=== PATIENT | female | born 1960 | race Caucasian/White ===

== ENCOUNTER → 2019-09-19 12:54 | Outpatient (CLI) | payer OTHER, SELFPAY ==
--- NOTE | 2019-09-19 12:57 | DI.RAD.S_ITS ---
PROCEDURE: XR ELBOW LT MIN 3V INDICATIONS: elbow pain TECHNIQUE: 3 views of the elbow were acquired. COMPARISON: None. FINDINGS: Bones: There is a moderately displaced intra-articular fracture present involving the olecranon process of the left elbow. There is separation of the fracture fragments back to 1.9 cm. No dislocation or additional fractures are identified. Postoperative changes of the mid ulnar shaft is present with an orthopedic plate secured in place by multiple screws. Deformity of the proximal radial shaft probably is related to a healed fracture. Soft tissues: There is a large elbow joint effusion. No suspicious soft tissue calcifications. Prominent soft tissue edema about the elbow is present. IMPRESSION: Moderately displaced intra-articular olecranon fracture. Dictated by: Sai Ramos M.D. on 09/19/2019 at 12:11 Approved by: Sai Ramos M.D. on 09/19/2019 at 12:13
== END ==
PROVIDERS: Visit Provider Physician Assistant
DX: M25.522 Pain in left elbow (principal); M25.422 Effusion, left elbow; S52.032A Displaced fracture of olecranon process with intraarticular extension of left ulna, initial encounter for closed fracture; X58.XXXA Exposure to other specified factors, initial encounter
CPT/HCPCS: 73080

== ENCOUNTER → 2022-03-26 10:05 | Outpatient (CLI) | payer OTHER, SELFPAY ==
--- NOTE | 2022-03-26 10:16 | DI.MRI.S_ITS ---
PROCEDURE: MRFOOT LT WO CON INDICATIONS: LEFT FOOT PAIN TECHNIQUE: Noncontrast sagittal T1 spin echo and T2 fast spin echo with fat saturation, long-axis T1 spin echo and T2 fast spin echo with fat saturation, short-axis T1 spin echo and T2 fast spin echo with fat saturation through the forefoot. COMPARISON: None. FINDINGS: Image quality: Excellent. Bones and joints: There is a small minimally displaced intra-articular fracture at the base of the 1st metatarsal extending into the tarsometatarsal joint with moderate osseous edema extending throughout the 1st metatarsal. A small nondisplaced and possibly incomplete fracture is seen at the distal plantar aspect of the 1st cuneiform near the Lisfranc ligament attachment. There is a minimally displaced comminuted fracture of the 2nd metatarsal base extending into the 2nd tarsometatarsal joint with surrounding osseous edema. The fracture includes the Lisfranc ligament attachment site. Mild focal osseous edema is also seen at the 2nd and 3rd metatarsal necks without a definite fracture line visualized, possibly related to osseous contusions, stress reaction, or total fractures. Nondisplaced fracture is seen in the 3rd cuneiform that likely extends to the 3rd tarsometatarsal joint. Mild osseous edema is seen at the base of the 3rd metatarsal with a suspected small minimally displaced fracture along the plantar aspect. There is a minimally displaced fracture of the 4th metatarsal base extending into the 4th tarsometatarsal joint. The 5th metatarsal is intact. There is osseous edema and a nondisplaced fracture of the distal aspect of the cuboid. Mild nonspecific osseous edema is seen within the included portion of the calcaneus. No acute trabecular bone injury is seen within the toes. Mild scattered degenerative changes are seen at the interphalangeal joints. The hallux sesamoids are normally aligned. Soft tissues: Portions of the Lisfranc ligament appear attenuated and may be partially torn. There is no significant widening of the 1st intermetatarsal distance. Soft tissue edema is seen throughout the midfoot. There is intramuscular edema adjacent to the osseous fractures. The visualized plantar foot muscles demonstrate normal bulk. Visualized flexor and extensor tendons appear intact. No intermetatarsal mass. Sagittal images demonstrate no evidence for plantar plate tears. IMPRESSION: 1. Multiple nondisplaced to minimally displaced fractures throughout the midfoot including at the bases of the 1st through 4th metatarsals as well as the 1st and 3rd cuneiforms and the cuboid. Osseous edema is extends throughout the 1st metatarsal shaft. No significant step-off is seen at the tarsometatarsal joints. 2. Osseous fractures are seen involving the attachment sites of the Lisfranc ligament. The ligament appears indistinct and may be partially torn. No significant widening of the 1st intermetatarsal distance. 3. Mild focal osseous edema at the 2nd and 3rd metatarsal necks, which may be related to osseous contusions versus subtle nondisplaced fractures or acute stress reaction. Dictated by: Kali Prieto M.D. on 03/28/2022 at 8:56 Approved by: Kali Prieto M.D. on 03/28/2022 at 9:11
== END ==
PROVIDERS: Referring Provider Counselor Mental Health; Visit Provider Counselor Mental Health
DX: S92.902A Unspecified fracture of left foot, initial encounter for closed fracture (principal)
CPT/HCPCS: 73718

== ENCOUNTER 2022-06-08 23:36 | Inpatient (IN) | payer OTHER, SELFPAY ==
--- NOTE | 2022-06-08 23:43 | DI.RAD.S_ITS ---
PROCEDURE: XR HIP W PEL IF DONE LT 2V INDICATIONS: fall TECHNIQUE: AP pelvis with lateral view(s) of the left hip(s). COMPARISON: None. FINDINGS: Bones: No dislocations. Pelvic ring appears intact. No suspicious bony lesions. There is a inter trochanteric mildly comminuted left hip fracture, and beneath this fracture at the inferior obturator ring on the left there is a 2nd area of fracture with mild comminution. Soft tissues: The visualized bowel gas pattern is normal. No suspicious soft tissue calcifications. IMPRESSION: Inter trochanteric left hip fracture, associated with a lateral inferior obturator ring fracture on the left. Dictated by: Farhan Singletary M.D. on 06/09/2022 at 0:17 Approved by: Farhan Singletary M.D. on 06/09/2022 at 0:19
--- NOTE | 2022-06-08 23:43 | DI.RAD.S_ITS ---
PROCEDURE: XR CHEST 1V INDICATIONS: fall TECHNIQUE: One view of the chest was acquired. COMPARISON: None. FINDINGS: Surgical changes and devices: None. Lungs and pleura: Lungs are clear. No pleural effusions or pneumothorax. Mediastinum: Mediastinal contours appear normal. Heart size is normal. Bones and chest wall: No suspicious bony lesions. Overlying soft tissues appear unremarkable. IMPRESSION: Relatively large lung volumes, COPD may be present. No trauma found. Dictated by: Farhan Singletary M.D. on 06/09/2022 at 0:17 Approved by: Farhan Singletary M.D. on 06/09/2022 at 0:17
[2022-06-08 23:56] VITALS: PULSE 67; RESP 19; O2SAT 96
[2022-06-09] VITALS (21 sets, daily range): BP systolic 102–157; BP diastolic 61–88; PULSE 65–88; RESP 11–27; TEMP 35.9–37.3; O2SAT 91–99; BMI 16.0
[2022-06-09 00:14] LABS: Alanine Aminotransferase 15 IU/L (<35); Albumin 2.9 g/dL (3.5-5.0); Albumin Globulin Ratio 0.9 (1.0-2.8); Alkaline Phosphatase 96 U/L (38-126); Aspartate Aminotransferase 29 IU/L (14-36); Bilirubin Total 0.4 mg/dL (0.2-1.3); Calcium 7.4 mg/dL (8.4-10.2); Carbon Dioxide 22 mmol/L (22-32); Chloride 92 mmol/L (98-107); Estimated Glomerular Filt Rate > 60 mL/min (>60); Globulin 3.1 g/dL (1.7-4.1); Glucose 96 mg/dL (80-110); Sodium 122 mmol/L (137-145)
[2022-06-09 00:16] LABS: Add Manual Diff / Slide Review YES; BUN Creatinine Ratio 6.3 (6-22); Blood Urea Nitrogen < 2 mg/dL (7-17); Hematocrit 34.9 % (36-46); Hemoglobin 11.9 g/dL (12.0-16.0); Mean Corpuscular HGB Conc 34.2 % (30-36); Mean Corpuscular Hemoglobin 35.1 PG (26-34); Mean Corpuscular Volume 102.6 fL (80-100); Platelet Count 306 X10^3/uL (150-400); Red Cell Distribution Width 13.1 % (11.6-14.8); White Blood Cell Count 11.8 X10^3/uL (4.5-11.0)
[2022-06-09 00:17] LABS: HEMOLYSIS 96 (0-50); Potassium 4.1 mmol/L (3.4-5.1)
--- NOTE | 2022-06-09 00:35 | ED.FALL ---
HPI - Fall General Chief Complaint: Fall Stated Complaint: GLF, left hip pain Time Seen by Provider: 06/08/22 23:36 Source: patient and EMS Mode of arrival: EMS History of Present Illness HPI Narrative: Patient is a 61-year-old female history of smoking, presents today after fall. She states that she has been using a walker for the past few weeks he she does have a known compression fracture from coughing. She is not sure how she fell tonight she thinks maybe she stumbled. She did not have a chest pain palpitations shortness of breath fever or chills. She did not hit her head or lose consciousness. She is not on any anti-platelet or anticoagulation medications. She is complaining of left hip pain. It is obviously shortened. She was unable to get up and required EMS assistance. Related Data Home Medications Medication Instructions Recorded Confirmed No Known Home Medications 09/19/19 09/19/19 Allergies Allergy/AdvReac Type Severity Reaction Status Date / Time morphine AdvReac Intermediate Hallucinati Verified 06/09/22 00:03 ng Penicillins [PENICILLINS] AdvReac Intermediate rash Verified 09/19/19 13:46 Review of Systems Review of Systems Narrative: GENERAL: Denies chills, fatigue, malaise, fever, sweats, travel HEENT: Denies sinus pain, ear pain, sore throat, difficulty swallowing, neck pain RESPIRATORY: Denies dyspnea, cough, wheezing, hemoptysis, sputum. CARDIOVASCULAR: Denies chest pain, palpitations, orthopnea, edema GASTROINTESTINAL: Denies nausea, vomiting, abdominal pain, diarrhea, constipation, melena. : Denies dysuria, frequency, incontinence, hematuria, urinary retention, flank pain. MUSCULOSKELETAL: See HPI SKIN: No rash, no erythema, no pruritus NEUROLOGIC: Denies weakness, dizziness, headache, numbness, change in speech, confusion PSYCHIATRIC: No concerning psychosocial issues. 12 point review of systems is negative except for those stated above and HPI Patient History Surgical History Status post appendectomy Status post breast lumpectomy Status post hysterectomy Social History Smoking Status: Current every day smoker Smoking Status: Current every day smoker alcohol intake frequency: 3 or more drinks per day Alcohol type: wine Substance Use Type: does not use Exam Initial Vital Signs Initial Vital Signs: Vital Signs Pulse Rate 67 06/08/22 23:56 Respiratory Rate 19 06/08/22 23:56 Pulse Oximetry 96 06/08/22 23:56 GENERAL: HEENT: Head atraumatic,EOMI, pupils reactive, face symmetric, [moist] mucous membranes [EARS:] [Tympanic membranes visualized, no erythema or bulging, no hemotympanum] [PHARYNX:] [No erythema, no tonsillar exudate, no cervical lymphadenopathy] CARDIOVASCULAR: Regular rate and rhythm without murmurs, rubs or gallops. RESPIRATORY: Breath sounds equal bilaterally, no wheezes rales or rhonchi. ABDOMEN: Soft, nontender. Normoactive bowel sounds all 4 quadrants. No guarding or rebound. EXTREMITIES: Normal range of motion, no clubbing or edema. Neurovascularly intact Left hip is tender left leg is shortened NEUROLOGICAL: Alert and oriented x4 SKIN: Warm, dry, no laceration, no petechiae, no rashes or lesions. Course Orders Ordered: ED Orders 06/08/22 23:43 XR chest 1V Stat XR hip w pel if done LT 2V Stat 06/08/22 23:50 CBC Auto Diff [Complete Blood Count AUTO DIFF] Stat CMP [Comprehensive Metabolic Panel] Stat 06/09/22 00:15 COVID19 -Nasal RAPID/Pre-Proc Stat 06/09/22 00:40 Consult to Orthopedic Surgery Stat 06/09/22 00:54 ETOH [Ethanol (ETOH)] Stat Discontinued Medications Hydromorphone HCl (Hydromorphone 0.5 Mg Inj) 0.5 mg IV NOW ONE Stop: 06/09/22 00:31 Last Admin: 06/09/22 00:51 Dose: 0.5 mg Documented By: MLDea Morphine Sulfate (Morphine 2 Mg/Ml Inj) 2 mg IV NOW ONE Stop: 06/08/22 23:46 Last Admin: 06/09/22 00:05 Dose: Not Given Documented By: AMU Vital Signs Vital signs: Vital Signs - 8 hr 06/09/22 00:03 06/08/22 23:56 06/09/22 00:00 Temperature 97.7 F Pulse Rate 67 67 Respiratory Rate 16 19 Blood Pressure 115/74 112/68 Pulse Oximetry 97 96 Oxygen Delivery Method Room Air Oxygen Flow Rate 06/09/22 00:00 06/09/22 00:30 06/09/22 00:30 Temperature Pulse Rate 68 67 Respiratory Rate 18 18 Blood Pressure 102/61 Pulse Oximetry 91 Oxygen Delivery Method Nasal Cannula Oxygen Flow Rate 1 06/09/22 01:00 06/09/22 01:00 Temperature Pulse Rate 73 Respiratory Rate 24 Blood Pressure 109/74 Pulse Oximetry 98 Oxygen Delivery Method Oxygen Flow Rate MDM - Fall Lab Data Result diagrams: 06/08/22 23:50 06/08/22 23:50 Labs: Lab Results 06/08/22 06/08/22 06/08/22 Range/Units 23:50 23:50 23:50 WBC 11.8 H (4.5-11.0) X10^3/uL RBC 3.40 L (4.0-5.2) X10^6/uL Hgb 11.9 L (12.0-16.0) g/dL Hct 34.9 L (36-46) % MCV 102.6 H (80-100) fL MCH 35.1 H (26-34) PG MCHC 34.2 (30-36) % RDW 13.1 (11.6-14.8) % Plt Count 306 (150-400) X10^3/uL Neut % (Auto) Not Reportable Lymph % (Auto) Not Reportable [place] % (Auto) Not Reportable Eos % (Auto) Not Reportable Baso % (Auto) Not Reportable Lymph # (Auto) Not Reportable [place] # (Auto) Not Reportable Baso # (Auto) Not Reportable Sodium 122 L (137-145) mmol/L Potassium 4.1 (3.4-5.1) mmol/L Chloride 92 L (98-107) mmol/L Carbon Dioxide 22 (22-32) mmol/L BUN < 2 L (7-17) mg/dL Creatinine 0.32 L (0.52-1.04) mg/dL Estimated GFR > 60 (>60) mL/min BUN/Creatinine Ratio 6.3 (6-22) Glucose 96 (80-110) mg/dL Calcium 7.4 L (8.4-10.2) mg/dL Total Bilirubin 0.4 (0.2-1.3) mg/dL AST 29 (14-36) IU/L ALT 15 (<35) IU/L Alkaline Phosphatase 96 (38-126) U/L Total Protein 6.0 L (6.3-8.2) g/dL Albumin 2.9 L (3.5-5.0) g/dL Globulin 3.1 (1.7-4.1) g/dL Albumin/Globulin Ratio 0.9 L (1.0-2.8) Ethyl Alcohol 180 H ( - 10) mg/dL SARS-CoV-2 (PCR) (Negative) 06/09/22 Range/Units 00:15 WBC (4.5-11.0) X10^3/uL RBC (4.0-5.2) X10^6/uL Hgb (12.0-16.0) g/dL Hct (36-46) % MCV (80-100) fL MCH (26-34) PG MCHC (30-36) % RDW (11.6-14.8) % Plt Count (150-400) X10^3/uL Neut % (Auto) Lymph % (Auto) [place] % (Auto) Eos % (Auto) Baso % (Auto) Lymph # (Auto) [place] # (Auto) Baso # (Auto) Sodium (137-145) mmol/L Potassium (3.4-5.1) mmol/L Chloride (98-107) mmol/L Carbon Dioxide (22-32) mmol/L BUN (7-17) mg/dL Creatinine (0.52-1.04) mg/dL Estimated GFR (>60) mL/min BUN/Creatinine Ratio (6-22) Glucose (80-110) mg/dL Calcium (8.4-10.2) mg/dL Total Bilirubin (0.2-1.3) mg/dL AST (14-36) IU/L ALT (<35) IU/L Alkaline Phosphatase (38-126) U/L Total Protein (6.3-8.2) g/dL Albumin (3.5-5.0) g/dL Globulin (1.7-4.1) g/dL Albumin/Globulin Ratio (1.0-2.8) Ethyl Alcohol ( - 10) mg/dL SARS-CoV-2 (PCR) Negative (Negative) Urine Dip Bedside Urine Glucose Negative Bedside Urine Bilirubin - Negative Bedside Urine Ketone - Negative Urine Specific [place] 1.010 Bedside Urine Occult Blood - Negative Bedside Urine pH 6 Bedside Urine Protein - Negative Bedside Urine Urobilinogen - Negative Bedside Urine Nitrite - Negative Bedside Urine Leukocytes - Negative Esterase Imaging Data Chest x-ray: Radiologist's Impression: XRay Report Signed Patient: Fadia Ceballos MR#: [id number] : 1960 Acct:[id number] Age/Sex: 61 / F Date of Service: 06/08/22 Loc: ED Accession Number: [id number] ?? Procedure: XR chest 1V Ordering Provider: Leena Patiño D.O. PROCEDURE:? XR CHEST 1V ? INDICATIONS:? fall ? TECHNIQUE:? One view of the chest was acquired.? ? COMPARISON:? None. ? FINDINGS:? ? Surgical changes and devices:? None.? ? Lungs and pleura:? Lungs are clear.? No pleural effusions or pneumothorax.? ? Mediastinum:? Mediastinal contours appear normal.? Heart size is normal.? ? Bones and chest wall:? No suspicious bony lesions.? Overlying soft tissues appear unremarkable.? ? IMPRESSION:? Relatively large lung volumes, COPD may be present.? No trauma found. ? ? Dictated by: Farhan Singletary M.D. on 06/09/2022 at 0:17 ? ? Extremity x-ray #1: Radiologist's Impression: XRay Report Signed Patient: Fadia Ceballos MR#: [id number] : 1960 Acct:[id number] Age/Sex: 61 / F Date of Service: 06/08/22 Loc: ED Accession Number: [id number] ?? Procedure: XR hip w pel if done LT 2V Ordering Provider: Leena Patiño D.O. PROCEDURE:? XR HIP W PEL IF DONE LT 2V ? INDICATIONS:? fall ? TECHNIQUE:? AP pelvis with lateral view(s) of the left hip(s).? ? COMPARISON:? None. ? FINDINGS:? ? Bones:? No dislocations.? Pelvic ring appears intact.? No suspicious bony lesions.? There is a inter trochanteric mildly comminuted left hip fracture, and beneath this fracture at the inferior obturator ring on the left there is a 2nd area of fracture with mild comminution. ? Soft tissues:? The visualized bowel gas pattern is normal.? No suspicious soft tissue calcifications.? ? ? IMPRESSION:? Inter trochanteric left hip fracture, associated with a lateral inferior obturator ring fracture on the left. ? Dictated by: Farhan Singletary M.D. on 06/09/2022 at 0:17 ? ? ECG Data Interpretation: Normal sinus rhythm rate 66 [place] interval 152 QRS [address] changes no T-wave inversion MDM Narrative Medical decision making narrative: Patient likely had a mechanical fall. She is found have an intertrochanteric fracture along with obturator ring fracture. Distal pedal pulse is intact. His patient is also intoxicated with alcohol level of 180 which may have contributed to her fall. No sign of head injury and no anticoagulation. Multiple reports a that she did not hit her head this time no need for CT head. Patient also of found to be hyponatremic with a sodium of 122 unclear if this acute or chronic and its cause, possible alcohol use or other. Patient has tolerated Dilaudid for pain. Next consult in updated. Dr. Palmer accepts patient Discharge Plan Departure Patient Disposition: Admitted As Inpatient Clinical Impression: Closed fracture of left hip, Hyponatremia Admit Date/Time: 06/09/22 02:20 Admit Provider: Rell Palmer
[2022-06-09 00:46] LABS: COVID19 -Nasal RAPID Negative (Negative)
[2022-06-09] MEDS: HYDROMORPHONE 0.5 MG INJ IV ×3 (00:51→21:16)
[2022-06-09 01:20] LABS: Ethanol (ETOH) 180 mg/dL
[2022-06-09] MEDS: OXYCODONE IR 5 MG TABLET PO ×4 (04:10→23:51)
[2022-06-09] MEDS: SODIUM CHLORIDE 0.9% 1,000 ML 100 ML IV ×2 (04:10→13:16)
[2022-06-09 04:15] LABS: Neutrophils Absolute Manual 8142 /uL (3000-5900); Total Cells Counted 100
[2022-06-09 04:16] LABS: RBC Morphology Normal Morphology
--- NOTE | 2022-06-09 05:42 | PM.HP.1 ---
History of Present Illness History of Present Illness Date Patient Seen: 06/09/22 Time Patient Seen: 05:00 Chief complaint: GLF, left hip pain Narrative: Ms. Ceballos is a 61W active smoker, no known PMH who presents after a fall. She states she has had back pain after getting a compression fracture from coughing a few weeks ago. She was using a walker at home. She fell to the ground today, she is not sure why, she thinks she tripped. She did not hit her head. She did fall on her left hip and could not ambulate after. She has had a poor appetite recently, and has chronic diarrhea. In the ED workup was done, vitals notable for afebrile, blood pressure 110s/70s. Labs notable for WBC 11.8, hgb 11.9, plts 306. Na 122, creatinine 0.32. EtOH 180. UA negative. Chest xray with large lung volumes. Hip xray with left intertrochanteric fracture and lateral obturator ring fracture. PMH: none Medications: ibuprofen PRN Social history: 1.5 ppd, EtOH variable, but sometimes significant, per patient no history of withdrawal Patient History Surgical History Status post appendectomy Status post breast lumpectomy Status post hysterectomy Family & Social History Safety & Behavioral: Feels Safe in Current Yes Environment Tobacco & Substance use: Smoking Status Current every day smoker alcohol intake frequency 3 or more drinks per day Substance Use Type does not use Meds Home Medications and Allergies Home Medications Medication Instructions Recorded Confirmed Type No Known Home Medications 09/19/19 09/19/19 History Allergies Allergy/AdvReac Type Severity Reaction Status Date / Time morphine AdvReac Intermediate Hallucinati Verified 06/09/22 00:03 ng Penicillins [PENICILLINS] AdvReac Intermediate rash Verified 09/19/19 13:46 Review of Systems Review of Systems Narrative: 14 systems reviewed and negative aside from what is noted in HPI Exam Vital Signs (past 8 hours): - 06/09/22 00:03 06/08/22 23:56 06/09/22 00:00 Temperature 97.7 F Pulse Rate 67 67 Respiratory Rate 16 19 Blood Pressure 115/74 112/68 Pulse Oximetry 97 96 Oxygen Delivery Method Room Air Oxygen Flow Rate 06/09/22 00:00 06/09/22 00:30 06/09/22 00:30 Temperature Pulse Rate 68 67 Respiratory Rate 18 18 Blood Pressure 102/61 Pulse Oximetry 91 Oxygen Delivery Method Nasal Cannula Oxygen Flow Rate 1 06/09/22 01:00 06/09/22 01:00 06/09/22 01:30 Temperature Pulse Rate 73 Respiratory Rate 24 Blood Pressure 109/74 111/66 Pulse Oximetry 98 Oxygen Delivery Method Oxygen Flow Rate 06/09/22 01:30 06/09/22 02:00 06/09/22 02:00 Temperature Pulse Rate 65 67 Respiratory Rate 11 L 12 Blood Pressure 105/66 Pulse Oximetry 96 96 Oxygen Delivery Method Oxygen Flow Rate 06/09/22 02:30 06/09/22 02:30 06/09/22 03:15 Temperature 97.2 F L Pulse Rate 68 68 Respiratory Rate 27 H 15 Blood Pressure 113/64 133/80 Pulse Oximetry 96 98 Oxygen Delivery Method Oxygen Flow Rate 0 06/09/22 02:51 Temperature Pulse Rate Respiratory Rate Blood Pressure Pulse Oximetry Oxygen Delivery Method Nasal Cannula Oxygen Flow Rate Oxygen Delivery Method Nasal Cannula Oxygen Flow Rate 0 Narrative Exam Narrative: GEN: no acute distress HEENT: moist mucous membranes, PERRL NECK: trachea midline, no JVD PULM: clear bilaterally, no wheezes, rhonchi, rales CV: regular rate and rhythm, no murmurs ABD: soft, nontender, nondistended, no organomegaly EXT: warm and well perfused, left hip tender NEURO: awake, alert, oriented, no focal deficits Objective Labs Result Diagrams: 06/08/22 23:50 06/08/22 23:50 Labs: Laboratory Results - last 24 hr 06/08/22 06/08/22 06/08/22 23:50 23:50 23:50 WBC 11.8 H RBC 3.40 L Hgb 11.9 L Hct 34.9 L MCV 102.6 H MCH 35.1 H MCHC 34.2 RDW 13.1 Plt Count 306 Neut % (Auto) Not Reportable Lymph % (Auto) Not Reportable [place] % (Auto) Not Reportable Eos % (Auto) Not Reportable Baso % (Auto) Not Reportable Lymph # (Auto) Not Reportable [place] # (Auto) Not Reportable Baso # (Auto) Not Reportable Total Counted 100 Seg Neutrophils % 68.0 Band Neutrophils % 1.0 L Lymphocytes % (Manual) 21.0 L Monocytes % (Manual) 9.0 Metamyelocytes % 1.0 H Neutrophils # (Manual) 8142 H RBC Morphology Normal morphology Sodium 122 L Potassium 4.1 Chloride 92 L Carbon Dioxide 22 BUN < 2 L Creatinine 0.32 L Estimated GFR > 60 BUN/Creatinine Ratio 6.3 Glucose 96 Calcium 7.4 L Total Bilirubin 0.4 AST 29 ALT 15 Alkaline Phosphatase 96 Total Protein 6.0 L Albumin 2.9 L Globulin 3.1 Albumin/Globulin Ratio 0.9 L Ethyl Alcohol 180 H SARS-CoV-2 (PCR) 06/09/22 00:15 WBC RBC Hgb Hct MCV MCH MCHC RDW Plt Count Neut % (Auto) Lymph % (Auto) [place] % (Auto) Eos % (Auto) Baso % (Auto) Lymph # (Auto) [place] # (Auto) Baso # (Auto) Total Counted Seg Neutrophils % Band Neutrophils % Lymphocytes % (Manual) Monocytes % (Manual) Metamyelocytes % Neutrophils # (Manual) RBC Morphology Sodium Potassium Chloride Carbon Dioxide BUN Creatinine Estimated GFR BUN/Creatinine Ratio Glucose Calcium Total Bilirubin AST ALT Alkaline Phosphatase Total Protein Albumin Globulin Albumin/Globulin Ratio Ethyl Alcohol SARS-CoV-2 (PCR) Negative Assessment & Plan Assessment & Plan narrative: 1. Acute left hip fracture secondary to fall -possibly secondary to intoxication -pelvic fracture also noted on xray -orthopedic surgery consulted -keep patient npo -pain medications ordered 2. Hyponatremia -unclear chronicity -recheck sodium with morning labs -suspect secondary to hypovolemia and possible beer potomania given poor oral intake and chronic diarrhea -gentle IVF -ordered for urine osms 3. Macrocytic anemia -suspect secondary to alcohol abuse -follow up as outpatient 4. Active smoker -encouraged cessation -patient declined nicotine patch 5. Alcohol intoxication -patient denies any history of withdrawal -for now ordered for CIWA protocol -wasn't forthcoming how much she drinks, concerning may be significant amount -ordered mvi, thiamine, folate 6. Cachexia, malnutrition -patient with poor appetite, BMI 16 -possibly alcohol contributing -dietary consult CODE: Full Proxy: Duncan Torotaylor, spouse I have utilized all available resources to reconcile the patient's home medications Time Spent With Patient Critical Care time: I spent a total of [] minutes of critical care time on this patient's care today; this time is exclusive of procedural time.
--- NOTE | 2022-06-09 05:49 | PC.NURSE ---
Pt is AxOx4, needs bedrest due to pain on L hip. VSS, c/o pain and recieved PRN Oxy PO 5mg with good effect. Pt is NPO since admitted. Goncalves is draining yellow urine. Pt has NS is running 100 ml/hr. Continue monitor.
[2022-06-09 07:05] LABS: Add Manual Diff / Slide Review NO; Basophils Absolute Auto 0 /uL (0-100); Basophils Percent Auto 0.5 % (0-2); Eosinophils Absolute Auto 0 /uL (0-450); Eosinophils Percent Auto 0.4 % (2-4); Hematocrit 35.8 % (36-46); Hemoglobin 12.4 g/dL (12.0-16.0); Lymphocytes Absolute Auto 1300 /uL (1100-4500); Lymphocytes Percent Auto 14.5 % (25-40); Mean Corpuscular HGB Conc 34.6 % (30-36); Mean Corpuscular Hemoglobin 35.9 PG (26-34); Mean Corpuscular Volume 103.8 fL (80-100); Monocytes Absolute Auto 1000 /uL (0-900); Monocytes Percent Auto 11.3 % (3-14); Neutrophils Absolute Auto 6600 /uL (1500-7000); Neutrophils Percent Auto 73.3 % (50-75); Platelet Count 297 X10^3/uL (150-400); Red Blood Cell Count 3.45 X10^6/uL (4.0-5.2); Red Cell Distribution Width 12.9 % (11.6-14.8)
[2022-06-09 07:11] LABS: Calcium 8.1 mg/dL (8.4-10.2); Carbon Dioxide 27 mmol/L (22-32); Chloride 94 mmol/L (98-107); Estimated Glomerular Filt Rate > 60 mL/min (>60); Glucose 75 mg/dL (80-110); HEMOLYSIS 45 (0-50); Sodium 127 mmol/L (137-145)
[2022-06-09 07:13] LABS: BUN Creatinine Ratio 5.4 (6-22); Blood Urea Nitrogen < 2 mg/dL (7-17)
--- NOTE | 2022-06-09 08:47 | P.PN_ITS ---
Exam Vital Signs (past 8 hours): - 06/09/22 01:00 06/09/22 01:00 06/09/22 01:30 Temperature Pulse Rate 73 Respiratory Rate 24 Blood Pressure 109/74 111/66 Pulse Oximetry 98 Oxygen Delivery Method Oxygen Flow Rate 06/09/22 01:30 06/09/22 02:00 06/09/22 02:00 Temperature Pulse Rate 65 67 Respiratory Rate 11 L 12 Blood Pressure 105/66 Pulse Oximetry 96 96 Oxygen Delivery Method Oxygen Flow Rate 06/09/22 02:30 06/09/22 02:30 06/09/22 03:15 Temperature 97.2 F L Pulse Rate 68 68 Respiratory Rate 27 H 15 Blood Pressure 113/64 133/80 Pulse Oximetry 96 98 Oxygen Delivery Method Oxygen Flow Rate 0 06/09/22 02:51 Temperature Pulse Rate Respiratory Rate Blood Pressure Pulse Oximetry Oxygen Delivery Method Nasal Cannula Oxygen Flow Rate Oxygen Delivery Method Nasal Cannula Oxygen Flow Rate 0 Narrative Exam Narrative: GEN: no acute distress HEENT: moist mucous membranes, PERRL NECK: trachea midline, no JVD PULM: clear bilaterally, no wheezes, rhonchi, rales CV: regular rate and rhythm, no murmurs ABD: soft, nontender, nondistended, no organomegaly EXT: warm and well perfused, left hip tender NEURO: awake, alert, oriented, no focal deficits Objective Labs Result Diagrams: 06/09/22 06:35 06/09/22 06:35 Labs: Laboratory Results - last 24 hr 06/08/22 06/08/22 06/08/22 23:50 23:50 23:50 WBC 11.8 H RBC 3.40 L Hgb 11.9 L Hct 34.9 L MCV 102.6 H MCH 35.1 H MCHC 34.2 RDW 13.1 Plt Count 306 Neut % (Auto) Not Reportable Lymph % (Auto) Not Reportable [place] % (Auto) Not Reportable Eos % (Auto) Not Reportable Baso % (Auto) Not Reportable Neut # (Auto) Lymph # (Auto) Not Reportable [place] # (Auto) Not Reportable Eos # (Auto) Baso # (Auto) Not Reportable Total Counted 100 Seg Neutrophils % 68.0 Band Neutrophils % 1.0 L Lymphocytes % (Manual) 21.0 L Monocytes % (Manual) 9.0 Metamyelocytes % 1.0 H Neutrophils # (Manual) 8142 H RBC Morphology Normal morphology Sodium 122 L Potassium 4.1 Chloride 92 L Carbon Dioxide 22 BUN < 2 L Creatinine 0.32 L Estimated GFR > 60 BUN/Creatinine Ratio 6.3 Glucose 96 Calcium 7.4 L Total Bilirubin 0.4 AST 29 ALT 15 Alkaline Phosphatase 96 Total Protein 6.0 L Albumin 2.9 L Globulin 3.1 Albumin/Globulin Ratio 0.9 L Ethyl Alcohol 180 H SARS-CoV-2 (PCR) 06/09/22 06/09/22 06/09/22 00:15 06:35 06:35 WBC 9.0 RBC 3.45 L Hgb 12.4 Hct 35.8 L MCV 103.8 H MCH 35.9 H MCHC 34.6 RDW 12.9 Plt Count 297 Neut % (Auto) 73.3 Lymph % (Auto) 14.5 L Hopkins % (Auto) 11.3 Eos % (Auto) 0.4 L Baso % (Auto) 0.5 Neut # (Auto) 6600 Lymph # (Auto) 1300 [place] # (Auto) 1000 H Eos # (Auto) 0 Baso # (Auto) 0 Total Counted Seg Neutrophils % Band Neutrophils % Lymphocytes % (Manual) Monocytes % (Manual) Metamyelocytes % Neutrophils # (Manual) RBC Morphology Sodium 127 L Potassium 5.0 Chloride 94 L Carbon Dioxide 27 BUN < 2 L Creatinine 0.37 L Estimated GFR > 60 BUN/Creatinine Ratio 5.4 L Glucose 75 L Calcium 8.1 L Total Bilirubin AST ALT Alkaline Phosphatase Total Protein Albumin Globulin Albumin/Globulin Ratio Ethyl Alcohol SARS-CoV-2 (PCR) Negative [facility] Surgical History Status post appendectomy Status post breast lumpectomy Status post hysterectomy Social History Smoking Status: Current every day smoker Assessment & Plan Assessment & Plan narrative: 1. Acute left hip fracture secondary to fall -possibly secondary to intoxication -pelvic fracture also noted on xray -orthopedic surgery consulted -keep patient npo -pain medications ordered 2. Hyponatremia -unclear chronicity -recheck sodium with morning labs -suspect secondary to hypovolemia and possible beer potomania given poor oral intake and chronic diarrhea -gentle IVF -ordered for urine osms 3. Macrocytic anemia -suspect secondary to alcohol abuse -follow up as outpatient 4. Active smoker -encouraged cessation -patient declined nicotine patch 5. Alcohol intoxication -patient denies any history of withdrawal -for now ordered for CIWA protocol -wasn't forthcoming how much she drinks, concerning may be significant amount -ordered mvi, thiamine, folate 6. Cachexia, malnutrition -patient with poor appetite, BMI 16 -possibly alcohol contributing -dietary consult CODE: Full Proxy: Duncan Ceballos, spouse I have utilized all available resources to reconcile the patient's home medications Time Spent With Patient Critical Care time: I spent a total of [] minutes of critical care time on this patient's care today; this time is exclusive of procedural time.
[2022-06-09] MEDS: ONDANSETRON 4 MG/2 ML INJ IV ×2 (10:42→17:29)
--- NOTE | 2022-06-09 13:14 | CM.DANOTE ---
Initial DCP Assessment Note Pt is a 61 yo female, resident of [place], arrives after a GLF and subsequent hip fx; patient scheduled for hip repair this afternoon Patient with recent hx of compression fx and known heavy ETOH use PCP: Salvador Carranza Payer: [employer] Reviewed chart and discussed patient w/LEONEL Celis this afternoon; patient's son has called from [place], he will not be traveling to visit currently. Son explains that both patient and spouse are heavy drinkers and spouse currently being taken via EMS to [facility] in [place]; outcome unknown at this time Patient may need to discharge to SNF for care and rehab, will need to discuss dispo options w/patient pot operatively and post therapy evals and recommendations Following closely for coordination of the safest DCP available to patient at this time MARY JANE Eaton Discharge Planning/Care Management CM Discharge Assessment Start: 06/09/22 12:36 Freq: Status: Active Protocol: Document 06/09/22 12:36 KENZIE (Rec: 06/09/22 13:14 KENZIE [id number]) Discharge Planning Assessment Assigned Youth Career Specialist MARY JANE Mendez DPOA/Assigned Designee Name Duncan Ceballos, spouse Contact Information [phone] Advance Directives? No History Provided By Patient,Family Member Prior Living Arrangements House Household Members spouse Independent with ADL's Yes Is patient alert and oriented? Yes Needs Assistance With Home Chores / Shopping Comment Uses a walker at baseline per notes Patient/Family Preference Home with Home Health Comment skilled rehab before return home vs home w/ service. Patient has [employer] insurance Barriers to Discharge Yes Comment Spouse is a heavy drinker also , according to RN's discussion w/son (son lives in [facility]). Spouse currently at [facility] in [place], unsure if he will be admitted Discharge Plan Home with Home Health Transportation Arrangement TBD Additional Comment Awaiting surgery today and therapy evals post operatively
--- NOTE | 2022-06-09 14:20 | PC.NURSE ---
Pt to OR via bed with OR personnel.
--- NOTE | 2022-06-09 14:35 | P.HP_ITS ---
History of Present Illness History of Present Illness Date Patient Seen: 06/09/22 Time Patient Seen: 14:35 Chief complaint: GLF, left hip pain Narrative: Fadia is a 61-year-old female with past medical history of alcohol and tobacco use who presents after sustaining a ground level fall. She does have a past medical history of a compression fracture. She presented to the ED last night with a high alcohol content. She is sober alert and oriented now. Currently describing pain in her left hip. Unable to bear weight. Denies any distal numbness or tingling. No other complaints at this time. Patient History Surgical History Status post appendectomy Status post breast lumpectomy Status post hysterectomy Family & Social History Social History: household members spouse Prior Living Arrangements House Safety & Behavioral: Feels Safe in Current Yes Environment Been Physically Hurt or No Threatened By a Person Tobacco & Substance use: Tobacco type cigarettes Smoking Status Current every day smoker Smoking packs per day 1.5 alcohol intake current alcohol intake frequency 3 or more drinks per day Substance Use Type does not use Meds Home Medications and Allergies Home Medications Medication Instructions Recorded Confirmed Type No Known Home Medications 09/19/19 06/09/22 History Allergies Allergy/AdvReac Type Severity Reaction Status Date / Time morphine AdvReac Intermediate Hallucinati Verified 06/09/22 14:30 ng Penicillins [PENICILLINS] AdvReac Intermediate rash Verified 06/09/22 14:30 Review of Systems Review of Systems ROS: Yes All systems reviewed with the patient and are negative except as otherwise documented Exam Vital Signs (past 8 hours): - 06/09/22 07:25 06/09/22 10:00 06/09/22 12:00 Temperature 97.2 F L 96.7 F L Pulse Rate 82 82 Respiratory Rate 16 18 Blood Pressure 142/76 H 129/80 Pulse Oximetry 93 93 92 Oxygen Delivery Method Room Air Oxygen Flow Rate 0 0 0 06/09/22 14:32 Temperature 99.2 F Pulse Rate 86 Respiratory Rate 12 Blood Pressure 140/79 Pulse Oximetry 92 Oxygen Delivery Method Room Air Oxygen Flow Rate Oxygen Delivery Method Room Air Oxygen Flow Rate 0 Narrative Exam Narrative: HEENT head atraumatic, eyes anicteric Respiratory: Breathing comfortably on room air Cardiovascular: Extremities warm well perfused Neurologic: No acute deficits Psychiatric: Currently anxious about her 's condition, with recently diagnosed with stage IV cancer Musculoskeletal: Exam of the left lower extremity demonstrates held at slight external rotation. I did not range the extremity due to known injury. Pain to palpation proximally. Distally she is able to wiggle her toes. Sensation intact to light touch in sural, saphenous, superficial peroneal, deep peroneal and tibial nerve distributions. 2+ dorsalis pedis pulse brisk capillary refill less than 2 seconds. Objective Labs Result Diagrams: 06/09/22 06:35 06/09/22 06:35 Labs: Laboratory Results - last 24 hr 06/08/22 06/08/22 06/08/22 23:50 23:50 23:50 WBC 11.8 H RBC 3.40 L Hgb 11.9 L Hct 34.9 L MCV 102.6 H MCH 35.1 H MCHC 34.2 RDW 13.1 Plt Count 306 Neut % (Auto) Not Reportable Lymph % (Auto) Not Reportable [place] % (Auto) Not Reportable Eos % (Auto) Not Reportable Baso % (Auto) Not Reportable Neut # (Auto) Lymph # (Auto) Not Reportable [place] # (Auto) Not Reportable Eos # (Auto) Baso # (Auto) Not Reportable Total Counted 100 Seg Neutrophils % 68.0 Band Neutrophils % 1.0 L Lymphocytes % (Manual) 21.0 L Monocytes % (Manual) 9.0 Metamyelocytes % 1.0 H Neutrophils # (Manual) 8142 H RBC Morphology Normal morphology Sodium 122 L Potassium 4.1 Chloride 92 L Carbon Dioxide 22 BUN < 2 L Creatinine 0.32 L Estimated GFR > 60 BUN/Creatinine Ratio 6.3 Glucose 96 Calcium 7.4 L Total Bilirubin 0.4 AST 29 ALT 15 Alkaline Phosphatase 96 Total Protein 6.0 L Albumin 2.9 L Globulin 3.1 Albumin/Globulin Ratio 0.9 L Ethyl Alcohol 180 H SARS-CoV-2 (PCR) 06/09/22 06/09/22 06/09/22 00:15 06:35 06:35 WBC 9.0 RBC 3.45 L Hgb 12.4 Hct 35.8 L MCV 103.8 H MCH 35.9 H MCHC 34.6 RDW 12.9 Plt Count 297 Neut % (Auto) 73.3 Lymph % (Auto) 14.5 L [place] % (Auto) 11.3 Eos % (Auto) 0.4 L Baso % (Auto) 0.5 Neut # (Auto) 6600 Lymph # (Auto) 1300 [place] # (Auto) 1000 H Eos # (Auto) 0 Baso # (Auto) 0 Total Counted Seg Neutrophils % Band Neutrophils % Lymphocytes % (Manual) Monocytes % (Manual) Metamyelocytes % Neutrophils # (Manual) RBC Morphology Sodium 127 L Potassium 5.0 Chloride 94 L Carbon Dioxide 27 BUN < 2 L Creatinine 0.37 L Estimated GFR > 60 BUN/Creatinine Ratio 5.4 L Glucose 75 L Calcium 8.1 L Total Bilirubin AST ALT Alkaline Phosphatase Total Protein Albumin Globulin Albumin/Globulin Ratio Ethyl Alcohol SARS-CoV-2 (PCR) Negative Assessment & Plan Assessment & Plan narrative: Assessment: Left intertrochanteric femur fracture with osteoporosis which is fairly severe Plan: We discussed operative treatment of her left intertrochanteric femur fracture with a cephalomedullary nail. The risks and benefits of the procedure were again discussed with her including the risk of bleeding, damage to internal structures, infection and failure of the implant and necessity of reoperation. No guarantees were made regarding outcomes. She expressed understanding and wished to go forth with the procedure. Time Spent With Patient Critical Care time: I spent a total of [] minutes of critical care time on this patient's care today; this time is exclusive of procedural time. Quality VTE Deep Vein Thrombosis/Pulmonary Embolism Present on Admission: No
[2022-06-09] MEDS: LACTATED RINGERS 1,000 ML 84 ML IV (14:39)
--- NOTE | 2022-06-09 14:40 | DIET.CONS ---
Dietary Consultation Note Admission Date: 06/09/2022 02:20 Assessment: 61 y/o F admitted after a ground level fall and sustained an acute left hip fracture. Fadia reports chronic low BMI over the last 7 years, which she attribute to chronic diarrhea after a bout with c. diff. Per nursing, it is possible that she has not fully been treated fo c. diff in the past. Plans to discuss testing for c. diff with hospitalist per RN. Per diet recall pt reports 2-5 servings of wine per night with her . Likely contributing to malnutritioned state and macrocytic anemia. Endorses low appetite over the last 3-4 weeks with stress: 's health, their business, and her back pain. Diet recall indicates 2-3 eating occurrences per day. Likely inadequate PO. Diet recall: 1130a: fast food burger and fries or leftovers snack: nothing or 1-2 cookies or 3oz bag of chips 6-7p: half frozen meal bowl Reports UBW: 56.8kg 7 years ago. More recently UBW: 43-45kg BMI low <18 NFPE: severe scooped temporal area, protruding clavicle and acomion process, hallowing orbital area, and severely depressed interosseous muscle. Not open to ONS but willing to try shake. Ht: 165.1 cm Wt: 43.545 kg BMI: 16.0 Last BM: 06/09/22 (06/09/22 10:46) MNA: 11 Guevara Score: 16 Diet: 06/09/22 03:25 NPO Diet Diet Modifications: NPO Type: NPO except for Meds Labs: RBC 3.45 X10^6/uL (4.0-5.2) L 06/09/22 06:35 Hgb 12.4 g/dL (12.0-16.0) 06/09/22 06:35 Hct 35.8 % (36-46) L 06/09/22 06:35 Creatinine 0.37 mg/dL (0.52-1.04) L 06/09/22 06:35 Nutrition Diagnosis: Severe chronic protein calorie malnutrition r/t excessive ETOH intake, inadequate PO, stage of change and reported stress aeb macrocytic anemia, diet recall indicating poor PO, nutrition focused physical exam indicating muscle and fat losses, low BMI of 16 and reported chronic diarrhea Interventions: 1. Discussed impact of ETOH intake on nutritional state 2. Discussed with kitchen protein shake trial after NPO status EER: [id number] kcals (38kcal/kg per BMI) 78g PRO (1.8g/kg PRO per malnutrition) Monitoring/Evaluations: PO after NPO status, weights, pro shake tolerance Electronically Signed by: Ban Gregory 06/09/22 14:40 Clinical Dietitian [address] [address]
[2022-06-09] MEDS: ACETAMINOPHEN 325 MG TABLET 650 MG PO ×2 (14:48→17:29)
--- NOTE | 2022-06-09 14:54 | PM.OP.1 ---
Procedure & Clinicians Procedure: Left hip cephalomedullary nail Same procedure as scheduled: Yes Indications: Indications: This is a 61 year old female with the above diagnosis. We discussed that in order to facilitate mobilization early, as well as proper healing of the fracture, we recommend operative fixation using an intramedullary nail. The risks and benefits and alternatives to the procedure were discussed. The risks include bleeding, infection, damage to internal structures, failure of the implants, and future surgery as well as anesthesia. No guarantees were made regarding outcomes. Patient expressed understanding with these risks and wished to go forth with surgery. Surgeon: eCd Villar Click Yes if Unassisted: Yes Anesthesia Type: General Operative Notes Findings: Operative findings: Intertrochanteric hip fracture, reducible with traction using leverage to the operating table. Estimated Blood Loss (mL): 20 Procedure in detail: Details of operation: The patient's identity was verified. The left hip was verified and site of surgery was marked. Prophylactic antibiotics were administered. The patient was taken to the operating room and anesthesia was established. Patient was positioned supine on the operating table. The feet were padded and placed into the traction boots with the injured hip in slight adduction and the uninjured hip extended about 30?. A C-arm was then brought into the OR and positioned perpendicularly to allow visualization of the hip and AP and lateral planes. The fracture was reduced by applying longitudinal traction and internal rotation and a small amount of adduction. The lateral surface of the hip was sterilely prepped after which a vertical isolation drape was placed. The surgical team paused in the patient's identity, surgical procedure and surgical site were verified. A small incision was made proximal to the greater trochanter through the fascia to the tip of the trochanter could be palpated. A threaded guide pin was then inserted through the tip of the greater trochanter to the level of the lesser tuberosity. Once the wire was appropriately positioned the entry hole was drilled. The entry/channel Reamer was used to enter the cortex and reamed the metaphyseal portion of the canal. The intramedullary nail was assembled on the insertion handle and the nail was inserted and its depth verified. Our attention was then turned to the proximal locking of the nail. A small incision was made laterally over the distal vastus tubercle, through the fascia down to the bone and the targeting jig sleeve was advanced to the bone. Under fluoroscopic control, a guidewire was positioned through the lateral cortex of the femoral neck and into the center of the femoral head. Once the wire was appropriately positioned, the length of nail was measured the lateral cortex was opened with a drill. The lag screw was assembled on the insertion handle and advanced over the guidewire into the center of the femoral head to beneath the subchondral surface. The compression screw was then placed in compressed under fluoroscopic imaging. Final AP and lateral projections were taken confirming correct nail and screw placement. Our attention was then directed distally to the interlocking of the nail. An incision was made and the guide was used to place the sleeve down to the bone. The bone was then drilled and measured and interlocking screw was placed. The wounds were copiously irrigated. The subcutaneous area was closed with interrupted 2-0 Vicryl. The wound was then infiltrated with 0.5% lidocaine with epinephrine. The skin was then closed with carmen after which a sterile dressing was applied. Patient was subsequently transferred from the [facility] table to the hospital bed. Disposition: The patient was taken to the recovery room in stable condition having tolerated the procedure without difficulty. Complications: none Post-operative Condition: stable Disposition: PACU Plan for aftercare: Postoperative plan: Weightbearing as tolerated with crutches or walker for 4 weeks. After 4 weeks it is okay to ambulate without assistance if stable and strong enough. DVT prophylaxis for 4 weeks (default aspirin 81 mg b.i.d., is unable to take aspirin, and then Lovenox, 40 mg subcutaneous daily). Okay to change dressings to clean dry dressings after 3 days. Okay for dressings to come off completely at 7 days. Okay for warm soap and water to run over the incision and a shower or sponge bath, however no soaking the wound. Follow-up in 2 weeks with a PA for staple removal, and follow-up in [address] Villar with x-rays on arrival
[2022-06-09] MEDS: APREPITANT 40 MG CAPSULE PO (15:02)
--- NOTE | 2022-06-09 15:07 | SUR.OPER ---
Patient supine on padded [place] table, one arm on padded arm board at <90, other arm padded and secured with tape across patient's chest, both legs secured in padded traction boots and positioned per surgeon, padded post at patient's groin, pressure points checked and padded.
[2022-06-09] MEDS: CEFAZOLIN VIAL 1 GM in SODIUM CHLORIDE 0.9% 100 ML IV (15:15)
[2022-06-09] MEDS: BUPIVACAINE 0.25% (PF) VIAL 30 ML INJ (15:55)
--- NOTE | 2022-06-09 17:00 | DI.RAD.S_ITS ---
PROCEDURE: XR HIP W PEL IF DONE LT 2V INDICATIONS: HIP FX REPAIR left TECHNIQUE: 4 intraoperative fluoroscopic views of the hip were acquired. COMPARISON: [facility], CR, XR HIP W PEL IF DONE LT 2V, 06/08/2022, 23:53. FINDINGS: Intraoperative fluoroscopic images of left hip shows internal fixation of patient's known left intertrochanteric fracture with intramedullary theo and surgical screws in place. Hip alignment is anatomic. IMPRESSION: Fluoro guidance was provided intraoperatively for internal fixation of left proximal femur. Dictated by: Pete Perez M.D. on 06/10/2022 at 9:48 Approved by: Pete Perez M.D. on 06/10/2022 at 9:49
[2022-06-10] VITALS: BP 139/68; PULSE 74; RESP 17; TEMP 36.2; O2SAT 98
[2022-06-10] MEDS: diphenhydrAMINE 50 MG/ML VIAL 25 MG IV (00:51)
[2022-06-10] MEDS: OXYCODONE IR 5 MG TABLET PO ×5 (04:06→22:41)
--- NOTE | 2022-06-10 05:07 | PC.NURSE ---
Pt informed of 's at 02:15. Will continue to monitor.
--- NOTE | 2022-06-10 06:43 | P.PN_ITS ---
Subjective Subjective Date Patient Seen: 06/10/22 Time Patient Seen: 07:25 Interval history: Sitting up in bed. Tells me her passed early this morning from complications of metastatic cancer. She would very much like to go home. Has not been OOB w/ PT since surgery. Exam Vital Signs (past 8 hours): - 06/10/22 00:00 Temperature 97.1 F L Pulse Rate 74 Respiratory Rate 17 Blood Pressure 139/68 Pulse Oximetry 98 Oxygen Flow Rate 2 Oxygen Delivery Method Nasal Cannula Oxygen Flow Rate 2 Narrative Exam Narrative: 4/5 strength in hip flexors, quadriceps, hamstrings; 5/5 DF, PF, EHL on left. Calves soft, compressible, nontender and without palpable cords or masses. Dr vallejo placed intraoperatively is CDI. Objective Labs Result Diagrams: 06/09/22 06:35 06/09/22 06:35 Labs: Laboratory Results - last 24 hr 06/09/22 06/09/22 06:35 06:35 WBC 9.0 RBC 3.45 L Hgb 12.4 Hct 35.8 L MCV 103.8 H MCH 35.9 H MCHC 34.6 RDW 12.9 Plt Count 297 Neut % (Auto) 73.3 Lymph % (Auto) 14.5 L [place] % (Auto) 11.3 Eos % (Auto) 0.4 L Baso % (Auto) 0.5 Neut # (Auto) 6600 Lymph # (Auto) 1300 [place] # (Auto) 1000 H Eos # (Auto) 0 Baso # (Auto) 0 Sodium 127 L Potassium 5.0 Chloride 94 L Carbon Dioxide 27 BUN < 2 L Creatinine 0.37 L Estimated GFR > 60 BUN/Creatinine Ratio 5.4 L Glucose 75 L Calcium 8.1 L PFSH Surgical History Status post appendectomy Status post breast lumpectomy Status post hysterectomy Social History (Updated 06/09/22 @ 10:49 by Kayla Oconnor MD) household members: spouse Smoking Status: Current every day smoker alcohol intake: current Assessment & Plan Post-op Assessment and plan (1) Closed fracture of left hip: Assessment and Plan narrative: From an orthopedic standpoint, she can be discharged if she has appropriate help at home. 1) Weightbearing as tolerated with crutches or walker for 4 weeks.? After 4 weeks it is okay to ambulate without assistance if stable and strong enough.? 2) VTE prophylaxis for 4 weeks; she has been started on Lovenox 40 mg daily, continue through Jul 07.? 3) Okay to change dressings to clean dry dressings if needed on Jun 13.? Okay f or dressings to come off completely on Jun 16.? Okay for warm soap and water to run over the incision and a shower or sponge bath, however no soaking the wound.? 4) Follow-up between Jun 20 and with a PA for staple removal, and follow-up in [address] Villar with x-rays on arrival Postoperative Procedures: Procedures Operation Date: 06/09/22 15:00 Actual Procedure Side Surgeon p Intramedullary Nailing Femur Left Ced Villar MD Postoperative day: 1 Quality VTE Deep Vein Thrombosis/Pulmonary Embolism Present on Admission: No
[2022-06-10 07:46] VITALS: O2SAT 98
--- NOTE | 2022-06-10 08:04 | P.PN_ITS ---
Subjective Subjective Date Patient Seen: 06/10/22 Time Patient Seen: 09:00 Interval history: Patient grieving over the of her last night. She just doesn't want to be bothered. Says pain is currently manageable. Exam Vital Signs (past 8 hours): - 06/10/22 07:46 Pulse Oximetry 98 Oxygen Delivery Method Room Air Oxygen Flow Rate 0 Oxygen Delivery Method Room Air Oxygen Flow Rate 0 Narrative Exam Narrative: GEN: no acute distress, withdrawn and somber HEENT: moist mucous membranes, PERRL NECK: trachea midline, no JVD PULM: clear bilaterally, no wheezes, rhonchi, rales CV: regular rate and rhythm, no murmurs ABD: soft, nontender, nondistended, no organomegaly EXT: warm and well perfused, left hip tender NEURO: awake, alert, oriented, no focal deficits Objective Labs Result Diagrams: 06/10/22 08:40 06/10/22 08:40 [facility] Surgical History Status post appendectomy Status post breast lumpectomy Status post hysterectomy Social History (Updated 06/09/22 @ 10:49 by Kayla Oconnor MD) household members: spouse Smoking Status: Current every day smoker alcohol intake: current Assessment & Plan Assessment & Plan narrative: 1. Acute left hip fracture secondary to fall -possibly secondary to intoxication -pelvic fracture also noted on xray -orthopedic surgery consulted and repaired hip on 06/09 -pain medications ordered -PT/OT eval 2. Hyponatremia -unclear chronicity -monitor sodium with morning labs -suspect secondary to hypovolemia and possible beer potomania given poor oral intake and chronic diarrhea -no improvement with gentle IVF -urine Osm still pending -suspect SIADH, will fluid restrict and give salt tabs 3. Macrocytic anemia -suspect secondary to alcohol abuse -follow up as outpatient 4. Active smoker -encouraged cessation -patient declined nicotine patch 5. Alcohol intoxication -patient denies any history of withdrawal -for now ordered for CIWA protocol -wasn't forthcoming how much she drinks, concerning may be significant amount -ordered mvi, thiamine, folate 6. Cachexia, malnutrition -patient with poor appetite, BMI 16 -possibly alcohol contributing -dietary consult CODE: Full Proxy: Duncan Ceballos, spouse I have utilized all available resources to reconcile the patient's home medications Dispo: 1-2 days pending PT/OT eval. Time Spent With Patient Critical Care time: I spent a total of [] minutes of critical care time on this patient's care today; this time is exclusive of procedural time. Quality VTE Deep Vein Thrombosis/Pulmonary Embolism Present on Admission: No
[2022-06-10 08:57] LABS: Add Manual Diff / Slide Review NO; Basophils Absolute Auto 0 /uL (0-100); Basophils Percent Auto 0.2 % (0-2); Eosinophils Absolute Auto 0 /uL (0-450); Hematocrit 31.6 % (36-46); Hemoglobin 10.7 g/dL (12.0-16.0); Lymphocytes Absolute Auto 800 /uL (1100-4500); Lymphocytes Percent Auto 6.3 % (25-40); Mean Corpuscular Hemoglobin 35.9 PG (26-34); Mean Corpuscular Volume 105.6 fL (80-100); Monocytes Absolute Auto 800 /uL (0-900); Monocytes Percent Auto 6.2 % (3-14); Neutrophils Absolute Auto 10800 /uL (1500-7000); Neutrophils Percent Auto 87.3 % (50-75); Platelet Count 321 X10^3/uL (150-400); Red Blood Cell Count 2.99 X10^6/uL (4.0-5.2); Red Cell Distribution Width 12.9 % (11.6-14.8); White Blood Cell Count 12.4 X10^3/uL (4.5-11.0)
[2022-06-10 09:03] VITALS: BP 153/73; PULSE 99; RESP 18; TEMP 36.7; O2SAT 96
[2022-06-10 09:10] LABS: Blood Urea Nitrogen 4 mg/dL (7-17); Calcium 8.2 mg/dL (8.4-10.2); Carbon Dioxide 25 mmol/L (22-32); Chloride 90 mmol/L (98-107); Estimated Glomerular Filt Rate > 60 mL/min (>60); Glucose 212 mg/dL (80-110); HEMOLYSIS < 15 (0-50); Potassium 3.5 mmol/L (3.4-5.1); Sodium 122 mmol/L (137-145)
[2022-06-10] MEDS: THIAMINE 100 MG TABLET PO (09:10)
[2022-06-10] MEDS: MULTIVITAMIN 1 TABLET 1 TAB PO (09:10)
[2022-06-10] MEDS: FOLIC ACID 1 MG TABLET PO (09:10)
[2022-06-10] MEDS: ENOXAPARIN 40 MG/0.4 ML SYRINGE SUBCUT (09:10)
[2022-06-10 09:58] LABS: Hemoglobin A1C% w Est Avg Glu 4.7 % (4.0-6.0)
[2022-06-10] MEDS: SODIUM CHLORIDE 1,000 MG TABLET 1000 MG PO (10:08)
[2022-06-10] MEDS: POTASSIUM CHLORIDE 20 MEQ TAB 40 MEQ PO (11:07)
[2022-06-10] MEDS: INSULIN LISPRO 100 UNIT/ML 3ML VIAL SUBCUT (12:03)
--- NOTE | 2022-06-10 12:45 | PT.IIE ---
Current Diagnoses Fracture of unspecified part of neck of left femur, initial encounter for closed fracture (06/09/22) Surgery Performed Operation Date: 06/09/22 15:00 Actual Procedures p Intramedullary Nailing Femur(Left) - Ced Villar MD Surgical History (Last Reviewed 06/09/22 @ 05:46 by Rell Palmer MD) Status post appendectomy Status post breast lumpectomy Status post hysterectomy Physical Therapy Inpatient Evaluation/Re-Eval M1 PT/OT-IP Prior Functional Status Start: 06/10/22 14:22 Freq: NEEDED Status: Active Protocol: Document 06/10/22 12:45 AB (Rec: 06/10/22 14:37 AB [id number]) Medical Review Prior Functional Status Medical History Reviewed Yes Communication able to make needs known Mobility and Gait pt stated that she is modified independent with all mobilities and ambulation using FWW but only started using a FWW ~ 2 weeks ago due to compression fx but prior to that, no AD Social History Household Members none Living Arrangements House Number of Floors (Floors) One Floor Number of Stairs To Enter/Railing? 1 step to enter Home Environment High Toilet,Walk in Shower,Tub /Shower Home Equipment Front Wheel Walker Additional Social History Comment pt with recent loss of her spouse. stated that she has friends to come in to assist her but nothing set up yet. stated that she will ask her friend Melodie if she can stay and assist her. M2 PT-IP Current Condition Start: 06/10/22 14:22 Freq: NEEDED Status: Active Protocol: Document 06/10/22 12:45 AB (Rec: 06/10/22 14:37 AB [id number]) Physical Therapy Current Condition Current Condition Evaluation Date 06/10/22 Treatment Diagnosis L intertrochanteric hip fx s/p nailing; difficulty in walking Onset Date 06/09/22 M3 PT-IP Subjective Start: 06/10/22 14:22 Freq: NEEDED Status: Active Protocol: Document 06/10/22 12:45 AB (Rec: 06/10/22 14:37 AB [id number]) Subjective Physical Therapy Visit Type Type Initial Evaluation Visit Start Time 12:45 Visit Stop Time 13:35 Total Visit Minutes 50 Number of BUSINESS ANALYTICS SPECIALIST Visits 0 Physical Therapy Visit Comments Patient Comments agreeable to do PT Therapy Pain Assessment Pain When Pain Assessed At Rest Pain Present Pain Present Pain Reported Location Left Hip Intensity 4 Scale Used increases with mobility Pain Behaviors Guarding,Holding Area Pain Management Techniques Distraction,Modification of Treatment,Re-positioning, Timing of Activity with Medications M4 PT-IP Mobility and Gait Start: 06/10/22 14:22 Freq: NEEDED Status: Active Protocol: Document 06/10/22 12:45 AB (Rec: 06/10/22 14:37 AB [id number]) PT-Bed Mobility Assessment Supine to Sit Supine to Sit Maximum Assistance,Head of Bed Elevated,Bedrails Sit to Supine Sit to Supine Maximum Assistance,1 Person Assistance,Head of Bed Elevated,Bedrails PT-Transfer Assessment Sit to and From Stand Sit to and from Stand Maximum Assistance,1 Person Assistance,Use of Upper Extremities Equipment Transfer Assistive Device Gait Belt,Front Wheeled Walker Orthotic/Prosthetic Devices or Brace: No Comments Mobility Comments completed supine to sit max A and max cues. needed assist to move LLE. pt needs encouragement to move. able to sit on EOB CGA. completed sit to stand max A and max cues for L quads activation. ambulated ~ 6 ft using FWW max A and cues. nees assist to stabilize LLE. pt requested to go back to bed. completed sit to supine max A and max cues. assist with LLE elevation to bed. max A x 1-2 for positioning in bed. call light and table placed within reach. educated pt on safety and assistance needed. pt refused to go to SNF but agreed that she is not ready to go home today. informed pt that she will need somebody to stay with her to assist her and should be consistent for safe d/c. pt agreed and stated that she will ask her friend Melodie if she can stay with her . will f/u and when appropriate, caregiver training will be conducted and pt agreed. Gait Assessment Gait Gait Assistance Required: Maximum Assistance,1 Person Assist Distance (Feet) 6 Able to Maintain Weight Bearing Status Yes During Gait Assistive Devices Assistive Device Gait Belt,Front Wheeled Walker Orthotic/Prosthetic Devices or Brace: No Gait Deviations General Gait Pattern Antalgic,Decreased Stride Length,Decreased Feet Clearance,Step-to Gait Factors Limiting Gait Function Factors Limiting Gait Function Decreased Activity Tolerance, Decreased Strength,Limited Range of Motion,Pain,Poor Balance,Poor Safety Awareness PT-Balance Assessment Sitting Balance and Reactions Static Sitting Balance Ability Good Dynamic Sitting Balance Ability Fair Standing Balance and Reactions Static Standing Balance Ability Poor Dynamic Standing Balance Ability Poor Device Used FWW M5 PT-IP Objective Assessments Start: 06/10/22 14:22 Freq: NEEDED Status: Active Protocol: Document 06/10/22 12:45 AB (Rec: 06/10/22 14:37 AB [email or web address]) Orientation Orientation/Cognition Level of Alertness Alert Orientation Name,Place,Situation Language Function Ability No Deficits Noted Safety Awareness Decreased Safety Awareness Memory Description No Deficits Noted Gross Range of Motion Lower Extremity ROM Assessment Within Functional Limits Strength Lower Extremity Strength Assessment Left Impaired Hip 3-/5 Knee 3-/5 Comments Strength Comments pain limiting movement/MMT Sensation Assessment Sensation Gross Sensation WNL Muscle Tone Muscle Tone WNL Yes M6 PT-IP Treatment Start: 06/10/22 14:22 Freq: NEEDED Status: Active Protocol: Document 06/10/22 12:45 AB (Rec: 06/10/22 14:37 AB [email or web address]) Physical Therapy Treatment Education Education Provided Precautions,Weight Bearing Status,Post-Op Packet,Safety M7 PT-IP Assessment and Plan Start: 06/10/22 14:22 Freq: NEEDED Status: Active Protocol: Document 06/10/22 12:45 AB (Rec: 06/10/22 14:37 AB [email or web address]) PT Summary Assessment and Plan Potential Rehabilitation Potential Fair Status of Condition at Evaluation Evolving Summary Impairments Pain,ROM,Strength,Balance, Coordination,Sensation,Tone, Cognition,Bed Mobility, Transfers,Gait,Activity Tolerance Assessment Summary pt s/p fall and sustained a L intertrochanteric fx and underwent L hip nailing. Pt also sustained a L obturator ring fx. Pt requiring max A with mobility using FWW and unable to tolerate much activity and only able to ambulate ~6 ft using FWW. Recommending SNF rehab but pt stated that she does not want to go to rehab. If pt goes home, will need 24/7 assist available and HHPT. Caregiver training needs to be conducted as well as stair climbing training. will continue to assess progress. Goals Bed Mobility Goal Standby Assistance Transfer Goal Standby Assistance,Front Wheeled Walker Gait Goal Standby Assistance,Front Wheel Walker Gait Distance 150 Other Goals up/down 1 step using FWW CGA Days to Meet Goals 10 Frequency of Treatment Frequency Of Treatment Twice a Day Treatment Plan Physical Therapy Treatment Plan Bed Mobility Training,Transfer Training,Gait Training, Therapeutic Exercise,Balance Retraining,Post Op Education, Discharge Planning,Hot or Cold Pack,Neuromuscular Re-ed, Coordination Retraining,Manual Therapy Weight Bearing Status Weight Bearing Status Weight Bear as Tolerated Allowed Weight Bearing Amount (enter % LLE WBAT or #) (%) Recommendations To Nursing Amount of Assist Needed 1 Person Assist Discharge Recommendations PT Discharge Recommendations Home with 27/03 Assist Available,Home Health,SNF Rehab,Home vs SNF Transportation Needs at Discharge Private Vehicle,Wheelchair/ Cabulance
--- NOTE | 2022-06-10 12:45 | CM.DPNOTE ---
DCP Note PT/OT pending today. Entered patient's room, two friends present at bedside. See notes for detail re spouse's this morning Patient immediately irritated w/this SECTION HAND HELPER's presence and asks what this visit is about This SECTION HAND HELPER explains that recommendation will likely be for discharge to SNF; patient agitated and tells this SECTION HAND HELPER I just want to go home and grieve the of my , I can't do that here Discussed home plan and patient increasingly agitated, states she will go home w/assistance from her family and friends, denies SNF or HH at this time Updated LEONEL Lind and Dr Pollock, patient telling this SECTION HAND HELPER she wants to discharge home ANA, refusing service referral Later heard from Dr Pollock that patient now agreeable to see therapies today and is considering SNF. Patient has [employer] insurance and so will likely be here through the weekend; SNF needs to be secured and auth started if SNF is recommended and patient agreeable to such. Patient and staff need to be aware of timeline so patient can make an educated decision re Dispo options; patient may want to return home ANA w/friends and family as she acutely grieves the loss of her Katherin Win, SECTION HAND HELPER
--- NOTE | 2022-06-10 14:09 | OT.IPNOTE ---
Per nursing pt just finished working with PT earlier and agreed best to see pt tomorrow for OT birdieal.
[2022-06-10 14:36] LABS: Osmolality Urine 188 mOsmol/kg (.)
[2022-06-10 15:14] LABS: BUN Creatinine Ratio 7.3 (6-22); Blood Urea Nitrogen 3 mg/dL (7-17); Calcium 8.4 mg/dL (8.4-10.2); Carbon Dioxide 25 mmol/L (22-32); Chloride 90 mmol/L (98-107); Estimated Glomerular Filt Rate > 60 mL/min (>60); Glucose 130 mg/dL (80-110); HEMOLYSIS < 15 (0-50); Sodium 121 mmol/L (137-145)
[2022-06-10] MEDS: HYDROMORPHONE 0.5 MG INJ IV (15:51)
[2022-06-10] MEDS: SODIUM CHLORIDE 0.9% 1,000 ML 1000 ML IV (15:51)
[2022-06-10] MEDS: SENNOSIDES 8.6 MG TABLET PO (17:34)
[2022-06-10 19:00] VITALS: O2SAT 97
[2022-06-10 20:00] VITALS: BP 120/76; PULSE 90; RESP 17; TEMP 36.7; O2SAT 96
[2022-06-10 20:02] LABS: BUN Creatinine Ratio 5.4 (6-22); Blood Urea Nitrogen 3 mg/dL (7-17); Calcium 7.8 mg/dL (8.4-10.2); Carbon Dioxide 27 mmol/L (22-32); Chloride 97 mmol/L (98-107); Estimated Glomerular Filt Rate > 60 mL/min (>60); Glucose 107 mg/dL (80-110); HEMOLYSIS < 15 (0-50); Potassium 3.9 mmol/L (3.4-5.1); Sodium 127 mmol/L (137-145)
[2022-06-11] MEDS: OXYCODONE IR 5 MG TABLET PO ×3 (02:42→12:57)
[2022-06-11] MEDS: diphenhydrAMINE 25 MG TABLET PO (03:02)
[2022-06-11 07:00] VITALS: O2SAT 95
[2022-06-11 07:30] LABS: Add Manual Diff / Slide Review NO; Basophils Absolute Auto 0 /uL (0-100); Basophils Percent Auto 0.3 % (0-2); Eosinophils Absolute Auto 0 /uL (0-450); Eosinophils Percent Auto 0.2 % (2-4); Hematocrit 25.8 % (36-46); Hemoglobin 8.7 g/dL (12.0-16.0); Lymphocytes Absolute Auto 1700 /uL (1100-4500); Lymphocytes Percent Auto 17.2 % (25-40); Mean Corpuscular HGB Conc 33.8 % (30-36); Mean Corpuscular Hemoglobin 35.4 PG (26-34); Mean Corpuscular Volume 104.6 fL (80-100); Monocytes Absolute Auto 1100 /uL (0-900); Neutrophils Absolute Auto 7100 /uL (1500-7000); Neutrophils Percent Auto 71.3 % (50-75); Platelet Count 282 X10^3/uL (150-400); Red Blood Cell Count 2.47 X10^6/uL (4.0-5.2); Red Cell Distribution Width 13.1 % (11.6-14.8); White Blood Cell Count 9.9 X10^3/uL (4.5-11.0)
[2022-06-11 07:42] LABS: BUN Creatinine Ratio 4.9 (6-22); Blood Urea Nitrogen 2 mg/dL (7-17); Calcium 7.8 mg/dL (8.4-10.2); Carbon Dioxide 32 mmol/L (22-32); Chloride 97 mmol/L (98-107); Estimated Glomerular Filt Rate > 60 mL/min (>60); Glucose 77 mg/dL (80-110); HEMOLYSIS < 15 (0-50); Potassium 3.4 mmol/L (3.4-5.1); Sodium 130 mmol/L (137-145)
--- NOTE | 2022-06-11 08:20 | PT.IPTN ---
Current Diagnoses Fracture of unspecified part of neck of left femur, initial encounter for closed fracture (06/09/22) Surgery Performed Operation Date: 06/09/22 15:00 Actual Procedures p Intramedullary Nailing Femur(Left) - Ced Villar MD Physical Therapy Treatment Note M2 PT-IP Current Condition Start: 06/10/22 14:22 Freq: NEEDED Status: Active Protocol: Document 06/10/22 12:45 AB (Rec: 06/10/22 14:37 AB [email or web address]) Physical Therapy Current Condition Current Condition Evaluation Date 06/10/22 Treatment Diagnosis L intertrochanteric hip fx s/p nailing; difficulty in walking Onset Date 06/09/22 M3 PT-IP Subjective Start: 06/10/22 14:22 Freq: NEEDED Status: Active Protocol: Document 06/11/22 08:20 AB (Rec: 06/11/22 12:56 AB [email or web address]) Subjective Physical Therapy Visit Type Type Treatment Note Visit Start Time 08:20 Visit Stop Time 08:38 Total Visit Minutes 18 Number of [employer] MASTER Visits 0 Therapy Pain Assessment Pain When Pain Assessed At Rest Pain Present Pain Present Pain Reported Location Left Hip Scale Used pain scale not stated M4 PT-IP Mobility and Gait Start: 06/10/22 14:22 Freq: NEEDED Status: Active Protocol: Document 06/11/22 08:20 AB (Rec: 06/11/22 12:56 AB [email or web address]) PT-Bed Mobility Assessment Supine to Sit Supine to Sit Maximum Assistance,Head of Bed Elevated,Bedrails Sit to Supine Sit to Supine Maximum Assistance,1 Person Assistance,2 Person Assistance ,Bedrails PT-Transfer Assessment Sit to and From Stand Sit to and from Stand Minimal Assistance,Moderate Assistance,1 Person Assistance ,Use of Upper Extremities Equipment Transfer Assistive Device Gait Belt,Front Wheeled Walker Orthotic/Prosthetic Devices or Brace: No Transfers Transfer Destination Bedside Commode Transfer Technique Stand Step Pivot Transfer Ability Level of Assist Minimal Assistance,Moderate Assistance,1 Person Assistance ,Use of Upper Extremities Comments Mobility Comments completed supine to sit max A with HOB elevated and use of bed rail. completed sit to stand min to mod A and cues and step transfer using FWW to bedside commode min to mod A and cues. required assist with brief management. completed sit to stand from the commode mod A and cues and step transferred back to bed using FWW min to mod A. pt refused to ambulate. completed sit to supine max A x 1-2 . positioned in bed. call light and table placed within reach . PT followed with caregiver training: asked pt regarding her friend that she said yesterday that can stay with her to assist her and may be able to come for training. pt stated that she forgot to ask her friend. informed pt to ask to come in the afternoon at 1 pm for training as pt wants to go home today. checked back on pt ~ 1210pm and stated that her friend cannot come in at 1 pm. informed pt regrading importance of caregiver training. stated that she will call and ask who will be able to come. will f/u. M5 PT-IP Objective Assessments Start: 06/10/22 14:22 Freq: NEEDED Status: Active Protocol: Document 06/10/22 12:45 AB (Rec: 06/10/22 14:37 AB [email or web address]) Orientation Orientation/Cognition Level of Alertness Alert Orientation Name,Place,Situation Language Function Ability No Deficits Noted Safety Awareness Decreased Safety Awareness Memory Description No Deficits Noted Gross Range of Motion Lower Extremity ROM Assessment Within Functional Limits Strength Lower Extremity Strength Assessment Left Impaired Hip 3-/5 Knee 3-/5 Comments Strength Comments pain limiting movement/MMT Sensation Assessment Sensation Gross Sensation WNL Muscle Tone Muscle Tone WNL Yes M6 PT-IP Treatment Start: 06/10/22 14:22 Freq: NEEDED Status: Active Protocol: Document 06/11/22 08:20 AB (Rec: 06/11/22 12:56 AB [email or web address]) Physical Therapy Treatment Education Education Provided Safety M7 PT-IP Assessment and Plan Start: 06/10/22 14:22 Freq: NEEDED Status: Active Protocol: Document 06/11/22 08:20 AB (Rec: 06/11/22 12:56 AB [email or web address]) PT Summary Assessment and Plan Potential Rehabilitation Potential Fair Summary Impairments Pain,ROM,Strength,Balance, Coordination,Sensation,Tone, Cognition,Bed Mobility, Transfers,Gait,Activity Tolerance Progress Towards Goals Slow Progress due to Pain,Slow Progress due to Activity Tolerance Assessment Summary pt requiring max A with sit to supine, min to mod with transfers using FWW. pt has not ambulated with PT and refused to ambulate this morning. Has informed pt regarding caregiver training since yesterday but pt stated that her friend will not be able to come in. pt will require 24/7 assist at home and will need HHPT. at this time, recommending SNF rehab for pt but pt refusing due to recent demise of her spouse and just wants to go home. Informed pt regarding understanding of her desire to go home but also needs to be safe, ready and equipe if she goes home. informed importance of caregiver training. will continue to assess progress. Goals Bed Mobility Goal Standby Assistance Transfer Goal Standby Assistance,Front Wheeled Walker Gait Goal Standby Assistance,Front Wheel Walker Gait Distance 150 Other Goals up/down 1 step using FWW CGA Days to Meet Goals 10 Frequency of Treatment Frequency Of Treatment Twice a Day Treatment Plan Physical Therapy Treatment Plan Bed Mobility Training,Transfer Training,Gait Training, Therapeutic Exercise,Balance Retraining,Post Op Education, Discharge Planning,Hot or Cold Pack,Neuromuscular Re-ed, Coordination Retraining,Manual Therapy Weight Bearing Status Weight Bearing Status Weight Bear as Tolerated Allowed Weight Bearing Amount (enter % LLE WBAT or #) (%) Recommendations To Nursing Amount of Assist Needed 1 Person Assist Discharge Recommendations PT Discharge Recommendations Home with 24/7 Assist Available,Home Health,SNF Rehab,Home vs SNF Transportation Needs at Discharge Private Vehicle,Wheelchair/ Cabulance
[2022-06-11] MEDS: THIAMINE 100 MG TABLET PO (09:11)
[2022-06-11] MEDS: MULTIVITAMIN 1 TABLET 1 TAB PO (09:11)
[2022-06-11] MEDS: SODIUM CHLORIDE 1,000 MG TABLET 1000 MG PO (09:11)
[2022-06-11] MEDS: ENOXAPARIN 40 MG/0.4 ML SYRINGE SUBCUT (09:12)
[2022-06-11] MEDS: FOLIC ACID 1 MG TABLET PO (09:12)
[2022-06-11 09:31] VITALS: BP 117/69; PULSE 94; RESP 16; TEMP 36.4; O2SAT 95
--- NOTE | 2022-06-11 10:50 | OT.IP.EVAL ---
Current Diagnoses Fracture of unspecified part of neck of left femur, initial encounter for closed fracture (06/09/22) Surgery Performed Operation Date: 06/09/22 15:00 Actual Procedures p Intramedullary Nailing Femur(Left) - Ced Villar MD Surgical History (Last Reviewed 06/09/22 @ 05:46 by Rell Palmer MD) Status post appendectomy Status post breast lumpectomy Status post hysterectomy Occupational Therapy Inpatient Evaluation/Re-Eval M1 PT/OT-IP Prior Functional Status Start: 06/10/22 14:22 Freq: NEEDED Status: Active Protocol: Document 06/11/22 10:53 [facility] (Rec: 06/11/22 11:00 [facility] [id number]) Medical Review Prior Functional Status Medical History Reviewed Yes Communication able to make needs known Mobility and Gait pt stated that she is modified independent with all mobilities and ambulation using FWW but only started using a FWW ~ 2 weeks ago due to compression fx but prior to that, no AD Activities of Daily Living and IADL's Pt states having a harder time to due IADL needs lately due to her compression fracture. Social History Household Members none Living Arrangements House Number of Floors (Floors) One Floor Number of Stairs To Enter/Railing? 1 step to enter Home Environment High Toilet,Walk in Shower,Tub /Shower Home Equipment Front Wheel Walker,Shower Seat with Backrest Additional Social History Comment pt with recent loss of her spouse. stated that she has friends to come in to assist her but nothing set up yet. stated that she will ask her friend Melodie if she can stay and assist her. Pt states has one step to get to her living room when she is going to sleep on the couch. M2 OT-IP Current Condition Start: 06/11/22 10:52 Freq: Status: Active Protocol: Document 06/11/22 10:53 [facility] (Rec: 06/11/22 11:00 [facility] [id number]) Occupational Therapy Current Condition Current Condition Evaluation Date 06/11/22 Treatment Diagnosis L intertrochanteric fx, s/p Left hip cephalomeduallary nail Weight Bearing Status Weight Bearing Status Weight Bear as Tolerated M3 OT- IP Subjective and Pain Start: 06/11/22 10:52 Freq: Status: Active Protocol: Document 06/11/22 10:53 [facility] (Rec: 06/11/22 11:00 [facility] [id number]) OT- Subjective Occupational Therapy Visit Type Type Initial Evaluation Visit Start Time 10:23 Visit Stop Time 10:50 Total Visit Minutes 27 Occupational Therapy Visit Comments Patient Comments Pt just got up with PT and therefore not wanting to get up at this time. Patient/Caregiver Goals TO go home to be able to grief over her who just passed yesterday. OT Pain Assessment Pain When Pain Assessed At Rest Pain Present Pain Present Pain Reported M4 OT- IP ADL's Start: 06/11/22 10:52 Freq: Status: Active Protocol: Document 06/11/22 10:53 [facility] (Rec: 06/11/22 11:00 [facility] [id number]) OT [id number] Comments OT Self-Feeding Comments NO issured noted. OT ADL-Grooming General Evaluation Grooming Ability Independent Areas Needing Assistance Retrieving/Set-up of Grooming Items OT ADL-Oral Care General Eval Oral Care Ability Independent Comments Oral Care Comments while in bed OT ADL-Dressing General Eval Lower Body Dressing Ability Maximum Assistance Comments OT Dressing Comments Pt states to wear slipper at home. Pt states not wanting to be shown LB dressing equipment and states will manage at home. OT ADL-Toileting Comments OT Toileting Comments Suggested pt get briefs, BSC, wipes for home use. IN addition pt will benefit from assist for transfer and brief management needs at this time. OT ADL-Bathing Comments OT Bathing Comments Pt not wanting to shower or sponge off at this time. Pt aware may just have to sponge off at home initially. M9 OT- IP Assessment and Plan Start: 06/11/22 10:52 Freq: Status: Active Protocol: Document 06/11/22 10:23 [facility] (Rec: 06/11/22 11:07 [facility] [id number]) OT Summary Assessment and Plan Potential Rehabilitation Potential Good Analytic Complexity at Evaluation Moderate Summary OT Impairments Pain,Balance,Functional Mobility,Dressing,Toileting, Bathing,Toilet Transfers, Shower Transfers,Activity Tolerance Progress Towards Goals Slow Progress due to Pain,Slow Progress due to Activity Tolerance Assessment Summary Pt MOD complexity and main barriers are pain, now needing extensive assist 1-2 person for ADL and mobility needs. ABle to give pt suggestions for equipment needs at home and list for DME places to obtain. Pt adamant to go home today and will benefit form 27/03 assist and home health. Goals Dressing Goal Independent Toileting Goal Independent Bathing Goal Independent Toilet Transfer Goal Independent Shower Transfer Goal Independent Days to Meet Goals 20 Frequency of Treatment Frequency Of Treatment Once a Day Treatment Plan OT Treatment Plan ADL Training,Functional Mobility,Patient/Family Education,Discharge Planning Discharge Recommendations OT Discharge Recommendations Home with 27/03 Assist Available,Home Health,SNF Rehab,Home vs SNF Home Equipment Needs wc, BSC, wipes, brief/pads Transportation Needs at Discharge Wheelchair/Cabulance
--- NOTE | 2022-06-11 11:15 | P.PN_ITS ---
Subjective Subjective Date Patient Seen: 06/11/22 Time Patient Seen: 11:16 Interval history: Pt sitting up in bed, on phone. She is still grieving the loss of her early yesterday morning and is trying to make plans for help so she can go home. Exam Vital Signs (past 8 hours): - 06/11/22 09:31 Temperature 97.5 F L Pulse Rate 94 H Respiratory Rate 16 Blood Pressure 117/69 Pulse Oximetry 95 Oxygen Delivery Method Room Air Oxygen Flow Rate 0 Narrative Exam Narrative: 4/5 strength in hip flexors, quadriceps, hamstrings on left; 5/5 DF, PF, EHL. Sensation to light touch intact throughout LLE. Calves soft, compressible, nontender and without palpable cords or masses. Objective Labs Result Diagrams: 06/11/22 06:45 06/11/22 06:45 Labs: Laboratory Results - last 24 hr 06/09/22 06/10/22 06/10/22 03:50 14:30 20:00 WBC RBC Hgb Hct MCV MCH MCHC RDW Plt Count Neut % (Auto) Lymph % (Auto) [place] % (Auto) Eos % (Auto) Baso % (Auto) Neut # (Auto) Lymph # (Auto) [place] # (Auto) Eos # (Auto) Baso # (Auto) Sodium 121 L 127 L Potassium 4.0 3.9 Chloride 90 L 97 L Carbon Dioxide 25 27 BUN 3 L 3 L Creatinine 0.41 L 0.56 Estimated GFR > 60 > 60 BUN/Creatinine Ratio 7.3 5.4 L Glucose 130 H 107 Calcium 8.4 7.8 L Urine Osmolality 188 06/11/22 06/11/22 06:45 06:45 WBC 9.9 RBC 2.47 L Hgb 8.7 L Hct 25.8 L MCV 104.6 H MCH 35.4 H MCHC 33.8 RDW 13.1 Plt Count 282 Neut % (Auto) 71.3 Lymph % (Auto) 17.2 L [place] % (Auto) 11.0 Eos % (Auto) 0.2 L Baso % (Auto) 0.3 Neut # (Auto) 7100 H Lymph # (Auto) 1700 [place] # (Auto) 1100 H Eos # (Auto) 0 Baso # (Auto) 0 Sodium 130 L Potassium 3.4 Chloride 97 L Carbon Dioxide 32 BUN 2 L Creatinine 0.41 L Estimated GFR > 60 BUN/Creatinine Ratio 4.9 L Glucose 77 L Calcium 7.8 L Urine Osmolality [facility] Surgical History Status post appendectomy Status post breast lumpectomy Status post hysterectomy Social History (Updated 06/09/22 @ 10:49 by Kayla Oconnor MD) household members: none Smoking Status: Current every day smoker alcohol intake: current Assessment & Plan Post-op Assessment and plan (1) Closed fracture of left hip: Assessment and Plan narrative: From an orthopedic standpoint, she can be discharged if she has appropriate help at home. 1) Weightbearing as tolerated with crutches or walker for 4 weeks.? After 4 weeks it is okay to ambulate without assistance if stable and strong enough.? 2) VTE prophylaxis for 4 weeks; she has been started on Lovenox 40 mg daily, co ntinue through Jul 07.? 3) Okay to change dressings to clean dry dressings if needed on Jun 13.? Okay for dressings to come off completely on Jun 16.? Okay for warm soap and water to run over the incision and a shower or sponge bath, however no soaking the wound.? 4) Follow-up between Jun 20 and with a PA for staple removal, and follow-up in [address] Villar with x-rays on arrival Postoperative Procedures: Procedures Operation Date: 06/09/22 15:00 Actual Procedure Side Surgeon p Intramedullary Nailing Femur Left Ced Villar MD Postoperative day: 2 Quality VTE Deep Vein Thrombosis/Pulmonary Embolism Present on Admission: No
[2022-06-11] MEDS: POTASSIUM CHLORIDE 20 MEQ TAB 40 MEQ PO (12:56)
--- NOTE | 2022-06-11 14:36 | PT-IP ANOTE ---
checked on pt to follow up on caregiver training and stated that her friend will be able to come ~ 2pm. informed pt regarding equipement needs and mobility needs as pt has not been able to ambulate yet. pt stated that she is not planning on walking and she will when she feels she is ready. Asked pt of what her plan is for getting into the house if she does not plan on walking since she does not have any DME at this time. pt state that she will figure it out when she gets there. educated pt on safety with d/c and PT trying to have a safe plan for pt but pt got agitated and stated that PT is asking too much at this time. Pt asked PT to leave and wants to use to toilet. Left pt with NAC. informed adult protective caseworker regarding conversation with pt and pt not having a safe d/c plan home. adult protective caseworker understood.
--- NOTE | 2022-06-11 14:53 | CM.DPNOTE ---
DC Note DC home today w/friends and family; patient insistent on returning home. Spoke w/patient re HH and she is agreeable, no agency preference Placed call to srikanth Briseno and Ramses SHAY; Suzanna has best availability (approx 48-72 hr f/u) so faxed this referral, including F2F, HH order and H+P. Provided patient a brochure w/Suzanna SHAY's contact information Plan: DC home w/friends and family to support patient in her transition home, recovery from hip repair and acute grief from the of her this week. Suzanna SHAY RN/PT/OT JW
--- NOTE | 2022-06-11 15:00 | PT.IPTN ---
Current Diagnoses Fracture of unspecified part of neck of left femur, initial encounter for closed fracture (06/09/22) Surgery Performed Operation Date: 06/09/22 15:00 Actual Procedures p Intramedullary Nailing Femur(Left) - Ced Villar MD Physical Therapy Treatment Note M2 PT-IP Current Condition Start: 06/10/22 14:22 Freq: NEEDED Status: Active Protocol: Document 06/10/22 12:45 AB (Rec: 06/10/22 14:37 AB [id number]) Physical Therapy Current Condition Current Condition Evaluation Date 06/10/22 Treatment Diagnosis L intertrochanteric hip fx s/p nailing; difficulty in walking Onset Date 06/09/22 M3 PT-IP Subjective Start: 06/10/22 14:22 Freq: NEEDED Status: Active Protocol: Document 06/11/22 15:00 AB (Rec: 06/11/22 15:33 AB [id number]) Subjective Physical Therapy Visit Type Type Treatment Note Visit Start Time 15:00 Visit Stop Time 15:25 Total Visit Minutes 25 Number of GULLET SLITTER Visits 0 Physical Therapy Visit Comments Patient Comments pt's friend/caregiver came in 1500 for training M4 PT-IP Mobility and Gait Start: 06/10/22 14:22 Freq: NEEDED Status: Active Protocol: Document 06/11/22 15:00 AB (Rec: 06/11/22 15:33 AB [id number]) PT-Transfer Assessment Sit to and From Stand Sit to and from Stand Minimal Assistance,1 Person Assistance,Use of Upper Extremities Equipment Transfer Assistive Device Gait Belt,Front Wheeled Walker Orthotic/Prosthetic Devices or Brace: No Transfers Transfer Destination Bed,Chair Transfer Technique Stand Step Pivot Transfer Ability Level of Assist Minimal Assistance,1 Person Assistance,Use of Upper Extremities Comments Mobility Comments pt sitting on chair. Pt's friend in room and agreed for caregiver training. educated caregiver on how to use safety belt and how to assist pt. pt initially not wanting to move but agreed after encouragement. caregiver able to put safety belt on pt. assist pt with with to stand and step transfer chair<>bed using FWW min A. positioned back to chair. educated caregiver on assistance to be provided for ADLs, car transfers and how to maneuver pt up one step to enter the house on a w/c. caregiver understood. Caregiver confirmed that they got a w/c, bedside commode and pt has her own FWW at home. caregiver without further concerns. Left pt on the chair with nurse and friends. positioned pt on the chair and call light within reach. M5 PT-IP Objective Assessments Start: 06/10/22 14:22 Freq: NEEDED Status: Active Protocol: Document 06/10/22 12:45 AB (Rec: 06/10/22 14:37 AB [id number]) Orientation Orientation/Cognition Level of Alertness Alert Orientation Name,Place,Situation Language Function Ability No Deficits Noted Safety Awareness Decreased Safety Awareness Memory Description No Deficits Noted Gross Range of Motion Lower Extremity ROM Assessment Within Functional Limits Strength Lower Extremity Strength Assessment Left Impaired Hip 3-/5 Knee 3-/5 Comments Strength Comments pain limiting movement/MMT Sensation Assessment Sensation Gross Sensation WNL Muscle Tone Muscle Tone WNL Yes M6 PT-IP Treatment Start: 06/10/22 14:22 Freq: NEEDED Status: Active Protocol: Document 06/11/22 15:00 AB (Rec: 06/11/22 15:33 AB [id number]) Physical Therapy Treatment Education Education Provided Safety M7 PT-IP Assessment and Plan Start: 06/10/22 14:22 Freq: NEEDED Status: Active Protocol: Document 06/11/22 15:00 AB (Rec: 06/11/22 15:33 AB [id number]) PT Summary Assessment and Plan Potential Rehabilitation Potential Fair Summary Impairments Pain,ROM,Strength,Balance, Coordination,Sensation,Tone, Cognition,Bed Mobility, Transfers,Gait,Activity Tolerance Assessment Summary caregiver training conducted and caregiver able to assist pt with transfers using fWW. pt will have HHPT. Goals Bed Mobility Goal Standby Assistance Transfer Goal Standby Assistance,Front Wheeled Walker Gait Goal Standby Assistance,Front Wheel Walker Gait Distance 150 Other Goals up/down 1 step using FWW CGA Days to Meet Goals 10 Frequency of Treatment Frequency Of Treatment Twice a Day Treatment Plan Physical Therapy Treatment Plan Bed Mobility Training,Transfer Training,Gait Training, Therapeutic Exercise,Balance Retraining,Post Op Education, Discharge Planning,Hot or Cold Pack,Neuromuscular Re-ed, Coordination Retraining,Manual Therapy Weight Bearing Status Weight Bearing Status Weight Bear as Tolerated Allowed Weight Bearing Amount (enter % LLE WBAT or #) (%) Discharge Recommendations PT Discharge Recommendations Home with 27/03 Assist Available,Home Health Transportation Needs at Discharge Private Vehicle,Wheelchair/ Cabulance
[2022-06-11] MEDS: LORazepam 1 MG TABLET PO (15:21)
--- NOTE | 2022-06-11 18:23 | P.DS_ITS ---
History of Present Illness History of Present Illness Chief complaint: GLF, left hip pain Narrative: Ms. Ceballos is a 61W active smoker, no known PMH who presents after a fall. She states she has had back pain after getting a compression fracture from coughing a few weeks ago. She was using a walker at home. She fell to the ground today, she is not sure why, she thinks she tripped. She did not hit her head. She did fall on her left hip and could not ambulate after. She has had a poor appetite recently, and has chronic diarrhea. In the ED workup was done, vitals notable for afebrile, blood pressure 110s/70s. Labs notable for WBC 11.8, hgb 11.9, plts 306. Na 122, creatinine 0.32. EtOH 180. UA negative. Chest xray with large lung volumes. Hip xray with left intertrochanteric fracture and lateral obturator ring fracture. PMH: none Medications: ibuprofen PRN Social history: 1.5 ppd, EtOH variable, but sometimes significant, per patient no history of withdrawal Discharge Providers Provider Date of admission: 06/09/22 02:20 Discharge Date: 06/11/22 Primary care physician: Salvador Carranza MD Consults: 06/09/22 00:40 Consult to Orthopedic Surgery Stat Comment: Consulting Provider: Ced Villar Reason for consultation: hip Has provider been notified: Yes 06/09/22 03:25 Consult to Dietitian, Adult Routine Comment: Reason For Exam: bmi 06/09/22 11:01 Consult to Dietitian, Adult Routine Comment: Reason For Exam: has had diarrhea/cdiff since 2016-drinks heavily, 06/10/22 12:16 Consult to Occupational Therapy Evaluate & Treat Comment: Physician Instructions: Evaluate and treat Consult to Physical Therapy Evaluate & Treat Comment: Physician Instructions: Evaluate and Treat 06/11/22 14:04 Consult to Home Health Routine Comment: Reason For Exam: Home Health upon DC Discharge provider: Rell Palmer MD Summary Hospital Course Discharge Diagnosis: 1. Left hip fracture s/p repair 2. Alcohol intoxication 3. Hyponatremia 4. Macrocytic anemia 5. Active smoker 6. Severe protein calorie malnutrition Hospital Course: Ms. Ceballos came in to the hospital after a fall for which she had a pelvic fracture and left hip fracture. She did have the hip fracture repaired. She declined SNF and ultimately wanted discharge home with home PT. Unfortunately during her hospital stay her . Her likely cause of injury is mechanical fall due to alcohol intoxication. She was advised to avoid alcohol use. She additional was quite hyponatremic on admission at 122, and improved with fluid restriction and improved diet. She may have a component of SIADH or beer potomania and regardless should improve her nutrition. She had BMI of 16 and significant malnutrition and saw dietary who recommended trying shakes and avoid alcohol and follow up with her PCP as an outpatient. Her malnutrition may affect her wound healing Exam Vital Signs (past 8 hours): Oxygen Delivery Method Room Air Oxygen Flow Rate 0 Narrative Exam Narrative: GEN: no acute distress, PULM: clear bilaterally, no wheezes, rhonchi, rales CV: regular rate and rhythm, no murmurs ABD: soft, nontender, nondistended, no organomegaly EXT: warm and well perfused, left hip tender Objective Labs Result Diagrams: 06/11/22 06:45 06/11/22 06:45 Labs: Laboratory Results - last 24 hr 06/10/22 06/11/22 06/11/22 20:00 06:45 06:45 WBC 9.9 RBC 2.47 L Hgb 8.7 L Hct 25.8 L MCV 104.6 H MCH 35.4 H MCHC 33.8 RDW 13.1 Plt Count 282 Neut % (Auto) 71.3 Lymph % (Auto) 17.2 L [place] % (Auto) 11.0 Eos % (Auto) 0.2 L Baso % (Auto) 0.3 Neut # (Auto) 7100 H Lymph # (Auto) 1700 [place] # (Auto) 1100 H Eos # (Auto) 0 Baso # (Auto) 0 Sodium 127 L 130 L Potassium 3.9 3.4 Chloride 97 L 97 L Carbon Dioxide 27 32 BUN 3 L 2 L Creatinine 0.56 0.41 L Estimated GFR > 60 > 60 BUN/Creatinine Ratio 5.4 L 4.9 L Glucose 107 77 L Calcium 7.8 L 7.8 L PFSH Surgical History Status post appendectomy Status post breast lumpectomy Status post hysterectomy Social History (Updated 06/09/22 @ 10:49 by Kayla Oconnor MD) household members: none Smoking Status: Current every day smoker alcohol intake: current Discharge Plan Discharge Plan Patient Disposition: Home Health Service Provider Discharge Comment: Ms. Ceballos came in to the hospital with a hip fracture. She improved after surgery. She was requesting to go home and not to a rehab. She had a low sodium level. She should stop drinking alcohol and needs to improve her nutrition to eat healthy to keep her electrolytes normal and heal. She should see orthopedic surgery between jun 20 and to remove the carmen. She should see orthopedic surgeon Dr. Villar in 6 weeks to evaluate how her hip is healing. She should follow up with PCP within one week. Nursing Discharge Comment: call MD/ surgeon if any questions. monitor incision sites to hip for signs and symptoms of infection: redness, drainage, increased swelling or fever > 101.0 call MD if increased pain not relieved by prescribed pain medications. Weight bearing as tolerated. you have been thru alot of tough moments this past week. please be gentle with yourself and allow time to grieve and heal. talk to your friends and family about your feelings of grief + please consider counseling for grief. it was a pleasure to be your nurse, and even greater pleasure to meet you and talk w/ you. if you have any problems with sleeping, talk to your primary doctor about this! be careful w/ any alcohol and pain medications, they can be very sedating. thank you to your friends for coming to assist you in getting home. return to ER/Call 911 if any shortness of breath or sharp pain in chest. follow instructions given to you by the physical therapist, and move slowly, and have your friends help you. use the walker, and the weightbearing instructions given by the surgeon. Discharge orders & Medications Prescriptions: New acetaminophen 325 mg Tablet 650 mg PO Q6HR PRN (Reason: Fever/Mild Pain (1-3)) Qty: 30 0RF folic acid 1 mg Tablet 1 mg PO DAILY Qty: 30 0RF multivitamin with folic acid [Tab-A-Myrna] 400 mcg Tablet 1 tab PO DAILY Qty: 30 0RF polyethylene glycol 3350 17 gram Powder In Packet 17 g PO DAILY PRN (Reason: Constipation) Qty: 30 0RF oxycodone 5 mg Tablet 5 mg PO Q4HR PRN (Reason: Pain, Moderate (4-6)) Qty: 30 0RF sennosides [senna] 8.6 mg Tablet 8.6 mg PO BID PRN (Reason: Constipation) Qty: 30 0RF thiamine mononitrate (vit B1) 100 mg Tablet 100 mg PO DAILY Qty: 30 0RF enoxaparin [Lovenox] 40 mg/0.4 mL Syringe 40 mg SUBCUT DAILY 28 Days Qty: 12 0RF Follow up/Referrals: Salvador Carranza MD [Primary Care Provider] - Diet/Activity/Treatments Diet: Regular Visit Report/Discharge Packet Instructions: DI for Hip Fracture, Coping with Grief Discharge Data Primary Care Provider: Salvador Carranza Quality VTE Deep Vein Thrombosis/Pulmonary Embolism Present on Admission: No
--- NOTE | 2022-06-11 19:11 | PC.NURSE ---
1pa adl assistance and transfers, using FWW. WBAT + CSM checks. appetite is fair, accepting fluids. sad affect, occassionally has tears as she talks about losing her of 42 years to cancer yesterday AM. anticipaing d/c home today after PT does caregiver training w/ her friends who are arriving at 2 pm. patient reports she has a good support system at home, friends who will be coming over to assist her until HH nursing/pt can open her case. son Jorden has been in contact w/ her several times thru the day. [place] [facility] [place] patient has soft/loose stools w/ foul odor. reports she has had this for 5 years. many tests have not shown why she constantly has loose bms. lorazepam given x 1 for CIWA 1 for anxiety and tremors. friends arrived and were given training on transferring w/ FWW, and following hip precautions her friends and patient all agree they can understand the d/c instructions. see dc
--- NOTE | 2022-06-13 13:05 | CM.DPNOTE ---
Addendum entered by MARY JANE Hernandez 06/13/22 13:57: ADD: Call from pt's son Jorden inquiring about SNF search. Updated him on below information and still awaiting SNF reviews and confirmation of [facility] contract. Lengthy discussion regarding son wanting to bring pt into the ED due to 2-3 person assist, pt not eating or drinking, high fall risk, etc.. Discussed thoroughly likely not meeting medical criteria for admission and son acknowledges understanding that pt situation more safety/lower level of care needs/rehab needs but feels pt not safe at home. SW inquired about supports in the community with friends and family to help manage pt at home while awaiting SNF reviews and he feels they could not manage her safely overnight and barely today. SW provided contact information for area SNFs for family to also follow up on and discussed [facility] and [place] SNFs but no referrals made yet at this time. SURAJ updated ED SOLAR INSTALLATION FOREMAN in case pt arrives in the ED this evening and sent out an email. Plan: SW to follow closely with SNF reviews to determine if a facility can accept and initiate insurance auth. PASRR completed in case SNF needed. MARY JANE Hernandez Original Note: SW received a call from pt's son Jorden stating he just arrived from [facility] after pt's discharge from the hospital on 06/11/22 (today is Mon) and family and friends have major concerns with pt's ability to be home at this time. SW reviewed pt's admission for GLF with need for surgical intervention with Ortho and PT/OT recommendation of SNF but pt declined and wanted home with HH due to her spouse recently expiring and needing to go home to grieve with family. Pt has [employer] for insurance. Previous SW had made referral to [facility] for discharge and per son [facility] did call but unfortunately pt's PCP retired and pt does not have an active primary physician. [facility] is willing to work with [facility] to determine if Ortho would be willing to be the following provider, but awaiting determination. SW discussed other options of calling [facility] to see if pt qualifies for other supportive services as well as providing the list of [facility] agencies. Son states he knows his mother is fiercely stubborn but feels SNF needed now and requesting SW assist. SW discussed the barriers to admission from home and need for [facility] contracted facility and insurance auth. Son requests SW to send referrals to any area contracted SNFs and then family willing to follow up. SW also discussed that just brining pt back to the ED does not guarantee pt would be admitted and he acknowledges understanding and willing to work on plan from home but aware if medical emergency then to go to an ED at anytime. SW called following SNFs: [facility]- not contracted with [facility], just managed Medicare [facility]- not contracted [facility]- contracted, may be a higher copay but willing to review and run insurance. Do not have many beds available right now. [facility]- left msg, faxed referral and request review and call back [facility]- not accepting as [employer] reimburses very poorly, less than Medicaid. [facility]- left msg, faxed referral to determine if they have been able to get one time auths. Plan: SW to follow for above SNF reviews and to update son and provide contacts for above SNFs for family to continue working on from home to determine if SNF is an option or need for hiring private caregivers and hopeful [facility] once managing provider confirmed. Syeda Alvarado, SOLAR INSTALLATION FOREMAN
--- NOTE | 2022-06-13 15:38 | CM.DPC ---
Update on SNF planning: SW received a call from pt's Son Jorden ([phone] or cell [phone]) stating EMS just came to the house and is on their way to [place] ED. SW updated son on below regarding ongoing SNF placement attempts: (Pt has [employer]) [place] SNFs: [facility]- contracted, willing to review but short on beds, faxed referral [facility]- contracted, no beds until after 06/16, faxed and reviewing. [facility]- not contracted, likely pt responsibility of 50-60%. Faxed referral anyways ([facility], [facility], [facility] not contracted). Called [place] SNFs: [facility]- left msg and faxed referral [facility]- left msg and faxed referral [facility]- left msg and faxed referral [facility]- contracted but no female beds until likely Mon 06/20. PASRR completed in anticipation of SNF, on facesheet in CM office. SW left msg for ED CORPORATE H[employer]AN RESOURCES MANAGER and updated email to the CM team for ongoing assist as end of SW shift today. Syeda Alvarado, MARY JANE
== END 2022-06-11 16:10 | disposition home health service (06) | DRG 956 ==
LOC: ED 06-09 01:20 → AC 06-09 02:20
PROVIDERS: Orthopaedic Surgery; Student in an Organized Health Care Education/Training Program; Admitting Provider Internal Medicine; Emergency Provider Emergency Medicine; PCP Internal Medicine; Referring Provider Emergency Medicine; Visit Provider Internal Medicine
PROC: 0QS706Z Reposition Left Upper Femur with Intramedullary Internal Fixation Device, Open Approach (ICD-10-PCS; CPT 27245; principal; 2022-06-09 15:00)
DX: S72.142A Displaced intertrochanteric fracture of left femur, initial encounter for closed fracture (principal); S32.89XA Fracture of other parts of pelvis, initial encounter for closed fracture; E43 Unspecified severe protein-calorie malnutrition; E87.1 Hypo-osmolality and hyponatremia; Z68.1 Body mass index [BMI] 19.9 or less, adult; E22.2 Syndrome of inappropriate secretion of antidiuretic hormone; F10.129 Alcohol abuse with intoxication, unspecified; F17.210 Nicotine dependence, cigarettes, uncomplicated; W18.30XA Fall on same level, unspecified, initial encounter; Y90.6 Blood alcohol level of 120-199 mg/100 ml; Z20.822 Contact with and (suspected) exposure to COVID-19
CPT/HCPCS: 36415; 71045; 73502; 76000; 80048; 80053; 80320; 81003; 82962; 83036; 83935; 85007; 85025; 87635; 93005; 96374; 97162; 97166; 97530; 99284; 99285; C9803; J0690; J1100; J1170; J1200; J1650; J1815; J2250; J2405; J2704; J3010; J8501

== ENCOUNTER 2022-06-13 15:42 | Observation (INO) | payer OTHER, SELFPAY ==
[2022-06-09 10:46] VITALS: BMI 16.0
[2022-06-13 15:42] VITALS: BP 120/69; PULSE 95; RESP 17; TEMP 36.6; O2SAT 99
--- NOTE | 2022-06-13 16:53 | PC.NURSE ---
patient states that her left leg is numb and aching. She is status post hip surgery after fracture on last week. She states that she cannot walk on it and is wanting to get some help with HIP rehab. She has positive pulses on dorsalis pedis bilaterally. Her left leg is slightly more cold than her right. She reports being able to feel touch. Skin color is pink and and dry.
[2022-06-13 16:59] LABS: Add Manual Diff / Slide Review NO; Basophils Absolute Auto 100 /uL (0-100); Basophils Percent Auto 0.6 % (0-2); Eosinophils Absolute Auto 100 /uL (0-450); Eosinophils Percent Auto 0.4 % (2-4); Hematocrit 28.8 % (36-46); Hemoglobin 9.9 g/dL (12.0-16.0); Lymphocytes Absolute Auto 2200 /uL (1100-4500); Lymphocytes Percent Auto 15.3 % (25-40); Mean Corpuscular HGB Conc 34.4 % (30-36); Mean Corpuscular Hemoglobin 35.6 PG (26-34); Mean Corpuscular Volume 103.5 fL (80-100); Monocytes Absolute Auto 1200 /uL (0-900); Monocytes Percent Auto 8.1 % (3-14); Neutrophils Absolute Auto 10700 /uL (1500-7000); Neutrophils Percent Auto 75.6 % (50-75); Platelet Count 407 X10^3/uL (150-400); Red Blood Cell Count 2.79 X10^6/uL (4.0-5.2); Red Cell Distribution Width 13.3 % (11.6-14.8); White Blood Cell Count 14.1 X10^3/uL (4.5-11.0)
--- NOTE | 2022-06-13 16:59 | PC.NURSE ---
154, patient taken to bathroom in wheelchair. Unable to hold urine and was incontinent in wheelchair. I helped her standby assist to the toilet to finish urinating. She required heavy support from me, unable to transfer on her own. Cleaned her up and put her back into wheelchair with new depends. Then I again assisted her, this time into a bed. Has dressings to left hip from surgery.
[2022-06-13 17:09] LABS: Alanine Aminotransferase 19 IU/L (<35); Albumin 3.3 g/dL (3.5-5.0); Albumin Globulin Ratio 0.9 (1.0-2.8); Alkaline Phosphatase 115 U/L (38-126); Aspartate Aminotransferase 40 IU/L (14-36); Bilirubin Total 0.8 mg/dL (0.2-1.3); Blood Urea Nitrogen 4 mg/dL (7-17); Calcium 8.6 mg/dL (8.4-10.2); Carbon Dioxide 24 mmol/L (22-32); Chloride 95 mmol/L (98-107); Creatine Kinase 64 U/L (30-135); Estimated Glomerular Filt Rate > 60 mL/min (>60); Globulin 3.6 g/dL (1.7-4.1); Glucose 86 mg/dL (80-110); Sodium 129 mmol/L (137-145); Total Protein 6.9 g/dL (6.3-8.2)
[2022-06-13 17:10] LABS: HEMOLYSIS 136 (0-50)
[2022-06-13 17:21] LABS: Troponin I < 0.012 ng/mL (0.01-0.034)
--- NOTE | 2022-06-13 17:25 | DI.RAD.S_ITS ---
PROCEDURE: XR PELVIS 1-2V INDICATIONS: sp hip replacement after fall, gen weakness, increased WBC TECHNIQUE: 1 view of the lower pelvis acquired. COMPARISON: [facility], CR, XR HIP W PEL IF DONE LT 2V, 06/08/2022, 23:53. [facility], CR, XR HIP W PEL IF DONE LT 2V, 06/09/2022, 15:29. FINDINGS: Bones: Patient is status post left hip arthroplasty, with hardware components in expected positions. The hip joint appears congruent. A fracture is also seen at the left ischial tuberosity similar to prior x-ray on 06/08/2022. Surrounding sclerosis is noted. Soft tissues: Overlying postoperative changes are noted. No suspicious soft tissue densities. IMPRESSION: 1. Left intertrochanteric hip fracture with good alignment. 2. Fracture of the left ischial tuberosity with sclerosis. Dictated by: Preston Nuñez M.D. on 06/13/2022 at 18:23 Approved by: Preston Nuñez M.D. on 06/13/2022 at 18:26
--- NOTE | 2022-06-13 17:25 | DI.RAD.S_ITS ---
PROCEDURE: XR CHEST 1V INDICATIONS: Flu like symptoms TECHNIQUE: One view of the chest was acquired. COMPARISON: [facility], CR, XR CHEST 1V, 06/08/2022, 23:53. FINDINGS: Surgical changes and devices: None. Lungs and pleura: Lungs are clear. No pleural effusions or pneumothorax. Mediastinum: Mediastinal contours appear normal. Heart size is normal. Bones and chest wall: No suspicious bony lesions. Overlying soft tissues appear unremarkable. IMPRESSION: No acute cardiopulmonary abnormality. Dictated by: Preston Nuñez M.D. on 06/13/2022 at 18:20 Approved by: Preston Nuñez M.D. on 06/13/2022 at 18:22
[2022-06-13 17:37] LABS: Lactate (Lactic Acid) 1.8 mmol/L (0.7-2.1)
[2022-06-13 17:39] LABS: COVID19 -Nasal RAPID Negative (Negative)
[2022-06-13 17:48] LABS: Appearance Urine UA CLEAR; Bilirubin Urine UA NEGATIVE (NEGATIVE); Color Urine UA YELLOW; Glucose Urine UA NEGATIVE (Negative); Ketones Urine UA NEGATIVE (NEGATIVE); Leukocyte Esterase Urine UA 1+ (NEGATIVE); Nitrite Urine UA NEGATIVE (Negative); Occult Blood Urine UA 1+ (Negative); Protein Urine UA NEGATIVE (Negative); Specific Gravity Urine UA <=1.005 (1.000-1.035); Urobilinogen Urine UA 0.2 E.U./dL (0.2)
[2022-06-13 17:57] LABS: Procalcitonin 1.56 ng/mL (<0.5)
[2022-06-13 18:12] LABS: Amorphous Sediment Urine 1+; Bacteria Urine Few (2-10); Culture Indicated Urine Specimen Cultured; RBC Urine 0-1/HPF (0-5/HPF); Squamous Epithelial Cell Urine 0-1 /HPF (0-5/HPF); WBC Urine 1-5/HPF (0-5/HPF)
[2022-06-13] MEDS: SODIUM CHLORIDE 0.9% 1,000 ML 1000 ML IV (18:27)
[2022-06-13] MEDS: HYDROMORPHONE 1 MG INJ IV (19:03)
[2022-06-13] MEDS: ONDANSETRON 4 MG/2 ML INJ IV (19:03)
[2022-06-13] MEDS: cefTRIAXone 1,000 MG in SODIUM CHLORIDE 0.9% 100 ML 200 MG IV (19:15)
--- NOTE | 2022-06-13 19:26 | ED_ITS ---
HPI - Extremity Injury (Lower) <Janis Meyer PA-C - Last Filed: 06/13/22 20:37> General Chief Complaint: Extremity Injury, Lower Stated Complaint: Hip pain Time Seen by Provider: 06/13/22 17:23 Source: EMS Mode of arrival: EMS History of Present Illness HPI Narrative: 61-year-old female with a past medical history of alcohol and tobacco use presents to the ED to avail of a SNF facility. A hip fracture in the left hip on 06/09/2022, had surgical fixation. Patient elected to go home after the surgery as opposed to going into a SNF F, due to her expiring the same day and she wished to grieve at home. Patient is brought in by her son today, who arrived from [facility] yesterday and observe that his mother was unable to cope at home with her ADLs. He also states that he is nervous about her falling aga in, especially given her alcohol use. Patient's pain appears to be poorly controlled with oxycodone. It also seems like patient is not taking the oxycodone as often as prescribed. Patient denies fever, chills, chest pain, shortness of breath, abdominal pain, nausea, vomiting, dysuria, lightheadedness, dizziness, syncope. Related Data Previous Rx's Medication Instructions Recorded acetaminophen 325 mg tablet 650 mg PO Q6HR PRN Fever/Mild Pain 06/11/22 (1-3) #30 tabs enoxaparin 40 mg/0.4 mL 40 mg (0.4 mL) SUBCUT DAILY 28 06/11/22 subcutaneous syringe (Lovenox) days #12 mL folic acid 1 mg tablet 1 mg PO DAILY #30 tabs 06/11/22 oxycodone 5 mg tablet 5 mg PO Q4HR PRN Pain, Moderate 06/11/22 (4-6) #30 tabs sennosides 8.6 mg tablet (senna) 8.6 mg PO BID PRN Constipation #30 06/11/22 tabs thiamine mononitrate (vit B1) 100 100 mg PO DAILY #30 tabs 06/11/22 mg tablet Allergies Allergy/AdvReac Type Severity Reaction Status Date / Time morphine AdvReac Intermediate Hallucinati Verified 06/13/22 16:59 ng Penicillins [PENICILLINS] AdvReac Intermediate rash Verified 06/13/22 16:59 Review of Systems <Janis Meyer PA-C - Last Filed: 06/13/22 20:37> Review of Systems ROS Unobtainable: All systems reviewed & are unremarkable except as noted in HPI and below Constitutional Constitutional: Denies chills, Denies fatigue, Denies fever(s), Denies frequent falls, Denies lethargy and Denies weakness Eyes Eyes: Denies change in vision, Denies eye discharge, Denies irritation and Denies loss of vision ENT Ears, Nose, Mouth, and Throat: Denies change in voice, Denies dizziness, Denies neck pain, Denies sore throat and Denies throat swelling Cardiovascular Cardiovascular: Denies chest pain, Denies irregular heart rhythm, Denies lightheadedness, Denies palpitations, Denies dyspnea, Denies dyspnea on exertion and Denies orthopnea Respiratory Respiratory: Denies cough, Denies dyspnea, Denies dyspnea on exertion and Denies wheezing Gastrointestinal Gastrointestinal: Denies abdominal pain, Denies change in bowel habits, Denies diarrhea, Denies nausea and Denies vomiting Genitourinary Genitourinary: Denies hematuria, Denies flank pain, Denies urinary incontinence and Denies urinary urgency Musculoskeletal Musculoskeletal: Denies back pain, Denies muscle weakness, Denies neck pain, Denies numbness and Denies tingling Comments: Hip pain Integumentary/Breasts Skin/Breast: Denies pruritus, Denies erythema, Denies rash and Denies wounds Neurologic Neurologic: Denies behavioral changes, Denies confusion, Denies dizziness, Denies frequent falls, Denies loss of vision, Denies numbness, Denies tingling and Denies weakness Psychiatric Psychiatric: Denies anxiety, Denies behavioral changes, Denies confusion, Denies depression, Denies homicidal ideation and Denies suicidal ideation Endocrine Endocrine: Denies fatigue, Denies flushing and Denies palpitations Hematologic/Lymphatic Hematologic/Lymphatic: Denies easy bruising Allergic/Immunologic Allergic/Immunologic: Denies urticaria, Denies throat swelling and Denies wheezing Patient History <Janis Meyer PA-C - Last Filed: 06/13/22 20:37> Surgical History Status post appendectomy Status post breast lumpectomy Status post hysterectomy Social History household members: none Smoking Status: Current every day smoker alcohol intake: current Smoking Status: Current every day smoker alcohol intake frequency: 3 or more drinks per day Alcohol type: wine Substance Use Type: does not use Exam <Janis Meyer PA-C - Last Filed: 06/13/22 20:37> Narrative Exam Narrative: Const General:?cooperative, healthy appearing and comfortable HENIA Head:?normal to inspection Ears:?hearing grossly normal bilaterally Nose:?external nose normal Face and sinus:?normal facial exam and sinuses nontender Mouth:?oral mucosae normal Throat:?posterior oropharynx normal Eyes General:?appearance normal, both eyes and all related structures Neck Neck:?normal visual inspection and no lymphadenopathy noted Resp Effort & Inspection:?normal respiratory effort Auscultation:?clear to auscultation bilaterally Cardio Rate:?regular rate Rhythm:?regular rhythm Integumentary Both surgical incisions appear to be healing without overt signs of infection including erythema, swelling, purulence. There is a small amount of serous discharge. TTP Neuro General:?patient alert, patient awake and patient oriented x3 Initial Vital Signs Initial Vital Signs: Vital Signs Temperature 98 F 06/13/22 15:42 Pulse Rate 95 H 06/13/22 15:42 Respiratory Rate 17 06/13/22 15:42 Blood Pressure 120/69 06/13/22 15:42 Pulse Oximetry 99 06/13/22 15:42 Oxygen Delivery Method 06/13/22 15:42 <Leena Patiño DO - Last Filed: 06/14/22 04:06> Initial Vital Signs Initial Vital Signs: Vital Signs Temperature 98 F 06/13/22 15:42 Pulse Rate 95 H 06/13/22 15:42 Respiratory Rate 17 06/13/22 15:42 Blood Pressure 120/69 06/13/22 15:42 Pulse Oximetry 99 06/13/22 15:42 Oxygen Delivery Method 06/13/22 15:42 Course <Janis Meyer PA-C - Last Filed: 06/13/22 20:37> Orders Ordered: ED Orders 06/13/22 19:32 Consult to Physical Therapy Evaluate & Treat 06/13/22 19:33 Consult to Dietitian, Adult Stat Consult to Pastoral Services Stat 06/14/22 05:00 Complete Blood Count AUTO DIFF DAILY Comprehensive Metabolic Panel DAILY Magnesium DAILY 06/15/22 05:00 Complete Blood Count AUTO DIFF DAILY Comprehensive Metabolic Panel DAILY Magnesium DAILY 06/16/22 05:00 Complete Blood Count AUTO DIFF DAILY Comprehensive Metabolic Panel DAILY Magnesium DAILY Acetaminophen (Acetaminophen 325 Mg Tablet) 650 mg PO Q6HR PRN PRN Reason: Fever/Mild Pain (1-3) Hydrocodone Bitart/Acetaminophen (Hydrocodone/Acet 10/325 Tablet) 1 tab PO Q4HR PRN PRN Reason: pain 4-10 Last Admin: 06/13/22 22:25 Dose: 1 tab Documented By: [facility] Bisacodyl (Bisacodyl 5 Mg Tablet) 10 mg PO DAILY PRN PRN Reason: Constipation Docusate Sodium (Docusate 100 Mg Capsule) 100 mg PO BID [facility] Last Admin: 06/13/22 21:43 Dose: 100 mg Documented By: JENARO Enoxaparin Sodium (Enoxaparin 40 Mg/0.4 Ml Syringe) 40 mg SUBCUT DAILY [facility] Folic Acid (Folic Acid 1 Mg Tablet) 1 mg PO DAILY [facility] Sodium Chloride (Normal Saline 0.9%) 1,000 mls @ 100 mls/hr IV CONT [facility] Last Admin: 06/13/22 21:35 Dose: 100 mls/hr Documented By: [facility] Cefepime HCl 1 gm/ Sodium (Chloride) 100 mls @ 200 mls/hr IV Q12H [facility] Lorazepam (Lorazepam 1 Mg Tablet) 0 mg PO CIWAPRN PRN; Protocol PRN Reason: Alcohol Withdrawal Melatonin (Melatonin 3 Mg Tablet) 6 mg PO BEDTIME [facility] Last Admin: 06/13/22 21:43 Dose: 6 mg Documented By: JENARO Multivitamins (Multivitamin 1 Tablet) 1 tab PO DAILY [facility] Nicotine (Nicotine 14 Patch) 14 mg TOP DAILY [facility] Ondansetron HCl (Ondansetron 4 Mg Odt) 4 mg PO Q6H PRN PRN Reason: Nausea And Vomiting Oxycodone HCl (Oxycodone Ir 5 Mg Tablet) 5 mg PO Q4HR PRN PRN Reason: Pain, Moderate (4-6) Polyethylene Glycol (Polyethylene Glycol 3350 17 Gm Powd.Pack) 17 gm PO DAILY PRN PRN Reason: Constipation Sennosides (Sennosides 8.6 Mg Tablet) 8.6 mg PO BID PRN PRN Reason: Constipation Thiamine HCl (Thiamine 100 Mg Tablet) 100 mg PO DAILY [facility] Discontinued Medications Hydromorphone HCl (Hydromorphone 1 Mg Inj) 1 mg IV NOW ONE Stop: 06/13/22 18:51 Last Admin: 06/13/22 19:03 Dose: 1 mg Documented By: KEAGAN Sodium Chloride (Normal Saline 0.9%) 1,000 mls @ 1,000 mls/hr IV BOLUS ONE Stop: 06/13/22 19:20 Last Infusion: 06/13/22 20:36 Dose: 0 mls/hr Documented By: Admin: 06/13/22 18:27 Dose: 1,000 mls/hr Documented By: KEAGAN Ceftriaxone Sodium 1,000 mg/ (Sodium Chloride) 100 mls @ 200 mls/hr IV NOW ONE Stop: 06/13/22 19:03 Last Infusion: 06/13/22 20:37 Dose: 0 mls/hr Documented By: Admin: 06/13/22 19:15 Dose: 200 mls/hr Documented By: KEAGAN Cefepime HCl 1 gm/ Sodium (Chloride) 100 mls @ 200 mls/hr IV Q12H [facility] Last Admin: 06/13/22 22:27 Dose: Not Given Documented By: JENARO Ondansetron HCl (Ondansetron 4 Mg/2 Ml Inj) 4 mg IV NOW ONE Stop: 06/13/22 18:51 Last Admin: 06/13/22 19:03 Dose: 4 mg Documented By: KEAGAN Vital Signs Vital signs: Vital Signs - 8 hr 06/13/22 15:42 06/13/22 19:31 Temperature 98 F Pulse Rate 95 H 109 H Respiratory Rate 17 10 L Blood Pressure 120/69 155/84 H Pulse Oximetry 99 98 Oxygen Delivery Method Room Air Room Air <Leena Patiño DO - Last Filed: 06/14/22 04:06> Orders Ordered: ED Orders 06/13/22 19:32 Consult to Physical Therapy Evaluate & Treat 06/13/22 19:33 Consult to Dietitian, Adult Stat Consult to Pastoral Services Stat 06/14/22 05:00 Complete Blood Count AUTO DIFF DAILY Comprehensive Metabolic Panel DAILY Magnesium DAILY 06/15/22 05:00 Complete Blood Count AUTO DIFF DAILY Comprehensive Metabolic Panel DAILY Magnesium DAILY 06/16/22 05:00 Complete Blood Count AUTO DIFF DAILY Comprehensive Metabolic Panel DAILY Magnesium DAILY Acetaminophen (Acetaminophen 325 Mg Tablet) 650 mg PO Q6HR PRN PRN Reason: Fever/Mild Pain (1-3) Hydrocodone Bitart/Acetaminophen (Hydrocodone/Acet 10/325 Tablet) 1 tab PO Q4HR PRN PRN Reason: pain 4-10 Last Admin: 06/13/22 22:25 Dose: 1 tab Documented By: [facility] Bisacodyl (Bisacodyl 5 Mg Tablet) 10 mg PO DAILY PRN PRN Reason: Constipation Docusate Sodium (Docusate 100 Mg Capsule) 100 mg PO BID [facility] Last Admin: 06/13/22 21:43 Dose: 100 mg Documented By: [facility] Enoxaparin Sodium (Enoxaparin 40 Mg/0.4 Ml Syringe) 40 mg SUBCUT DAILY [facility] Folic Acid (Folic Acid 1 Mg Tablet) 1 mg PO DAILY [facility] Sodium Chloride (Normal Saline 0.9%) 1,000 mls @ 100 mls/hr IV CONT [facility] Last Admin: 06/13/22 21:35 Dose: 100 mls/hr Documented By: [facility] Cefepime HCl 1 gm/ Sodium (Chloride) 100 mls @ 200 mls/hr IV Q12H [facility] Lorazepam (Lorazepam 1 Mg Tablet) 0 mg PO CIWAPRN PRN; Protocol PRN Reason: Alcohol Withdrawal Melatonin (Melatonin 3 Mg Tablet) 6 mg PO BEDTIME [facility] Last Admin: 06/13/22 21:43 Dose: 6 mg Documented By: JENARO Multivitamins (Multivitamin 1 Tablet) 1 tab PO DAILY [facility] Nicotine (Nicotine 14 Patch) 14 mg TOP DAILY [facility] Ondansetron HCl (Ondansetron 4 Mg Odt) 4 mg PO Q6H PRN PRN Reason: Nausea And Vomiting Oxycodone HCl (Oxycodone Ir 5 Mg Tablet) 5 mg PO Q4HR PRN PRN Reason: Pain, Moderate (4-6) Polyethylene Glycol (Polyethylene Glycol 3350 17 Gm Powd.Pack) 17 gm PO DAILY PRN PRN Reason: Constipation Sennosides (Sennosides 8.6 Mg Tablet) 8.6 mg PO BID PRN PRN Reason: Constipation Thiamine HCl (Thiamine 100 Mg Tablet) 100 mg PO DAILY [facility] Discontinued Medications Hydromorphone HCl (Hydromorphone 1 Mg Inj) 1 mg IV NOW ONE Stop: 06/13/22 18:51 Last Admin: 06/13/22 19:03 Dose: 1 mg Documented By: KEAGAN Sodium Chloride (Normal Saline 0.9%) 1,000 mls @ 1,000 mls/hr IV BOLUS ONE Stop: 06/13/22 19:20 Last Infusion: 06/13/22 20:36 Dose: 0 mls/hr Documented By: Admin: 06/13/22 18:27 Dose: 1,000 mls/hr Documented By: KEAGAN Ceftriaxone Sodium 1,000 mg/ (Sodium Chloride) 100 mls @ 200 mls/hr IV NOW ONE Stop: 06/13/22 19:03 Last Infusion: 06/13/22 20:37 Dose: 0 mls/hr Documented By: Admin: 06/13/22 19:15 Dose: 200 mls/hr Documented By: KEAGAN Cefepime HCl 1 gm/ Sodium (Chloride) 100 mls @ 200 mls/hr IV Q12H [facility] Last Admin: 06/13/22 22:27 Dose: Not Given Documented By: JENARO Ondansetron HCl (Ondansetron 4 Mg/2 Ml Inj) 4 mg IV NOW ONE Stop: 06/13/22 18:51 Last Admin: 06/13/22 19:03 Dose: 4 mg Documented By: KEAGAN Vital Signs Vital signs: Vital Signs - 8 hr 06/13/22 15:42 06/13/22 19:31 Temperature 98 F Pulse Rate 95 H 109 H Respiratory Rate 17 10 L Blood Pressure 120/69 155/84 H Pulse Oximetry 99 98 Oxygen Delivery Method Room Air Room Air MDM - Extremity Injury (Lower) <Janis Meyer PA-C - Last Filed: 06/13/22 20:37> Lab Data Result diagrams: 06/13/22 16:46 06/13/22 16:46 Labs: Lab Results 06/13/22 06/13/22 06/13/22 Range/Units 16:46 16:46 16:46 WBC 14.1 H (4.5-11.0) X10^3/uL RBC 2.79 L (4.0-5.2) X10^6/uL Hgb 9.9 L (12.0-16.0) g/dL Hct 28.8 L (36-46) % MCV 103.5 H (80-100) fL MCH 35.6 H (26-34) PG MCHC 34.4 (30-36) % RDW 13.3 (11.6-14.8) % Plt Count 407 H (150-400) X10^3/uL Neut % (Auto) 75.6 H (50-75) % Lymph % (Auto) 15.3 L (25-40) % [place] % (Auto) 8.1 (3-14) % Eos % (Auto) 0.4 L (2-4) % Baso % (Auto) 0.6 (0-2) % Neut # (Auto) 01923 H (8449-9568) /uL Lymph # (Auto) 2200 (3885-6736) /uL [place] # (Auto) 1200 H (0-900) /uL Eos # (Auto) 100 (0-450) /uL Baso # (Auto) 100 (0-100) /uL Sodium 129 L (137-145) mmol/L Potassium 4.0 (3.4-5.1) mmol/L Chloride 95 L (98-107) mmol/L Carbon Dioxide 24 (22-32) mmol/L BUN 4 L (7-17) mg/dL Creatinine 0.25 L (0.52-1.04) mg/dL Estimated GFR > 60 (>60) mL/min BUN/Creatinine Ratio 16.0 (6-22) Glucose 86 (80-110) mg/dL Lactate (0.7-2.1) mmol/L Calcium 8.6 (8.4-10.2) mg/dL Total Bilirubin 0.8 (0.2-1.3) mg/dL AST 40 H (14-36) IU/L ALT 19 (<35) IU/L Alkaline Phosphatase 115 (38-126) U/L Total Creatine Kinase 64 (30-135) U/L CK-MB (CK-2) TNP CK-MB (CK-2) Rel Index TNP Troponin I < 0.012 (0.01-0.034) ng/mL Total Protein 6.9 (6.3-8.2) g/dL Albumin 3.3 L (3.5-5.0) g/dL Globulin 3.6 (1.7-4.1) g/dL Albumin/Globulin Ratio 0.9 L (1.0-2.8) Procalcitonin (<0.5) ng/mL Urine Color Urine Appearance Urine pH (4.5-8.0) Ur Specific [place] (1.000-1.035) Urine Protein (Negative) Urine Glucose (UA) (Negative) g/dL Urine Ketones (NEGATIVE) Urine Occult Blood (Negative) Urine Nitrate (Negative) Urine Bilirubin (NEGATIVE) Urine Urobilinogen (0.2) E.U./dL Ur Leukocyte Esterase (NEGATIVE) Urine RBC (0-5/HPF) Urine WBC (0-5/HPF) Ur Squamous Epith Cells (0-5/HPF) Amorphous Sediment Urine Bacteria (None) Ur Culture Indicated? SARS-CoV-2 (PCR) Negative (Negative) 06/13/22 06/13/22 06/13/22 Range/Units 16:46 16:46 17:41 WBC (4.5-11.0) X10^3/uL RBC (4.0-5.2) X10^6/uL Hgb (12.0-16.0) g/dL Hct (36-46) % MCV (80-100) fL MCH (26-34) PG MCHC (30-36) % RDW (11.6-14.8) % Plt Count (150-400) X10^3/uL Neut % (Auto) (50-75) % Lymph % (Auto) (25-40) % [place] % (Auto) (3-14) % Eos % (Auto) (2-4) % Baso % (Auto) (0-2) % Neut # (Auto) (5432-2277) /uL Lymph # (Auto) (9032-0270) /uL [place] # (Auto) (0-900) /uL Eos # (Auto) (0-450) /uL Baso # (Auto) (0-100) /uL Sodium (137-145) mmol/L Potassium (3.4-5.1) mmol/L Chloride (98-107) mmol/L Carbon Dioxide (22-32) mmol/L BUN (7-17) mg/dL Creatinine (0.52-1.04) mg/dL Estimated GFR (>60) mL/min BUN/Creatinine Ratio (6-22) Glucose (80-110) mg/dL Lactate 1.8 (0.7-2.1) mmol/L Calcium (8.4-10.2) mg/dL Total Bilirubin (0.2-1.3) mg/dL AST (14-36) IU/L ALT (<35) IU/L Alkaline Phosphatase (38-126) U/L Total Creatine Kinase (30-135) U/L CK-MB (CK-2) CK-MB (CK-2) Rel Index Troponin I (0.01-0.034) ng/mL Total Protein (6.3-8.2) g/dL Albumin (3.5-5.0) g/dL Globulin (1.7-4.1) g/dL Albumin/Globulin Ratio (1.0-2.8) Procalcitonin 1.56 H (<0.5) ng/mL Urine Color Yellow Urine Appearance Clear Urine pH 7.0 (4.5-8.0) Ur Specific [place] <=1.005 (1.000-1.035) Urine Protein Negative (Negative) Urine Glucose (UA) Negative (Negative) g/dL Urine Ketones Negative (NEGATIVE) Urine Occult Blood 1+ H (Negative) Urine Nitrate Negative (Negative) Urine Bilirubin Negative (NEGATIVE) Urine Urobilinogen 0.2 (0.2) E.U./dL Ur Leukocyte Esterase 1+ H (NEGATIVE) Urine RBC 0-1/hpf (0-5/HPF) Urine WBC 1-5/hpf (0-5/HPF) Ur Squamous Epith Cells 0-1 /hpf (0-5/HPF) Amorphous Sediment 1+ Urine Bacteria Few (2-10) H (None) Ur Culture Indicated? Specimen cultured SARS-CoV-2 (PCR) (Negative) Imaging Data Chest x-ray: Radiologist's Impression: PROCEDURE:? XR CHEST 1V ? INDICATIONS:? Flu like symptoms ? TECHNIQUE:? One view of the chest was acquired.? ? COMPARISON:? [facility], , XR CHEST 1V, 06/08/2022, 23:53. ? FINDINGS:? ? Surgical changes and devices:? None.? ? Lungs and pleura:? Lungs are clear.? No pleural effusions or pneumothorax.? ? Mediastinum:? Mediastinal contours appear normal.? Heart size is normal.? ? Bones and chest wall:? No suspicious bony lesions.? Overlying soft tissues appear unremarkable.? ? IMPRESSION:? No acute cardiopulmonary abnormality. ? ? ? Dictated by: Preston Nuñez M.D. on 06/13/2022 at 18:20 ? ? Approved by: Preston Nuñez M.D. on 06/13/2022 at 18:22 ? Pelvic Xray: Radiologist's Impression: PROCEDURE:? XR PELVIS 1-2V ? INDICATIONS:? sp hip replacement after fall, gen weakness, increased WBC ? TECHNIQUE:? 1 view of the lower pelvis acquired.? ? COMPARISON:? [facility], CR, XR HIP W PEL IF DONE LT 2V, 06/08/2022, 23:53.? [facility], CR, XR HIP W PEL IF DONE LT 2V, 06/09/2022, 15:29. ? FINDINGS:? ? Bones:? Patient is status post left hip arthroplasty, with hardware components in expected positions.? The hip joint appears congruent.? A fracture is also seen at the left ischial tuberosity similar to prior x-ray on 06/08/2022.? Surrounding sclerosis is noted. ? Soft tissues:? Overlying postoperative changes are noted.? No suspicious soft tissue densities.? ? ? IMPRESSION:? 1. Left intertrochanteric hip fracture with good alignment. 2. Fracture of the left ischial tuberosity with sclerosis.? Dictated by: Preston Nuñez M.D. on 06/13/2022 at 18:23 ? ? Approved by: Preston Nuñez M.D. on 06/13/2022 at 18:26 ? MDM Narrative Medical decision making narrative: 61-year-old female with a past medical history of alcohol and tobacco use presents to the ED to avail of a SNF facility. Will obtain labs, urine for medical clearance for acceptance into a SNF. 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 Surgical incisions without overt signs of infections such as swelling, erythema, purulence. There is a small amount of serous discharge. UA indicative of UTI. Procalcitonin 1.56. WBC elevated to 14. Will treat pain with Dilaudid, Zofran. Will start Rocephin 1 g IV. Will give IV fluids. Hospitalist Dr. Sanchez consulted for admission until patient can be placed into a SNF. He will evaluate the patient. Patient accepted as inpatient. <Leena Patiño, DO - Last Filed: 06/14/22 04:06> Lab Data Labs: Lab Results 06/13/22 06/13/22 06/13/22 Range/Units 16:46 16:46 16:46 WBC 14.1 H (4.5-11.0) X10^3/uL RBC 2.79 L (4.0-5.2) X10^6/uL Hgb 9.9 L (12.0-16.0) g/dL Hct 28.8 L (36-46) % MCV 103.5 H (80-100) fL MCH 35.6 H (26-34) PG MCHC 34.4 (30-36) % RDW 13.3 (11.6-14.8) % Plt Count 407 H (150-400) X10^3/uL Neut % (Auto) 75.6 H (50-75) % Lymph % (Auto) 15.3 L (25-40) % [place] % (Auto) 8.1 (3-14) % Eos % (Auto) 0.4 L (2-4) % Baso % (Auto) 0.6 (0-2) % Neut # (Auto) 70078 H (6950-2041) /uL Lymph # (Auto) 2200 (4252-9705) /uL [place] # (Auto) 1200 H (0-900) /uL Eos # (Auto) 100 (0-450) /uL Baso # (Auto) 100 (0-100) /uL Sodium 129 L (137-145) mmol/L Potassium 4.0 (3.4-5.1) mmol/L Chloride 95 L (98-107) mmol/L Carbon Dioxide 24 (22-32) mmol/L BUN 4 L (7-17) mg/dL Creatinine 0.25 L (0.52-1.04) mg/dL Estimated GFR > 60 (>60) mL/min BUN/Creatinine Ratio 16.0 (6-22) Glucose 86 (80-110) mg/dL Lactate (0.7-2.1) mmol/L Calcium 8.6 (8.4-10.2) mg/dL Total Bilirubin 0.8 (0.2-1.3) mg/dL AST 40 H (14-36) IU/L ALT 19 (<35) IU/L Alkaline Phosphatase 115 (38-126) U/L Total Creatine Kinase 64 (30-135) U/L CK-MB (CK-2) TNP CK-MB (CK-2) Rel Index TNP Troponin I < 0.012 (0.01-0.034) ng/mL Total Protein 6.9 (6.3-8.2) g/dL Albumin 3.3 L (3.5-5.0) g/dL Globulin 3.6 (1.7-4.1) g/dL Albumin/Globulin Ratio 0.9 L (1.0-2.8) Procalcitonin (<0.5) ng/mL Urine Color Urine Appearance Urine pH (4.5-8.0) Ur Specific [place] (1.000-1.035) Urine Protein (Negative) Urine Glucose (UA) (Negative) g/dL Urine Ketones (NEGATIVE) Urine Occult Blood (Negative) Urine Nitrate (Negative) Urine Bilirubin (NEGATIVE) Urine Urobilinogen (0.2) E.U./dL Ur Leukocyte Esterase (NEGATIVE) Urine RBC (0-5/HPF) Urine WBC (0-5/HPF) Ur Squamous Epith Cells (0-5/HPF) Amorphous Sediment Urine Bacteria (None) Ur Culture Indicated? SARS-CoV-2 (PCR) Negative (Negative) 06/13/22 06/13/22 06/13/22 Range/Units 16:46 16:46 17:41 WBC (4.5-11.0) X10^3/uL RBC (4.0-5.2) X10^6/uL Hgb (12.0-16.0) g/dL Hct (36-46) % MCV (80-100) fL MCH (26-34) PG MCHC (30-36) % RDW (11.6-14.8) % Plt Count (150-400) X10^3/uL Neut % (Auto) (50-75) % Lymph % (Auto) (25-40) % [place] % (Auto) (3-14) % Eos % (Auto) (2-4) % Baso % (Auto) (0-2) % Neut # (Auto) (9990-2331) /uL Lymph # (Auto) (3062-3752) /uL [place] # (Auto) (0-900) /uL Eos # (Auto) (0-450) /uL Baso # (Auto) (0-100) /uL Sodium (137-145) mmol/L Potassium (3.4-5.1) mmol/L Chloride (98-107) mmol/L Carbon Dioxide (22-32) mmol/L BUN (7-17) mg/dL Creatinine (0.52-1.04) mg/dL Estimated GFR (>60) mL/min BUN/Creatinine Ratio (6-22) Glucose (80-110) mg/dL Lactate 1.8 (0.7-2.1) mmol/L Calcium (8.4-10.2) mg/dL Total Bilirubin (0.2-1.3) mg/dL AST (14-36) IU/L ALT (<35) IU/L Alkaline Phosphatase (38-126) U/L Total Creatine Kinase (30-135) U/L CK-MB (CK-2) CK-MB (CK-2) Rel Index Troponin I (0.01-0.034) ng/mL Total Protein (6.3-8.2) g/dL Albumin (3.5-5.0) g/dL Globulin (1.7-4.1) g/dL Albumin/Globulin Ratio (1.0-2.8) Procalcitonin 1.56 H (<0.5) ng/mL Urine Color Yellow Urine Appearance Clear Urine pH 7.0 (4.5-8.0) Ur Specific [place] <=1.005 (1.000-1.035) Urine Protein Negative (Negative) Urine Glucose (UA) Negative (Negative) g/dL Urine Ketones Negative (NEGATIVE) Urine Occult Blood 1+ H (Negative) Urine Nitrate Negative (Negative) Urine Bilirubin Negative (NEGATIVE) Urine Urobilinogen 0.2 (0.2) E.U./dL Ur Leukocyte Esterase 1+ H (NEGATIVE) Urine RBC 0-1/hpf (0-5/HPF) Urine WBC 1-5/hpf (0-5/HPF) Ur Squamous Epith Cells 0-1 /hpf (0-5/HPF) Amorphous Sediment 1+ Urine Bacteria Few (2-10) H (None) Ur Culture Indicated? Specimen cultured SARS-CoV-2 (PCR) (Negative) Discharge Plan Departure Patient Disposition: Admitted as Observation Clinical Impression: UTI (urinary tract infection), Protein-calorie malnutrition, severe Admit Date/Time: 06/13/22 19:33 Admit Provider: Fozia Sauceda <Leena Patiño DO - Last Filed: 06/14/22 04:06> Cosign ED Attending Sussy Attestation: I was immediately available in the department for consultation. Documentation has been reviewed. I agree with assessment and plan. I did see and evaluate patient's left hip. It does appear to be postoperative bruising and there is some serosanguineous seepage at the most inferior incision site. Does not appear to be infectious. Patient is having frequent urination she has leukocytes and bacteria in her urine with elevated procalcitonin likely UTI. He is not hypotensive does not meet severe sepsis criteria
[2022-06-13 19:31] VITALS: BP 155/84; PULSE 109; RESP 10; O2SAT 98
--- NOTE | 2022-06-13 20:08 | CM.DPC ---
DCP Note Please case notes from MARY JANE Landa regarding SNF rehab search for patient. Patient is 61 y/o female who presents to ED with hip pain via EMS and son's concern for patient's safety and ability to care for self at home. patient d/c'd to home on 06/11/22 and refused SNF rehab. Today patient endorses willingness to go to SNF rehab for a short amount of time. MARY JANE Landa currently has several SNFs that accept patient's [employer] insurance reviewing patient. SOCIAL MEDIA MARKETING ANALYST enters room to meet with patient, present in room is patient's son Jorden. Patient states that her PCP moved and she is in between PCPs. Patient endorses she has had several supports at home in the last two days but patient does not want to be a burden to friends. Patient has been using wheelchair and also has FWW at home. Patient endorses her initial fall took place after she tripped on her FWW. SOCIAL MEDIA MARKETING ANALYST asks patient about substance use. Patient reports that she drinks 2-4 glasses of wine and club soda every day. Patient denies that ETOH use impacted her fall, she states she only had one drink prior to her fall. Patient denies that ETOH use impacts her daily living, patient denies other substance use. Per EMR, Patient has [facility] in [facility] if Fitz Landin MD is willing to sign off on HH referral. SOCIAL MEDIA MARKETING ANALYST speaks with patient's son, he reports concern for patient's drinking and that patient will fall and hurt herself further. SOCIAL MEDIA MARKETING ANALYST provides son with grief services contact information. Plan: continue to f/u with SNF rehab referrals in place ([facility], [facility], [facility], [facility], [facility], and [facility]). Shelia Rivera, ASHLEY
[2022-06-13 21:00] VITALS: BMI 16.9
[2022-06-13] MEDS: SODIUM CHLORIDE 0.9% 1,000 ML 100 ML IV (21:35)
--- NOTE | 2022-06-13 21:36 | P.HP_ITS ---
History of Present Illness History of Present Illness Date Patient Seen: 06/13/22 Time Patient Seen: 21:36 Chief complaint: Hip pain Narrative: Fadia Ceballos is a 61 y.o. female who was admitted on 06/09/2022 after a fall for which she had a pelvic fracture and left hip fracture. She did have the hip fracture repaired on the day of admission. She declined SNF and ultimately was discharged home with home PT. Unfortunately during her hospital stay her . Her likely cause of injury is mechanical fall due to alcohol intoxication. She was advised to avoid alcohol use. She was quite hyponatremic on admission at that time with a sodium of 122, and improved with fluid restriction and improved diet and discharged on June 13. 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 Her malnutrition is thought to potentially negatively affect her wound healing. Today, her son living in [facility], arrived and saw that she was failing at home. He stated she was urinating all the time and she stated she was having a hard time moving about to get to the bathroom, increasingly relying on her wheelchair. She states her pain was well controlled, son noted she began drinking again. Stated bilateral extremities are mildly swollen. Her son also mentioned she had been previously treated for C. difficile a number of years ago, did not complete the medical treatment (stated she did not like the taste of Flagyl) and was concerned she still had the infection due to persistent diarrhea. She does admit to smoking a pack and a half of cigarettes/day and resumed drinking (some days one drink, others more). X-ray of the pelvis reported left intratrochanteric hip fracture with good alignment in a fracture of the left ischial tuberosity with sclerosis. She is afebrile, blood pressure 155/84, heart rate 109, respiratory rate 10, oxygen saturation of 90% on room air she weighs 46 kg with a BMI of 17. Her white count is elevated at 14.1 hemoglobin and hematocrit are 9.9 and 28.8 respectively, platelet count is 407, she has a left shift of 10,700, today are sodium is 129, creatinine 0.25 with the GFR that is normal, AST is 40 the rest of her liver enzymes are normal, albumin is low at 3.3 and procalcitonin is elevated at 1.56. UA is positive for UTI and cultures pending, COVID-19 PCR is negative. FH: Patient states she is adopted and does not know her family medical history. Patient History Surgical History Status post appendectomy Status post breast lumpectomy Status post hysterectomy Family & Social History Social History: household members none Prior Living Arrangements House Safety & Behavioral: Feels Safe in Current Yes Environment Been Physically Hurt or No Threatened By a Person Tobacco & Substance use: Tobacco type cigarettes Smoking Status Current every day smoker Smoking packs per day 1.5 alcohol intake current alcohol intake frequency 3 or more drinks per day Substance Use Type does not use Meds Home Medications and Allergies Home Medications Medication Instructions Recorded Confirmed Type acetaminophen 325 mg tablet 650 mg PO Q6HR PRN Fever/Mild Pain 06/11/22 06/13/22 Rx (1-3) #30 tabs enoxaparin 40 mg/0.4 mL 40 mg (0.4 mL) SUBCUT DAILY 28 06/11/22 06/13/22 Rx subcutaneous syringe (Lovenox) days #12 mL folic acid 1 mg tablet 1 mg PO DAILY #30 tabs 06/11/22 06/13/22 Rx oxycodone 5 mg tablet 5 mg PO Q4HR PRN Pain, Moderate 06/11/22 06/13/22 Rx (4-6) #30 tabs sennosides 8.6 mg tablet (senna) 8.6 mg PO BID PRN Constipation #30 06/11/22 06/13/22 Rx tabs thiamine mononitrate (vit B1) 100 100 mg PO DAILY #30 tabs 06/11/22 06/13/22 Rx mg tablet Allergies Allergy/AdvReac Type Severity Reaction Status Date / Time morphine AdvReac Intermediate Hallucinati Verified 06/13/22 16:59 ng Penicillins [PENICILLINS] AdvReac Intermediate rash Verified 06/13/22 16:59 Review of Systems Review of Systems ROS: Yes All systems reviewed with the patient and are negative except as othe rwise documented Exam Vital Signs (past 8 hours): - 06/13/22 15:42 06/13/22 19:31 Temperature 98 F Pulse Rate 95 H 109 H Respiratory Rate 17 10 L Blood Pressure 120/69 155/84 H Pulse Oximetry 99 98 Oxygen Delivery Method Room Air Room Air Oxygen Delivery Method Room Air Narrative Exam Narrative: Gen: Alert, oriented, cachectic appearing 61 y.o. female, appears older than stated age. HEENT: normocephalic, atraumatic, conjunctiva clear, sclera non-icteric, oral mucosa pink and moist Neck: supple, full ROM, no JVD, trachea is midline Resp: Lungs CTA, non-labored breathing CV: RRR, no murmur or rubs Abd: soft, non-tender, normoactive BTs Skin: no lesions or rashes, dry and intact Neuro: Alert and oriented X 4 w/no focal deficits. Speech clear and coherent. Extremities: moves all 4 extremities, is ambulatory, negative Deep?s sign Psyche: anxious affect. Objective Labs Result Diagrams: 06/13/22 16:46 06/13/22 16:46 Labs: Laboratory Results - last 24 hr 06/13/22 06/13/22 06/13/22 16:46 16:46 16:46 WBC 14.1 H RBC 2.79 L Hgb 9.9 L Hct 28.8 L MCV 103.5 H MCH 35.6 H MCHC 34.4 RDW 13.3 Plt Count 407 H Neut % (Auto) 75.6 H Lymph % (Auto) 15.3 L Door % (Auto) 8.1 Eos % (Auto) 0.4 L Baso % (Auto) 0.6 Neut # (Auto) 99411 H Lymph # (Auto) 2200 Door # (Auto) 1200 H Eos # (Auto) 100 Baso # (Auto) 100 Sodium 129 L Potassium 4.0 Chloride 95 L Carbon Dioxide 24 BUN 4 L Creatinine 0.25 L Estimated GFR > 60 BUN/Creatinine Ratio 16.0 Glucose 86 Lactate Calcium 8.6 Total Bilirubin 0.8 AST 40 H ALT 19 Alkaline Phosphatase 115 Total Creatine Kinase 64 CK-MB (CK-2) TNP CK-MB (CK-2) Rel Index TNP Troponin I < 0.012 Total Protein 6.9 Albumin 3.3 L Globulin 3.6 Albumin/Globulin Ratio 0.9 L Procalcitonin Urine Color Urine Appearance Urine pH Ur Specific [place] Urine Protein Urine Glucose (UA) Urine Ketones Urine Occult Blood Urine Nitrate Urine Bilirubin Urine Urobilinogen Ur Leukocyte Esterase Urine RBC Urine WBC Ur Squamous Epith Cells Amorphous Sediment Urine Bacteria Ur Culture Indicated? SARS-CoV-2 (PCR) Negative 06/13/22 06/13/22 06/13/22 16:46 16:46 17:41 WBC RBC Hgb Hct MCV MCH MCHC RDW Plt Count Neut % (Auto) Lymph % (Auto) Door % (Auto) Eos % (Auto) Baso % (Auto) Neut # (Auto) Lymph # (Auto) Door # (Auto) Eos # (Auto) Baso # (Auto) Sodium Potassium Chloride Carbon Dioxide BUN Creatinine Estimated GFR BUN/Creatinine Ratio Glucose Lactate 1.8 Calcium Total Bilirubin AST ALT Alkaline Phosphatase Total Creatine Kinase CK-MB (CK-2) CK-MB (CK-2) Rel Index Troponin I Total Protein Albumin Globulin Albumin/Globulin Ratio Procalcitonin 1.56 H Urine Color Yellow Urine Appearance Clear Urine pH 7.0 Ur Specific [place] <=1.005 Urine Protein Negative Urine Glucose (UA) Negative Urine Ketones Negative Urine Occult Blood 1+ H Urine Nitrate Negative Urine Bilirubin Negative Urine Urobilinogen 0.2 Ur Leukocyte Esterase 1+ H Urine RBC 0-1/hpf Urine WBC 1-5/hpf Ur Squamous Epith Cells 0-1 /hpf Amorphous Sediment 1+ Urine Bacteria Few (2-10) H Ur Culture Indicated? Specimen cultured SARS-CoV-2 (PCR) Assessment & Plan Assessment & Plan narrative: Fadia Ceballos is admitted due to failed discharge, a new urinary tract infection and severe protein malnutrition. Urinary tract infection, acute and present on admission * She is started on IV cefepime * Culture is pending Severe protein calorie malnution * BMI is 17 * Daily weights * Dietary/nutritional consult * General diet * Chronic alcohol use likely contributing POD#4 left introchanteric hip repair * Pain control with tyelenol, po hydrocodone, po oxycodone * PT eval in the am * Will notify ortho of patient's readmit * Generalized weakness and debility should justify acute rehab which patient is now amenable to do History of clostridium difficile * C. difficile PCR has been ordered * Will stop stool softeners if she develops diarrhea Alcohol dependence, chronic and longstanding * [facility] protocol * Patient denies having issues in the past with withdrawal * Continue multivitamins, thiamine and folic acid * Ativan, consider librium taper if with active withdrawal Tobacco dependence, chronic and longstanding * She is written for a 14 mcg nicoderm patch VTE Prophylaxis: Wells risk score 3 Enoxaparin 40 mg subQ once daily Bilateral SCDs. Patient is admitted to the inpatient service due to the severity of disease, risks of further disease progression and this stay is expected to exceed 2 midnights. FEN: IV fluids: NS at 100 ml/hour, diet: general, labs: CBC, C/BMP, liver enzymes, Mag, PT/INR Consultants None. Dispo: Likely discharge to rehab, current alcohol use may be a barrier. Code status: Full code as discussed with the patient who identifies her son Jorden her surrogate and POA. [X] I have utilized all available immediate resources to obtain, update, or review of the patient's current medications VTE Deep Vein Thrombosis/Pulmonary Embolism Present on Admission: No MIPS - Admit I confirm the patient?s Advance Care Plan is present, Code status is documented, Surrogate decision maker is in patient?s record: Yes MIPS - DC The patient has current or prior documentation of left ventricular ejection fraction (LVEF) less than 40%, or moderate or severely depressed left ventricular systolic function.: No COVID-19 COVID-19 status: Negative Result date/Date tested (Pos, Neg/Pending): 06/13/22 Scores Wells' Criteria for PE Clinical signs and symptoms of DVT: No PE is #1 Dx or equally likely: No Heart rate > 100: Yes Immobilization at least 3 days or surg in previous 4 weeks: Yes History of PE or DVT: No Hemoptysis: No Malignancy w/Treatment within 6 months or palliative: No Wells' PE Score total: 3.0
[2022-06-13] MEDS: MELATONIN 3 MG TABLET 6 MG PO (21:43)
[2022-06-13] MEDS: DOCUSATE 100 MG CAPSULE PO (21:43)
[2022-06-13 22:02] VITALS: BP 146/83; PULSE 98; RESP 19; TEMP 36.3; O2SAT 100
--- NOTE | 2022-06-13 22:04 | PC.ADMIT ---
[email or web address] Admission Note: The patient,Fadia Ceballos,61 y/o, was given written information regarding hospital policies, unit procedures and contact persons. Patient's smoking status: Current every day smoker. Vital Signs - 8 hr 06/13/22 15:42 06/13/22 19:31 06/13/22 21:58 Temperature 98 F Pulse Rate 95 H 109 H Respiratory Rate 17 10 L Blood Pressure 120/69 155/84 H Pulse Oximetry 99 98 Oxygen Delivery Method Room Air Room Air Room Air Patient admitted to room 220 from ER per stretcher at 2100 and transferred into bed using slider board. Is aler and oriented with flat affect. Talks about spouse's this past week and is not tearful. Breath sounds CTA with RA sat of 100%. HRR w/telemetry reading of SR. Denies nausea. BT present and abdomen is soft. Indwelling catheter is patent; urine is clear yellow. Is able to lift buttocks off bed but has significant pain with turning side to side. Dressing to left hip is CDI. Bruising noted on medial aspect of left thigh. Bilateral calf SCD's applied. Seizure pads on bed. CIWA score is 5. Fall risk score is high and bed alarm is activated.
[2022-06-13] MEDS: HYDROCODONE/ACET 10/325 TABLET 1 TAB PO (22:25)
[2022-06-14] VITALS: BP 106/61; PULSE 87; RESP 22; TEMP 36.1; O2SAT 94
[2022-06-14 04:00] VITALS: BP 116/71; PULSE 90; RESP 21; TEMP 36.1; O2SAT 98
[2022-06-14] MEDS: CEFEPIME 1 GM in SODIUM CHLORIDE 0.9% 100 ML IV ×2 (05:03→16:05)
[2022-06-14] MEDS: HYDROCODONE/ACET 10/325 TABLET 1 TAB PO ×3 (05:35→16:05)
[2022-06-14 06:48] LABS: Add Manual Diff / Slide Review NO; Basophils Absolute Auto 100 /uL (0-100); Basophils Percent Auto 0.8 % (0-2); Eosinophils Absolute Auto 0 /uL (0-450); Eosinophils Percent Auto 0.6 % (2-4); Hematocrit 22.7 % (36-46); Hemoglobin 7.8 g/dL (12.0-16.0); Lymphocytes Absolute Auto 1700 /uL (1100-4500); Lymphocytes Percent Auto 19.8 % (25-40); Mean Corpuscular HGB Conc 34.4 % (30-36); Mean Corpuscular Volume 104.7 fL (80-100); Monocytes Absolute Auto 900 /uL (0-900); Monocytes Percent Auto 10.6 % (3-14); Neutrophils Absolute Auto 5700 /uL (1500-7000); Neutrophils Percent Auto 68.2 % (50-75); Platelet Count 355 X10^3/uL (150-400); Red Blood Cell Count 2.17 X10^6/uL (4.0-5.2); Red Cell Distribution Width 13.3 % (11.6-14.8); White Blood Cell Count 8.4 X10^3/uL (4.5-11.0)
[2022-06-14 06:55] LABS: Alanine Aminotransferase 12 IU/L (<35); Albumin 2.4 g/dL (3.5-5.0); Albumin Globulin Ratio 0.9 (1.0-2.8); Alkaline Phosphatase 96 U/L (38-126); Aspartate Aminotransferase 22 IU/L (14-36); BUN Creatinine Ratio 11.8 (6-22); Bilirubin Total 0.5 mg/dL (0.2-1.3); Blood Urea Nitrogen 4 mg/dL (7-17); Calcium 7.6 mg/dL (8.4-10.2); Carbon Dioxide 24 mmol/L (22-32); Chloride 99 mmol/L (98-107); Estimated Glomerular Filt Rate > 60 mL/min (>60); Globulin 2.8 g/dL (1.7-4.1); Glucose 82 mg/dL (80-110); HEMOLYSIS < 15 (0-50); Magnesium 1.4 mg/dL (1.6-2.3); Potassium 3.4 mmol/L (3.4-5.1); Sodium 128 mmol/L (137-145); Total Protein 5.2 g/dL (6.3-8.2)
[2022-06-14] MEDS: SODIUM CHLORIDE 0.9% 1,000 ML 100 ML IV ×2 (07:27→17:28)
[2022-06-14 08:33] VITALS: BP 113/70; PULSE 87; RESP 18; TEMP 36.5; O2SAT 98
[2022-06-14] MEDS: FOLIC ACID 1 MG TABLET PO (09:03)
[2022-06-14] MEDS: THIAMINE 100 MG TABLET PO (09:03)
[2022-06-14] MEDS: OXYCODONE IR 5 MG TABLET PO ×2 (09:03→21:09)
[2022-06-14] MEDS: MULTIVITAMIN 1 TABLET 1 TAB PO (09:03)
[2022-06-14] MEDS: ENOXAPARIN 40 MG/0.4 ML SYRINGE SUBCUT (09:04)
[2022-06-14] MEDS: DOCUSATE 100 MG CAPSULE PO ×2 (09:04→21:09)
[2022-06-14] MEDS: MAGNESIUM CHLORIDE 64 MG TABLET 128 MG PO ×2 (09:05→16:06)
[2022-06-14] MEDS: POTASSIUM CHLORIDE 20 MEQ TAB 40 MEQ PO (09:42)
--- NOTE | 2022-06-14 09:45 | PT.IIE ---
Surgical History (Last Reviewed 06/13/22 @ 19:33 by Janis Meyer PA-C) Status post appendectomy Status post breast lumpectomy Status post hysterectomy Physical Therapy Inpatient Evaluation/Re-Eval M1 PT/OT-IP Prior Functional Status Start: 06/14/22 11:38 Freq: NEEDED Status: Active Protocol: Document 06/14/22 09:45 AB (Rec: 06/14/22 11:49 AB [email or web address]) Medical Review Prior Functional Status Medical History Reviewed Yes Communication able to make needs known Mobility and Gait pt s/p fall and sustained a L hip fx and underwent nailing last 06/09/22. prior to 06/09, pt was independent with all mobilities and ambulation without AD Prior Functional Level (Other details) pt s/p fall and sustained a L hip fx and underwent cephalomedullary nailing 06/09. during that time, pt's spouse passed and pt just wants to go home to grieve. caregiver training was conducted with pt's friend. Pt came back to the hospital and admitted that she is not able to take care by herself and cannot ask her friends to keep assisting her. pt stated that her son came and convinced her to go back to the hospital and realized that she needs to be more independent before she can go back home. Social History Household Members none Living Arrangements House Number of Floors (Floors) One Floor Number of Stairs To Enter/Railing? 1 step to enter Home Environment High Toilet,Walk in Shower,Tub /Shower Home Equipment Front Wheel Walker,Manual Wheelchair,Bedside Commode M2 PT-IP Current Condition Start: 06/14/22 11:38 Freq: NEEDED Status: Active Protocol: Document 06/14/22 09:45 AB (Rec: 06/14/22 11:49 AB [email or web address]) Physical Therapy Current Condition Current Condition Evaluation Date 06/14/22 Treatment Diagnosis UTI; s/o L hip nailing; difficulty in walking Onset Date 06/13/22 M3 PT-IP Subjective Start: 06/14/22 11:38 Freq: NEEDED Status: Active Protocol: Document 06/14/22 09:45 AB (Rec: 06/14/22 11:49 AB [email or web address]) Subjective Physical Therapy Visit Type Type Initial Evaluation Visit Start Time 09:45 Visit Stop Time 10:11 Total Visit Minutes 26 Number of [employer] WORKER Visits 0 Physical Therapy Visit Comments Patient Comments agreeable to do PT Therapy Pain Assessment Pain When Pain Assessed At Rest Pain Present Pain Present Pain Reported Location Left Hip Intensity 4 Scale Used Numeric (0 - 10) M4 PT-IP Mobility and Gait Start: 06/14/22 11:38 Freq: NEEDED Status: Active Protocol: Document 06/14/22 09:45 AB (Rec: 06/14/22 11:49 AB [email or web address]) PT-Bed Mobility Assessment Supine to Sit Supine to Sit Minimal Assistance PT-Transfer Assessment Sit to and From Stand Sit to and from Stand Minimal Assistance,1 Person Assistance,Use of Upper Extremities Equipment Transfer Assistive Device Gait Belt,Front Wheeled Walker Orthotic/Prosthetic Devices or Brace: No Transfers Transfer Destination Chair Transfer Technique ambulated Transfer Ability Level of Assist Minimal Assistance,1 Person Assistance,Use of Upper Extremities Comments Mobility Comments completed supine to sit min A with HOB elevated. able to sit on EOB SBA. completed sit to stand min A and ambulated 2 ft forward and stated that she has to sit down and stepped backwards 2 ft and sat on the chair. pt requested brief change and assisted. pt completed sit to stand from the wali min A. able to maintain standing CGA while assisted with brief change. pt sat back on chair and rested. agreed to walk again and completed another 4 ft and back to chair. agreed to sit up on the chair. positioned with call light and table placed within reach. Gait Assessment Gait Gait Assistance Required: Minimum Assistance Distance (Feet) 4 Able to Maintain Weight Bearing Status Yes During Gait Assistive Devices Assistive Device Gait Belt,Front Wheeled Walker Orthotic/Prosthetic Devices or Brace: No Gait Deviations General Gait Pattern Antalgic,Decreased Stride Length,Decreased Feet Clearance,Step-to Gait Factors Limiting Gait Function Factors Limiting Gait Function Decreased Activity Tolerance, Decreased Strength,Limited Range of Motion,Pain,Poor Balance,Poor Safety Awareness PT-Balance Assessment Sitting Balance and Reactions Static Sitting Balance Ability Normal Dynamic Sitting Balance Ability Good Standing Balance and Reactions Static Standing Balance Ability Fair Dynamic Standing Balance Ability Fair Device Used FWW M5 PT-IP Objective Assessments Start: 06/14/22 11:38 Freq: NEEDED Status: Active Protocol: Document 06/14/22 09:45 AB (Rec: 06/14/22 11:49 AB [email or web address]) Orientation Orientation/Cognition Level of Alertness Alert Orientation Name,Place,Situation Language Function Ability No Deficits Noted Safety Awareness Decreased Safety Awareness Memory Description No Deficits Noted Gross Range of Motion Lower Extremity ROM Assessment Within Functional Limits Strength Lower Extremity Strength Hip 3+/5 Knee 4-/5 Muscle Tone Muscle Tone WNL Yes M6 PT-IP Treatment Start: 06/14/22 11:38 Freq: NEEDED Status: Active Protocol: Document 06/14/22 09:45 AB (Rec: 06/14/22 11:49 AB [email or web address]) Physical Therapy Treatment Education Education Provided Safety M7 PT-IP Assessment and Plan Start: 06/14/22 11:38 Freq: NEEDED Status: Active Protocol: Document 06/14/22 09:45 AB (Rec: 06/14/22 11:49 AB [email or web address]) PT Summary Assessment and Plan Potential Rehabilitation Potential Fair Status of Condition at Evaluation Evolving Summary Impairments Pain,ROM,Strength,Balance, Coordination,Sensation,Tone, Cognition,Bed Mobility, Transfers,Gait,Activity Tolerance Assessment Summary pt requiring min A with mobility using FWW and tends to limits self with movement and needs motivation. pt will require SNF rehab to improve mobility independence. Goals Bed Mobility Goal Standby Assistance Transfer Goal Standby Assistance,Front Wheeled Walker Gait Goal Standby Assistance,Front Wheel Walker Gait Distance 100 Other Goals up/down 1 step SBA using fWW Days to Meet Goals 10 Frequency of Treatment Frequency Of Treatment Twice a Day Treatment Plan Physical Therapy Treatment Plan Bed Mobility Training,Transfer Training,Gait Training, Therapeutic Exercise,Balance Retraining,Post Op Education, Discharge Planning,Hot or Cold Pack,Neuromuscular Re-ed, Coordination Retraining,Manual Therapy Weight Bearing Status Weight Bearing Status Weight Bear as Tolerated Allowed Weight Bearing Amount (enter % LLE WBAT or #) (%) Recommendations To Nursing Amount of Assist Needed 1 Person Assist Discharge Recommendations PT Discharge Recommendations SNF Rehab Transportation Needs at Discharge Private Vehicle,Wheelchair/ Cabulance
--- NOTE | 2022-06-14 10:46 | CM.DANOTE ---
Initial DCP Assessment Note Placement efforts continue for this 61 yo female. PT/OT notes pending this morning See initial assessment narrative below from MARY JANE Goldman, ASHLEY: DCP Note Please case notes from MARY JANE Landa regarding SNF rehab search for patient. Patient is 61 y/o female who presents to ED with hip pain via EMS and son's concern for patient's safety and ability to care for self at home. patient d/c'd to home on 06/11/22 and refused SNF rehab. Today patient endorses willingness to go to SNF rehab for a short amount of time. MARY JANE Landa currently has several SNFs that accept patient's [employer] insurance reviewing patient. CASHIER CLERK enters room to meet with patient, present in room is patient's son Jorden. Patient states that her PCP moved and she is in between PCPs. Patient endorses she has had several supports at home in the last two days but patient does not want to be a burden to friends. Patient has been using wheelchair and also has FWW at home. Patient endorses her initial fall took place after she tripped on her FWW. CASHIER CLERK asks patient about substance use. Patient reports that she drinks 2-4 glasses of wine and club soda every day. Patient denies that ETOH use impacted her fall, she states she only had one drink prior to her fall. Patient denies that ETOH use impacts her daily living, patient denies other substance use. Per EMR, Patient has [facility] in [facility] if Fitz Landin MD is willing to sign off on HH referral. CASHIER CLERK speaks with patient's son, he reports concern for patient's drinking and that patient will fall and hurt herself further. CASHIER CLERK provides son with grief services contact information. Plan: continue to f/u with SNF rehab referrals in place ([facility], [facility], [facility], [facility], [facility], [facility], and [facility] ASHLEY Goldman Discharge Planning/Care Management CM Discharge Assessment Start: 06/14/22 10:36 Freq: Status: Active Protocol: Document 06/14/22 10:36 KENZIE (Rec: 06/14/22 10:45 KENZIE [id number]) Discharge Planning Assessment Assigned Title Checker MARY JANE Mendez DPOA/Assigned Designee Name judson Leonardo ([facility]) Contact Information [phone] Advance Directives? No History Provided By Patient,Family Member,Medical Record Prior Living Arrangements House Household Members none Type of transporation used prior to Drives own vehicle admit Comment Drove prior to recent fall and injury Independent with ADL's Yes Is patient alert and oriented? Yes Patient/Family Preference Senior [facility] Facility,Home with Home Health Barriers to Discharge Yes Comment Patient now POD#4 from hip repair. Discharged 10.8.22 home w/friends and has readmitted with acute UTI, chronic severe calorie malnutrition and overall failure to thrive. Patient and family requesting SNF for rehab if this option can be arranged Discharge Plan Senior Care Facility Transportation Arrangement TBD Referrals Initiated [facility] SNF/HH Preference No SNF preference; [facility] contracted facility
--- NOTE | 2022-06-14 10:49 | CM.DPNOTE ---
DCP Note See following narrative from DRAMATIC DIRECTOR Syeda Alvarado, assisting patient/family with placement options 06.13.22 before patient's admissions last night: SW received a call from pt's son Jorden stating he just arrived from [facility] after pt's discharge from the hospital on 06/11/22 (today is Mon) and family and friends have major concerns with pt's ability to be home at this time. SW reviewed pt's admission for [facility] with need for surgical intervention with Ortho and PT/OT recommendation of SNF but pt declined and wanted home with HH due to her spouse recently expiring and needing to go home to grieve with family. Pt has [employer] for insurance. Previous SW had made referral to [facility] for discharge and per son [facility] did call but unfortunately pt's PCP retired and pt does not have an active primary physician. Sig is willing to work with [facility] to determine if Ortho MD would be willing to be the following provider, but awaiting determination. SW discussed other options of calling [facility] to see if pt qualifies for other supportive services as well as providing the list of PP CG agencies. Son states he knows his mother is fiercely stubborn but feels SNF needed now and requesting SW assist. SW discussed the barriers to admission from home and need for [employer] contracted facility and insurance auth. Son requests SW to send referrals to any area contracted SNFs and then family willing to follow up. SW also discussed that just brining pt back to the ED does not guarantee pt would be admitted and he acknowledges understanding and willing to work on plan from home but aware if medical emergency then to go to an ED at anytime. SW called following SNFs: [facility]- not contracted with PPO, just managed Medicare [facility]- not contracted [facility]- contracted, may be a higher copay but willing to review and run insurance. Do not have many beds available right now. [facility]- left ms, faxed referral and request review and call back [facility]- not accepting as [employer] reimburses very poorly, less than Medicaid. [facility]- left ms, faxed referral to determine if they have been able to get one time auths. Plan: SW to follow for above SNF reviews and to update son and provide contacts for above SNFs for family to continue working on from home to determine if SNF is an option or need for hiring private caregivers and hopeful [facility] once managing provider confirmed. ADD: Call from pt's son Jorden inquiring about SNF search. Updated him on below information and still awaiting SNF reviews and confirmation of [employer] contract. Lengthy discussion regarding son wanting to bring pt into the ED due to 2-3 person assist, pt not eating or drinking, high fall risk, etc.. Discussed thoroughly likely not meeting medical criteria for admission and son acknowledges understanding that pt situation more safety/lower level of care needs/rehab needs but feels pt not safe at home. SW inquired about supports in the community with friends and family to help manage pt at home while awaiting SNF reviews and he feels they could not manage her safely overnight and barely today. SW provided contact information for area SNFs for family to also follow up on and discussed [facility] but no referrals made yet at this time. SURAJ updated ED DRAMATIC DIRECTOR in case pt arrives in the ED this evening and sent out an email. Plan: SW to follow closely with SNF reviews to determine if a facility can accept and initiate insurance auth. PASRR completed in case SNF needed. MARY JANE Hernandez
--- NOTE | 2022-06-14 10:54 | CM.DPNOTE ---
Addendum entered by MARY JANE Rosa 06/14/22 14:12: ADD: [facility] accepted, pending auth from [facility]. No smoking, drinking and patient likely to be financially responsible for an expected 30% of billed cost of care. Reviewed above with patient and she remains agreeable, appreciative for the work being done on her behalf. In addition, explained to patient and son Jorden that if no SNF secured over the next 24-48 hrs, discharge home w/family and [facility] is expected and patient/family stated understanding TC from Pauline at [facility]; patient will qualify fro [facility] upon discharge if needed TC from [facility] in [place], all admissions on hold d/t increasing number of COVID+ residents JW Original Note: DCP Note [facility]- No beds until late in the week [facility]- Still considering. [facility] does not reimburse well. Patient would likely be responsible for at least 30% of the daily cost, likely approx $150 copay daily. Patient cannot smoke at [facility]- No. Patient a smoker [facility]- There are currently 4+ COVID+ patients in the building. Patient would need to have all four doses of vaccine to be considered [facility]- Left msg ESPINO
--- NOTE | 2022-06-14 11:15 | PC.RNWOUND ---
Left hip surgical site dressing clean, dry, intact, left in place. Gauze dressing with serous strike-through drainage at proximal end of dressing changes, xeroform left in place, fresh gauze placed covered with film dressing. Ecchymosis noted to left hip. Patient tolerates cares well, says not having pain right now, transfers from chair to bedside commode (passed flatus only) and back to bed again with 1 assist with gait belt and walker. Patient given warm blankets for comfort, call resendiz in reach, verbalizes understanding to not get out of bed without assist. Patient says, Last week is a blur- I'm beyond in shock. I'm just trying to get everything done so I can go home and grieve.
[2022-06-14 12:16] VITALS: BP 120/73; PULSE 88; RESP 17; TEMP 36.2; O2SAT 97
--- NOTE | 2022-06-14 12:55 | PT.IPTN ---
Physical Therapy Treatment Note M2 PT-IP Current Condition Start: 06/14/22 11:38 Freq: NEEDED Status: Active Protocol: Document 06/14/22 09:45 AB (Rec: 06/14/22 11:49 AB [id number]) Physical Therapy Current Condition Current Condition Evaluation Date 06/14/22 Treatment Diagnosis UTI; s/o L hip nailing; difficulty in walking Onset Date 06/13/22 M3 PT-IP Subjective Start: 06/14/22 11:38 Freq: NEEDED Status: Active Protocol: Document 06/14/22 12:55 AB (Rec: 06/14/22 14:24 AB [id number]) Subjective Physical Therapy Visit Type Type Treatment Note Visit Start Time 12:55 Visit Stop Time 13:25 Total Visit Minutes 30 Number of MEDICAL LAB TECHNICIAN Visits 0 M4 PT-IP Mobility and Gait Start: 06/14/22 11:38 Freq: NEEDED Status: Active Protocol: Document 06/14/22 12:55 AB (Rec: 06/14/22 14:24 AB [id number]) PT-Bed Mobility Assessment Supine to Sit Supine to Sit Standby Assistance,Head of Bed Elevated,Bedrails Sit to Supine Sit to Supine Standby Assistance,Head of Bed Elevated,Bedrails PT-Transfer Assessment Sit to and From Stand Sit to and from Stand Minimal Assistance,1 Person Assistance,Use of Upper Extremities Equipment Transfer Assistive Device Gait Belt,Front Wheeled Walker Orthotic/Prosthetic Devices or Brace: No Comments Mobility Comments Checked on pt. public health social worker and son stepped in and discussed d/c plan with pt . pt supine in bed and agreed to do PT but requesting to go back to bed afterwards. completed supine to sit with HOB elevated SBA. able to sit on EOB SBA. completed sit to stand min A and cues and ambulated in room ~ 12 ft using FWW min A. completed sit to supine SBA. positioned in bed. call light and table placed within reach. educated pt on quads sets exercises and to get up and sit on the chair with nursing for dinner to improve activity tolerance and pt agreed. talked to [facility] and agreed to get pt up on chair for dinner. Gait Assessment Gait Gait Assistance Required: Minimum Assistance,1 Person Assist Distance (Feet) 12 Able to Maintain Weight Bearing Status Yes During Gait Assistive Devices Assistive Device Gait Belt,Front Wheeled Walker Orthotic/Prosthetic Devices or Brace: No Gait Deviations General Gait Pattern Decreased Stride Length, Decreased Feet Clearance Factors Limiting Gait Function Factors Limiting Gait Function Decreased Activity Tolerance, Difficulty Following Directions,Limited Range of Motion,Pain,Poor Balance,Poor Safety Awareness M5 PT-IP Objective Assessments Start: 06/14/22 11:38 Freq: NEEDED Status: Active Protocol: Document 06/14/22 09:45 AB (Rec: 06/14/22 11:49 AB [email or web address]) Orientation Orientation/Cognition Level of Alertness Alert Orientation Name,Place,Situation Language Function Ability No Deficits Noted Safety Awareness Decreased Safety Awareness Memory Description No Deficits Noted Gross Range of Motion Lower Extremity ROM Assessment Within Functional Limits Strength Lower Extremity Strength Hip 3+/5 Knee 4-/5 Muscle Tone Muscle Tone WNL Yes M6 PT-IP Treatment Start: 06/14/22 11:38 Freq: NEEDED Status: Active Protocol: Document 06/14/22 12:55 AB (Rec: 06/14/22 14:24 AB [email or web address]) Physical Therapy Treatment Education Education Provided Safety M7 PT-IP Assessment and Plan Start: 06/14/22 11:38 Freq: NEEDED Status: Active Protocol: Document 06/14/22 12:55 AB (Rec: 06/14/22 14:24 AB [email or web address]) PT Summary Assessment and Plan Potential Rehabilitation Potential Fair Summary Impairments Pain,ROM,Strength,Balance, Coordination,Sensation,Tone, Cognition,Bed Mobility, Transfers,Gait,Activity Tolerance Progress Towards Goals Slow Progress due to Pain,Slow Progress due to Activity Tolerance Assessment Summary pt improve slowly with mobility and able to ambulate 12 ft this afternoon using FWW . pt continues to require min A using FWW and has decrease activity tolerance affecting mobility independence. pt will need SNF rehab to improve overall strength and mobility independence. Goals Bed Mobility Goal Standby Assistance Transfer Goal Standby Assistance,Front Wheeled Walker Gait Goal Standby Assistance,Front Wheel Walker Gait Distance 100 Other Goals up/down 1 step SBA using fWW Days to Meet Goals 10 Frequency of Treatment Frequency Of Treatment Twice a Day Treatment Plan Physical Therapy Treatment Plan Bed Mobility Training,Transfer Training,Gait Training, Therapeutic Exercise,Balance Retraining,Post Op Education, Discharge Planning,Hot or Cold Pack,Neuromuscular Re-ed, Coordination Retraining,Manual Therapy Weight Bearing Status Weight Bearing Status Weight Bear as Tolerated Allowed Weight Bearing Amount (enter % LLE WBAT or #) (%) Recommendations To Nursing Amount of Assist Needed 1 Person Assist Discharge Recommendations PT Discharge Recommendations SNF Rehab Transportation Needs at Discharge Private Vehicle,Wheelchair/ Cabulance
--- NOTE | 2022-06-14 12:58 | P.PN_ITS ---
Subjective Subjective Date Patient Seen: 06/14/22 Interval history: She reports hip pain is adequately controlled today. Denies chest pain, abdominal pain, nuasea, or vomiting. Exam Vital Signs (past 8 hours): - 06/14/22 08:33 06/14/22 12:16 Temperature 97.7 F 97.2 F L Pulse Rate 87 88 Respiratory Rate 18 17 Blood Pressure 113/70 120/73 Pulse Oximetry 98 97 Oxygen Flow Rate 0 0 Oxygen Delivery Method Room Air Oxygen Flow Rate 0 Narrative Exam Narrative: Gen: Alert, oriented, cachectic appearing 61 y.o. female, appears older than stated age. HEENT: normocephalic, atraumatic, conjunctiva clear, sclera non-icteric, oral mucosa pink and moist Neck: supple, full ROM, no JVD, trachea is midline Resp: Lungs CTA, non-labored breathing CV: RRR, no murmur or rubs Abd: soft, non-tender, normoactive BTs Skin: no lesions or rashes, dry and intact Neuro: Alert and oriented X 4 w/no focal deficits. Speech clear and coherent. Extremities: no edema or joint effusions Psyche: calm and cooperative with stable behavior. Objective Labs Result Diagrams: 06/14/22 06:05 06/14/22 06:05 Labs: Laboratory Results - last 24 hr 06/13/22 06/13/22 06/13/22 16:46 16:46 16:46 WBC 14.1 H RBC 2.79 L Hgb 9.9 L Hct 28.8 L MCV 103.5 H MCH 35.6 H MCHC 34.4 RDW 13.3 Plt Count 407 H Neut % (Auto) 75.6 H Lymph % (Auto) 15.3 L [place] % (Auto) 8.1 Eos % (Auto) 0.4 L Baso % (Auto) 0.6 Neut # (Auto) 10305 H Lymph # (Auto) 2200 [place] # (Auto) 1200 H Eos # (Auto) 100 Baso # (Auto) 100 Sodium 129 L Potassium 4.0 Chloride 95 L Carbon Dioxide 24 BUN 4 L Creatinine 0.25 L Estimated GFR > 60 BUN/Creatinine Ratio 16.0 Glucose 86 Lactate Calcium 8.6 Magnesium Total Bilirubin 0.8 AST 40 H ALT 19 Alkaline Phosphatase 115 Total Creatine Kinase 64 CK-MB (CK-2) TNP CK-MB (CK-2) Rel Index TNP Troponin I < 0.012 Total Protein 6.9 Albumin 3.3 L Globulin 3.6 Albumin/Globulin Ratio 0.9 L Procalcitonin Urine Color Urine Appearance Urine pH Ur Specific [place] Urine Protein Urine Glucose (UA) Urine Ketones Urine Occult Blood Urine Nitrate Urine Bilirubin Urine Urobilinogen Ur Leukocyte Esterase Urine RBC Urine WBC Ur Squamous Epith Cells Amorphous Sediment Urine Bacteria Ur Culture Indicated? SARS-CoV-2 (PCR) Negative 06/13/22 06/13/22 06/13/22 16:46 16:46 17:41 WBC RBC Hgb Hct MCV MCH MCHC RDW Plt Count Neut % (Auto) Lymph % (Auto) [place] % (Auto) Eos % (Auto) Baso % (Auto) Neut # (Auto) Lymph # (Auto) [place] # (Auto) Eos # (Auto) Baso # (Auto) Sodium Potassium Chloride Carbon Dioxide BUN Creatinine Estimated GFR BUN/Creatinine Ratio Glucose Lactate 1.8 Calcium Magnesium Total Bilirubin AST ALT Alkaline Phosphatase Total Creatine Kinase CK-MB (CK-2) CK-MB (CK-2) Rel Index Troponin I Total Protein Albumin Globulin Albumin/Globulin Ratio Procalcitonin 1.56 H Urine Color Yellow Urine Appearance Clear Urine pH 7.0 Ur Specific [place] <=1.005 Urine Protein Negative Urine Glucose (UA) Negative Urine Ketones Negative Urine Occult Blood 1+ H Urine Nitrate Negative Urine Bilirubin Negative Urine Urobilinogen 0.2 Ur Leukocyte Esterase 1+ H Urine RBC 0-1/hpf Urine WBC 1-5/hpf Ur Squamous Epith Cells 0-1 /hpf Amorphous Sediment 1+ Urine Bacteria Few (2-10) H Ur Culture Indicated? Specimen cultured SARS-CoV-2 (PCR) 06/14/22 06/14/22 06:05 06:05 WBC 8.4 RBC 2.17 L Hgb 7.8 L Hct 22.7 L MCV 104.7 H MCH 36.0 H MCHC 34.4 RDW 13.3 Plt Count 355 Neut % (Auto) 68.2 Lymph % (Auto) 19.8 L [place] % (Auto) 10.6 Eos % (Auto) 0.6 L Baso % (Auto) 0.8 Neut # (Auto) 5700 Lymph # (Auto) 1700 [place] # (Auto) 900 Eos # (Auto) 0 Baso # (Auto) 100 Sodium 128 L Potassium 3.4 Chloride 99 Carbon Dioxide 24 BUN 4 L Creatinine 0.34 L Estimated GFR > 60 BUN/Creatinine Ratio 11.8 Glucose 82 Lactate Calcium 7.6 L Magnesium 1.4 L Total Bilirubin 0.5 AST 22 ALT 12 Alkaline Phosphatase 96 Total Creatine Kinase CK-MB (CK-2) CK-MB (CK-2) Rel Index Troponin I Total Protein 5.2 L Albumin 2.4 L Globulin 2.8 Albumin/Globulin Ratio 0.9 L Procalcitonin Urine Color Urine Appearance Urine pH Ur Specific [place] Urine Protein Urine Glucose (UA) Urine Ketones Urine Occult Blood Urine Nitrate Urine Bilirubin Urine Urobilinogen Ur Leukocyte Esterase Urine RBC Urine WBC Ur Squamous Epith Cells Amorphous Sediment Urine Bacteria Ur Culture Indicated? SARS-CoV-2 (PCR) [facility] Surgical History Status post appendectomy Status post breast lumpectomy Status post hysterectomy Social History household members: none Smoking Status: Current every day smoker alcohol intake: current Assessment & Plan Assessment & Plan narrative: Fadia Ceballos is admitted due to failed discharge home after recent left hip fracture with a new urinary tract infection and severe protein malnutrition. Urinary tract infection, acute and present on admission * continue cefepime for now pending cultures Severe protein calorie malnution * BMI is 16.9 * Dietary/nutritional consult * General diet * Chronic alcohol use likely contributing * patient's severe protein calorie malnutrition contributes to weakness and debility after her left hip fracture and repair. POD#4 left introchanteric hip repair * Pain control with tyelenol, po hydrocodone, po oxycodone * continue physical therapy. * plan for SNF History of clostridium difficile * c. diff PCR if liquid stools, no current symptoms. Alcohol dependence, chronic and longstanding * [facility] protocol ordered * Patient denies having issues in the past with withdrawal * Continue multivitamins, thiamine and folic acid which will also help with malnutrition. Tobacco dependence, chronic and longstanding * She is written for a 14 mcg nicoderm patch VTE Prophylaxis: Wells risk score 3 Enoxaparin 40 mg subQ once daily Bilateral SCDs. Patient is admitted to the inpatient service due to the severity of disease, risks of further disease progression and this stay is expected to exceed 2 midnights. Consultants None. Dispo: Likely discharge to rehab Code status: Full code as discussed with the patient who identifies her son Jorden her surrogate and POA. COVID-19 COVID-19 status: Negative Result date/Date tested (Pos, Neg/Pending): 06/13/22 Time Spent With Patient Critical Care time: I spent a total of [] minutes of critical care time on this patient's care today; this time is exclusive of procedural time.
[2022-06-14 15:17] VITALS: BP 120/55; PULSE 84; RESP 16; TEMP 36.4; O2SAT 97
[2022-06-14 20:00] VITALS: BP 121/72; PULSE 83; RESP 18; TEMP 36.6; O2SAT 100
[2022-06-14] MEDS: MELATONIN 3 MG TABLET 6 MG PO (21:09)
[2022-06-14] MEDS: ACETAMINOPHEN 325 MG TABLET 650 MG PO (22:19)
[2022-06-15] MEDS: HYDROCODONE/ACET 10/325 TABLET 1 TAB PO ×4 (00:40→17:07)
[2022-06-15] MEDS: MAGNESIUM CHLORIDE 64 MG TABLET 128 MG PO ×2 (00:40→09:43)
[2022-06-15] MEDS: clonazePAM 0.5 MG TABLET PO ×2 (03:49→20:27)
[2022-06-15 04:00] VITALS: BP 136/74; PULSE 82; RESP 17; TEMP 36.4; O2SAT 98
[2022-06-15] MEDS: CEFEPIME 1 GM in SODIUM CHLORIDE 0.9% 100 ML IV (05:33)
[2022-06-15] MEDS: OXYCODONE IR 5 MG TABLET PO ×3 (05:35→20:26)
[2022-06-15] MEDS: SODIUM CHLORIDE 0.9% 1,000 ML 100 ML IV (06:41)
[2022-06-15 07:02] LABS: Add Manual Diff / Slide Review NO; Basophils Absolute Auto 100 /uL (0-100); Eosinophils Absolute Auto 100 /uL (0-450); Eosinophils Percent Auto 0.9 % (2-4); Hematocrit 23.1 % (36-46); Hemoglobin 7.7 g/dL (12.0-16.0); Lymphocytes Absolute Auto 1200 /uL (1100-4500); Lymphocytes Percent Auto 19.1 % (25-40); Mean Corpuscular HGB Conc 33.4 % (30-36); Mean Corpuscular Hemoglobin 34.5 PG (26-34); Mean Corpuscular Volume 103.5 fL (80-100); Monocytes Absolute Auto 900 /uL (0-900); Monocytes Percent Auto 13.2 % (3-14); Neutrophils Absolute Auto 4300 /uL (1500-7000); Neutrophils Percent Auto 65.8 % (50-75); Platelet Count 395 X10^3/uL (150-400); Red Blood Cell Count 2.23 X10^6/uL (4.0-5.2); Red Cell Distribution Width 13.1 % (11.6-14.8); White Blood Cell Count 6.5 X10^3/uL (4.5-11.0)
[2022-06-15 07:20] LABS: Alanine Aminotransferase 11 IU/L (<35); Albumin 2.3 g/dL (3.5-5.0); Albumin Globulin Ratio 0.8 (1.0-2.8); Alkaline Phosphatase 89 U/L (38-126); Aspartate Aminotransferase 16 IU/L (14-36); BUN Creatinine Ratio 9.4 (6-22); Bilirubin Total 0.4 mg/dL (0.2-1.3); Blood Urea Nitrogen 3 mg/dL (7-17); Calcium 7.8 mg/dL (8.4-10.2); Carbon Dioxide 24 mmol/L (22-32); Chloride 101 mmol/L (98-107); Estimated Glomerular Filt Rate > 60 mL/min (>60); Globulin 2.9 g/dL (1.7-4.1); Glucose 88 mg/dL (80-110); HEMOLYSIS < 15 (0-50); Magnesium 1.4 mg/dL (1.6-2.3); Potassium 3.6 mmol/L (3.4-5.1); Sodium 130 mmol/L (137-145); Total Protein 5.2 g/dL (6.3-8.2)
[2022-06-15 08:30] VITALS: BP 142/79; PULSE 82; RESP 82; TEMP 36.1; O2SAT 100
[2022-06-15] MEDS: MULTIVITAMIN 1 TABLET 1 TAB PO (08:39)
[2022-06-15] MEDS: THIAMINE 100 MG TABLET PO (08:39)
[2022-06-15] MEDS: FOLIC ACID 1 MG TABLET PO (08:39)
[2022-06-15] MEDS: ENOXAPARIN 40 MG/0.4 ML SYRINGE SUBCUT (08:41)
--- NOTE | 2022-06-15 10:17 | OT.IP.EVAL ---
Surgical History (Last Reviewed 06/13/22 @ 19:33 by Janis Meyer PA-C) Status post appendectomy Status post breast lumpectomy Status post hysterectomy Occupational Therapy Inpatient Evaluation/Re-Eval M1 PT/OT-IP Prior Functional Status Start: 06/14/22 11:38 Freq: NEEDED Status: Active Protocol: Document 06/15/22 11:21 CGR (Rec: 06/15/22 11:33 CGR [id number]) Medical Review Prior Functional Status Medical History Reviewed Yes Communication able to make needs known Mobility and Gait pt s/p fall and sustained a L hip fx and underwent nailing last 06/09/22. 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 Prior Functional Level (Other details) pt s/p fall and sustained a L hip fx and underwent cephalomedullary nailing 06/09. during that time, pt's spouse passed and pt just wants to go home to [place]. caregiver training was conducted with pt's friend. Pt came back to the hospital and admitted that she is not able to take care by herself and cannot ask her friends to keep assisting her. pt stated that her son came and convinced her to go back to the hospital and realized that she needs to be more independent before she can go back home. Social History Household Members none Living Arrangements House Number of Floors (Floors) One Floor Number of Stairs To Enter/Railing? 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 M1 PT/OT-IP Prior Functional Status Start: 06/15/22 11:21 Freq: NEEDED Status: Active Protocol: Document 06/15/22 11:21 CGR (Rec: 06/15/22 11:33 CGR [id number]) Medical Review Prior Functional Status Medical History Reviewed Yes Communication able to make needs known Mobility and Gait pt s/p fall and sustained a L hip fx and underwent nailing last 06/09/22. 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 Prior Functional Level (Other details) pt s/p fall and sustained a L hip fx and underwent cephalomedullary nailing 06/09. during that time, pt's spouse passed and pt [place] [facility] [facility]. caregiver training was conducted with pt's friend. Pt came back to the hospital and admitted that she is not able to take care by herself and cannot ask her friends to keep assisting her. pt stated that her son came and convinced her to go back to the hospital and realized that she needs to be more independent before she can go back home. Social History Household Members none Living Arrangements House Number of Floors (Floors) One Floor Number of Stairs To Enter/Railing? 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 M2 OT-IP Current Condition Start: 06/15/22 11:21 Freq: Status: Active Protocol: Document 06/15/22 11:21 CGR (Rec: 06/15/22 11:33 CGR [id number]) Occupational Therapy Current Condition Current Condition Evaluation Date 06/15/22 Treatment Diagnosis L hip sx 06/09 IM nailing, UTI Diagnosis Onset Date 06/15/22 Weight Bearing Status Weight Bearing Status Weight Bear as Tolerated M3 OT- IP Subjective and Pain Start: 06/15/22 11:21 Freq: Status: Active Protocol: Document 06/15/22 11:21 CGR (Rec: 06/15/22 11:33 CGR [id number]) OT- Subjective Occupational Therapy Visit Type Type Initial Evaluation Visit Start Time 09:33 Visit Stop Time 10:17 Total Visit Minutes 44 Notes Pt is emotionally labile throughout session. OT Pain Assessment Pain When Pain Assessed At Rest Pain Present Pain Present Pain Reported Location Left Hip Intensity 4 Scale Used Numeric (0 - 10) Management Techniques Modification of Treatment,Re- positioning,Timing of Activity with Medications M4 OT- IP ADL's Start: 06/15/22 11:21 Freq: Status: Active Protocol: Document 06/15/22 11:21 CGR (Rec: 06/15/22 11:33 CGR [id number]) OT [id number] General Evaluation Self-Feeding Ability Independent Areas Needing Assistance Drinking From Cup/Glass OT ADL-Grooming General Evaluation Grooming Ability Standby Assistance Areas Needing Assistance Retrieving/Set-up of Grooming Items,Combing/Brushing Hair, Face Washing Comments OT Grooming Comments seated in chair OT ADL-Oral Care General Eval Oral Care Ability Standby Assistance Areas of Assistance Brushing Teeth,Retrieving/Set- Up of Items Comments Oral Care Comments seated in chair OT ADL-Dressing Comments OT Dressing Comments not performed OT ADL-Toileting General Evaluation Toileting Ability Standby Assistance Comments OT Toileting Comments urination and loose stool seated on toilet. OT ADL-Bathing Comments OT Bathing Comments not performed M5 OT- IP IADL's Start: 06/15/22 11:21 Freq: Status: Active Protocol: Document 06/15/22 11:21 CGR (Rec: 06/15/22 11:33 CGR [id number]) OT-Instrumental Activities of Daily Living Deficits IADL Deficits Identified No Deficits Home Safety Awareness Awareness of Need for Assistance at Home Good Awareness Ability to Problem Solve Emergency Able to Problem Solve Situations Medication Management Medication Management No Deficits Identified Money Management Money Management No Deficits Identified Meal Preparation Meal Preparation Caregiver Provides Assist Fisher Lobster Fisher Lobster Caregiver Provides Assist Driving Driving Comments Pt states that 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 M6 OT- IP Functional Cognition Start: 06/15/22 11:21 Freq: Status: Active Protocol: Document 06/15/22 11:21 CGR (Rec: 06/15/22 11:33 CGR [id number]) Cognitive Factors Limiting Selfcare Function Cognitive Ability Level of Alertness Alert Patient Orientation Name,Age,Birthday,Month,Date, Year,Day of Week,Place, Situation Attention Span Ability Capable of Focused Attention, Capable of Sustained Attention Ability to Follow Commands Able to Follow One Step Commands with Increased Time, Able to Follow One Step Commands with Repetition OT- Vision and Hearing OT- Hearing Assessment OT- Hearing Assessment WFL OT- Vision Assessment Visual Acuity Glasses For Reading Visual Attentiveness WFL Occular Pursuits WFL M7 OT- IP Mobility and Balance Start: 06/15/22 11:21 Freq: Status: Active Protocol: Document 06/15/22 11:21 CGR (Rec: 06/15/22 11:33 CGR [id number]) OT-Transfer Assessment Sit to and From Stand Sit to and from Stand Minimal Assistance Transfers Transfer Ability Minimal Assistance Technique Transfer Destination Chair,Toilet Transfer Technique Stand Step Pivot Devices Transfer Assistive Devices Gait Belt,Front Wheeled Walker Comments Mobility Comments Pt ambulated to the toielt. She was planning to ambulate to the sink after toileting but was shaky and reporting increased pain. She then returned to the chair and performed ADLs seated. OT- Balance Assessment Sitting Balance and Reactions Static Sitting Balance Ability Good Dynamic Sitting Balance Ability Good M8 OT- IP Objective Assessments Start: 06/15/22 11:21 Freq: Status: Active Protocol: Document 06/15/22 11:21 CGR (Rec: 06/15/22 11:33 CGR [id number]) OT Gross Range of Motion Upper Extremity Range of Motion Assessment Within Functional Limits OT Strength Upper Extremity Strength Assessment Bilaterally Impaired Comments Strength Comments 3+/5 OT- Coordination Assessment Upper Extremity Finger to Nose Test Within Functional Limits Finger Tapping Test Within Functional Limits OT-Muscle Tone Assessment Muscle Tone WNL Yes OT Sensation Assessment Edema Edema Absent M9 OT- IP Assessment and Plan Start: 06/15/22 11:21 Freq: Status: Active Protocol: Document 06/15/22 11:21 CGR (Rec: 06/15/22 11:33 CGR [id number]) OT Summary Assessment and Plan Potential Rehabilitation Potential Good Summary OT Impairments Pain,Strength,Balance, Functional Mobility,Grooming, Dressing,Toileting,Bathing, Toilet Transfers,Shower Transfers,Activity Tolerance Progress Towards Goals Slow Progress due to Pain,Slow Progress due to Activity Tolerance Assessment Summary Pt presents as a moderate complexity evaluation s/p admit for recent hip sx, UTI, and failing at home care. Pt would be most appropriate for SNF for continued therapy services to increase endurance and educate on self care. Recommend SNF. Goals Grooming Goal Independent Dressing Goal Independent Toileting Goal Independent Bathing Goal Independent Toilet Transfer Goal Independent Shower Transfer Goal Independent Days to Meet Goals 30 Frequency of Treatment Frequency Of Treatment Once a Day Treatment Plan OT Treatment Plan ADL Training,Functional Mobility,Patient/Family Education,Discharge Planning Other Treatment Recommendations and Next ADLs standing is able, LB Treatment Focus dressing. Discharge Recommendations OT Discharge Recommendations SNF Rehab Transportation Needs at Discharge Private Vehicle,Wheelchair/ Cabulance
--- NOTE | 2022-06-15 10:50 | PC.RNWOUND ---
Left hip surgical site dressing changed, removed dressing saturated with serosanguineous drainage. [place] appear well-approximated and intact, skin has ecchymosis but no erythema, no purulent drainage or malodor noted. Patient tolerates dressing change well, pain prior to and after dressing change 02/11, patient says pain medication would be good, primary nurse notified.
[2022-06-15] MEDS: ACETAMINOPHEN 325 MG TABLET 650 MG PO (11:20)
[2022-06-15 11:40] VITALS: BP 139/75; PULSE 84; RESP 18; TEMP 36; O2SAT 99
--- NOTE | 2022-06-15 11:57 | PT-IP ANOTE ---
Checked on pt x 2 and refused PT. on first attempt, pt just finished with OT and does not want to do PT. checked back on pt after a few hours and pt stated that she just got back to bed and does not want to do PT. will check back in the afternoon.
--- NOTE | 2022-06-15 12:56 | CM.DPC ---
Addendum entered by MARY JAEN Hernandez 06/15/22 14:24: ADD: SURAJ Shelia worked with pt and son in ED yesterday at admission and came across son in the hallway and updated him on SNF acceptance and awaiting insurance auth. Son had question if once at SNF, could pt leave with family for service for pt's spouse? SW called [facility] and confirmed pt could have a day pass for but pending pt's hip pain and ability to comfortably use POV they could also privately pay for cabulance if needed. Son was updated and family trying to determine setting up services vs postponing until after pt discharges from SNF. [facility] still waiting for SNF auth and keeping track via portal and had been on hold with [facility] for lengthy amount of time as well with no answer but pre auth SNF submission #[id number]. SURAJ attempted to call [email or web address] again with pre auth # and was on hold for 1 hour and 20 min but then [facility] answered and states they typically have up to 5 days to review and make a determination and they can see the request was received and in process of review but no determination made yet. SW requested if the auth could be expedited or marked as urgent. [facility] states due to pt failing attempt at d/c to home then they can send the auth request to [facility] Care Management Team for review. Transferred SW to [facility] in [facility] to determine if auth request could be Rushed [phone] option #3. SURAJ spoke to [facility] and was told unfortunately since [facility] submitted the auth and [facility] was not listed as referring agency then they will need to speak to [facility] directly. SURAJ called Miesha at [facility] and provided above information towards expediting SNF auth and she will follow up with [facility] now. BF Original Note: DCP Ongoing SNF auth Per MD, pt remains stable to d/c to SNF once insurance auth obtained. Per PT, pt refused this morning as just worked with OT. Per OT, recommending SNF rehab before safe return home. SURAJ faxed [facility] OT eval towards SNF auth. SURAJ called [facility] who has accepted pt and submitted [facility] PPO auth request yesterday 06/14/22 and have been monitoring auth request review via portal and no determination yet. SW attempted to call [employer] towards trying to expedite SNF auth process but remained on hold for almost 60 min with no answer. PASRR previously completed in anticipation of SNF and if pt discharges tomorrow 06/16 then likely will need updated COVID swab. Plan: SW to follow closely for [employer] review towards determination of SNF auth for d/c to [facility]. Back up plan is home with family/friend support and [facility]ACH program. MARY JANE Hernandez
--- NOTE | 2022-06-15 13:05 | PT.IPTN ---
Physical Therapy Treatment Note M2 PT-IP Current Condition Start: 06/14/22 11:38 Freq: NEEDED Status: Active Protocol: Document 06/14/22 13:05 AB (Rec: 06/14/22 11:49 AB [id number]) Physical Therapy Current Condition Current Condition Evaluation Date 06/14/22 Treatment Diagnosis UTI; s/p L hip nailing; difficulty in walking Onset Date 06/13/22 M3 PT-IP Subjective Start: 06/14/22 11:38 Freq: NEEDED Status: Active Protocol: Document 06/15/22 13:05 AB (Rec: 06/15/22 15:58 AB [id number]) Subjective Physical Therapy Visit Type Type Treatment Note Visit Start Time 13:05 Visit Stop Time 13:25 Total Visit Minutes 20 Number of MILLER KIL[place] DRIED SALT Visits 0 Therapy Pain Assessment Pain When Pain Assessed At Rest Pain Present Pain Present Pain Reported Location Left Hip Intensity 5 Scale Used Numeric (0 - 10) Pain Management Techniques Distraction,Modification of Treatment,Re-positioning, Timing of Activity with Medications M4 PT-IP Mobility and Gait Start: 06/14/22 11:38 Freq: NEEDED Status: Active Protocol: Document 06/15/22 13:05 AB (Rec: 06/15/22 15:58 AB [id number]) PT-Bed Mobility Assessment Supine to Sit Supine to Sit Standby Assistance PT-Transfer Assessment Sit to and From Stand Sit to and from Stand Contact Guard Assistance,1 Person Assistance,Use of Upper Extremities Equipment Transfer Assistive Device Gait Belt,Front Wheeled Walker Orthotic/Prosthetic Devices or Brace: No Transfers Transfer Destination Chair Transfer Technique Stand Step Pivot Transfer Ability Level of Assist Minimal Assistance,1 Person Assistance,Use of Upper Extremities Comments Mobility Comments completed supine to sit SBA wtih HOB elevated. completed sit to stand min A and ambulated 2 ft forward and then backwards using FWW min a . pt refused further ambulation but agreed to do LE exercises. completed step transfer to chair using FWW min A and cues. completed seated exercises: LAQs with 5 sec hold, hip flexion; ankle pumps and glute sets. positioned pt on the chair. call light and table placed within reach. Gait Assessment Gait Gait Assistance Required: Minimum Assistance,1 Person Assist Distance (Feet) 4 Assistive Devices Assistive Device Gait Belt,Front Wheeled Walker Gait Deviations General Gait Pattern Antalgic,Decreased Stride Length,Decreased Feet Clearance Factors Limiting Gait Function Factors Limiting Gait Function Decreased Activity Tolerance, Decreased Strength,Difficulty Following Directions,Limited Range of Motion,Pain,Poor Balance,Poor Safety Awareness M5 PT-IP Objective Assessments Start: 06/14/22 11:38 Freq: NEEDED Status: Active Protocol: Document 06/14/22 09:45 AB (Rec: 06/14/22 11:49 AB [id number]) Orientation Orientation/Cognition Level of Alertness Alert Orientation Name,Place,Situation Language Function Ability No Deficits Noted Safety Awareness Decreased Safety Awareness Memory Description No Deficits Noted Gross Range of Motion Lower Extremity ROM Assessment Within Functional Limits Strength Lower Extremity Strength Hip 3+/5 Knee 4-/5 Muscle Tone Muscle Tone WNL Yes M6 PT-IP Treatment Start: 06/14/22 11:38 Freq: NEEDED Status: Active Protocol: Document 06/15/22 13:05 AB (Rec: 06/15/22 15:58 AB [id number]) Physical Therapy Treatment Exercises Exercises Ankle Pumps,Gluteal Sets, Seated Knee Flexion/Extension Education Education Provided Safety M7 PT-IP Assessment and Plan Start: 06/14/22 11:38 Freq: NEEDED Status: Active Protocol: Document 06/15/22 13:05 AB (Rec: 06/15/22 15:58 AB [id number]) PT Summary Assessment and Plan Potential Rehabilitation Potential Fair Summary Impairments Pain,ROM,Strength,Balance, Coordination,Sensation,Tone, Cognition,Bed Mobility, Transfers,Gait,Activity Tolerance Progress Towards Goals Slow Progress due to Pain,Slow Progress due to Activity Tolerance Assessment Summary pt requiring min A with mobility and continues to have decrease activity tolerance with c/o increase L hip pain affecting mobility. pt will require SNF rehab to improve strength and function. Goals Bed Mobility Goal Standby Assistance Transfer Goal Standby Assistance,Front Wheeled Walker Gait Goal Standby Assistance,Front Wheel Walker Gait Distance 100 Other Goals up/down 1 step SBA using fWW Days to Meet Goals 10 Frequency of Treatment Frequency Of Treatment Twice a Day Treatment Plan Physical Therapy Treatment Plan Bed Mobility Training,Transfer Training,Gait Training, Therapeutic Exercise,Balance Retraining,Post Op Education, Discharge Planning,Hot or Cold Pack,Neuromuscular Re-ed, Coordination Retraining,Manual Therapy Weight Bearing Status Weight Bearing Status Weight Bear as Tolerated Allowed Weight Bearing Amount (enter % LLE WBAT or #) (%) Recommendations To Nursing Amount of Assist Needed 1 Person Assist Discharge Recommendations PT Discharge Recommendations SNF Rehab Transportation Needs at Discharge Private Vehicle,Wheelchair/ Cabulance
--- NOTE | 2022-06-15 13:47 | DI.US.S_ITS ---
PROCEDURE: US PERIPH VENOUS LOW EXTREM BI INDICATIONS: RECEPT HIP SURERY. BILATERAL SWELLING. TECHNIQUE: Real-time imaging, as well as color and pulse Doppler interrogation, were performed of the deep veins of both legs from the inguinal ligament to the popliteal fossa. COMPARISON: None. FINDINGS: Right: The common femoral, femoral and popliteal veins are normally compressible, and free of intraluminal thrombus. Color and pulse Doppler demonstrate normal phasic intravascular flow. There is normal augmentation response to distal compression maneuver. Left: The common femoral, femoral and popliteal veins are normally compressible, and free of intraluminal thrombus. Color and pulse Doppler demonstrate normal phasic intravascular flow. There is normal augmentation response to distal compression maneuver. Bilateral lower extremity soft tissue edema can be seen. IMPRESSION: Negative for deep venous thrombosis. Dictated by: Otilio Yousif M.D. on 06/15/2022 at 16:58 Approved by: Otilio Yousif M.D. on 06/15/2022 at 16:58
--- NOTE | 2022-06-15 15:20 | P.PN_ITS ---
Subjective Subjective Date Patient Seen: 06/15/22 Interval history: She reports hip pain is adequately controlled today. Denies chest pain, abdominal pain, nuasea, or vomiting. Does have new LLE swelling today which is new. Exam Vital Signs (past 8 hours): - 06/15/22 08:30 06/15/22 11:40 Temperature 97 F L 96.8 F L Pulse Rate 82 84 Respiratory Rate 82 H 18 Blood Pressure 142/79 H 139/75 Pulse Oximetry 100 99 Oxygen Delivery Method Room Air Oxygen Flow Rate 0 Narrative Exam Narrative: Gen: Alert, oriented, cachectic appearing 61 y.o. female, appears older than stated age. HEENT: normocephalic, atraumatic, conjunctiva clear, sclera non-icteric, oral mucosa pink and moist Neck: supple, full ROM, no JVD, trachea is midline Resp: Lungs CTA, non-labored breathing CV: RRR, no murmur or rubs Abd: soft, non-tender, normoactive BTs Skin: no lesions or rashes, dry and intact Neuro: Alert and oriented X 4 w/no focal deficits. Extremities: LLE edema and swelling compared to RLE. + Deep's Psyche: calm and cooperative with stable behavior. Objective Labs Result Diagrams: 06/15/22 06:55 06/15/22 06:55 Labs: Laboratory Results - last 24 hr 06/15/22 06/15/22 06:55 06:55 WBC 6.5 RBC 2.23 L Hgb 7.7 L Hct 23.1 L MCV 103.5 H MCH 34.5 H MCHC 33.4 RDW 13.1 Plt Count 395 Neut % (Auto) 65.8 Lymph % (Auto) 19.1 L [place] % (Auto) 13.2 Eos % (Auto) 0.9 L Baso % (Auto) 1.0 Neut # (Auto) 4300 Lymph # (Auto) 1200 [place] # (Auto) 900 Eos # (Auto) 100 Baso # (Auto) 100 Sodium 130 L Potassium 3.6 Chloride 101 Carbon Dioxide 24 BUN 3 L Creatinine 0.32 L Estimated GFR > 60 BUN/Creatinine Ratio 9.4 Glucose 88 Calcium 7.8 L Magnesium 1.4 L Total Bilirubin 0.4 AST 16 ALT 11 Alkaline Phosphatase 89 Total Protein 5.2 L Albumin 2.3 L Globulin 2.9 Albumin/Globulin Ratio 0.8 L PFSH Surgical History Status post appendectomy Status post breast lumpectomy Status post hysterectomy Social History household members: none Smoking Status: Current every day smoker alcohol intake: current Assessment & Plan Assessment & Plan narrative: Fadia Ceballos is admitted due to failed discharge home after recent left hip fracture with a new urinary tract infection and severe protein malnutrition. Urinary tract infection, acute and present on admission * culture with collins sensitive E. coli will narrow to oral therapy today with macrobid given pencillin allergy. Severe protein calorie malnution * BMI is 16.9 * Apprecite Dietary/nutritional consult, continue dietary supplementation. * Chronic alcohol use likely contributing * patient's severe protein calorie malnutrition contributes to weakness and debility after her left hip fracture and repair. S/p left introchanteric hip repair * Pain control with tyelenol, po hydrocodone, po oxycodone * continue physical therapy. * plan for SNF History of clostridium difficile * c. diff PCR if liquid stools, no current symptoms. Alcohol dependence, chronic and longstanding * CIWA protocol ordered, no recent symptoms. * Patient denies having issues in the past with withdrawal * Continue multivitamins, thiamine and folic acid which will also help with malnutrition. Tobacco dependence, chronic and longstanding * She is written for a 14 mcg nicoderm patch LLE swelling - may be from recent surgery, however will rule out DVT. VTE Prophylaxis: Wells risk score 3 Enoxaparin 40 mg subQ once daily Bilateral SCDs. Dispo: pending SNF. Code status: Full code as discussed with the patient who identifies her son Jorden her surrogate and POA. COVID-19 COVID-19 status: Negative Result date/Date tested (Pos, Neg/Pending): 06/13/22 Time Spent With Patient Critical Care time: I spent a total of [] minutes of critical care time on this patient's care today; this time is exclusive of procedural time.
[2022-06-15 16:30] VITALS: BP 121/80; PULSE 82; RESP 18; TEMP 35.8; O2SAT 100
[2022-06-15 20:00] VITALS: BP 112/61; PULSE 80; RESP 16; TEMP 35.9; O2SAT 99
[2022-06-15] MEDS: NITROFURANTOIN ER 100 MG CAPSULE PO (20:26)
[2022-06-15] MEDS: MELATONIN 3 MG TABLET 6 MG PO (20:27)
[2022-06-16] VITALS: BP 135/69; PULSE 88; RESP 17; TEMP 35.9; O2SAT 97
[2022-06-16] MEDS: HYDROCODONE/ACET 10/325 TABLET 1 TAB PO ×3 (00:17→12:29)
[2022-06-16] MEDS: SODIUM CHLORIDE 0.9% FLUSH 10 ML IV ×2 (00:18→08:39)
--- NOTE | 2022-06-16 01:17 | PC.NURSE ---
Pt requesting sleep and pain meds for 6/10 back pain, medicated w/ 5mg oxycodone and clonazepam. Pt slept for few hours, woke up for bathroom and requested more sleep and pain meds, medicated w/ norco at 0000. Educated pt that this should help with sleep as well. Rn asked if pt usually has issues sleeping, Pt said yes and nothing helps. Pt up to bedside commode fairly well w/ 1PA. Dressing on L hip needs changing but pt refused at this time, will try again closer to 0700. Pt has 1+ edema on LLE, according to Dr thomas this is new. CIWA has been 0, only symptom is anxiety.
[2022-06-16] MEDS: OXYCODONE IR 5 MG TABLET PO ×2 (03:41→09:19)
[2022-06-16 04:00] VITALS: BP 148/71; PULSE 87; RESP 18; TEMP 36.1; O2SAT 96
[2022-06-16] MEDS: ACETAMINOPHEN 325 MG TABLET 650 MG PO (05:23)
[2022-06-16 06:09] LABS: Add Manual Diff / Slide Review NO; Basophils Absolute Auto 100 /uL (0-100); Basophils Percent Auto 0.7 % (0-2); Eosinophils Absolute Auto 100 /uL (0-450); Eosinophils Percent Auto 0.7 % (2-4); Hemoglobin 8.2 g/dL (12.0-16.0); Lymphocytes Absolute Auto 1400 /uL (1100-4500); Lymphocytes Percent Auto 16.2 % (25-40); Mean Corpuscular Hemoglobin 35.1 PG (26-34); Mean Corpuscular Volume 103.4 fL (80-100); Monocytes Absolute Auto 1200 /uL (0-900); Monocytes Percent Auto 13.8 % (3-14); Neutrophils Absolute Auto 6100 /uL (1500-7000); Neutrophils Percent Auto 68.6 % (50-75); Platelet Count 458 X10^3/uL (150-400); Red Blood Cell Count 2.32 X10^6/uL (4.0-5.2); Red Cell Distribution Width 13.2 % (11.6-14.8); White Blood Cell Count 8.9 X10^3/uL (4.5-11.0)
[2022-06-16 06:09] LABS: Alanine Aminotransferase 13 IU/L (<35); Albumin 2.5 g/dL (3.5-5.0); Albumin Globulin Ratio 0.8 (1.0-2.8); Alkaline Phosphatase 105 U/L (38-126); Aspartate Aminotransferase 20 IU/L (14-36); BUN Creatinine Ratio 18.4 (6-22); Bilirubin Total 0.3 mg/dL (0.2-1.3); Blood Urea Nitrogen 7 mg/dL (7-17); Calcium 8.1 mg/dL (8.4-10.2); Carbon Dioxide 27 mmol/L (22-32); Chloride 100 mmol/L (98-107); Estimated Glomerular Filt Rate > 60 mL/min (>60); Glucose 91 mg/dL (80-110); HEMOLYSIS < 15 (0-50); Magnesium 1.4 mg/dL (1.6-2.3); Potassium 3.4 mmol/L (3.4-5.1); Sodium 128 mmol/L (137-145); Total Protein 5.5 g/dL (6.3-8.2)
[2022-06-16 07:30] VITALS: BP 139/82; PULSE 81; RESP 16; TEMP 36.1; O2SAT 98
[2022-06-16] MEDS: FOLIC ACID 1 MG TABLET PO (08:14)
[2022-06-16] MEDS: THIAMINE 100 MG TABLET PO (08:14)
[2022-06-16] MEDS: MULTIVITAMIN 1 TABLET 1 TAB PO (08:15)
[2022-06-16] MEDS: ENOXAPARIN 40 MG/0.4 ML SYRINGE SUBCUT (08:15)
[2022-06-16] MEDS: NITROFURANTOIN ER 100 MG CAPSULE PO (08:33)
[2022-06-16] MEDS: MAGNESIUM CHLORIDE 64 MG TABLET 128 MG PO (08:39)
--- NOTE | 2022-06-16 09:19 | OT.IPNOTE ---
Attempted to see pt for OT services. Pt eating upon first attempt and then very emotional and requesting therapy to see later in the day. Explained that OT would not be able to return but P.T. will see later. Pt agreeable.
--- NOTE | 2022-06-16 09:55 | PT.IPTN ---
Physical Therapy Treatment Note M2 PT-IP Current Condition Start: 06/14/22 11:38 Freq: NEEDED Status: Active Protocol: Document 06/14/22 13:05 AB (Rec: 06/14/22 11:49 AB [id number]) Physical Therapy Current Condition Current Condition Evaluation Date 06/14/22 Treatment Diagnosis UTI; s/p L hip nailing; difficulty in walking Onset Date 06/13/22 M3 PT-IP Subjective Start: 06/14/22 11:38 Freq: NEEDED Status: Active Protocol: Document 06/16/22 09:55 AB (Rec: 06/16/22 13:08 AB [email or web address]) Subjective Physical Therapy Visit Type Type Treatment Note Visit Start Time 09:55 Visit Stop Time 10:17 Total Visit Minutes 22 Number of TUG BOAT CAPTAIN Visits 0 Physical Therapy Visit Comments Patient Comments stated that she is not feeling well emotionally today and wanting to talk to her spouse but she can't and stated that she will try to do some activity but not a whole lot Therapy Pain Assessment Pain When Pain Assessed At Rest Pain Present Pain Present Pain Reported Location Left Hip Scale Used pain scale not stated Pain Management Techniques Distraction,Modification of Treatment,Re-positioning, Timing of Activity with Medications M4 PT-IP Mobility and Gait Start: 06/14/22 11:38 Freq: NEEDED Status: Active Protocol: Document 06/16/22 09:55 AB (Rec: 06/16/22 13:08 AB [id number]) PT-Transfer Assessment Sit to and From Stand Sit to and from Stand Contact Guard Assistance,1 Person Assistance,Use of Upper Extremities Equipment Transfer Assistive Device Gait Belt,Front Wheeled Walker Orthotic/Prosthetic Devices or Brace: No Transfers Transfer Destination Bedside Commode Transfer Technique Stand Step Pivot Transfer Ability Level of Assist Contact Guard Assistance,1 Person Assistance,Use of Upper Extremities Comments Mobility Comments pt sitting on chair. requested to use the toilet. pt just wanting to use the bedside commode. completed sit to stand from the chair CGA and step transfer to commode using fWW CGA. needs assistance with brief management. completed sit to stand from the commode and step transfer back to chair using FWW CGA. pt agreed to ambulate. sit to stand from chair CGA and ambulated in room ~ 12 ft using FWW CGA. positioned pt back on chair. call light and table placed within reach. Gait Assessment Gait Gait Assistance Required: Contact Guard Assist,Minimum Assistance Distance (Feet) 12 Able to Maintain Weight Bearing Status Yes During Gait Assistive Devices Assistive Device Gait Belt,Front Wheeled Walker Orthotic/Prosthetic Devices or Brace: No Gait Deviations General Gait Pattern Antalgic,Decreased Stride Length,Decreased Feet Clearance,Step-to Gait Factors Limiting Gait Function Factors Limiting Gait Function Decreased Activity Tolerance, Decreased Strength,Difficulty Following Directions,Limited Range of Motion,Pain,Poor Balance,Poor Safety Awareness M5 PT-IP Objective Assessments Start: 06/14/22 11:38 Freq: NEEDED Status: Active Protocol: Document 06/14/22 09:45 AB (Rec: 06/14/22 11:49 AB [id number]) Orientation Orientation/Cognition Level of Alertness Alert Orientation Name,Place,Situation Language Function Ability No Deficits Noted Safety Awareness Decreased Safety Awareness Memory Description No Deficits Noted Gross Range of Motion Lower Extremity ROM Assessment Within Functional Limits Strength Lower Extremity Strength Hip 3+/5 Knee 4-/5 Muscle Tone Muscle Tone WNL Yes M6 PT-IP Treatment Start: 06/14/22 11:38 Freq: NEEDED Status: Active Protocol: Document 06/16/22 09:55 AB (Rec: 06/16/22 13:08 AB [email or web address]) Physical Therapy Treatment Education Education Provided Safety M7 PT-IP Assessment and Plan Start: 06/14/22 11:38 Freq: NEEDED Status: Active Protocol: Document 06/16/22 09:55 AB (Rec: 06/16/22 13:08 AB [email or web address]) PT Summary Assessment and Plan Potential Rehabilitation Potential Fair Summary Impairments Pain,ROM,Strength,Balance, Coordination,Sensation,Tone, Cognition,Bed Mobility, Transfers,Gait,Activity Tolerance Progress Towards Goals Slow Progress due to Activity Tolerance,Slow Progress - Other Assessment Summary pt improving slowly and requiring CGA with transfers and ambulation using FWW but continues to have decrease activity tolerance affecting functional mobiltiy independence. pt will require SNF rehab to improve strength and independence. Goals Bed Mobility Goal Standby Assistance Transfer Goal Standby Assistance,Front Wheeled Walker Gait Goal Standby Assistance,Front Wheel Walker Gait Distance 100 Other Goals up/down 1 step SBA using fWW Days to Meet Goals 10 Frequency of Treatment Frequency Of Treatment Twice a Day Treatment Plan Physical Therapy Treatment Plan Bed Mobility Training,Transfer Training,Gait Training, Therapeutic Exercise,Balance Retraining,Post Op Education, Discharge Planning,Hot or Cold Pack,Neuromuscular Re-ed, Coordination Retraining,Manual Therapy Weight Bearing Status Weight Bearing Status Weight Bear as Tolerated Allowed Weight Bearing Amount (enter % LLE WBAT or #) (%) Recommendations To Nursing Amount of Assist Needed 1 Person Assist Discharge Recommendations PT Discharge Recommendations SNF Rehab Transportation Needs at Discharge Private Vehicle,Wheelchair/ Cabulance
--- NOTE | 2022-06-16 10:48 | PM.DS.1 ---
History of Present Illness History of Present Illness Date Patient Seen: 06/16/22 Chief complaint: Hip pain Narrative: BRITTANY Jon: Fadia Ceballos is a 61 y.o. female who was admitted on 06/09/2022 after a fall for which she had a pelvic fracture and left hip fracture. She did have the hip fracture repaired on the day of admission. She declined SNF and ultimately was discharged home with home PT. Unfortunately during her hospital stay her . Her likely cause of injury is mechanical fall due to alcohol intoxication. She was advised to avoid alcohol use. She was quite hyponatremic on admission at that time with a sodium of 122, and improved with fluid restriction and improved diet and discharged on June 13. 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 Her malnutrition is thought to potentially negatively affect her wound healing. Today, her son living in [facility], arrived and saw that she was failing at home. He stated she was urinating all the time and she stated she was having a hard time moving about to get to the bathroom, increasingly relying on her wheelchair. She states her pain was well controlled, son noted she began drinking again. Stated bilateral extremities are mildly swollen. Her son also mentioned she had been previously treated for C. difficile a number of years ago, did not complete the medical treatment (stated she did not like the taste of Flagyl) and was concerned she still had the infection due to persistent diarrhea. She does admit to smoking a pack and a half of cigarettes/day and resumed drinking (some days one drink, others more). X-ray of the pelvis reported left intratrochanteric hip fracture with good alignment in a fracture of the left ischial tuberosity with sclerosis. She is afebrile, blood pressure 155/84, heart rate 109, respiratory rate 10, oxygen saturation of 90% on room air she weighs 46 kg with a BMI of 17. Her white count is elevated at 14.1 hemoglobin and hematocrit are 9.9 and 28.8 respectively, platelet count is 407, she has a left shift of 10,700, today are sodium is 129, creatinine 0.25 with the GFR that is normal, AST is 40 the rest of her liver enzymes are normal, albumin is low at 3.3 and procalcitonin is elevated at 1.56. UA is positive for UTI and cultures pending, COVID-19 PCR is negative. FH: Patient states she is adopted and does not know her family medical history. Discharge Providers Provider Date of admission: 06/13/22 19:33 Discharge Date: 06/16/22 Primary care physician: Salvador Carranza MD Consults: 06/13/22 16:56 Consult to INDUSTRIAL ELECTRICIAN - Treasury Management Sales Consultant Stat Comment: 06/13/22 19:32 Consult to Physical Therapy Evaluate & Treat Comment: Right hip replacement, failed discharge Physician Instructions: Evaluate and Treat 06/13/22 19:33 Consult to Dietitian, Adult Stat Comment: Reason For Exam: Severe protein malnutrition bmi 16 Consult to Pastoral Services Stat Comment: recently passed in room with her 06/14/22 09:26 Consult to Inpatient Wound Care Nurse Routine Comment: Reason for consultation: LEFT HIP 06/14/22 12:19 Consult to Occupational Therapy Evaluate & Treat Comment: Physician Instructions: Evaluate and treat Discharge provider: Rigo Sanchez DO Summary Hospital Course Discharge Diagnosis: Please see hospital course by problem list noted below Hospital Course: Fadia Ceballos is admitted due to failed discharge home after recent left hip fracture with a new urinary tract infection and severe protein malnutrition. Urinary tract infection, acute and present on admission - culture with collins sensitive E. coli and was started on ceftriaxone, then narrowed to oral therapy today with macrobid given pencillin allergy. Severe chronic protein calorie malnution - BMI is 16.9 - Apprecite Dietary/nutritional consult, continue dietary supplementation. - Chronic alcohol use likely contributing - patient's severe protein calorie malnutrition contributes to weakness and debility after her left hip fracture and repair. S/p left introchanteric hip repair - Pain control with tyelenol, po hydrocodone, po oxycodone - Transfer for SNF for continued therapies at discharge. History of clostridium difficile - no symptoms during admission. Alcohol dependence, chronic and longstanding - CIWA protocol ordered, no symptoms during the course of her admission - Patient denies having issues in the past with withdrawal -Continue multivitamins, thiamine and folic acid which will also help with malnutrition. Tobacco dependence, chronic and longstanding - Continue 14 mcg nicoderm patch LLE swelling ?- may be from recent surgery, US was negative for DVT. Hypomagnesemia - repleted while in the hospital, remains low and likely contributing to weakness. Sent with oral supplementation at SNF. Code: Full, surrogate is son Dispo: Transfer to SNF for continue therapies. Time Spent with Patient Time spent: Greater than 30 minutes Exam Vital Signs (past 8 hours): - 06/16/22 04:00 06/16/22 07:30 Temperature 96.9 F L 96.9 F L Pulse Rate 87 81 Respiratory Rate 18 16 Blood Pressure 148/71 H 139/82 Pulse Oximetry 96 98 Oxygen Flow Rate 0 Oxygen Delivery Method Room Air Oxygen Flow Rate 0 Narrative Exam Narrative: Gen: Alert, oriented, cachectic appearing 61 y.o. female, appears older than stated age. HEENT: normocephalic, atraumatic, conjunctiva clear, sclera non-icteric, oral mucosa pink and moist Neck: supple, full ROM, no JVD, trachea is midline Resp: Lungs CTA, non-labored breathing CV: RRR, no murmur or rubs Abd: soft, non-tender, normoactive BTs Skin: no lesions or rashes, dry and intact Neuro: Alert and oriented X 4 w/no focal deficits. Extremities: LLE edema and swelling compared to RLE. No tenderness today. Psyche: calm and cooperative with stable behavior. Objective Labs Result Diagrams: 06/16/22 05:48 06/16/22 05:30 Labs: Laboratory Results - last 24 hr 06/16/22 06/16/22 05:30 05:48 WBC 8.9 RBC 2.32 L Hgb 8.2 L Hct 24.0 L MCV 103.4 H MCH 35.1 H MCHC 34.0 RDW 13.2 Plt Count 458 H Neut % (Auto) 68.6 Lymph % (Auto) 16.2 L [place] % (Auto) 13.8 Eos % (Auto) 0.7 L Baso % (Auto) 0.7 Neut # (Auto) 6100 Lymph # (Auto) 1400 [place] # (Auto) 1200 H Eos # (Auto) 100 Baso # (Auto) 100 Sodium 128 L Potassium 3.4 Chloride 100 Carbon Dioxide 27 BUN 7 Creatinine 0.38 L Estimated GFR > 60 BUN/Creatinine Ratio 18.4 Glucose 91 Calcium 8.1 L Magnesium 1.4 L Total Bilirubin 0.3 AST 20 ALT 13 Alkaline Phosphatase 105 Total Protein 5.5 L Albumin 2.5 L Globulin 3.0 Albumin/Globulin Ratio 0.8 L PFSH Surgical History Status post appendectomy Status post breast lumpectomy Status post hysterectomy Social History household members: none Smoking Status: Current every day smoker alcohol intake: current Discharge Plan Discharge Plan Patient Disposition: SNF Provider Discharge Comment: 61 year old female with recent hip fracture, failed home management and admitted with UTI and malnutrtion and will discharge to SNF for continued therapies. I certify the postop hospital long-term care is medically necessary on a continuing basis for any conditions for which he/ she received care during this hospitalization.: Yes The receiving facility has agreed to accept transfer and provide medical treatment.: Yes Discharge orders & Medications Prescriptions: New multivitamin with folic acid [Tab-A-Myrna] 400 mcg Tablet 1 tab PO DAILY 30 Days Qty: 30 0RF polyethylene glycol 3350 17 gram Powder In Packet 17 g PO DAILY PRN (Reason: Constipation) 14 Days Qty: 14 0RF docusate sodium 100 mg Capsule 100 mg PO BID 14 Days Qty: 28 0RF clonazepam 0.5 mg Tablet 0.5 mg PO BEDTIME PRN (Reason: Sleep) 30 Days Qty: 20 0RF melatonin 3 mg Tablet 6 mg PO BEDTIME 30 Days Qty: 60 0RF Slow-Mag 71.5 mg Tablet,Delayed Release (Dr/Ec) 128 mg PO Q8H 14 Days Qty: 76 0RF nicotine 14 mg/24 hr Patch 24 Hour 14 mg topical DAILY 14 Days Qty: 14 0RF nitrofurantoin monohyd/m-cryst [Macrobid] 100 mg Capsule 100 mg PO BID 3 Days Qty: 6 0RF Continued acetaminophen 325 mg Tablet 650 mg PO Q6HR PRN (Reason: Fever/Mild Pain (1-3)) Qty: 30 0RF folic acid 1 mg Tablet 1 mg PO DAILY Qty: 30 0RF sennosides [senna] 8.6 mg Tablet 8.6 mg PO BID PRN (Reason: Constipation) Qty: 30 0RF thiamine mononitrate (vit B1) 100 mg Tablet 100 mg PO DAILY Qty: 30 0RF enoxaparin [Lovenox] 40 mg/0.4 mL Syringe 40 mg SUBCUT DAILY 28 Days Qty: 12 0RF oxycodone 5 mg Tablet 5 mg PO Q4HR PRN (Reason: Pain, Moderate (4-6)) Qty: 30 0RF Follow up/Referrals: Salvador Carranza MD [Primary Care Provider] - Discharge Data Primary Care Provider: Salvador Carranza Attending Provider: Fozia Sauceda
[2022-06-16 11:00] VITALS: BP 141/75; PULSE 77; RESP 18; TEMP 35.8; O2SAT 97
--- NOTE | 2022-06-16 11:54 | CM.DPC ---
Addendum entered by Sarah Pozo 06/16/22 12:06: RAINER/Sydney faxed clinical, PASRR, and medication list to [facility]. [place] Original Note: DCP/continued: Reviewed chart. Provider reports that patient is medically stable to d/c to SNF for continued rehabilitation. (Review previous CM notes to understand complexity of admit). Currently [facility] has been trying to obtain authorizations form [employer] [facility] for several days. PATHOLOGIST ASSISTANT spoke with Miesha this AM and she reports that she will try to call them again. Received return call from Miesha indicating that she was on hold for 2 hours and finally hung up. Miesha then checked her fax machine and authorization had been sent from [employer]. Patient will have copay but Miesha has no idea how much that will be. Met with patient and son at bedside. Both thrilled that patient approved to go to SNF today. They understand that they will have copay. Patient reports that she is not concerned about a copay. Son requesting resources for patient after she completes therapy. [place] and [place] about patient in the nighttime. Provided patient and son with community resources for private pay caregivers. P: [facility] today. [place]
[2022-06-16 12:53] LABS: COVID19 - ADMIT (NP swab/PCR) Negative (Negative)
--- NOTE | 2022-06-16 13:54 | PT-IP ANOTE ---
Attempted to see pt at 13:53, but pt already d/c.
--- NOTE | 2022-06-16 14:05 | PC.NURSE ---
Pt is A&Ox3, VSS, afebrile on RA. She continues to rate pain in L hip 4-02/11 yet she reports that pain is much improved with prn hydrocodone and oxycodone. She is able to tolerate getting up to the bsc, and ambulate to the chair multiple times today. Her dressing to her L hip is C/D/I. She requested a shower today and will have the dressing changed after her shower. Son is supportive at bedside. CM informed nurse of patient pick pack worker today at 1330 via w/ for transport to [facility] in . Patient and son at bedside are agreeable and motivated for SNF rehab. Patient is escorted with all of her belongings (Son taking large blankets) and discharge packet to [facility] at 1330 this afternoon. Report called to Miesha @[phone], informed of follow up with Ortho 10-14 days post up and 6 week follow up.
== END 2022-06-16 13:30 ==
LOC: ED 17:23 → AC 21:19
PROVIDERS: Emergency Medicine; Internal Medicine; Admitting Provider Nurse Practitioner Family; Emergency Provider Student in an Organized Health Care Education/Training Program; PCP Internal Medicine; Referring Provider Student in an Organized Health Care Education/Training Program; Visit Provider Nurse Practitioner Family
DX: M25.552 Pain in left hip (principal); N39.0 Urinary tract infection, site not specified; B96.20 Unspecified Escherichia coli [E. coli] as the cause of diseases classified elsewhere; E43 Unspecified severe protein-calorie malnutrition; Z68.1 Body mass index [BMI] 19.9 or less, adult; F10.20 Alcohol dependence, uncomplicated; E83.42 Hypomagnesemia; F17.210 Nicotine dependence, cigarettes, uncomplicated; Z20.822 Contact with and (suspected) exposure to COVID-19
CPT/HCPCS: 36415; 71045; 72170; 80053; 81001; 82550; 83605; 83735; 84145; 84484; 85025; 87040; 87070; 87075; 87077; 87086; 87186; 87205; 87635; 93005; 93010; 93970; 96361; 96365; 96366; 96367; 96372; 96375; 97116; 97162; 97166; 97530; 97535; 99284; C9803; G0378; J0692; J0696; J1170; J1650; J2405

== ENCOUNTER → 2022-07-05 16:03 | Outpatient (CLI) | payer OTHER, SELFPAY ==
[2022-06-13 21:00] VITALS: BMI 16.9
--- NOTE | 2022-07-05 16:06 | DI.US.S_ITS ---
PROCEDURE: [facility] V[facility] L[facility] INDICATIONS: SWELLING TECHNIQUE: Real-time imaging, as well as color and pulse Doppler interrogation, were performed of the lower extremity deep veins from the inguinal ligament to the popliteal fossa. COMPARISON: [facility], , [facility] VENOUS LOW EXTREM , 06/15/2022, 16:41. FINDINGS: The common femoral, femoral and popliteal veins are normally compressible, and free of intraluminal thrombus. Color and pulse Doppler demonstrate normal phasic intraluminal flow. There is normal augmentation response to distal compression maneuver. IMPRESSION: No deep venous thrombosis. Dictated by: Luanne Mckeon M.D. on 07/05/2022 at 16:55 Approved by: Luanne Mckeon M.D. on 07/05/2022 at 16:56
== END ==
PROVIDERS: PCP Internal Medicine; Referring Provider Orthopaedic Surgery Foot and Ankle Surgery; Visit Provider Orthopaedic Surgery Foot and Ankle Surgery
DX: M25.472 Effusion, left ankle (principal)
CPT/HCPCS: 93971

== ENCOUNTER 2022-12-24 13:49 | Emergency (ER) | payer OTHER, SELFPAY ==
[2022-12-24] VITALS (39 sets, daily range): BP systolic 115–148; BP diastolic 78–81; PULSE 92–128; RESP 20–52; TEMP 36.8; O2SAT 88–100; BMI 15.1
--- NOTE | 2022-12-24 | DI.CT.S_ITS ---
PROCEDURE: CT ABDOMEN PELVIS W CON INDICATIONS: ABDOMINAL DISTENSION TECHNIQUE: After the administration of intravenous contrast, axial sections acquired from the lung bases to the pubic symphysis. Coronal and sagittal reformats were performed. For radiation dose reduction, the following was used: automated exposure control, adjustment of mA and/or kV according to patient size. COMPARISON: [place], [place], PET NECK TO MID THIGH, 09/28/2022, 13:08. FINDINGS: Lower thorax: Right lower lung consolidation with moderate pleural effusion. Underlying mass lesion not excluded. Pericardial effusion measures up to 1.5 cm thickness. Liver: Normal in size and attenuation. No contour deformity present. Biliary system: No calcified cholelithiasis or pericholecystic inflammation. No intra or extrahepatic bile duct dilatation. Pancreas: Unremarkable without mass or inflammation evident. Spleen: Normal in size and density. Adrenals: Normal morphology and density. Reproductive system: Unremarkable as visualized. Urinary system: Normal renal size and attenuation. No renal calculi, hydronephrosis, or solid mass present. Urinary bladder unremarkable. Gastrointestinal system: The bowel is unremarkable without evidence of bowel obstruction or inflammation. The stomach appears unremarkable. Appendix: No findings to suggest acute appendicitis. Peritoneal spaces: No mesenteric or retroperitoneal adenopathy. No free air. No free fluid. Vasculature: Aortic atherosclerotic vascular calcification noted without evidence of aneurysm. Abdominal wall: Abdominal wall intact without evidence of ventral or inguinal hernias. Musculoskeletal: Osteoblastic lesion noted involving the L1, L2, L3 vertebral bodies with compression fractures at L1 and L5. Retropulsed fracture fragment at L5 results in moderate central stenosis. Left hip blade and screw instrumentation IMPRESSION: 1. No acute CT findings in abdomen and pelvis. 2. Lower lung findings include right lower lung consolidation, pericardial effusion further described on CT chest report. 3. 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 Approved by: Reji Mari M.D. on 12/24/2022 at 16:00
--- NOTE | 2022-12-24 13:50 | DI.RAD.S_ITS ---
PROCEDURE: XR CHEST 1V INDICATIONS: SOB TECHNIQUE: One view of the chest was acquired. COMPARISON: [facility], [place], XR CHEST 1V, 06/13/2022, 17:33. FINDINGS: Surgical changes and devices: Multiple overlying leads and wires present. Suture line noted in the right lung with volume loss Lungs and pleura: Linear left peripheral atelectasis present Mediastinum: Mediastinal contours appear normal. Heart size is normal. Bones and chest wall: No suspicious bony lesions. Overlying soft tissues appear unremarkable. Generalized decrease in osseous mineralization noted. IMPRESSION: No acute cardiopulmonary findings Approved by: Reji Mari M.D. on 12/24/2022 at 13:20
[2022-12-24] MEDS: ALBUTEROL/IPRATROPIUM 3 ML AMPUL 6 ML INH (14:30)
[2022-12-24 14:53] LABS: Add Manual Diff / Slide Review NO; Basophils Absolute Auto 100 /uL (0-100); Basophils Percent Auto 0.8 % (0-2); Eosinophils Absolute Auto 0 /uL (0-450); Eosinophils Percent Auto 0.4 % (2-4); Hematocrit 22.1 % (36-46); Hemoglobin 7.5 g/dL (12.0-16.0); Lymphocytes Absolute Auto 1700 /uL (1100-4500); Lymphocytes Percent Auto 13.6 % (25-40); Mean Corpuscular HGB Conc 34.1 % (30-36); Mean Corpuscular Volume 96.9 fL (80-100); Monocytes Absolute Auto 1100 /uL (0-900); Monocytes Percent Auto 9.1 % (3-14); Neutrophils Absolute Auto 9600 /uL (1500-7000); Neutrophils Percent Auto 76.1 % (50-75); Platelet Count 287 X10^3/uL (150-400); Red Blood Cell Count 2.28 X10^6/uL (4.0-5.2); Red Cell Distribution Width 14.4 % (11.6-14.8); White Blood Cell Count 12.5 X10^3/uL (4.5-11.0)
[2022-12-24 14:55] LABS: PTT Partial Thromboplastin Tim 30 SECONDS (26-36)
[2022-12-24 15:01] LABS: Alanine Aminotransferase 26 IU/L (<35); Albumin 3.9 g/dL (3.5-5.0); Albumin Globulin Ratio 1.3 (1.0-2.8); Alkaline Phosphatase 110 U/L (38-126); Aspartate Aminotransferase 37 IU/L (14-36); BUN Creatinine Ratio 25.6 (6-22); Bilirubin Total 0.3 mg/dL (0.2-1.3); Blood Urea Nitrogen 10 mg/dL (7-17); Carbon Dioxide 26 mmol/L (22-32); Chloride 98 mmol/L (98-107); Creatine Kinase 68 U/L (30-135); Estimated Glomerular Filt Rate > 60 mL/min (>60); Glucose 156 mg/dL (80-110); HEMOLYSIS < 15 (0-50); Lipase 465 U/L (23-300); Magnesium 1.9 mg/dL (1.6-2.3); Sodium 130 mmol/L (137-145); Total Protein 6.9 g/dL (6.3-8.2)
[2022-12-24 15:10] LABS: NT-proBNP (BNP-Adult 18+) 182 pg/mL (<125)
[2022-12-24 15:13] LABS: Troponin I 0.015 ng/mL (0.01-0.034)
--- NOTE | 2022-12-24 15:17 | DI.CT.S_ITS ---
PROCEDURE: CT ANGIO CHEST PE PROTOCOL INDICATIONS: sob, recent surgery TECHNIQUE: After the administration of intravenous contrast, 2 mm thick sections acquired from the pulmonary apices to the posterior costophrenic angles. 3-dimensional maximum intensity projection (MIP) coronal and sagittal reformats were then acquired through the thorax. For radiation dose reduction, the following was used: automated exposure control, adjustment of mA and/or kV according to patient size. COMPARISON: None. FINDINGS: Image quality: Excellent. Pulmonary arteries: Pulmonary arteries are normal in size, and demonstrate no intraluminal filling defects to suggest central pulmonary embolism. Lungs and pleura: Right upper lobe lobectomy noted with scarring, air and fluid. Moderate right pleural effusion with focal right lower lobe consolidation. Underlying mass lesion difficult to exclude. In left apical pulmonary emphysema Mediastinum: Heart size is normal. Mediastinal conglomerate mass lesion surrounds the right mainstem bronchus extends into the superior mediastinum. Pericardial effusion measures up to 1 cm Bones and chest wall: No suspicious bony lesions. Ribs and thoracic spine appear intact throughout. Thyroid gland unremarkable. No axillary or supraclavicular adenopathy. Abdomen: Visualized upper abdominal solid organs appear normal in the early arterial phase of enhancement. Osteoblastic lesion in the L1 and L2 vertebral bodies And T12 wedge-shaped compression fracture IMPRESSION: No evidence of pulmonary embolism or aortic dissection or aneurysm Pericardial effusion measures up to 1.9 cm in thickness. Mediastinal mass lesion surrounds the right mainstem bronchus. Right lower lung focal consolidation with moderate pleural effusion. Underlying mass lesion not excluded. Wedge-shaped right upper lobe consolidation with internal air may be post surgical Mild osteoblastic metastatic lesion L1 and L2. T12 wedge-shaped compression fracture, uncertain age Approved by: Reji Mari M.D. on 12/24/2022 at 15:30
--- NOTE | 2022-12-24 15:34 | PC.NURSE ---
pt got up and went to the bathroom (next to her room). upon return to the room. pt was extremely pale and SOB,pulse ox 100 percent on room air. it took about 5 mins until patient's color returned to normal. Dr. Cruzito wayne.
[2022-12-24 15:48] LABS: COVID19 -Nasal RAPID Negative (Negative)
--- NOTE | 2022-12-24 16:58 | ED_ITS ---
HPI - Chest Pain <Bubba East MD - Last Filed: 01/09/23 22:41> General Chief Complaint: Chest Pain Stated Complaint: Chest Pain Time Seen by Provider: 12/24/22 16:34 Source: patient and EMS Mode of arrival: EMS History of Present Illness HPI narrative: Patient here with son. Complains of shortness of breath. Patient here with son. Complains of shortness of breath. Patient is status post right lung biopsy lobectomy at [facility]. Discharged home 2 days ago. Now short of breath. No chest pain. No fever chills. Records from [facility] faxed here. Related Data Home Medications Medication Instructions Recorded Confirmed mirtazapine 7.5 mg tablet 7.5 mg PO BEDTIME 12/24/22 12/24/22 Previous Rx's Medication Instructions Recorded acetaminophen 325 mg tablet 650 mg PO Q6HR PRN Fever/Mild Pain 06/11/22 (1-3) #30 tabs folic acid 1 mg tablet 1 mg PO DAILY #30 tabs 06/11/22 sennosides 8.6 mg tablet (senna) 8.6 mg PO BID PRN Constipation #30 06/11/22 tabs thiamine mononitrate (vit B1) 100 100 mg PO DAILY #30 tabs 06/11/22 mg tablet oxycodone 5 mg tablet 5 mg PO Q4HR PRN Pain, Moderate 06/16/22 (4-6) #30 tabs ferrous fumarate 89 mg (29 mg 89 mg PO DAILY #30 tabs 12/25/22 iron) tablet Allergies Allergy/AdvReac Type Severity Reaction Status Date / Time morphine AdvReac Intermediate Hallucinati Verified 12/24/22 14:00 ng Penicillins [PENICILLINS] AdvReac Intermediate rash Verified 12/24/22 14:00 Review of Systems <Bubba East MD - Last Filed: 01/09/23 22:41> Review of Systems Narrative: GENERAL: negative chills, fatigue, malaise, fever, sweats. HEENT: negative sinus pain, ear pain, sore throat RESPIRATORY: Positive dyspnea, negative cough CARDIOVASCULAR: negative chest pain, palpitations GASTROINTESTINAL: negative nausea, vomiting, abdominal pain : negative dysuria, frequency, hematuria MUSCULOSKELETAL: negative muscle or bony pain SKIN: negative rash, skin lesions NEUROLOGIC: negative weakness, numbness ROS Unobtainable: All systems reviewed & are unremarkable except as noted in HPI and below Patient History <Bubba East MD - Last Filed: 01/09/23 22:41> Surgical History Status post appendectomy Status post breast lumpectomy Status post hysterectomy Social History household members: none Smoking Status: Current every day smoker alcohol intake: current Smoking Status: Current every day smoker alcohol intake frequency: 3 or more drinks per day Alcohol type: wine Substance Use Type: does not use Exam <Bubba East MD - Last Filed: 01/09/23 22:41> Narrative Exam Narrative: GENERAL: in no distress, not toxic not dyspneic HEAD: Normocephalic. EYES: Pupils equal round ENT: Mucous membranes moist. NECK: Trachea midline. CARDIOVASCULAR: Tachycardia with Regular rate and rhythm, slightly muffled heart sounds RESPIRATORY: Clear lung sounds on the left but diminished lung sounds on the right. Patient is speaking full sentences. However walking in the hallway to the bathroom patient is very dyspneic. GASTROINTESTINAL: Abdomen soft, non-tender EXTREMITIES: No gross deformities. BACK: No flank tenderness. NEURO: AOx4. SKIN: Warm and dry PSYCH: Not anxious, is cooperative Initial Vital Signs Initial Vital Signs: Vital Signs Temperature 98.2 F 12/24/22 14:00 Pulse Rate 116 H 12/24/22 14:00 Respiratory Rate 24 12/24/22 14:00 Blood Pressure 115/78 12/24/22 14:00 Pulse Oximetry 99 12/24/22 14:00 Oxygen Delivery Method Room Air 12/24/22 14:00 <Sid Holley DO - Last Filed: 12/25/22 22:17> Initial Vital Signs Initial Vital Signs: Vital Signs Temperature 98.2 F 12/24/22 14:00 Pulse Rate 116 H 12/24/22 14:00 Respiratory Rate 24 12/24/22 14:00 Blood Pressure 115/78 12/24/22 14:00 Pulse Oximetry 99 12/24/22 14:00 Oxygen Delivery Method Room Air 12/24/22 14:00 <Leena Patiño DO - Last Filed: 12/25/22 14:06> Initial Vital Signs Initial Vital Signs: Vital Signs Temperature 98.2 F 12/24/22 14:00 Pulse Rate 116 H 12/24/22 14:00 Respiratory Rate 24 12/24/22 14:00 Blood Pressure 115/78 12/24/22 14:00 Pulse Oximetry 99 12/24/22 14:00 Oxygen Delivery Method Room Air 12/24/22 14:00 Course <Bubba East MD - Last Filed: 01/09/23 22:41> Course Course Narrative: 6:00 p.[address].. Sign out to Dr Holley, patient and son aware for transfer back to [facility]. We are waiting for call back for transfer center. Orders Ordered: Discontinued Medications Albuterol/Ipratropium (Albuterol/Ipratropium 3 Ml Ampul) 6 ml INH NOW ONE Stop: 12/24/22 14:28 Last Admin: 12/24/22 14:30 Dose: 6 ml Documented By: CAMI Sodium Chloride (Normal Saline 0.9%) 500 mls @ 1,000 mls/hr IV BOLUS ONE Stop: 12/24/22 15:46 Last Admin: 12/24/22 17:12 Dose: Not Given Documented By: BS Lorazepam (Lorazepam 2 Mg/Ml Inj) 1 mg IV NOW ONE Stop: 12/25/22 04:49 Last Admin: 12/25/22 04:55 Dose: 1 mg Documented By: SB Vital Signs Vital signs: Vital Signs - 8 hr 12/25/22 06:15 12/25/22 06:30 12/25/22 06:45 Pulse Rate 85 82 84 Respiratory Rate 21 20 21 Blood Pressure Pulse Oximetry 35 L 95 95 12/25/22 07:00 12/25/22 07:10 12/25/22 07:10 Pulse Rate 85 92 H Respiratory Rate 27 H 40 H Blood Pressure 118/82 Pulse Oximetry 97 96 12/25/22 07:12 12/25/22 07:12 12/25/22 07:13 Pulse Rate 84 82 Respiratory Rate 33 H 24 Blood Pressure 118/80 Pulse Oximetry 96 96 12/25/22 07:13 12/25/22 07:15 12/25/22 07:30 Pulse Rate 80 85 Respiratory Rate 22 22 Blood Pressure 129/73 Pulse Oximetry 96 96 12/25/22 07:45 12/25/22 08:00 04/23/23 08:15 Pulse Rate 82 86 82 Respiratory Rate 22 27 H 21 Blood Pressure Pulse Oximetry 94 95 97 12/25/22 08:30 12/25/22 08:45 12/25/22 09:00 Pulse Rate 83 83 83 Respiratory Rate 22 25 H 24 Blood Pressure Pulse Oximetry 95 96 97 12/25/22 09:15 12/25/22 09:30 12/25/22 09:45 Pulse Rate 86 92 H 88 Respiratory Rate 25 H 41 H 30 H Blood Pressure Pulse Oximetry 97 97 96 12/25/22 10:00 12/25/22 10:15 12/25/22 10:30 Pulse Rate 87 97 H 88 Respiratory Rate 21 40 H 29 H Blood Pressure Pulse Oximetry 97 95 95 12/25/22 10:45 12/25/22 10:55 12/25/22 10:55 Pulse Rate 89 94 H Respiratory Rate 23 38 H Blood Pressure 139/69 Pulse Oximetry 95 97 12/25/22 11:00 12/25/22 11:15 12/25/22 11:30 Pulse Rate 95 H 91 H 99 H Respiratory Rate 27 H 32 H 26 H Blood Pressure Pulse Oximetry 96 96 95 12/25/22 11:45 12/25/22 11:56 12/25/22 11:56 Pulse Rate 92 H 93 H Respiratory Rate 30 H 36 H Blood Pressure 128/79 Pulse Oximetry 95 95 12/25/22 12:00 12/25/22 12:15 12/25/22 12:30 Pulse Rate 110 H 101 H 110 H Respiratory Rate 45 H 47 H 38 H Blood Pressure Pulse Oximetry 95 95 95 12/25/22 12:45 12/25/22 13:00 12/25/22 13:15 Pulse Rate 108 H 105 H Respiratory Rate 34 H 30 H Blood Pressure 109/60 Pulse Oximetry 98 97 12/25/22 13:15 Pulse Rate 102 H Respiratory Rate 29 H Blood Pressure Pulse Oximetry 98 <Sid Holley DO - Last Filed: 12/25/22 22:17> Orders Ordered: Discontinued Medications Albuterol/Ipratropium (Albuterol/Ipratropium 3 Ml Ampul) 6 ml INH NOW ONE Stop: 12/24/22 14:28 Last Admin: 12/24/22 14:30 Dose: 6 ml Documented By: CAMI Sodium Chloride (Normal Saline 0.9%) 500 mls @ 1,000 mls/hr IV BOLUS ONE Stop: 12/24/22 15:46 Last Admin: 12/24/22 17:12 Dose: Not Given Documented By: BS Lorazepam (Lorazepam 2 Mg/Ml Inj) 1 mg IV NOW ONE Stop: 12/25/22 04:49 Last Admin: 12/25/22 04:55 Dose: 1 mg Documented By: SB Vital Signs Vital signs: Vital Signs - 8 hr 12/25/22 06:15 12/25/22 06:30 12/25/22 06:45 Pulse Rate 85 82 84 Respiratory Rate 21 20 21 Blood Pressure Pulse Oximetry 35 L 95 95 12/25/22 07:00 12/25/22 07:10 12/25/22 07:10 Pulse Rate 85 92 H Respiratory Rate 27 H 40 H Blood Pressure 118/82 Pulse Oximetry 97 96 12/25/22 07:12 12/25/22 07:12 12/25/22 07:13 Pulse Rate 84 82 Respiratory Rate 33 H 24 Blood Pressure 118/80 Pulse Oximetry 96 96 12/25/22 07:13 12/25/22 07:15 12/25/22 07:30 Pulse Rate 80 85 Respiratory Rate 22 22 Blood Pressure 129/73 Pulse Oximetry 96 96 12/25/22 07:45 12/25/22 08:00 12/25/22 08:15 Pulse Rate 82 86 82 Respiratory Rate 22 27 H 21 Blood Pressure Pulse Oximetry 94 95 97 12/25/22 08:30 12/25/22 08:45 12/25/22 09:00 Pulse Rate 83 83 83 Respiratory Rate 22 25 H 24 Blood Pressure Pulse Oximetry 95 96 97 12/25/22 09:15 12/25/22 09:30 12/25/22 09:45 Pulse Rate 86 92 H 88 Respiratory Rate 25 H 41 H 30 H Blood Pressure Pulse Oximetry 97 97 96 12/25/22 10:00 12/25/22 10:15 12/25/22 10:30 Pulse Rate 87 97 H 88 Respiratory Rate 21 40 H 29 H Blood Pressure Pulse Oximetry 97 95 95 12/25/22 10:45 12/25/22 10:55 12/25/22 10:55 Pulse Rate 89 94 H Respiratory Rate 23 38 H Blood Pressure 139/69 Pulse Oximetry 95 97 04/23/23 11:00 12/25/22 11:15 12/25/22 11:30 Pulse Rate 95 H 91 H 99 H Respiratory Rate 27 H 32 H 26 H Blood Pressure Pulse Oximetry 96 96 95 12/25/22 11:45 12/25/22 11:56 12/25/22 11:56 Pulse Rate 92 H 93 H Respiratory Rate 30 H 36 H Blood Pressure 128/79 Pulse Oximetry 95 95 12/25/22 12:00 12/25/22 12:15 12/25/22 12:30 Pulse Rate 110 H 101 H 110 H Respiratory Rate 45 H 47 H 38 H Blood Pressure Pulse Oximetry 95 95 95 12/25/22 12:45 12/25/22 13:00 12/25/22 13:15 Pulse Rate 108 H 105 H Respiratory Rate 34 H 30 H Blood Pressure 109/60 Pulse Oximetry 98 97 12/25/22 13:15 Pulse Rate 102 H Respiratory Rate 29 H Blood Pressure Pulse Oximetry 98 <Leena Patiño DO - Last Filed: 12/25/22 14:06> Orders Ordered: Discontinued Medications Albuterol/Ipratropium (Albuterol/Ipratropium 3 Ml Ampul) 6 ml INH NOW ONE Stop: 12/24/22 14:28 Last Admin: 12/24/22 14:30 Dose: 6 ml Documented By: JDandyF Sodium Chloride (Normal Saline 0.9%) 500 mls @ 1,000 mls/hr IV BOLUS ONE Stop: 12/24/22 15:46 Last Admin: 12/24/22 17:12 Dose: Not Given Documented By: BS Lorazepam (Lorazepam 2 Mg/Ml Inj) 1 mg IV NOW ONE Stop: 12/25/22 04:49 Last Admin: 12/25/22 04:55 Dose: 1 mg Documented By: SB Vital Signs Vital signs: Vital Signs - 8 hr 12/25/22 06:15 12/25/22 06:30 12/25/22 06:45 Pulse Rate 85 82 84 Respiratory Rate 21 20 21 Blood Pressure Pulse Oximetry 35 L 95 95 12/25/22 07:00 12/25/22 07:10 12/25/22 07:10 Pulse Rate 85 92 H Respiratory Rate 27 H 40 H Blood Pressure 118/82 Pulse Oximetry 97 96 12/25/22 07:12 12/25/22 07:12 12/25/22 07:13 Pulse Rate 84 82 Respiratory Rate 33 H 24 Blood Pressure 118/80 Pulse Oximetry 96 96 12/25/22 07:13 12/25/22 07:15 12/25/22 07:30 Pulse Rate 80 85 Respiratory Rate 22 22 Blood Pressure 129/73 Pulse Oximetry 96 96 12/25/22 07:45 12/25/22 08:00 12/25/22 08:15 Pulse Rate 82 86 82 Respiratory Rate 22 27 H 21 Blood Pressure Pulse Oximetry 94 95 97 12/25/22 08:30 12/25/22 08:45 12/25/22 09:00 Pulse Rate 83 83 83 Respiratory Rate 22 25 H 24 Blood Pressure Pulse Oximetry 95 96 97 12/25/22 09:15 12/25/22 09:30 12/25/22 09:45 Pulse Rate 86 92 H 88 Respiratory Rate 25 H 41 H 30 H Blood Pressure Pulse Oximetry 97 97 96 12/25/22 10:00 12/25/22 10:15 12/25/22 10:30 Pulse Rate 87 97 H 88 Respiratory Rate 21 40 H 29 H Blood Pressure Pulse Oximetry 97 95 95 12/25/22 10:45 12/25/22 10:55 12/25/22 10:55 Pulse Rate 89 94 H Respiratory Rate 23 38 H Blood Pressure 139/69 Pulse Oximetry 95 97 12/25/22 11:00 12/25/22 11:15 12/25/22 11:30 Pulse Rate 95 H 91 H 99 H Respiratory Rate 27 H 32 H 26 H Blood Pressure Pulse Oximetry 96 96 95 12/25/22 11:45 12/25/22 11:56 12/25/22 11:56 Pulse Rate 92 H 93 H Respiratory Rate 30 H 36 H Blood Pressure 128/79 Pulse Oximetry 95 95 12/25/22 12:00 12/25/22 12:15 12/25/22 12:30 Pulse Rate 110 H 101 H 110 H Respiratory Rate 45 H 47 H 38 H Blood Pressure Pulse Oximetry 95 95 95 12/25/22 12:45 12/25/22 13:00 12/25/22 13:15 Pulse Rate 108 H 105 H Respiratory Rate 34 H 30 H Blood Pressure 109/60 Pulse Oximetry 98 97 12/25/22 13:15 Pulse Rate 102 H Respiratory Rate 29 H Blood Pressure Pulse Oximetry 98 MDM - Chest Pain <Bubba East MD - Last Filed: 01/09/23 22:41> Lab Data 12/25/22 07:20 12/25/22 07:20 Labs: Lab Results 12/24/22 12/24/22 12/24/22 Range/Units 14:31 14:31 14:31 WBC 12.5 H (4.5-11.0) X10^3/uL RBC 2.28 L (4.0-5.2) X10^6/uL Hgb 7.5 L (12.0-16.0) g/dL Hct 22.1 L (36-46) % MCV 96.9 (80-100) fL MCH 33.0 (26-34) PG MCHC 34.1 (30-36) % RDW 14.4 (11.6-14.8) % Plt Count 287 (150-400) X10^3/uL Neut % (Auto) 76.1 H (50-75) % Lymph % (Auto) 13.6 L (25-40) % Ocean % (Auto) 9.1 (3-14) % Eos % (Auto) 0.4 L (2-4) % Baso % (Auto) 0.8 (0-2) % Neut # (Auto) 9600 H (2466-7156) /uL Lymph # (Auto) 1700 (6065-1480) /uL Ocean # (Auto) 1100 H (0-900) /uL Eos # (Auto) 0 (0-450) /uL Baso # (Auto) 100 (0-100) /uL PT 11.0 (10.1-12.7) SECONDS INR 1.0 (0.9-1.3) APTT 30 (26-36) SECONDS Sodium 130 L (137-145) mmol/L Potassium 4.0 (3.4-5.1) mmol/L Chloride 98 (98-107) mmol/L Carbon Dioxide 26 (22-32) mmol/L BUN 10 (7-17) mg/dL Creatinine 0.39 L (0.52-1.04) mg/dL Estimated GFR > 60 (>60) mL/min BUN/Creatinine Ratio 25.6 H (6-22) Glucose 156 H (80-110) mg/dL Calcium 9.0 (8.4-10.2) mg/dL Magnesium 1.9 (1.6-2.3) mg/dL Total Bilirubin 0.3 (0.2-1.3) mg/dL AST 37 H (14-36) IU/L ALT 26 (<35) IU/L Alkaline Phosphatase 110 (38-126) U/L Total Creatine Kinase 68 (30-135) U/L CK-MB (CK-2) TNP CK-MB (CK-2) Rel Index TNP Troponin I 0.015 (0.01-0.034) ng/mL NT-Pro-B Natriuret Pep (<125) pg/mL Total Protein 6.9 (6.3-8.2) g/dL Albumin 3.9 (3.5-5.0) g/dL Globulin 3.0 (1.7-4.1) g/dL Albumin/Globulin Ratio 1.3 (1.0-2.8) Lipase 465 H (23-300) U/L SARS-CoV-2 (PCR) (Negative) Blood Type Antibody Screen Crossmatch 12/24/22 12/24/22 12/24/22 Range/Units 14:31 14:31 16:55 WBC (4.5-11.0) X10^3/uL RBC (4.0-5.2) X10^6/uL Hgb (12.0-16.0) g/dL Hct (36-46) % MCV (80-100) fL MCH (26-34) PG MCHC (30-36) % RDW (11.6-14.8) % Plt Count (150-400) X10^3/uL Neut % (Auto) (50-75) % Lymph % (Auto) (25-40) % Ocean % (Auto) (3-14) % Eos % (Auto) (2-4) % Baso % (Auto) (0-2) % Neut # (Auto) (0754-1777) /uL Lymph # (Auto) (3328-8356) /uL Ocean # (Auto) (0-900) /uL Eos # (Auto) (0-450) /uL Baso # (Auto) (0-100) /uL PT (10.1-12.7) SECONDS INR (0.9-1.3) APTT (26-36) SECONDS Sodium (137-145) mmol/L Potassium (3.4-5.1) mmol/L Chloride (98-107) mmol/L Carbon Dioxide (22-32) mmol/L BUN (7-17) mg/dL Creatinine (0.52-1.04) mg/dL Estimated GFR (>60) mL/min BUN/Creatinine Ratio (6-22) Glucose (80-110) mg/dL Calcium (8.4-10.2) mg/dL Magnesium (1.6-2.3) mg/dL Total Bilirubin (0.2-1.3) mg/dL AST (14-36) IU/L ALT (<35) IU/L Alkaline Phosphatase (38-126) U/L Total Creatine Kinase (30-135) U/L CK-MB (CK-2) CK-MB (CK-2) Rel Index Troponin I (0.01-0.034) ng/mL NT-Pro-B Natriuret Pep 182 H (<125) pg/mL Total Protein (6.3-8.2) g/dL Albumin (3.5-5.0) g/dL Globulin (1.7-4.1) g/dL Albumin/Globulin Ratio (1.0-2.8) Lipase (23-300) U/L SARS-CoV-2 (PCR) Negative (Negative) Blood Type O Negative Antibody Screen Negative Crossmatch See Detail 12/25/22 12/25/22 12/25/22 Range/Units 01:15 07:20 07:20 WBC 8.3 (4.5-11.0) X10^3/uL RBC 2.81 L (4.0-5.2) X10^6/uL Hgb 7.0 L 8.8 L (12.0-16.0) g/dL Hct 20.2 L* 26.0 L (36-46) % MCV 92.5 D (80-100) fL MCH 31.3 (26-34) PG MCHC 33.9 (30-36) % RDW 18.0 H (11.6-14.8) % Plt Count 308 (150-400) X10^3/uL Neut % (Auto) 69.5 (50-75) % Lymph % (Auto) 16.7 L (25-40) % Ocean % (Auto) 12.4 (3-14) % Eos % (Auto) 0.8 L (2-4) % Baso % (Auto) 0.6 (0-2) % Neut # (Auto) 5800 (8860-5453) /uL Lymph # (Auto) 1400 (5879-5629) /uL Ocean # (Auto) 1000 H (0-900) /uL Eos # (Auto) 100 (0-450) /uL Baso # (Auto) 100 (0-100) /uL PT (10.1-12.7) SECONDS INR (0.9-1.3) APTT (26-36) SECONDS Sodium 133 L (137-145) mmol/L Potassium 4.0 (3.4-5.1) mmol/L Chloride 101 (98-107) mmol/L Carbon Dioxide 25 (22-32) mmol/L BUN 7 (7-17) mg/dL Creatinine 0.45 L (0.52-1.04) mg/dL Estimated GFR > 60 (>60) mL/min BUN/Creatinine Ratio 15.6 (6-22) Glucose 93 (80-110) mg/dL Calcium 8.7 (8.4-10.2) mg/dL Magnesium (1.6-2.3) mg/dL Total Bilirubin (0.2-1.3) mg/dL AST (14-36) IU/L ALT (<35) IU/L Alkaline Phosphatase (38-126) U/L Total Creatine Kinase 41 (30-135) U/L CK-MB (CK-2) TNP CK-MB (CK-2) Rel Index TNP Troponin I < 0.012 (0.01-0.034) ng/mL NT-Pro-B Natriuret Pep 380 H (<125) pg/mL Total Protein (6.3-8.2) g/dL Albumin (3.5-5.0) g/dL Globulin (1.7-4.1) g/dL Albumin/Globulin Ratio (1.0-2.8) Lipase (23-300) U/L SARS-CoV-2 (PCR) (Negative) Blood Type Antibody Screen Crossmatch Imaging Data Chest x-ray: Radiologist's Impression: PROCEDURE:? XR CHEST 1V ? INDICATIONS:? SOB ? TECHNIQUE:? One view of the chest was acquired.? ? COMPARISON:? [facility], CR, XR CHEST 1V, 06/13/2022, 17:33. ? FINDINGS:? ? Surgical changes and devices:? Multiple overlying leads and wires present.? Suture line noted in the right lung with volume loss ? Lungs and pleura:? Linear left peripheral atelectasis present ? Mediastinum:? Mediastinal contours appear normal.? Heart size is normal.? ? Bones and chest wall:? No suspicious bony lesions.? Overlying soft tissues appear unremarkable.? Generalized decrease in osseous mineralization noted. ? IMPRESSION:? No acute cardiopulmonary findings ? ? ? Approved by: Reji Mari M.D. on 12/24/2022 at 13:20? CT scan - chest: Radiologist's Impression: PROCEDURE:? CT ANGIO CHEST PE PROTOCOL ? INDICATIONS:? sob, recent surgery ? TECHNIQUE:? After the administration of intravenous contrast, 2 mm thick sections acquired from the pulmonary apices to the posterior costophrenic angles.? 3-dimensional maximum intensity projection (MIP) coronal and sagittal reformats were then acquired through the thorax.? For radiation dose reduction, the following was used:? automated exposure control, adjustment of mA and/or kV according to patient size.? ? COMPARISON:? None. ? FINDINGS:? Image quality:? Excellent.? ? Pulmonary arteries:? Pulmonary arteries are normal in size, and demonstrate no intraluminal filling defects to suggest central pulmonary embolism.? ? Lungs and pleura:? Right upper lobe lobectomy noted with scarring, air and fluid.? Moderate right pleural effusion with focal right lower lobe consolidation.? U nderlying mass lesion difficult to exclude.? In left apical pulmonary emphysema ? Mediastinum:? Heart size is normal.? Mediastinal conglomerate mass lesion surrounds the right mainstem bronchus extends into the superior mediastinum.? Pericardial effusion measures up to 1 cm ? Bones and chest wall:? No suspicious bony lesions.? Ribs and thoracic spine appear intact throughout.? Thyroid gland unremarkable.? No axillary or supraclavicular adenopathy.? ? Abdomen:? Visualized upper abdominal solid organs appear normal in the early arterial phase of enhancement.? Osteoblastic lesion in the L1 and L2 vertebral bodies ? And T12 wedge-shaped compression fracture ? IMPRESSION:? ? No evidence of pulmonary embolism or aortic dissection or aneurysm ? Pericardial effusion measures up to 1.9 cm in thickness.? ? Mediastinal mass lesion surrounds the right mainstem bronchus. ? Right lower lung focal consolidation with moderate pleural effusion.? Underlying mass lesion not excluded.? Wedge-shaped right upper lobe consolidation with internal air may be post surgical ? 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 T12 wedge-shaped compression fracture, uncertain age ? Approved by: Reji Mari M.D. on 12/24/2022 at 15:30? [facility] Narrative Medical decision making narrative: After history and exam CBC CMP chest x-ray CT angiogram chest ordered [facility] CC: Dyspnea Complicating co-morbidities: Recent right lung lobectomy biopsy Data collected from: Patient and son Medical records reviewed: Discharge summary from [facility] December 20, 2022 Differential considered: Includes but not limited to pneumonia pulmonary embolism [place] CHF pleural effusion pericardial effusion Exam documented above, pertinent findings include: Diminished lung sounds on the right. Muffled heart sounds Lab Test results independently reviewed as above. Pertinent findings: WBC 12.5. A hemoglobin 7.5 hematocrit 22 platelets 287. Comparatively patient had hemoglobin 8.0 this past week. INR 1.0 sodium 130 BUN 10 creatinine 0.39 and GFR greater than 60 Independently reviewed EKG as above sinus tachycardia rate [address] elevation or depression Imaging studies independently reviewed: Chest x-ray no acute cardiopulmonary findings CT chest, no PE. There is pericardial effusion measuring up to 1.9 cm in thickness. Mediastinal mass lesion surrounding the right mainstem bronchus. Right lower lung focal consolidation with moderate pleural effusion. Osteoblastic metastatic lesion L1 and L2. Consultations: Treatments: Supplemental oxygen Re-evaluations: 5:00 p.m.. I reviewed results with patient and son. They do understand need for transfer back to [facility] given findings on CT scan including pericardial effusion. Patient symptoms likely due to pleural effusion and pericardial effusion. As well as anemia however anemia is not new. Discussion: Appropriate for transferred to [facility] for continuity of care. Patient will need evaluation for possible drainage of pericardial e ffusion. Not toxic at this time. No antibiotics indicated. Diagnosis: Pericardial effusion pleural effusion anemia <Sid Holley DO - Last Filed: 12/25/22 22:17> Lab Data Labs: Lab Results 12/24/22 12/24/22 12/24/22 Range/Units 14:31 14:31 14:31 WBC 12.5 H (4.5-11.0) X10^3/uL RBC 2.28 L (4.0-5.2) X10^6/uL Hgb 7.5 L (12.0-16.0) g/dL Hct 22.1 L (36-46) % MCV 96.9 (80-100) fL MCH 33.0 (26-34) PG MCHC 34.1 (30-36) % RDW 14.4 (11.6-14.8) % Plt Count 287 (150-400) X10^3/uL Neut % (Auto) 76.1 H (50-75) % Lymph % (Auto) 13.6 L (25-40) % Ocean % (Auto) 9.1 (3-14) % Eos % (Auto) 0.4 L (2-4) % Baso % (Auto) 0.8 (0-2) % Neut # (Auto) 9600 H (2989-0664) /uL Lymph # (Auto) 1700 (7565-7830) /uL Ocean # (Auto) 1100 H (0-900) /uL Eos # (Auto) 0 (0-450) /uL Baso # (Auto) 100 (0-100) /uL PT 11.0 (10.1-12.7) SECONDS INR 1.0 (0.9-1.3) APTT 30 (26-36) SECONDS Sodium 130 L (137-145) mmol/L Potassium 4.0 (3.4-5.1) mmol/L Chloride 98 (98-107) mmol/L Carbon Dioxide 26 (22-32) mmol/L BUN 10 (7-17) mg/dL Creatinine 0.39 L (0.52-1.04) mg/dL Estimated GFR > 60 (>60) mL/min BUN/Creatinine Ratio 25.6 H (6-22) Glucose 156 H (80-110) mg/dL Calcium 9.0 (8.4-10.2) mg/dL Magnesium 1.9 (1.6-2.3) mg/dL Total Bilirubin 0.3 (0.2-1.3) mg/dL AST 37 H (14-36) IU/L ALT 26 (<35) IU/L Alkaline Phosphatase 110 (38-126) U/L Total Creatine Kinase 68 (30-135) U/L CK-MB (CK-2) TNP CK-MB (CK-2) Rel Index TNP Troponin I 0.015 (0.01-0.034) ng/mL NT-Pro-B Natriuret Pep (<125) pg/mL Total Protein 6.9 (6.3-8.2) g/dL Albumin 3.9 (3.5-5.0) g/dL Globulin 3.0 (1.7-4.1) g/dL Albumin/Globulin Ratio 1.3 (1.0-2.8) Lipase 465 H (23-300) U/L SARS-CoV-2 (PCR) (Negative) Blood Type Antibody Screen Crossmatch 12/24/22 12/24/22 12/24/22 Range/Units 14:31 14:31 16:55 WBC (4.5-11.0) X10^3/uL RBC (4.0-5.2) X10^6/uL Hgb (12.0-16.0) g/dL Hct (36-46) % MCV (80-100) fL MCH (26-34) PG MCHC (30-36) % RDW (11.6-14.8) % Plt Count (150-400) X10^3/uL Neut % (Auto) (50-75) % Lymph % (Auto) (25-40) % Ocean % (Auto) (3-14) % Eos % (Auto) (2-4) % Baso % (Auto) (0-2) % Neut # (Auto) (7684-1053) /uL Lymph # (Auto) (3082-6738) /uL Ocean # (Auto) (0-900) /uL Eos # (Auto) (0-450) /uL Baso # (Auto) (0-100) /uL PT (10.1-12.7) SECONDS INR (0.9-1.3) APTT (26-36) SECONDS Sodium (137-145) mmol/L Potassium (3.4-5.1) mmol/L Chloride (98-107) mmol/L Carbon Dioxide (22-32) mmol/L BUN (7-17) mg/dL Creatinine (0.52-1.04) mg/dL Estimated GFR (>60) mL/min BUN/Creatinine Ratio (6-22) Glucose (80-110) mg/dL Calcium (8.4-10.2) mg/dL Magnesium (1.6-2.3) mg/dL Total Bilirubin (0.2-1.3) mg/dL AST (14-36) IU/L ALT (<35) IU/L Alkaline Phosphatase (38-126) U/L Total Creatine Kinase (30-135) U/L CK-MB (CK-2) CK-MB (CK-2) Rel Index Troponin I (0.01-0.034) ng/mL NT-Pro-B Natriuret Pep 182 H (<125) pg/mL Total Protein (6.3-8.2) g/dL Albumin (3.5-5.0) g/dL Globulin (1.7-4.1) g/dL Albumin/Globulin Ratio (1.0-2.8) Lipase (23-300) U/L SARS-CoV-2 (PCR) Negative (Negative) Blood Type O Negative Antibody Screen Negative Crossmatch See Detail 12/25/22 12/25/22 12/25/22 Range/Units 01:15 07:20 07:20 WBC 8.3 (4.5-11.0) X10^3/uL RBC 2.81 L (4.0-5.2) X10^6/uL Hgb 7.0 L 8.8 L (12.0-16.0) g/dL Hct 20.2 L* 26.0 L (36-46) % MCV 92.5 D (80-100) fL MCH 31.3 (26-34) PG MCHC 33.9 (30-36) % RDW 18.0 H (11.6-14.8) % Plt Count 308 (150-400) X10^3/uL Neut % (Auto) 69.5 (50-75) % Lymph % (Auto) 16.7 L (25-40) % Ocean % (Auto) 12.4 (3-14) % Eos % (Auto) 0.8 L (2-4) % Baso % (Auto) 0.6 (0-2) % Neut # (Auto) 5800 (2076-2929) /uL Lymph # (Auto) 1400 (7498-7809) /uL Ocean # (Auto) 1000 H (0-900) /uL Eos # (Auto) 100 (0-450) /uL Baso # (Auto) 100 (0-100) /uL PT (10.1-12.7) SECONDS INR (0.9-1.3) APTT (26-36) SECONDS Sodium 133 L (137-145) mmol/L Potassium 4.0 (3.4-5.1) mmol/L Chloride 101 (98-107) mmol/L Carbon Dioxide 25 (22-32) mmol/L BUN 7 (7-17) mg/dL Creatinine 0.45 L (0.52-1.04) mg/dL Estimated GFR > 60 (>60) mL/min BUN/Creatinine Ratio 15.6 (6-22) Glucose 93 (80-110) mg/dL Calcium 8.7 (8.4-10.2) mg/dL Magnesium (1.6-2.3) mg/dL Total Bilirubin (0.2-1.3) mg/dL AST (14-36) IU/L ALT (<35) IU/L Alkaline Phosphatase (38-126) U/L Total Creatine Kinase 41 (30-135) U/L CK-MB (CK-2) TNP CK-MB (CK-2) Rel Index TNP Troponin I < 0.012 (0.01-0.034) ng/mL NT-Pro-B Natriuret Pep 380 H (<125) pg/mL Total Protein (6.3-8.2) g/dL Albumin (3.5-5.0) g/dL Globulin (1.7-4.1) g/dL Albumin/Globulin Ratio (1.0-2.8) Lipase (23-300) U/L SARS-CoV-2 (PCR) (Negative) Blood Type Antibody Screen Crossmatch [facility] Narrative Medical decision making narrative: After history and exam CBC CMP chest x-ray CT angiogram chest ordered [facility] CC: Dyspnea Complicating co-morbidities: Recent right lung lobectomy biopsy Data collected from: Patient and son Medical records reviewed: Discharge summary from [facility] December 20, 2022 Differential considered: Includes but not limited to pneumonia pulmonary embolism [place] CHF pleural effusion pericardial effusion Exam documented above, pertinent findings include: Diminished lung sounds on the right. Muffled heart sounds Lab Test results independently reviewed as above. Pertinent findings: WBC 12.5. A hemoglobin 7.5 hematocrit 22 platelets 287. Comparatively patient had hemoglobin 8.0 this past week. INR 1.0 sodium 130 BUN 10 creatinine 0.39 and GFR greater than 60 Independently reviewed EKG as above sinus tachycardia rate [address] elevation or depression Imaging studies independently reviewed: Chest x-ray no acute cardiopulmonary findings CT chest, no PE. There is pericardial effusion measuring up to 1.9 cm in thickness. Mediastinal mass lesion surrounding the right mainstem bronchus. Right lower lung focal consolidation with moderate pleural effusion. Osteoblastic metastatic lesion L1 and L2. Consultations: Treatments: Supplemental oxygen Re-evaluations: 5:00 p.m.. I reviewed results with patient and son. They do understand need for transfer back to [facility] given findings on CT scan including pericardial effusion. Patient symptoms likely due to pleural effusion and pericardial effusion. As well as anemia however anemia is not new. Discussion: Appropriate for transferred to [facility] for continuity of care. Patient will need evaluation for possible drainage of pericardial effusion. Not toxic at this time. No antibiotics indicated. Diagnosis: Pericardial effusion pleural effusion anemia Dr holley: Received turned over. Reviewed patient's history and physical and workup up to this point. Performed my own independent evaluation. I did discuss the case with the on-call cardiothoracic resident at [facility] who was able to review the patient's workup and labs and radiologic studies done here in our emergency department. They stated that they think that the hilar findings on the CT scan are reactionary given a fairly extensive lymph node biopsy in this area recently. They stated that the pleural effusion is expected after her recent procedure. They do acknowledge the pericardial effusion although here in the emergency department she is not in tamponade. She did have an episode of becoming tachypneic and she was placed on oxygen for this. The oxygen was for her rapid respiratory rate and not because of hypoxia. She stated that she felt better with the oxygen on although she also states sh e was feeling very anxious of the time and that could be some of her respiratory issues. Patient was anemic. This was slightly lower today compared to her discharge. This information came from the resident that I spoke with. A repeat H&H shows that it has decreased somewhat. She continues to be stable. She states she feels very well. I have low suspicion that she is actively bleeding into her pericardial sac. I had a discussion with her the risks and benefits of a blood transfusion. Her son who is at bedside earlier in the evening stated that he thought that the patient was more pale than normal. After the discussion about her change in blood counts in her presentation today we did decide to transfuse her 1 unit of packed red blood cells. The Cardiothoracic surgery team at [facility] did not feel that the patient needed any sort of emergent surgery. They felt that the patient could be discharged home. They could follow her up on Monday. Given her presentation and her need for oxygen in her decreasing hemoglobin and hematocrit I felt it best to keep her here in the emergency department overnight. The plan will be is to repeat labs and a chest x-ray in the morning. We can also obtain an echocardiogram. We will then Re contact the cardiothoracic surgery team to discuss the findings this and we will re-evaluate how she is doing and if she is off oxygen and she is stable and depending on the results of the echocardiogram potentially discharge patient home. I did discuss this with the patient and her son who is at bedside. They were very appreciative. The patient was very happy that she did not need to be transferred emergently. Care turned over to Dr. Patiño to continue to observe until disposition can be met. <Leena Patiño, DO - Last Filed: 12/25/22 14:06> Lab Data Labs: Lab Results 12/24/22 12/24/22 12/24/22 Range/Units 14:31 14:31 14:31 WBC 12.5 H (4.5-11.0) X10^3/uL RBC 2.28 L (4.0-5.2) X10^6/uL Hgb 7.5 L (12.0-16.0) g/dL Hct 22.1 L (36-46) % MCV 96.9 (80-100) fL MCH 33.0 (26-34) PG MCHC 34.1 (30-36) % RDW 14.4 (11.6-14.8) % Plt Count 287 (150-400) X10^3/uL Neut % (Auto) 76.1 H (50-75) % Lymph % (Auto) 13.6 L (25-40) % Ocean % (Auto) 9.1 (3-14) % Eos % (Auto) 0.4 L (2-4) % Baso % (Auto) 0.8 (0-2) % Neut # (Auto) 9600 H (9962-0023) /uL Lymph # (Auto) 1700 (5694-1968) /uL Ocean # (Auto) 1100 H (0-900) /uL Eos # (Auto) 0 (0-450) /uL Baso # (Auto) 100 (0-100) /uL PT 11.0 (10.1-12.7) SECONDS INR 1.0 (0.9-1.3) APTT 30 (26-36) SECONDS Sodium 130 L (137-145) mmol/L Potassium 4.0 (3.4-5.1) mmol/L Chloride 98 (98-107) mmol/L Carbon Dioxide 26 (22-32) mmol/L BUN 10 (7-17) mg/dL Creatinine 0.39 L (0.52-1.04) mg/dL Estimated GFR > 60 (>60) mL/min BUN/Creatinine Ratio 25.6 H (6-22) Glucose 156 H (80-110) mg/dL Calcium 9.0 (8.4-10.2) mg/dL Magnesium 1.9 (1.6-2.3) mg/dL Total Bilirubin 0.3 (0.2-1.3) mg/dL AST 37 H (14-36) IU/L ALT 26 (<35) IU/L Alkaline Phosphatase 110 (38-126) U/L Total Creatine Kinase 68 (30-135) U/L CK-MB (CK-2) TNP CK-MB (CK-2) Rel Index TNP Troponin I 0.015 (0.01-0.034) ng/mL NT-Pro-B Natriuret Pep (<125) pg/mL Total Protein 6.9 (6.3-8.2) g/dL Albumin 3.9 (3.5-5.0) g/dL Globulin 3.0 (1.7-4.1) g/dL Albumin/Globulin Ratio 1.3 (1.0-2.8) Lipase 465 H (23-300) U/L SARS-CoV-2 (PCR) (Negative) Blood Type Antibody Screen Crossmatch 12/24/22 12/24/22 12/24/22 Range/Units 14:31 14:31 16:55 WBC (4.5-11.0) X10^3/uL RBC (4.0-5.2) X10^6/uL Hgb (12.0-16.0) g/dL Hct (36-46) % MCV (80-100) fL MCH (26-34) PG MCHC (30-36) % RDW (11.6-14.8) % Plt Count (150-400) X10^3/uL Neut % (Auto) (50-75) % Lymph % (Auto) (25-40) % Ocean % (Auto) (3-14) % Eos % (Auto) (2-4) % Baso % (Auto) (0-2) % Neut # (Auto) (1091-0142) /uL Lymph # (Auto) (8613-0249) /uL Ocean # (Auto) (0-900) /uL Eos # (Auto) (0-450) /uL Baso # (Auto) (0-100) /uL PT (10.1-12.7) SECONDS INR (0.9-1.3) APTT (26-36) SECONDS Sodium (137-145) mmol/L Potassium (3.4-5.1) mmol/L Chloride (98-107) mmol/L Carbon Dioxide (22-32) mmol/L BUN (7-17) mg/dL Creatinine (0.52-1.04) mg/dL Estimated GFR (>60) mL/min BUN/Creatinine Ratio (6-22) Glucose (80-110) mg/dL Calcium (8.4-10.2) mg/dL Magnesium (1.6-2.3) mg/dL Total Bilirubin (0.2-1.3) mg/dL AST (14-36) IU/L ALT (<35) IU/L Alkaline Phosphatase (38-126) U/L Total Creatine Kinase (30-135) U/L CK-MB (CK-2) CK-MB (CK-2) Rel Index Troponin I (0.01-0.034) ng/mL NT-Pro-B Natriuret Pep 182 H (<125) pg/mL Total Protein (6.3-8.2) g/dL Albumin (3.5-5.0) g/dL Globulin (1.7-4.1) g/dL Albumin/Globulin Ratio (1.0-2.8) Lipase (23-300) U/L SARS-CoV-2 (PCR) Negative (Negative) Blood Type O Negative Antibody Screen Negative Crossmatch See Detail 12/25/22 12/25/22 12/25/22 Range/Units 01:15 07:20 07:20 WBC 8.3 (4.5-11.0) X10^3/uL RBC 2.81 L (4.0-5.2) X10^6/uL Hgb 7.0 L 8.8 L (12.0-16.0) g/dL Hct 20.2 L* 26.0 L (36-46) % MCV 92.5 D (80-100) fL MCH 31.3 (26-34) PG MCHC 33.9 (30-36) % RDW 18.0 H (11.6-14.8) % Plt Count 308 (150-400) X10^3/uL Neut % (Auto) 69.5 (50-75) % Lymph % (Auto) 16.7 L (25-40) % Ocean % (Auto) 12.4 (3-14) % Eos % (Auto) 0.8 L (2-4) % Baso % (Auto) 0.6 (0-2) % Neut # (Auto) 5800 (4035-1060) /uL Lymph # (Auto) 1400 (4560-0104) /uL Ocean # (Auto) 1000 H (0-900) /uL Eos # (Auto) 100 (0-450) /uL Baso # (Auto) 100 (0-100) /uL PT (10.1-12.7) SECONDS INR (0.9-1.3) APTT (26-36) SECONDS Sodium 133 L (137-145) mmol/L Potassium 4.0 (3.4-5.1) mmol/L Chloride 101 (98-107) mmol/L Carbon Dioxide 25 (22-32) mmol/L BUN 7 (7-17) mg/dL Creatinine 0.45 L (0.52-1.04) mg/dL Estimated GFR > 60 (>60) mL/min BUN/Creatinine Ratio 15.6 (6-22) Glucose 93 (80-110) mg/dL Calcium 8.7 (8.4-10.2) mg/dL Magnesium (1.6-2.3) mg/dL Total Bilirubin (0.2-1.3) mg/dL AST (14-36) IU/L ALT (<35) IU/L Alkaline Phosphatase (38-126) U/L Total Creatine Kinase 41 (30-135) U/L CK-MB (CK-2) TNP CK-MB (CK-2) Rel Index TNP Troponin I < 0.012 (0.01-0.034) ng/mL NT-Pro-B Natriuret Pep 380 H (<125) pg/mL Total Protein (6.3-8.2) g/dL Albumin (3.5-5.0) g/dL Globulin (1.7-4.1) g/dL Albumin/Globulin Ratio (1.0-2.8) Lipase (23-300) U/L SARS-CoV-2 (PCR) (Negative) Blood Type Antibody Screen Crossmatch Imaging Data echo: Radiologist's Impression: [address] ? : ? : : ? :? [place] ? : ? : : ? :? [id number] ? : ? : : ? : ? Phone: [phone] ? : [phone]? [phone]? +---------+ ? Echocardiogram Report + + :Name: STAR ALEXANDRE? Study Date: 12/25/2022 ? Height: 66 in? : :[facility] ? ? ReadingLocation: ? Weight: 94 lb? : : ? Gender: Female ? BSA: 1.5 m2? ? : :: 1960? Age: 62 yrs? BP: 117/73 mmHg: :Reason For Study: PERICARDIAL EFFUSION ? : :Ordering Physician: LUIS,? : :SID? Performed By: Eve Parada? : :Referring: SID HOLLEY ? : + + Interpretation Summary The left ventricular cavity is small. The left ventricle is hyperdynamic. The ejection fraction is estimated to be 70-75%. 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 ? The right ventricle is normal size. Visually RV function appears to be preserved. ? No significant valvular pathology seen. ? The IVC is dilated (diameter is greater than 2.1 cm) and it collapses less than 50% with a sniff. This suggests a high right atrial pressure of 15 mm Hg. ? Pericardial effusion measuring from 0.3-1.2cm. Overall small to moderate circumferential pericardial effusion. Moderate around free wall of right ventricle from subcostal view. Fibrinous exudates seen as well inside the pericardial effusion. No obvious RV or RA diastolic collapse. Doppler evaluation does not support typical tamponade findings. Blood pressure 117/73 mmHg. However IVC is dilated. Considering overall picture, not in obvious cardiac tamponade. Correlate clinically. ? Procedure: ? A two-dimensional transthoracic echocardiogram with color flow and Doppler was performed. The study quality was technically adequate. There is no prior echocardiogram noted for this patient. The patient was in sinus rhythm with heart rates between 86-95 bpm during the exam. Left Ventricle: ? The left ventricular cavity is small. Proximal septal thickening is noted. 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 The ejection fraction is estimated to be 70-75%. The left ventricle is hyperdynamic. There are no focal wall motion abnormalities. MV E/A: 1.1 Med Peak E' Bryson: 4.8 cm/sec E/E' med: 16.7. Right Ventricle: ? The right ventricle is normal size. Visually RV function appears to be preserved. Atria: ? The left atrial size is normal. Right atrial size is normal. There is no Doppler evidence for an interatrial shunt. Mitral Valve: ? The mitral valve is normal in structure and function. There is no mitral regurgitation noted. Aortic Valve: ? The aortic valve is not well visualized. There is no aortic valve stenosis. No aortic regurgitation is present. Tricuspid Valve: ? The tricuspid valve is normal in structure and function. There is trace tricuspid regurgitation. Pulmonary artery pressures cannot be estimated because of the lack of a measurable TR jet velocity. Pulmonic Valve: ? The pulmonic valve is not well visualized. There is no pulmonic valvular regurgitation. Great Vessels: ? The aortic root is normal size. The ascending aorta could not be visualized. The IVC is dilated (diameter is greater than 2.1 cm) and it collapses less than 50% with a sniff. This suggests a high right atrial pressure of 15 mm Hg. Pericardium/ Pleura ? Pericardial effusion measuring from 0.3-1.2cm. Overall small to moderate circumferential pericardial effusion. Moderate around free wall of right ventricle from subcostal view. Fibrinous exudates seen as well inside the pericardial effusion. No obvious RV or RA diastolic collapse. Doppler evaluation does not support typical tamponade findings. Blood pressure 117/73 mmHg. However IVC is dilated. Considering overall picture, not in obvious cardiac tamponade. ? MMode/2D Measurements & Calculations LVIDd: 3.6 cm ? LVOT diam: 2.2 cm LVIDs: 2.7 cm ? Ao root diam: 3.2 cm FS: 26.9 %? asc Aorta Diam: 3.2 cm IVSd: 0.80 cm LVPWd: 0.71 cm LV vargas. diameter/BSA (cm/m^2): 2.5 LV sys. diameter/BSA (cm/m^2): 1.8 ? LA A2 area: 13.9 cm2? RA long axis: 4.3 cm LA A4 area: 13.9 cm2? RA area: 11.7 cm2 LA length (vol): 4.1 cm ? RA vol: 27.3 ml LA vol: 40.0 ml ? RA : 18.8 ml/m2 LA vol index: 27.5 ml/m2? IVC diam: 2.2 cm ? RVD1 (basal): 2.8 cm RVD2 (mid): 2.5 cm TAPSE: 1.4 cm ? Doppler Measurements & Calculations Ao V2 max: 140.9 cm/sec ? LVOT Max Bryson: 157.7 cm/sec Ao V2 mean: 101.2 cm/sec? LV V1 max P.9 mmHg Ao max P.9 mmHg ? LV V1 VTI: 28.1 cm Ao mean P.5 mmHg? OSIEL(I,D): 3.8 cm2 Ao V2 VTI: 27.7 cm? OSIEL(V,D): 4.2 cm2 ? sev ratio: 1.0 ? OSIEL indexed to BSA (cm^2/m^2): 2.6 ? MV E max bryson: 81.2 cm/sec ? PA V2 max: 92.2 cm/sec MV A max bryson: 74.0 cm/sec ? PA V2 mean: 68.1 cm/sec MV E/A: 1.1 ? PA mean P.1 mmHg Med Peak E' Bryson: 4.8 cm/sec E/E' med: 16.7 Lat Peak E' Bryson: 7.2 cm/sec E/E' lat: 11.3 E/e' average: 14.0 MV dec time: 0.20 sec ? SV(LVOT): 104.4 ml ? Reading Physician:11:43 AM ECG Data Interpretation: 1. Sinus tachycardia rate 107 MI interval 120 QRS [address] changes no T- wave inversions EKG #2Normal sinus rhythm rate 85 MI interval 144 QRS [address] changes no T-wave inversions [facility] Narrative Medical decision making narrative: After history and exam CBC CMP chest x-ray CT angiogram chest ordered [facility] CC: Dyspnea Complicating co-morbidities: Recent right lung lobectomy biopsy Data collected from: Patient and son Medical records reviewed: Discharge summary from [facility] December 20, 2022 Differential considered: Includes but not limited to pneumonia pulmonary embolism [place] CHF pleural effusion pericardial effusion Exam documented above, pertinent findings include: Diminished lung sounds on the right. Muffled heart sounds Lab Test results independently reviewed as above. Pertinent findings: WBC 12.5. A hemoglobin 7.5 hematocrit 22 platelets 287. Comparatively patient had hemoglobin 8.0 this past week. INR 1.0 sodium 130 BUN 10 creatinine 0.39 and GFR greater than 60 Independently reviewed EKG as above sinus tachycardia rate [address] elevation or depression Imaging studies independently reviewed: Chest x-ray no acute cardiopulmonary findings CT chest, no PE. There is pericardial effusion measuring up to 1.9 cm in thickness. Mediastinal mass lesion surrounding the right mainstem bronchus. Right lower lung focal consolidation with moderate pleural effusion. Osteoblastic metastatic lesion L1 and L2. Consultations: Treatments: Supplemental oxygen Re-evaluations: 5:00 p.m.. I reviewed results with patient and son. They do understand need for transfer back to [facility] given findings on CT scan including pericardial effusion. Patient symptoms likely due to pleural effusion and pericardial effusion. As well as anemia however anemia is not new. Discussion: Appropriate for transferred to [facility] for continuity of care. Patient will need evaluation for possible drainage of pericardial effusion. Not toxic at this time. No antibiotics indicated. Diagnosis: Pericardial effusion pleural effusion anemia Dr holley: Received turned over. Reviewed patient's history and physical and workup up to this point. Performed my own independent evaluation. I did discuss the case with the on-call cardiothoracic resident at [facility] who was able to review the patient's workup and labs and radiologic studies done here in our emergency department. They stated that they think that the hilar findings on the CT scan are reactionary given a fairly extensive lymph node biopsy in this area recently. They stated that the pleural effusion is expected after her recent procedure. They do acknowledge the pericardial effusion although here in the emergency department she is not in tamponade. She did have an episode of becoming tachypneic and she was placed on oxygen for this. The oxygen was for her rapid respiratory rate and not because of hypoxia. She stated that she felt better with the oxygen on although she also states she was feeling very anxious of the time and that could be some of her respiratory issues. Patient was anemic. This was slightly lower today compared to her discharge. This information came from the resident that I spoke with. A repeat H&H shows that it has decreased somewhat. She continues to be stable. She states she feels very well. I have low suspicion that she is actively bleeding into her pericardial sac. I had a discussion with her the risks and benefits of a blood transfusion. Her son who is at bedside earlier in the evening stated that he thought that the patient was more pale than normal. After the discussion about her change in blood counts in her presentation today we did decide to transfuse her 1 unit of packed red blood cells. The Cardiothoracic surgery team at [facility] did not feel that the patient needed any sort of emergent surgery. They felt that the patient could be discharged home. They could follow her up on Monday. Given her presentation and her need for oxygen in her decreasing hemoglobin and hematocrit I felt it best to keep her here in the emergency department overnight. The plan will be is to repeat labs and a chest x-ray in the morning. We can also obtain an echocardiogram. We will then Re contact the cardiothoracic surgery team to discuss the findings this and we will re-evaluate how she is doing and if she is off oxygen and she is stable and depending on the results of the echocardiogram potentially discharge patient home. I did discuss this with the patient and her son who is at bedside. They were very appreciative. The patient was very happy that she did not need to be transferred emergently. Care turned over to Dr. Patiño to continue to observe until disposition can be met. Dr. Patiño-patient signed out by Dr. Holley seen evaluated patient myself. Sitting upright. Eating lunch no longer requiring oxygen. Blood work after 1 PRBC, shows hemoglobin 8.8, hematocrit 26.0. Echocardiogram shows [id number] pericardial effusion, there is some mild dynamic left ventricular outflow tract obstruction, EF is 70 75%. EKG does not show any abnormality. Patient overall is feeling better. Sinus at bedside. I updated C T resident in regards to results. Dr. Kayley Gallegos, she states that they will follow up with patient tomorrow no need for admit and recommends sending patient home on iron tablets. The attending physician actually did call me back to the transfer center he is aware that Kayley has information and agrees with the plan. Discharge Plan Departure Patient Disposition: Home Clinical Impression: Acute pericardial effusion, Pleural effusion, Anemia Instructions: Anemia Activity Restrictions/Additional Instructions: *You have been diagnosed with anemia, postoperative changes, fluid around the heart *What to do: Nesha gan surgery should call you tomorrow with more information. *Continue to take medications as directed Iron supplement take daily sent to [facility]. This can cause black stool and constipation *Follow up with your primary care provider in 2-3 days or call [phone] Follow-up with surgery tomorrow *Return to ER if you should have increasing weakness shortness of breath chest pain palpitations [or] any new, worsening or concerning symptoms Prescriptions: New ferrous fumarate 89 mg (29 mg iron) tablet 89 mg PO DAILY Qty: 30 0RF No Action acetaminophen 325 mg Tablet 650 mg PO Q6HR PRN (Reason: Fever/Mild Pain (1-3)) Qty: 30 0RF folic acid 1 mg Tablet 1 mg PO DAILY Qty: 30 0RF sennosides [senna] 8.6 mg Tablet 8.6 mg PO BID PRN (Reason: Constipation) Qty: 30 0RF thiamine mononitrate (vit B1) 100 mg Tablet 100 mg PO DAILY Qty: 30 0RF oxycodone 5 mg Tablet 5 mg PO Q4HR PRN (Reason: Pain, Moderate (4-6)) Qty: 30 0RF mirtazapine 7.5 mg tablet 7.5 mg PO BEDTIME Patient Comments: take 1 tablet by mouth at bedtime Referrals: Salvador Carranza MD [Primary Care Provider] - Stand Alone Forms: Patient Portal/API
--- NOTE | 2022-12-24 22:34 | PC.NURSE ---
Jorden's cell phone number: [phone] Jorden's landline: [phone] Jorden says there isn't mobile service so if we can't get a hold him via mobile, try landline.
[2022-12-25] VITALS (64 sets, daily range): BP systolic 109–139; BP diastolic 60–82; PULSE 79–110; RESP 16–47; TEMP 36.6–36.8; O2SAT 35–100
--- NOTE | 2022-12-25 00:53 | DI.ECHO.S_ITS ---
[facility] +---------+ : : [address] : : : : [id number] : : : : Phone: [phone] Echocardiogram Report + + :Name: STAR ALEXANDRE Study Date: 12/25/2022 Height: 66 in : :[facility] ReadingLocation: Weight: 94 lb : : Gender: Female BSA: 1.5 m2 : :: 1960 Age: 62 yrs BP: 117/73 mmHg: :Reason For Study: PERICARDIAL EFFUSION : :Ordering Physician: LUIS, : :BORA Performed By: Eve Parada : :Referring: BORA SMITH : + + Interpretation Summary The left ventricular cavity is small. The left ventricle is hyperdynamic. The ejection fraction is estimated to be 70-75%. 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 The right ventricle is normal size. Visually RV function appears to be preserved. No significant valvular pathology seen. The IVC is dilated (diameter is greater than 2.1 cm) and it collapses less than 50% with a sniff. This suggests a high right atrial pressure of 15 mm Hg. Pericardial effusion measuring from 0.3-1.2cm. Overall small to moderate circumferential pericardial effusion. Moderate around free wall of right ventricle from subcostal view. Fibrinous exudates seen as well inside the pericardial effusion. No obvious RV or RA diastolic collapse. Doppler evaluation does not support typical tamponade findings. Blood pressure 117/73 mmHg. However IVC is dilated. Considering overall picture, not in obvious cardiac tamponade. Correlate clinically. Procedure: A two-dimensional transthoracic echocardiogram with color flow and Doppler was performed. The study quality was technically adequate. There is no prior echocardiogram noted for this patient. The patient was in sinus rhythm with heart rates between 86-95 bpm during the exam. Left Ventricle: The left ventricular cavity is small. Proximal septal thickening is noted. 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 The ejection fraction is estimated to be 70-75%. The left ventricle is hyperdynamic. There are no focal wall motion abnormalities. MV E/A: 1.1 Med Peak E' Bryson: 4.8 cm/sec E/E' med: 16.7. Right Ventricle: The right ventricle is normal size. Visually RV function appears to be preserved. Atria: The left atrial size is normal. Right atrial size is normal. There is no Doppler evidence for an interatrial shunt. Mitral Valve: The mitral valve is normal in structure and function. There is no mitral regurgitation noted. Aortic Valve: The aortic valve is not well visualized. There is no aortic valve stenosis. No aortic regurgitation is present. Tricuspid Valve: The tricuspid valve is normal in structure and function. There is trace tricuspid regurgitation. Pulmonary artery pressures cannot be estimated because of the lack of a measurable TR jet velocity. Pulmonic Valve: The pulmonic valve is not well visualized. There is no pulmonic valvular regurgitation. Great Vessels: The aortic root is normal size. The ascending aorta could not be visualized. The IVC is dilated (diameter is greater than 2.1 cm) and it collapses less than 50% with a sniff. This suggests a high right atrial pressure of 15 mm Hg. Pericardium/ Pleura Pericardial effusion measuring from 0.3-1.2cm. Overall small to moderate circumferential pericardial effusion. Moderate around free wall of right ventricle from subcostal view. Fibrinous exudates seen as well inside the pericardial effusion. No obvious RV or RA diastolic collapse. Doppler evaluation does not support typical tamponade findings. Blood pressure 117/73 mmHg. However IVC is dilated. Considering overall picture, not in obvious cardiac tamponade. MMode/2D Measurements & Calculations LVIDd: 3.6 cm LVOT diam: 2.2 cm LVIDs: 2.7 cm Ao root diam: 3.2 cm FS: 26.9 % asc Aorta Diam: 3.2 cm IVSd: 0.80 cm LVPWd: 0.71 cm LV vargas. diameter/BSA (cm/m^2): 2.5 LV sys. diameter/BSA (cm/m^2): 1.8 LA A2 area: 13.9 cm2 RA long axis: 4.3 cm LA A4 area: 13.9 cm2 RA area: 11.7 cm2 LA length (vol): 4.1 cm RA vol: 27.3 ml LA vol: 40.0 ml RA : 18.8 ml/m2 LA vol index: 27.5 ml/m2 IVC diam: 2.2 cm RVD1 (basal): 2.8 cm RVD2 (mid): 2.5 cm TAPSE: 1.4 cm Doppler Measurements & Calculations Ao V2 max: 140.9 cm/sec LVOT Max Bryson: 157.7 cm/sec Ao V2 mean: 101.2 cm/sec LV V1 max P.9 mmHg Ao max P.9 mmHg LV V1 VTI: 28.1 cm Ao mean P.5 mmHg OSIEL(I,D): 3.8 cm2 Ao V2 VTI: 27.7 cm OSIEL(V,D): 4.2 cm2 sev ratio: 1.0 OSIEL indexed to BSA (cm^2/m^2): 2.6 MV E max bryson: 81.2 cm/sec PA V2 max: 92.2 cm/sec MV A max bryson: 74.0 cm/sec PA V2 mean: 68.1 cm/sec MV E/A: 1.1 PA mean P.1 mmHg Med Peak E' Bryson: 4.8 cm/sec E/E' med: 16.7 Lat Peak E' Bryson: 7.2 cm/sec E/E' lat: 11.3 E/e' average: 14.0 MV dec time: 0.20 sec SV(LVOT): 104.4 ml Reading Physician:11:43 AM
[2022-12-25 01:32] LABS: Hematocrit 20.2 % (36-46)
--- NOTE | 2022-12-25 03:18 | PC.NURSE ---
15 minute transfusion check complete. Patient denies any symptoms, vital signs WNL. Blood infusion rate increased to 200mls/hr.
[2022-12-25] MEDS: LORazepam 2 MG/ML INJ 1 MG IV (04:55)
--- NOTE | 2022-12-25 06:52 | DI.RAD.S_ITS ---
PROCEDURE: XR CHEST 1V INDICATIONS: follow up for SOB and right sided effusion TECHNIQUE: One view of the chest was acquired. COMPARISON: [facility], CT, CT ANGIO CHEST PE PROTOCOL, 12/24/2022, 15:31. [facility], CR, XR CHEST 1V, 12/24/2022, 13:51. [facility], CR, XR CHEST 1V, 06/13/2022, 17:33. FINDINGS: Surgical changes and devices: None. Lungs and pleura: Similar opacity at the right hilum and lung base opacity, partially obscured by the elevation of the right hemidiaphragm. Suspected trace effusion. Mediastinum: Mediastinal contours appear normal. Heart size is normal. Bones and chest wall: No suspicious bony lesions. Overlying soft tissues appear unremarkable. IMPRESSION: Similar right hilar opacity and right lung base opacity with right hemidiaphragm elevation. Suspected trace effusion. No significant changes. These are better described on recent CT. Dictated by: Blake Lambert M.D. on 12/25/2022 at 7:20 Approved by: Blake Lambert M.D. on 12/25/2022 at 7:22
[2022-12-25 07:37] LABS: Add Manual Diff / Slide Review NO; Basophils Absolute Auto 100 /uL (0-100); Basophils Percent Auto 0.6 % (0-2); Eosinophils Absolute Auto 100 /uL (0-450); Eosinophils Percent Auto 0.8 % (2-4); Hemoglobin 8.8 g/dL (12.0-16.0); Lymphocytes Absolute Auto 1400 /uL (1100-4500); Lymphocytes Percent Auto 16.7 % (25-40); Mean Corpuscular HGB Conc 33.9 % (30-36); Mean Corpuscular Hemoglobin 31.3 PG (26-34); Mean Corpuscular Volume 92.5 fL (80-100); Monocytes Absolute Auto 1000 /uL (0-900); Monocytes Percent Auto 12.4 % (3-14); Neutrophils Absolute Auto 5800 /uL (1500-7000); Neutrophils Percent Auto 69.5 % (50-75); Platelet Count 308 X10^3/uL (150-400); Red Blood Cell Count 2.81 X10^6/uL (4.0-5.2); White Blood Cell Count 8.3 X10^3/uL (4.5-11.0)
[2022-12-25 07:48] LABS: BUN Creatinine Ratio 15.6 (6-22); Blood Urea Nitrogen 7 mg/dL (7-17); Calcium 8.7 mg/dL (8.4-10.2); Carbon Dioxide 25 mmol/L (22-32); Chloride 101 mmol/L (98-107); Creatine Kinase 41 U/L (30-135); Estimated Glomerular Filt Rate > 60 mL/min (>60); Glucose 93 mg/dL (80-110); HEMOLYSIS < 15 (0-50); Sodium 133 mmol/L (137-145)
[2022-12-25 08:00] LABS: NT-proBNP (BNP-Adult 18+) 380 pg/mL (<125); Troponin I < 0.012 ng/mL (0.01-0.034)
== END 2022-12-25 13:25 | disposition home or self-care (01) ==
PROVIDERS: Emergency Medicine; Emergency Provider Emergency Medicine; PCP Internal Medicine
DX: I31.39 Other pericardial effusion (noninflammatory) (principal); J90 Pleural effusion, not elsewhere classified; D64.9 Anemia, unspecified; R06.02 Shortness of breath; R79.89 Other specified abnormal findings of blood chemistry; Z20.822 Contact with and (suspected) exposure to COVID-19
CPT/HCPCS: 36430; 71045; 71275; 74177; 80048; 80053; 82550; 83690; 83735; 83880; 84484; 85014; 85018; 85025; 85610; 85730; 86850; 86900; 86901; 87635; 93005; 93010; 93306; 94640; 96374; 99285; C9803; P9016; J2060; Q9967

== ENCOUNTER 2025-01-03 10:52 | Emergency (ER) | payer OTHER, SELFPAY ==
[2025-01-03 11:01] VITALS: BP 124/73; PULSE 89; RESP 16; TEMP 36.8; O2SAT 97; BMI 16.9
--- NOTE | 2025-01-03 11:29 | PC.NURSE ---
Pt came to ED today because she has been having persistent & worsening bilateral LE edema, itching and pain x2 weeks. Right lower extremity swollen, red, warm to touch with some abrasions along craig and calf from pt scratching. Left LE red and swollen and warm to touch. Pt states that she is feeling burning pressure bilaterally. Seen at [facility] ED 1 week ago and pt reports that she was dc with abx and instructed to go home and elevate LE. Pt reports that she has taken full course of abx and not getting any better. A&Ox4. Denies SOB, CP, N/V or fevers.
--- NOTE | 2025-01-03 12:09 | ED_ITS ---
HPI - Extremity Problem General Chief complaint: Extremity Problem,Nontraumatic Stated complaint: Bilateral foot pain, swollen Time Seen by Provider: 01/03/25 11:57 Source: patient, RN notes reviewed and old records reviewed Mode of arrival: Wheelchair Limitations: no limitations History of Present Illness HPI Narrative: 64-year-old female who presents with complaint of bilateral lower extremity swelling, redness, pain and itching. Patient states has been present proximally 2 weeks was seen at [facility][1] initially told to elevate her legs got worse was seen again with started on Bactrim which he was completed but she states not really improved. She states the swelling does get a little bit better when she elevates her legs but returns. Fevers. No chest pain, no shortness of breath. No nausea or vomiting. No issues with bowel movements or urination. She notes her right has a little bit more swollen than her left which typically is the opposite. She states it is itchy she notes some excoriation that she has developed from her scratching. Patient states it was little bit painful. It is felt warm. Has not had any drainage. Has not had this problem in the past. She was currently on try needle an oral multivitamin, meloxicam and has completed the Bactrim. She states no other daily medications. Has had prior lung biopsy, did develop a pericardial effusion was seen but never had drainage, she states prior hip surgery, hysterectomy and repair of arm fracture. Patient states quit tobacco 2 years ago, has 1-3 alcoholic drinks daily, no recreational drugs otherwise. She was accompanied by a family friend. Maureen Ornelas is her primary care provider. Related Data Home Medications Medication Instructions Recorded Confirmed mirtazapine 7.5 mg tablet 7.5 mg PO BEDTIME 12/24/22 12/24/22 Previous Rx's Medication Instructions Recorded acetaminophen 325 mg tablet 650 mg (2 x 325 mg) PO Q6HR PRN 06/11/22 Fever/Mild Pain (1-3) #30 tabs folic acid 1 mg tablet 1 mg PO DAILY #30 tabs 06/11/22 sennosides 8.6 mg tablet (senna) 8.6 mg PO BID PRN Constipation #30 06/11/22 tabs thiamine mononitrate (vit B1) 100 100 mg PO DAILY #30 tabs 06/11/22 mg tablet oxycodone 5 mg tablet 5 mg PO Q4HR PRN Pain, Moderate 06/16/22 (4-6) #30 tabs ferrous fumarate 89 mg (29 mg 89 mg PO DAILY #30 tabs 12/25/22 iron) tablet cephalexin 500 mg capsule 500 mg PO TID 10 days #30 caps 01/03/25 Allergies Allergy/AdvReac Type Severity Reaction Status Date / Time morphine AdvReac Intermediate Hallucinati Verified 01/03/25 11:07 ng Penicillins [PENICILLINS] AdvReac Intermediate rash Verified 01/03/25 11:07 Review of Systems Review of Systems ROS Unobtainable: All systems reviewed & are unremarkable except as noted in HPI and below Patient History Surgical History Status post breast lumpectomy Status post appendectomy Status post hysterectomy Social History household members: none Smoking Status: Former smoker alcohol intake: current Smoking Status: Former smoker alcohol intake frequency: 3 or more drinks per day Alcohol type: wine Exam Narrative Exam Narrative: GENERAL: Alert and oriented x three, thin female in mild distress HEENT: Head normocephalic, atraumatic, EOMI, pupils reactive, face symmetric, moist mucous membranes NECK: Supple, full range of motion CARDIOVASCULAR: Regular rate and rhythm without murmurs, rubs or gallops. RESPIRATORY: Breath sounds equal bilaterally, no wheezes rales or rhonchi. ABDOMEN: Soft, nontender. Normoactive bowel sounds all 4 quadrants. No guarding or rebound, rigidity, no mass : No CVA tenderness EXTREMITIES: Normal range of motion, no clubbing, patient does have swelling right in comparison to left which is mild although patient does have 2+ edema particularly on the right. There some irregular patchy erythema extending from the dorsum of the foot up the calves end sort of irregularly. There is excoriation particularly on the right side, there some hyperkeratosis and dried skin. There is some slight warmth. Patient was 2+ pulses bilaterally. There was no drainage. Neurovascularly intact. Normal sensation throughout. NEUROLOGICAL: Cranial nerves II through XII grossly intact. Moving all extremities SKIN: Warm, dry, no petechiae, no rashes or lesions otherwise noted. Initial Vital Signs Initial Vital Signs: Vital Signs Temperature 98.3 F 01/03/25 11:01 Pulse Rate 89 01/03/25 11:01 Respiratory Rate 16 01/03/25 11:01 Blood Pressure 124/73 01/03/25 11:01 Pulse Oximetry 97 01/03/25 11:01 Oxygen Delivery Method Room Air 01/03/25 11:01 Course Orders Ordered: ED Orders 01/03/25 11:20 Complete Blood Count AUTO DIFF Stat Comprehensive Metabolic Panel Stat Lipase Stat NT-proBNP (BNP-Adult 18+) Stat Troponin & CK Cardiac Panel Stat 01/03/25 12:16 US periph venous low extrem bi Stat 01/03/25 12:19 XR chest 1V Stat EKG-12 Lead Stat Vital Signs Vital signs: Vital Signs - 8 hr 01/03/25 11:01 01/03/25 13:23 01/03/25 13:30 Temperature 98.3 F Pulse Rate 89 89 84 Respiratory Rate 16 20 Blood Pressure 124/73 Pulse Oximetry 97 98 99 Oxygen Delivery Method Room Air MDM - Extremity (Nontraumatic) Lab Data 01/03/25 11:20 01/03/25 11:20 Labs: Lab Results 01/03/25 Range/Units 11:20 WBC 6.6 (4.5-11.0) X10^3/uL RBC 3.75 L (4.0-5.2) X10^6/uL Hgb 13.1 (12.0-16.0) g/dL Hct 38.9 (36-46) % MCV 103.8 H (80-100) fL MCH 35.0 H (26-34) PG MCHC 33.8 (30-36) % RDW 18.7 H (11.6-14.8) % Plt Count 239 (150-400) X10^3/uL Neut % (Auto) 59.8 (50-75) % Lymph % (Auto) 30.4 (25-40) % [place] % (Auto) 7.7 (3-14) % Eos % (Auto) 1.2 L (2-4) % Baso % (Auto) 0.9 (0-2) % Neut # (Auto) 3900 (3979-8757) /uL Lymph # (Auto) 2000 (5664-6885) /uL [place] # (Auto) 500 (0-900) /uL Eos # (Auto) 100 (0-450) /uL Baso # (Auto) 100 (0-100) /uL Sodium 133 L (137-145) mmol/L Potassium 4.4 (3.4-5.1) mmol/L Chloride 102 (98-107) mmol/L Carbon Dioxide 22 (22-32) mmol/L BUN 5 L (7-17) mg/dL Creatinine 0.60 (0.52-1.04) mg/dL Estimated GFR > 60 (>60) mL/min BUN/Creatinine Ratio 8.3 (6-22) Glucose 81 (70-99) mg/dL Calcium 8.9 (8.4-10.2) mg/dL Total Bilirubin 0.5 (0.2-1.3) mg/dL AST 157 H (14-36) IU/L ALT 83 H (<35) IU/L Alkaline Phosphatase 202 H (38-126) U/L Total Creatine Kinase < 20 L (30-135) U/L Troponin I < 0.012 (0.01-0.034) ng/mL NT-Pro-B Natriuret Pep 299 H (<125) pg/mL Total Protein 6.9 (6.3-8.2) g/dL Albumin 3.4 L (3.5-5.0) g/dL Globulin 3.5 (1.7-4.1) g/dL Albumin/Globulin Ratio 1.0 (1.0-2.8) Lipase 70 (23-300) U/L ECG Data Attestation EKG: I personally reviewed and interpreted this ECG as follows: Prior ECG tracings: available for review Interpretation: Sinus rhythm rate 88 [place] 156 QRS is 66 QTC of 452, no acute ST elevation or depression. Patient has prior from 12/25/2022 patient has a nonspecific change. MDM Narrative Medical decision making narrative: Reviewed records from [facility] they are not complete but note patient was started on Bactrim and recommended compression stockings and elevation. Labs patient was a white count of 6.6 hemoglobin of 13 platelets of 239. Sodium is 133 consistent with priors from 2022, BUN 5 electrolytes are otherwise appropriate AST ALT are up at 1:57 a.m. and 83 alk-phos is 202 lipase is 70. Bilirubin is 0.5 with a troponin of less than 0.012 and a BNP of 299 EKG sinus rhythm nonspecific change Chest x-ray chest x-ray shows no acute cardiopulmonary change. Bilateral lower extremity DVT ultrasound is negative for thrombosis in either lower extremity. Discussed with patient symptoms do seem consistent with possibly little bit of lower extremity cellulitis but possibly a dermatitis of some form. No known contacts or issues discussed with the patient we will change for a different antibiotic but did not find any signs of DVT, no heart failure or other changes today. Discussed with the patient in his warm to the touch we will treat with an alternative antibiotic for possible strep coverage. Patient is agreeable to this plan we discussed return precautions. Also use a topical ointment is there some dryness to the skin to see if this improves her symptoms. Discussed need for follow-up. Discussed return precautions. Patient expresses understanding feels comfortable with this plan. Reviewed her elevation of her liver enzymes which she states it is probably from her alcohol use. She has a follow up appointment on January 18. Discharge Plan Departure Patient Disposition: Home Clinical Impression: Swelling of both lower extremities, Erythema of lower limb Activity Restrictions/Additional Instructions: Your workup today was negative for DVT, it did not show any signs of heart failure overall your labs for the most part were normal except for your infant liver enzymes were slightly elevated. It is possible you do still have an infection of your lower extremity I would try an alternative antibiotic. I would also recommend using Aquaphor topically to your skin 1-2 times daily. This is a thick ointment that will help moisturize your legs. That is available [id number]. Prescription for antibiotic was sent to [facility] in [place]. There are other possibilities such as types of dermatitis that might be causing your symptoms so I do recommend that he follow up with the primary care if it isn't improving. They may have you follow up with Dermatology for a biopsy or further workup as needed. Please return for fevers, rapidly worsening redness or swelling, increasing pain, new chest pain or shortness of breath, vomiting or other new or concerning changes. Prescriptions: New cephalexin 500 mg capsule 500 mg PO TID 10 Days Qty: 30 0RF No Action acetaminophen 325 mg Tablet 650 mg PO Q6HR PRN (Reason: Fever/Mild Pain (1-3)) Qty: 30 0RF folic acid 1 mg Tablet 1 mg PO DAILY Qty: 30 0RF sennosides [senna] 8.6 mg Tablet 8.6 mg PO BID PRN (Reason: Constipation) Qty: 30 0RF thiamine mononitrate (vit B1) 100 mg Tablet 100 mg PO DAILY Qty: 30 0RF oxycodone 5 mg Tablet 5 mg PO Q4HR PRN (Reason: Pain, Moderate (4-6)) Qty: 30 0RF mirtazapine 7.5 mg tablet 7.5 mg PO BEDTIME Patient Comments: take 1 tablet by mouth at bedtime ferrous fumarate 89 mg (29 mg iron) tablet 89 mg PO DAILY Qty: 30 0RF Referrals: Maureen Mccullough ARNP [Primary Care Provider] - Stand Alone Forms: Patient Portal/API/Survey
--- NOTE | 2025-01-03 12:16 | DI.US.S_ITS ---
PROCEDURE: US PERIP VENOUS LOW EXTREM BI INDICATIONS: SWELLING LEFT > RIGHT TECHNIQUE: Real-time imaging, as well as color and pulse Doppler interrogation, were performed of the deep veins of both legs from the inguinal ligament to the popliteal fossa, with documentation of the visualized calf veins. COMPARISON: [facility], , [facility] VENOUS LOW EXTREM BI, 06/15/2022, 16:41. FINDINGS: Right: The common femoral, femoral, popliteal, and the visualized calf veins are normally compressible, and free of intraluminal thrombus. Color and pulse Doppler demonstrate normal phasic intravascular flow. There is normal augmentation response to distal compression maneuver. Left: The common femoral, femoral, popliteal, and the visualized calf veins are normally compressible, and free of intraluminal thrombus. Color and pulse Doppler demonstrate normal phasic intravascular flow. There is normal augmentation response to distal compression maneuver. IMPRESSION: No findings of deep venous thrombosis in either lower extremity. Approved by: Kali Prieto M.D. on 01/03/2025 at 13:25
--- NOTE | 2025-01-03 12:19 | DI.RAD.S_ITS ---
PROCEDURE: XR CHEST 1V INDICATIONS: leg swelling, hx of lung biopsy 2 years prior TECHNIQUE: One view of the chest was acquired. COMPARISON: [facility], CR, XR CHEST 1V, 12/25/2022, 6:51. [facility], CR, XR CHEST 1V, 12/24/2022, 13:51. FINDINGS: Surgical changes and devices: Suture material projects over the right hilum. Lungs and pleura: Lungs are clear. No pleural effusions or pneumothorax. Mediastinum: Mediastinal contours appear normal. Heart size is normal. Bones and chest wall: No suspicious bony lesions. Overlying soft tissues appear unremarkable. IMPRESSION: No acute cardiopulmonary abnormality is seen. Approved by: Kali Prieto M.D. on 01/03/2025 at 12:46
[2025-01-03 12:27] LABS: Add Manual Diff / Slide Review NO; Basophils Absolute Auto 100 /uL (0-100); Basophils Percent Auto 0.9 % (0-2); Eosinophils Absolute Auto 100 /uL (0-450); Eosinophils Percent Auto 1.2 % (2-4); Hematocrit 38.9 % (36-46); Hemoglobin 13.1 g/dL (12.0-16.0); Lymphocytes Absolute Auto 2000 /uL (1100-4500); Lymphocytes Percent Auto 30.4 % (25-40); Mean Corpuscular HGB Conc 33.8 % (30-36); Mean Corpuscular Volume 103.8 fL (80-100); Monocytes Absolute Auto 500 /uL (0-900); Monocytes Percent Auto 7.7 % (3-14); Neutrophils Absolute Auto 3900 /uL (1500-7000); Neutrophils Percent Auto 59.8 % (50-75); Platelet Count 239 X10^3/uL (150-400); Red Blood Cell Count 3.75 X10^6/uL (4.0-5.2); Red Cell Distribution Width 18.7 % (11.6-14.8); White Blood Cell Count 6.6 X10^3/uL (4.5-11.0)
[2025-01-03 12:33] LABS: Alanine Aminotransferase 83 IU/L (<35); Albumin 3.4 g/dL (3.5-5.0); Alkaline Phosphatase 202 U/L (38-126); Aspartate Aminotransferase 157 IU/L (14-36); BUN Creatinine Ratio 8.3 (6-22); Bilirubin Total 0.5 mg/dL (0.2-1.3); Blood Urea Nitrogen 5 mg/dL (7-17); Calcium 8.9 mg/dL (8.4-10.2); Carbon Dioxide 22 mmol/L (22-32); Chloride 102 mmol/L (98-107); Creatine Kinase < 20 U/L (30-135); Estimated Glomerular Filt Rate > 60 mL/min (>60); Globulin 3.5 g/dL (1.7-4.1); Glucose 81 mg/dL (70-99); HEMOLYSIS 40 (0-50); Lipase 70 U/L (23-300); Potassium 4.4 mmol/L (3.4-5.1); Sodium 133 mmol/L (137-145); Total Protein 6.9 g/dL (6.3-8.2)
--- NOTE | 2025-01-03 12:40 | EKG_ITS ---
[address] [address] [place] [address] Test Date: 2025-01-03 Pat Name: Fadia Ceballos Department: Room: Gender: Female [employer] Operator: MALIK : 1960 Requested By: Order Number: [id number] Reading MD: Jose Thomas Measurements Intervals [place] Rate: 88 P: 76 DC: 156 QRS: 67 QRSD: 66 T: 65 QT: 374 QTc: 452 Interpretive Statements Normal sinus rhythm Low voltage QRS Nonspecific ST abnormality Electronically Signed On 01-03-2025 16:06:50 PDT by Jose Thomas
[2025-01-03 12:43] LABS: NT-proBNP (BNP-Adult 18+) 299 pg/mL (<125)
[2025-01-03 12:46] LABS: Troponin I < 0.012 ng/mL (0.01-0.034)
[2025-01-03 13:23] VITALS: PULSE 89; O2SAT 98
[2025-01-03 13:30] VITALS: PULSE 84; RESP 20; O2SAT 99
== END 2025-01-03 13:58 | disposition home or self-care (01) ==
PROVIDERS: Emergency Provider Emergency Medicine; PCP Nurse Practitioner
DX: M79.89 Other specified soft tissue disorders (principal); L53.9 Erythematous condition, unspecified; M79.605 Pain in left leg; M79.604 Pain in right leg; L29.9 Pruritus, unspecified; Z87.891 Personal history of nicotine dependence
CPT/HCPCS: 71045; 80053; 82550; 83690; 83880; 84484; 85025; 93005; 93970; 99281; 99284

== ENCOUNTER 2025-03-23 10:48 | Inpatient (IN) | payer OTHER, SELFPAY ==
[2025-03-23] VITALS (34 sets, daily range): BP systolic 126–148; BP diastolic 72–100; PULSE 80–96; RESP 16–36; TEMP 36.3–37.2; O2SAT 88–99; BMI 18.3
[2025-03-23 11:48] LABS: Alanine Aminotransferase 111 IU/L (<35); Albumin 4.1 g/dL (3.5-5.0); Albumin Globulin Ratio 1.1 (1.0-2.8); Alkaline Phosphatase 181 U/L (38-126); Blood Urea Nitrogen 12 mg/dL (7-17); Calcium 9.0 mg/dL (8.4-10.2); Carbon Dioxide 28 mmol/L (22-32); Chloride 79 mmol/L (98-107); Estimated Glomerular Filt Rate > 60 mL/min (>60); Globulin 3.8 g/dL (1.7-4.1); Glucose 94 mg/dL (70-99); HEMOLYSIS 20 (0-50); Potassium 3.2 mmol/L (3.4-5.1); Sodium 121 mmol/L (137-145); Total Protein 7.9 g/dL (6.3-8.2)
[2025-03-23 11:57] LABS: Add Manual Diff / Slide Review NO; Hematocrit 39.4 % (36-46); Hemoglobin 13.8 g/dL (12.0-16.0); Lymphocytes Absolute Auto 1800 /uL (1100-4500); Mean Corpuscular HGB Conc 35.0 % (30-36); Mean Corpuscular Hemoglobin 37.2 PG (26-34); Mean Corpuscular Volume 106.4 fL (80-100); Platelet Count 126 X10^3/uL (150-400)
[2025-03-23] MEDS: ONDANSETRON 4 MG/2 ML INJ IV (12:00)
--- NOTE | 2025-03-23 12:13 | ED.NAVMDI ---
HPI - Nausea/Vomiting/Diarrhea General Chief complaint: Nausea/Vomiting/Diarrhea Stated complaint: Vomitting, not sleeping t-3 Time Seen by Provider: 03/23/25 12:13 Source: patient Mode of arrival: Wheelchair Related Data Home Medications ?Medication ?Instructions ?Recorded ?Confirmed mirtazapine 7.5 mg tablet 7.5 mg PO BEDTIME 12/24/22 12/24/22 Previous Rx's ?Medication ?Instructions ?Recorded acetaminophen 325 mg tablet 650 mg (2 x 325 mg) PO Q6HR PRN 06/11/22 Fever/Mild Pain (1-3) #30 tabs folic acid 1 mg tablet 1 mg PO DAILY #30 tabs 06/11/22 sennosides 8.6 mg tablet (senna) 8.6 mg PO BID PRN Constipation #30 06/11/22 tabs thiamine mononitrate (vit B1) 100 100 mg PO DAILY #30 tabs 06/11/22 mg tablet oxycodone 5 mg tablet 5 mg PO Q4HR PRN Pain, Moderate 06/16/22 (4-6) #30 tabs ferrous fumarate 89 mg (29 mg 89 mg PO DAILY #30 tabs 12/25/22 iron) tablet Allergies Allergy/AdvReac Type Severity Reaction Status Date / Time morphine AdvReac Intermediate Hallucinati Verified 01/03/25 11:07 ng Penicillins (PENICILLINS) AdvReac Intermediate rash Verified 01/03/25 11:07 Patient History Surgical History Status post breast lumpectomy Status post appendectomy Status post hysterectomy Social History household members: none alcohol intake: current alcohol intake frequency: 3 or more drinks per day Alcohol type: wine Exam Initial Vital Signs Initial Vital Signs: Vital Signs Temperature 98.9 F 03/23/25 10:58 Pulse Rate 89 03/23/25 10:58 Respiratory Rate 16 03/23/25 10:58 Blood Pressure 134/94 H 03/23/25 10:58 Pulse Oximetry 97 03/23/25 10:58 Oxygen Delivery Method Room Air 03/23/25 10:58 Course Orders Ordered: ED Orders 03/23/25 11:05 Stool Culture Stat 03/23/25 11:27 Complete Blood Count AUTO DIFF Stat Comprehensive Metabolic Panel Stat 03/23/25 11:39 Covid-19 + FLU A/B + RSV - PCR Stat Discontinued Medications Sodium Chloride (Normal Saline 0.9%) 1,000 mls @ 1,000 mls/hr IV BOLUS ONE Stop: 03/23/25 12:04 Ondansetron HCl (Ondansetron 4 Mg/2 Ml Inj) 4 mg IV NOW ONE Stop: 03/23/25 11:06 Last Admin: 03/23/25 12:00 Dose: 4 mg Documented By: NUVIA Vital Signs Vital signs: Vital Signs - 8 hr 03/23/25 10:58 Temperature 98.9 F Pulse Rate 89 Respiratory Rate 16 Blood Pressure 134/94 H Pulse Oximetry 97 Oxygen Delivery Method Room Air MDM - Nausea/Vomiting/Diarrhea Lab Data 03/23/25 11:27 03/23/25 11:27 Labs: Lab Results 03/23/25 Range/Units 11:27 WBC 9.5 (4.5-11.0) X10^3/uL RBC 3.70 L (4.0-5.2) X10^6/uL Hgb 13.8 (12.0-16.0) g/dL Hct 39.4 (36-46) % MCV 106.4 H (80-100) fL MCH 37.2 H (26-34) PG MCHC 35.0 (30-36) % RDW 13.0 (11.6-14.8) % Plt Count 126 L (150-400) X10^3/uL Neut % (Auto) 67.9 (50-75) % Lymph % (Auto) 19.2 L (25-40) % [place] % (Auto) 12.5 (3-14) % Eos % (Auto) 0.1 L (2-4) % Baso % (Auto) 0.3 (0-2) % Neut # (Auto) 6500 (5383-5502) /uL Lymph # (Auto) 1800 (3600-3980) /uL [place] # (Auto) 1200 H (0-900) /uL Eos # (Auto) 0 (0-450) /uL Baso # (Auto) 0 (0-100) /uL Sodium 121 L (137-145) mmol/L Potassium 3.2 L (3.4-5.1) mmol/L Chloride 79 L (98-107) mmol/L Carbon Dioxide 28 (22-32) mmol/L BUN 12 (7-17) mg/dL Creatinine 0.51 L (0.52-1.04) mg/dL Estimated GFR > 60 (>60) mL/min BUN/Creatinine Ratio 23.5 H (6-22) Glucose 94 (70-99) mg/dL Calcium 9.0 (8.4-10.2) mg/dL Total Bilirubin 3.7 H (0.2-1.3) mg/dL AST 193 H (14-36) IU/L ALT 111 H (<35) IU/L Alkaline Phosphatase 181 H (38-126) U/L Total Protein 7.9 (6.3-8.2) g/dL Albumin 4.1 (3.5-5.0) g/dL Globulin 3.8 (1.7-4.1) g/dL Albumin/Globulin Ratio 1.1 (1.0-2.8) Discharge Plan Departure Prescriptions: No Action acetaminophen 325 mg Tablet 650 mg PO Q6HR PRN (Reason: Fever/Mild Pain (1-3)) Qty: 30 0RF folic acid 1 mg Tablet 1 mg PO DAILY Qty: 30 0RF sennosides [senna] 8.6 mg Tablet 8.6 mg PO BID PRN (Reason: Constipation) Qty: 30 0RF thiamine mononitrate (vit B1) 100 mg Tablet 100 mg PO DAILY Qty: 30 0RF oxycodone 5 mg Tablet 5 mg PO Q4HR PRN (Reason: Pain, Moderate (4-6)) Qty: 30 0RF mirtazapine 7.5 mg tablet 7.5 mg PO BEDTIME Patient Comments: take 1 tablet by mouth at bedtime ferrous fumarate 89 mg (29 mg iron) tablet 89 mg PO DAILY Qty: 30 0RF Referrals: Maureen Mccullough ARNP [Primary Care Provider, Nursing]
[2025-03-23 12:20] LABS: Influenza A - CEPHEID Flu A NEGATIVE (NEGATIVE); Influenza B - CEPHEID Flu B NEGATIVE (NEGATIVE)
[2025-03-23] MEDS: SODIUM CHLORIDE 0.9% 1,000 ML 1000 ML IV (12:24)
[2025-03-23 12:29] LABS: COVID-19 CEPHEID 4-PLEX PCR Negative (Negative)
--- NOTE | 2025-03-23 12:40 | ED.NAVMDI ---
HPI - Nausea/Vomiting/Diarrhea General Chief complaint: Nausea/Vomiting/Diarrhea Stated complaint: Vomitting, not sleeping t-3 Time Seen by Provider: 03/23/25 12:13 Source: patient Mode of arrival: Wheelchair History of Present Illness HPI Narrative: 64-year-old female with a history of alcoholism and hyponatremia comes in with vomiting and nausea for last 3 days. Patient claims she has not eaten anything in the past week. The patient is extremely weak at this time but has no other physical complaints. Related Data Home Medications ?Medication ?Instructions ?Recorded ?Confirmed mirtazapine 7.5 mg tablet 7.5 mg PO BEDTIME 12/24/22 12/24/22 Previous Rx's ?Medication ?Instructions ?Recorded acetaminophen 325 mg tablet 650 mg (2 x 325 mg) PO Q6HR PRN 06/11/22 Fever/Mild Pain (1-3) #30 tabs folic acid 1 mg tablet 1 mg PO DAILY #30 tabs 06/11/22 sennosides 8.6 mg tablet (senna) 8.6 mg PO BID PRN Constipation #30 06/11/22 tabs thiamine mononitrate (vit B1) 100 100 mg PO DAILY #30 tabs 06/11/22 mg tablet oxycodone 5 mg tablet 5 mg PO Q4HR PRN Pain, Moderate 06/16/22 (4-6) #30 tabs ferrous fumarate 89 mg (29 mg 89 mg PO DAILY #30 tabs 12/25/22 iron) tablet Allergies Allergy/AdvReac Type Severity Reaction Status Date / Time morphine AdvReac Intermediate Hallucinati Verified 01/03/25 11:07 ng Penicillins (PENICILLINS) AdvReac Intermediate rash Verified 01/03/25 11:07 Review of Systems Review of Systems ROS Unobtainable: All systems reviewed & are unremarkable except as noted in HPI and below Patient History Medical History (Updated 03/23/25 @ 15:34 by Uziel Hobson MD) Chronic diarrhea H/O fracture of left hip Alcoholism Protein calorie malnutrition Surgical History (Updated 03/23/25 @ 13:49 by Duke Cordoba MD) Status post hip hemiarthroplasty Status post breast lumpectomy Status post appendectomy Status post hysterectomy Social History household members: none alcohol intake: current alcohol intake frequency: 3 or more drinks per day Alcohol type: wine Exam Narrative Exam Narrative: General: Patient appears to be in no acute distress, acting appropriately , looks cachetic Head: normocephalic, atraumatic, HEENT: Pupils equal round reactive, eyes tracking well, neck supple, no JVD Heart: regular rate and rhythm, no murmurs, rubs, or gallops heard Lungs: clear to auscultation, no adventitious sounds Abdomen: soft , nontender, nondistended, positive bowel sounds Neurological: no focal neurological signs, moving all extremities well, alert and oriented x3, Psych: good judgment ,good insight, mood is normal. Initial Vital Signs Initial Vital Signs: Vital Signs Temperature 98.9 F 03/23/25 10:58 Pulse Rate 89 03/23/25 10:58 Respiratory Rate 16 03/23/25 10:58 Blood Pressure 134/94 H 03/23/25 10:58 Pulse Oximetry 97 03/23/25 10:58 Oxygen Delivery Method Room Air 03/23/25 10:58 Course Course Course Narrative: The patient's sodium level was found to be much lower than it has been recently. Her sodium level on January 03, 2025 was 133 and now it is 121 on March 23, 2025. Orders Ordered: ED Orders 03/23/25 11:05 Stool Culture Stat 03/23/25 11:27 Complete Blood Count AUTO DIFF Stat Comprehensive Metabolic Panel Stat Magnesium Stat 03/23/25 11:39 Covid-19 + FLU A/B + RSV - PCR Stat Enoxaparin Sodium (Enoxaparin 40 Mg/0.4 Ml Syringe) 40 mg SUBCUT DAILY [facility] Fluconazole (Fluconazole 100 Mg Tablet) 100 mg PO DAILY [facility] Stop: 03/27/25 09:01 Dextrose/Sodium Chloride (Dextrose 5%-0.9% Ns) 1,000 mls @ 100 mls/hr IV CONT [place] Thiamine HCl 100 mg/ Sodium (Chloride) 101 mls @ 404 mls/hr IV DAILY [facility] Last Admin: 03/23/25 15:10 Dose: 404 mls/hr Documented By: LUKASZ Naloxone HCl (Naloxone 0.4 Mg/Ml Vial) 0.2 mg IV Q2MIN PRN PRN Reason: Opiate Reversal Ondansetron HCl (Ondansetron 4 Mg Odt) 4 mg PO Q8HR PRN PRN Reason: Nausea And Vomiting Ondansetron HCl (Ondansetron 4 Mg/2 Ml Inj) 4 mg IV Q8HR PRN PRN Reason: Nausea And Vomiting Discontinued Medications Sodium Chloride (Normal Saline 0.9%) 1,000 mls @ 1,000 mls/hr IV BOLUS ONE Stop: 03/23/25 12:04 Last Infusion: 03/23/25 15:18 Dose: Infused Documented By: Admin: 03/23/25 12:24 Dose: 1,000 mls/hr Documented By: NEO Magnesium Sulfate (Magnesium Sulfate) 2 gm in 50 mls @ 25 mls/hr IV NOW ONE Stop: 03/23/25 14:59 Last Admin: 03/23/25 13:36 Dose: 25 mls/hr Documented By: DIEGO Co-signed By: ERIK Ondansetron HCl (Ondansetron 4 Mg/2 Ml Inj) 4 mg IV NOW ONE Stop: 03/23/25 11:06 Last Admin: 03/23/25 12:00 Dose: 4 mg Documented By: NUVIA Potassium Chloride (Potassium Chloride 20 Meq/15 Ml Udc) 40 meq PO NOW ONE Stop: 03/23/25 12:35 Last Admin: 03/23/25 13:27 Dose: 40 meq Documented By: DIEGO Reevaluation(s) Reevaluation #1: Upon re-evaluation, patient's appetite slightly improved but is still extremely weak. Consultations Consultation #1: Dr. Cordoba hospitalist was consulted to admit the patient for lack of appetite an extreme hyponatremia. Patient was given a normal saline bolus 1 L as well as a Mag rider for hypomagnesemia as well. Vital Signs Vital signs: Vital Signs - 8 hr 03/23/25 10:58 03/23/25 12:28 03/23/25 12:30 Temperature 98.9 F Pulse Rate 89 84 84 Respiratory Rate 16 Blood Pressure 134/94 H Pulse Oximetry 97 97 99 Oxygen Delivery Method Room Air 03/23/25 12:33 03/23/25 12:33 03/23/25 13:00 Temperature Pulse Rate 82 85 Respiratory Rate 22 32 H Blood Pressure 142/75 H Pulse Oximetry 99 99 Oxygen Delivery Method 03/23/25 13:00 03/23/25 13:07 03/23/25 13:07 Temperature Pulse Rate 80 Respiratory Rate 32 H Blood Pressure 142/77 H 126/72 Pulse Oximetry 99 Oxygen Delivery Method MDM - Nausea/Vomiting/Diarrhea Differential Diagnosis Differential diagnosis: Likely drug-induced nausea and vomiting, dehydration and other (hyponatremia ) Lab Data 03/23/25 11:27 03/23/25 11:27 Labs: Lab Results 03/23/25 03/23/25 Range/Units 11:27 11:39 WBC 9.5 (4.5-11.0) X10^3/uL RBC 3.70 L (4.0-5.2) X10^6/uL Hgb 13.8 (12.0-16.0) g/dL Hct 39.4 (36-46) % MCV 106.4 H (80-100) fL MCH 37.2 H (26-34) PG MCHC 35.0 (30-36) % RDW 13.0 (11.6-14.8) % Plt Count 126 L (150-400) X10^3/uL Neut % (Auto) 67.9 (50-75) % Lymph % (Auto) 19.2 L (25-40) % [place] % (Auto) 12.5 (3-14) % Eos % (Auto) 0.1 L (2-4) % Baso % (Auto) 0.3 (0-2) % Neut # (Auto) 6500 (6439-0910) /uL Lymph # (Auto) 1800 (8651-2975) /uL [place] # (Auto) 1200 H (0-900) /uL Eos # (Auto) 0 (0-450) /uL Baso # (Auto) 0 (0-100) /uL Sodium 121 L (137-145) mmol/L Potassium 3.2 L (3.4-5.1) mmol/L Chloride 79 L (98-107) mmol/L Carbon Dioxide 28 (22-32) mmol/L BUN 12 (7-17) mg/dL Creatinine 0.51 L (0.52-1.04) mg/dL Estimated GFR > 60 (>60) mL/min BUN/Creatinine Ratio 23.5 H (6-22) Glucose 94 (70-99) mg/dL Calcium 9.0 (8.4-10.2) mg/dL Magnesium 1.3 L (1.6-2.3) mg/dL Total Bilirubin 3.7 H (0.2-1.3) mg/dL AST 193 H (14-36) IU/L ALT 111 H (<35) IU/L Alkaline Phosphatase 181 H (38-126) U/L Total Protein 7.9 (6.3-8.2) g/dL Albumin 4.1 (3.5-5.0) g/dL Globulin 3.8 (1.7-4.1) g/dL Albumin/Globulin Ratio 1.1 (1.0-2.8) Lipase 41 (23-300) U/L SARS-CoV-2 (PCR) Negative (Negative) Influenza A (RT-PCR) Flu a negative (NEGATIVE) Influenza B (RT-PCR) Flu b negative (NEGATIVE) RSV (PCR) Negative (Negative) MDM Narrative Medical decision making narrative: Due to the patient's acute hyponatremia as well as her lack of appetite it was decided to admit the patient to gradually increase her sodium level. Hospitalist Dr. Cordoba graciously admitted the patient and accepted the patient. Discharge Plan Departure Patient Disposition: Admitted As Inpatient Clinical Impression: Acute hyponatremia, Protein-calorie malnutrition, severe Admit Date/Time: 03/23/25 13:07 Admit Provider: Duke Cordoba
[2025-03-23 12:41] LABS: Magnesium 1.3 mg/dL (1.6-2.3)
[2025-03-23] MEDS: POTASSIUM CHLORIDE 20 MEQ/15 ML UDC 40 MEQ PO (13:27)
[2025-03-23] MEDS: MAGNESIUM SULFATE 2 GM/50 ML PIGGYBACK IV (13:36)
--- NOTE | 2025-03-23 13:48 | P.HP_ITS ---
History of Present Illness History of Present Illness Date Patient Seen: 03/23/25 Time Patient Seen: 13:48 Chief complaint: Vomitting, not sleeping t-3 Narrative: This is a 64-year-old female with chronic alcoholism, hyponatremia, chronic diarrhea, protein malnutrition and hypomagnesemia who presents with 3 days of nausea/vomiting along with 1 week of not being able to eat. She has a sore throat. Food does not taste right. She has lost her appetite. Her magnesium is 1.3 and her sodium is 121. She says that her last alcohol intake was 4 days ago and that she only occasionally drinks wine currently. Her son says that she starts drinking at 7:00 a.m. and drinks until she goes to bed. In addition to the electrolyte abnormalities and presenting symptoms she appears to have both oral thrush and very red tongue suggestive of various vitamin deficiencies. [facility] Medical History (Updated 03/23/25 @ 15:34 by Uziel Hobson MD) Chronic diarrhea H/O fracture of left hip Alcoholism Protein calorie malnutrition Surgical History (Updated 03/23/25 @ 13:49 by Duke Cordoba MD) Status post hip hemiarthroplasty Status post breast lumpectomy Status post appendectomy Status post hysterectomy Social History household members: none alcohol intake: current Meds Home Medications and Allergies Home Medications ?Medication ?Instructions ?Recorded ?Confirmed ?Type acetaminophen 325 mg tablet 650 mg (2 x 325 mg) PO Q6H R PRN 06/11/22 06/13/22 Rx Fever/Mild Pain (1-3) #30 tabs Allergies Allergy/AdvReac Type Severity Reaction Status Date / Time morphine AdvReac Intermediate Hallucinati Verified 03/23/25 15:53 ng Penicillins (PENICILLINS) AdvReac Intermediate rash Verified 03/23/25 15:53 Review of Systems Review of Systems Narrative: Positive for weakness, nausea, vomiting, coughing after vomiting, lack of appetite and chronic diarrhea. Negative for dysuria, fever, chills, chest pain, abdominal pain and joint pain. Exam Vital Signs (past 8 hours): - 03/23/25 10:58 03/23/25 12:28 03/23/25 12:30 Temperature 98.9 F Pulse Rate 89 84 84 Respiratory Rate 16 Blood Pressure 134/94 H Pulse Oximetry 97 97 99 Oxygen Delivery Method Room Air 03/23/25 12:33 03/23/25 12:33 03/23/25 13:00 Temperature Pulse Rate 82 85 Respiratory Rate 22 32 H Blood Pressure 142/75 H Pulse Oximetry 99 99 Oxygen Delivery Method 03/23/25 13:00 03/23/25 13:07 03/23/25 13:07 Temperature Pulse Rate 80 Respiratory Rate 32 H Blood Pressure 142/77 H 126/72 Pulse Oximetry 99 Oxygen Delivery Method Oxygen Delivery Method Room Air Narrative Exam Narrative: Alert and oriented x3. No apparent distress. Pupils are equally round and reactive to light and accommodation. Extraocular muscles are intact. Sclerae pink nonicteric. No lymph nodes are felt head, neck, supraclavicular area. There is no thyromegaly. JVD is less than 6 cm. No carotid bruits are heard. The tongue has central white material. The edges of the tongue are bright red. Heart is regular rate and rhythm without murmur Lungs are clear to auscultation bilaterally Abdomen is soft, bowel sounds positive, nontender, no organomegaly. Extremities have no ankle edema No bruising, jaundice, rashes. Neurologic exam: Cranial nerves 2-12 test intact. Motor function is 4/5 throughout. There is no tremor. DTRs are symmetric. Objective Labs 03/23/25 11:27 03/23/25 11:27 Labs: Laboratory Results - last 24 hr 03/23/25 03/23/25 11:27 11:39 WBC 9.5 RBC 3.70 L Hgb 13.8 Hct 39.4 MCV 106.4 H MCH 37.2 H MCHC 35.0 RDW 13.0 Plt Count 126 L Neut % (Auto) 67.9 Lymph % (Auto) 19.2 L [place] % (Auto) 12.5 Eos % (Auto) 0.1 L Baso % (Auto) 0.3 Neut # (Auto) 6500 Lymph # (Auto) 1800 [place] # (Auto) 1200 H Eos # (Auto) 0 Baso # (Auto) 0 Sodium 121 L Potassium 3.2 L Chloride 79 L Carbon Dioxide 28 BUN 12 Creatinine 0.51 L Estimated GFR > 60 BUN/Creatinine Ratio 23.5 H Glucose 94 Calcium 9.0 Magnesium 1.3 L Total Bilirubin 3.7 H AST 193 H ALT 111 H Alkaline Phosphatase 181 H Total Protein 7.9 Albumin 4.1 Globulin 3.8 Albumin/Globulin Ratio 1.1 SARS-CoV-2 (PCR) Negative Influenza A (RT-PCR) Flu a negative Influenza B (RT-PCR) Flu b negative RSV (PCR) Negative Assessment & Plan Assessment & Plan narrative: This is a 64-year-old female with chronic alcoholism, hyponatremia, chronic diarrhea, protein malnutrition and hypomagnesemia who presents with 3 days of nausea/vomiting along with 1 week of not being able to eat. She has a sore throat. Food does not taste right. She has lost her appetite. Her magnesium is 1.3 and her sodium is 121. Severe protein calorie malnutrition, present on admission. Active. -BMI 18.3, albumin 4.1, 3 days of nausea and vomiting, daily alcohol use, bright red tongue and thrush. -patient appears significantly more malnourished than her labs indicate. -dietary consult -encourage protein intake -check vitamin-C, B3, B6 levels Daily alcohol use, present on admission. Active. -patient states she drinks only a small amount every 3 or 4 days but family states she is still daily wine drinker. -WA protocol, lorazepam as needed -glossitis noted. -IV thiamine Glossitis/oral candidiasis, present on admission. Active. -fluconazole for 5 days -check B3, B6, C Possible alcoholic gastritis, present on admission. Active. -patient presents with 1 week of anorexia along with 3 days of nausea/vomiting -D5 NS 100 mL/hr and encourage oral and protein intake. -IV fluconazole for possible esophageal candidiasis, consider EGD -Pepcid IV Hyponatremia, present on admission. Active. -presenting sodium 121, last admission here 122 on admission -IV NS 100 mL/hr and recheck sodium level in the morning. Goal is to raise sodium by no more than 3-4 per 24 hours. Hypokalemia, present on admission. Active. -potassium 3.2 on admission, supplement IV Hypomagnesemia, present on admission. Active. -secondary to chronic alcohol use -supplement and follow. DVT prevention with Lovenox Son is designated proxy. Time-Based Coding :: [TOTAL MINUTES] spent with patient and on the chart (including review of chart, obtaining history, exam, reviewing outside data, placing orders, documenting exam and treatment plan, and counseling patient) on [DATE].
[2025-03-23 14:10] LABS: Lipase 41 U/L (23-300)
[2025-03-23] MEDS: THIAMINE 100 MG in SODIUM CHLORIDE 0.9% 100 ML 404 MG IV (15:10)
[2025-03-23] MEDS: DEXTROSE 5%-0.9% NS 1,000 ML 100 ML IV (15:55)
--- NOTE | 2025-03-23 16:23 | PC.ADMIT ---
[address] Admission Note: Pt arrived from emergency department to room 231 at approximately 1450, able to ambulate from stretcher to bed. Pt A&Ox3-4, unsure on date/ day of week. Reports not eating for last 7 days. Son called, Jorden Ceballos, who currently lives in [facility] [place] and is pt's DPOA. Son states patient has been an alcoholic since prior to his and drinks from the point she wakes up to when she goes to bed at night. Son also states Pt has been in and out of the hospital at [facility] in [place] for hyponatremia, alcohol withdrawal, cellulitis for BLE, malnutrition. Records requested from hospital. Son is reachable through email at [email or web address] as his phone number is a [place] number (listed in comment box). Son also reports pt has lost significant weight in the last few months per his visualization of her via FaceTime. He expresses concern of her safety at home. Suction set up in room, bed alarm active, CIWA currently 5. Seizure pads in place. Care ongoing. The patient,Fadia Ceballos,64 y/o, was given written information regarding hospital policies, unit procedures and contact persons. Patient's smoking status: Former smoker. Vital Signs - 8 hr 03/23/25 10:58 03/23/25 12:28 03/23/25 12:30 Temperature 98.9 F Pulse Rate 89 84 84 Respiratory Rate 16 Blood Pressure 134/94 H Pulse Oximetry 97 97 99 Oxygen Delivery Method Room Air Oxygen Flow Rate 03/23/25 12:33 03/23/25 12:33 03/23/25 13:00 Temperature Pulse Rate 82 85 Respiratory Rate 22 32 H Blood Pressure 142/75 H Pulse Oximetry 99 99 Oxygen Delivery Method Oxygen Flow Rate 03/23/25 13:00 03/23/25 13:07 03/23/25 13:07 Temperature Pulse Rate 80 Respiratory Rate 32 H Blood Pressure 142/77 H 126/72 Pulse Oximetry 99 Oxygen Delivery Method Oxygen Flow Rate 03/23/25 13:30 03/23/25 13:31 03/23/25 13:31 Temperature Pulse Rate 84 89 Respiratory Rate 31 H 26 H Blood Pressure 148/73 H Pulse Oximetry 97 97 Oxygen Delivery Method Oxygen Flow Rate 03/23/25 14:00 03/23/25 14:00 03/23/25 14:26 Temperature Pulse Rate 92 H 90 Respiratory Rate 36 H 23 Blood Pressure 136/79 Pulse Oximetry 96 96 Oxygen Delivery Method Oxygen Flow Rate 03/23/25 14:26 03/23/25 14:30 03/23/25 14:31 Temperature Pulse Rate 94 H 96 H Respiratory Rate 28 H 27 H Blood Pressure 143/86 H Pulse Oximetry 93 88 L Oxygen Delivery Method Oxygen Flow Rate 03/23/25 14:31 03/23/25 15:19 03/23/25 16:01 Temperature Pulse Rate 86 Respiratory Rate 16 Blood Pressure 127/100 H 138/77 Pulse Oximetry 98 Oxygen Delivery Method Room Air Oxygen Flow Rate 0
[2025-03-23 18:40] LABS: Clostridium difficile toxin AB Not Detected (Not Detect); Enteroaggregative E.coli Not Detected (Not Detect); Enteropathogenic E.coli Not Detected (Not Detect); Enterotoxigenic E.coli It/st Not Detected (Not Detect); Plesiomonsa shigelloides Not Detected (Not Detect); Shiga-like toxin-prod E.coli Not Detected (Not Detect)
[2025-03-23 19:22] LABS: MRSA (Nasal) PCR NOT DETECTED (Not Detect)
[2025-03-23 19:28] LABS: Appearance Urine UA CLEAR; Bilirubin Urine UA NEGATIVE (NEGATIVE); Color Urine UA YELLOW; Glucose Urine UA NEGATIVE (Negative); Ketones Urine UA TRACE (NEGATIVE); Leukocyte Esterase Urine UA NEGATIVE (NEGATIVE); Nitrite Urine UA NEGATIVE (Negative); Occult Blood Urine UA NEGATIVE (Negative); Protein Urine UA NEGATIVE (Negative); Specific Gravity Urine UA <=1.005 (1.000-1.035); Urobilinogen Urine UA >=8.0 E.U./dL (0.2)
[2025-03-23 19:30] LABS: pH Urine UA 7.0 (4.5-8.0)
[2025-03-23 19:33] LABS: Culture Indicated Urine Cult Not Indicated
[2025-03-23] MEDS: FAMOTIDINE 20 MG/2 ML VIAL IV (20:11)
[2025-03-24] VITALS (48 sets, daily range): BP systolic 109–126; BP diastolic 60–72; PULSE 73–103; RESP 14–42; TEMP 36.1–36.4; O2SAT 82–100
[2025-03-24] MEDS: DEXTROSE 5%-0.9% NS 1,000 ML 100 ML IV ×3 (01:57→21:53)
[2025-03-24] MEDS: SODIUM CHLORIDE 0.9% FLUSH 10 ML IV ×3 (01:58→20:53)
[2025-03-24 05:28] LABS: Add Manual Diff / Slide Review NO; Hematocrit 32.9 % (36-46); Hemoglobin 11.4 g/dL (12.0-16.0); Lymphocytes Absolute Auto 1600 /uL (1100-4500); Mean Corpuscular HGB Conc 34.7 % (30-36); Mean Corpuscular Hemoglobin 37.4 PG (26-34); Mean Corpuscular Volume 107.6 fL (80-100); Platelet Count 110 X10^3/uL (150-400)
[2025-03-24 05:37] LABS: Magnesium 1.9 mg/dL (1.6-2.3)
[2025-03-24 05:38] LABS: Alanine Aminotransferase 73 IU/L (<35); Albumin 2.9 g/dL (3.5-5.0); Albumin Globulin Ratio 0.9 (1.0-2.8); Alkaline Phosphatase 139 U/L (38-126); Blood Urea Nitrogen 7 mg/dL (7-17); Calcium 8.3 mg/dL (8.4-10.2); Carbon Dioxide 27 mmol/L (22-32); Chloride 96 mmol/L (98-107); Estimated Glomerular Filt Rate > 60 mL/min (>60); Globulin 3.1 g/dL (1.7-4.1); Glucose 113 mg/dL (70-99); HEMOLYSIS < 15 (0-50); Sodium 128 mmol/L (137-145); Total Protein 6.0 g/dL (6.3-8.2)
[2025-03-24 05:40] LABS: Potassium 2.7 mmol/L (3.4-5.1)
--- NOTE | 2025-03-24 07:59 | P.PN_ITS ---
Subjective Subjective Interval history: S: She was feeling better today. Less nausea. She was vomiting for about 2 days straight. She denies any abdominal pain. She denies any diarrhea, rectal bleeding. Her potassium was 2.7 today. Exam Vital Signs (past 8 hours): - 03/24/25 04:43 Pulse Rate 78 Respiratory Rate 16 Blood Pressure 118/60 Pulse Oximetry 96 Oxygen Flow Rate 0 Oxygen Delivery Method Room Air Oxygen Flow Rate 0 Narrative Exam Narrative: NAD, alert and oriented. Fluent speech. Underweight. Lungs are clear, normal rate and effort. Heart is regular, no murmur gallop or rub. Abdomen is soft, non distended. Extremities are free of edema. Objective Labs 03/24/25 04:40 03/24/25 04:40 Labs: Laboratory Results - last 24 hr 03/23/25 03/23/25 03/23/25 11:27 11:39 15:45 WBC 9.5 RBC 3.70 L Hgb 13.8 Hct 39.4 MCV 106.4 H MCH 37.2 H MCHC 35.0 RDW 13.0 Plt Count 126 L Neut % (Auto) 67.9 Lymph % (Auto) 19.2 L [place] % (Auto) 12.5 Eos % (Auto) 0.1 L Baso % (Auto) 0.3 Neut # (Auto) 6500 Lymph # (Auto) 1800 [place] # (Auto) 1200 H Eos # (Auto) 0 Baso # (Auto) 0 Sodium 121 L Potassium 3.2 L Chloride 79 L Carbon Dioxide 28 BUN 12 Creatinine 0.51 L Estimated GFR > 60 BUN/Creatinine Ratio 23.5 H Glucose 94 Calcium 9.0 Magnesium 1.3 L Total Bilirubin 3.7 H AST 193 H ALT 111 H Alkaline Phosphatase 181 H Total Protein 7.9 Albumin 4.1 Globulin 3.8 Albumin/Globulin Ratio 1.1 Lipase 41 Urine Color Urine Appearance Urine pH Ur Specific [place] Urine Protein Urine Glucose (UA) Urine Ketones Urine Occult Blood Urine Nitrate Urine Bilirubin Urine Urobilinogen Ur Leukocyte Esterase Urine RBC Urine WBC Ur Squamous Epith Cells Urine Bacteria Ur Culture Indicated? Vol Urine Centrifuged Nasal Screen MRSA (PCR) Stl C. cayetanensis PCR Not detected Stool Rotavirus (PCR) Not detected Stool Adenovirus (PCR) Not detected Stool Astrovirus (PCR) Not detected Stool Cryptosporidium PCR Not detected Stl E.coli Shiga Tox PCR Not detected St Sh/Enteroin Ecoli PCR Not detected Stl Enterotoxigenic E PCR Not detected Stool EPEC (PCR) Not detected Stl E. histolytica PCR Not detected Stool Giardia Lamblia PCR Not detected Stool Sapovirus (PCR) Not detected Stl P. shigelloides PCR Not detected St Y.enterocolitica PCR Not detected Stool Vibrio (PCR) Not detected Stl Vibrio cholerae PCR Not detected Stl Enteroaggr Ecoli PCR Not detected Stl Norovirus GI/GII PCR Not detected Campylobacter (PCR) Not detected C. difficile Tox (PCR) Not detected SARS-CoV-2 (PCR) Negative Influenza A (RT-PCR) Flu a negative Influenza B (RT-PCR) Flu b negative RSV (PCR) Negative Salmonella (PCR) Not detected 03/23/25 03/23/25 03/24/25 16:00 19:20 04:40 WBC 6.4 RBC 3.06 L Hgb 11.4 L Hct 32.9 L MCV 107.6 H MCH 37.4 H MCHC 34.7 RDW 13.2 Plt Count 110 L Neut % (Auto) 62.7 Lymph % (Auto) 24.7 L [place] % (Auto) 11.7 Eos % (Auto) 0.4 L Baso % (Auto) 0.5 Neut # (Auto) 4000 Lymph # (Auto) 1600 [place] # (Auto) 800 Eos # (Auto) 0 Baso # (Auto) 0 Sodium 128 L Potassium 2.7 L* Chloride 96 L Carbon Dioxide 27 BUN 7 Creatinine 0.46 L Estimated GFR > 60 BUN/Creatinine Ratio 15.2 Glucose 113 H Calcium 8.3 L Magnesium 1.9 Total Bilirubin 2.1 H AST 115 H ALT 73 H Alkaline Phosphatase 139 H Total Protein 6.0 L Albumin 2.9 L Globulin 3.1 Albumin/Globulin Ratio 0.9 L Lipase Urine Color Yellow Urine Appearance Clear Urine pH 7.0 Ur Specific [place] <=1.005 Urine Protein Negative Urine Glucose (UA) Negative Urine Ketones Trace H Urine Occult Blood Negative Urine Nitrate Negative Urine Bilirubin Negative Urine Urobilinogen >=8.0 Ur Leukocyte Esterase Negative Urine RBC 0-1/hpf Urine WBC 0-1/hpf Ur Squamous Epith Cells 0-1 /hpf Urine Bacteria Occasional (0-1) Ur Culture Indicated? Cult not indicated Vol Urine Centrifuged 10ml (spun) Nasal Screen MRSA (PCR) Not detected Stl C. cayetanensis PCR Stool Rotavirus (PCR) Stool Adenovirus (PCR) Stool Astrovirus (PCR) Stool Cryptosporidium PCR Stl E.coli Shiga Tox PCR St Sh/Enteroin Ecoli PCR Stl Enterotoxigenic E PCR Stool EPEC (PCR) Stl E. histolytica PCR Stool Giardia Lamblia PCR Stool Sapovirus (PCR) Stl P. shigelloides PCR St Y.enterocolitica PCR Stool Vibrio (PCR) Stl Vibrio cholerae PCR Stl Enteroaggr Ecoli PCR Stl Norovirus GI/GII PCR Campylobacter (PCR) C. difficile Tox (PCR) SARS-CoV-2 (PCR) Influenza A (RT-PCR) Influenza B (RT-PCR) RSV (PCR) Salmonella (PCR) [facility] Medical History Chronic diarrhea H/O fracture of left hip Alcoholism Protein calorie malnutrition Surgical History Status post hip hemiarthroplasty Status post breast lumpectomy Status post appendectomy Status post hysterectomy Social History household members: none Smoking Status: Former smoker alcohol intake: current Assessment & Plan Assessment & Plan narrative: 1. Severe protein calorie malnutrition, present on admission. Active. -BMI 18.3, albumin 4.1, 3 days of nausea and vomiting, daily alcohol use, bright red tongue and thrush. -patient appears significantly more malnourished than her labs indicate. -dietary consult -encourage protein intake -check vitamin-C, B3, B6 levels 2. Alcohol use disorders, present on admission. Active. -patient states she drinks only a small amount every 3 or 4 days but family states she is still daily wine drinker. -CIWA protocol, lorazepam as needed -glossitis noted. -IV thiamine 3. Glossitis/oral candidiasis, present on admission. Active. -fluconazole for 5 days -check B3, B6, C 4. Possible alcoholic gastritis, present on admission. Active. -patient presents with 1 week of anorexia along with 3 days of nausea/vomiting -D5 NS 100 mL/hr and encourage oral and protein intake. -IV fluconazole for possible esophageal candidiasis, consider EGD -Pepcid IV 5. Hyponatremia, present on admission. Active. -presenting sodium 121, last admission here 122 on admission -IV NS 100 mL/hr and recheck sodium level in the morning. Goal is to raise sodium by no more than 3-4 per 24 hours. 6. Hypokalemia, present on admission. Active. -potassium 3.2 on admission, supplement IV 7. Hypomagnesemia, present on admission. Active. -secondary to chronic alcohol use -supplement and follow. PLAN: -continue to replete potassium. -OOB -Home in 1 day if she improves. Time-Based Coding :: [TOTAL MINUTES] spent with patient and on the chart (including review of chart, obtaining history, exam, reviewing outside data, placing orders, documenting exam and treatment plan, and counseling patient) on [DATE].
[2025-03-24] MEDS: FAMOTIDINE 20 MG/2 ML VIAL IV ×2 (08:10→20:53)
[2025-03-24] MEDS: POTASSIUM CHLORIDE IN WATER 10 MEQ/100 ML PIGGYBACK 100 MEQ IV ×6 (08:10→14:19)
[2025-03-24] MEDS: ENOXAPARIN 40 MG/0.4 ML SYRINGE SUBCUT (08:10)
[2025-03-24] MEDS: FLUCONAZOLE 100 MG TABLET PO (08:11)
[2025-03-24] MEDS: MULTIVITAMIN 1 TABLET 1 TAB PO (08:11)
[2025-03-24] MEDS: THIAMINE 100 MG in SODIUM CHLORIDE 0.9% 100 ML 404 MG IV (09:25)
--- NOTE | 2025-03-24 12:43 | DIET.CONS ---
Dietary Consultation Note Admission Date: 03/23/2025 13:07 Assessment: 64 y F admitted for hyponatremia. Dietitian consulted for severe malnutrition. Met with pt and caregiver at bedside. Pt reports 7-8 days of no PO intakes. Before then, normal intakes for her are 1 meal per day and 1 bowl of cereal or snack. Is not big on eating, typically doesn't have an appetite, doesn't like ensure/boost/yogurts/pb. Reports improving appetite, eating half slice of danish toast a piece of quiñones this morning. Back in 2014 after loss of , went from 140 lb to 105 lb. Does not have desire to go back to 140 lb, but is willing to return to 115 lb, which is new normal (19.2 BMI, normal for age) NFPE with moderate to severe muscle mass loss in temples, deltoid, trapezius. Moderate subcutaneous fat loss in buccal and orbital fat pads. Ht: 165.1 cm Wt: 49.895 kg BMI: 18.3 UBW: 115 lb (52 kg) (-5% weight loss in 1 month severe) Last BM: 03/24/25 (03/24/25 09:42) MNA: 7 Guevara Score: 20 Diet: 03/23/25 Dinner General (Regular) Diet Diet Modifications: Nutrition Percent Meal Consumed 50% 03/24/25 09:37 Percent Meal Consumed 0% 03/23/25 18:00 Labs: RBC 3.06 X10^6/uL (4.0-5.2) L 03/24/25 04:40 Hgb 11.4 g/dL (12.0-16.0) L 03/24/25 04:40 Hct 32.9 % (36-46) L 03/24/25 04:40 Creatinine 0.46 mg/dL (0.52-1.04) L 03/24/25 04:40 Nutrition Diagnosis: Severe acute protein calorie malnutrition r/t inadequate oral intakes due to nausea/vomiting and weakness as evidenced by no food intakes for 7 days (severe), BMI underweight for age (18.3), hx of alcoholism, 5% weight loss in 1 month, moderate muscle mass wasting in temples and deltoids, and moderate subcutaneous fat loss in buccal and orbital fat pads Interventions: -Discussed adding in additional meal/protein-carb snack daily -Small freq meals -Will do extra cheese and crackers on tray to help support EER d/t dislike of supplemental drinks EER: 1750 kcals (35 kcals/kg per BMI) 65 g protein (1.25 g/kg per PCM) Monitoring/Evaluations: PO intakes Electronically Signed by: Marissa Allison 03/24/25 12:43 Clinical Dietitian [address] [address]
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
[2025-03-25] VITALS (31 sets, daily range): BP systolic 115–151; BP diastolic 62–87; PULSE 80–117; RESP 16–45; TEMP 36.7; O2SAT 95–98
[2025-03-25 05:19] LABS: Add Manual Diff / Slide Review NO; Hematocrit 30.9 % (36-46); Hemoglobin 10.9 g/dL (12.0-16.0); Lymphocytes Absolute Auto 1900 /uL (1100-4500); Mean Corpuscular HGB Conc 35.1 % (30-36); Mean Corpuscular Hemoglobin 38.2 PG (26-34); Mean Corpuscular Volume 108.6 fL (80-100); Platelet Count 117 X10^3/uL (150-400)
[2025-03-25 05:27] LABS: Blood Urea Nitrogen 3 mg/dL (7-17); Calcium 8.1 mg/dL (8.4-10.2); Carbon Dioxide 25 mmol/L (22-32); Chloride 101 mmol/L (98-107); Estimated Glomerular Filt Rate > 60 mL/min (>60); Glucose 106 mg/dL (70-99); HEMOLYSIS < 15 (0-50); Potassium 3.1 mmol/L (3.4-5.1); Sodium 130 mmol/L (137-145)
--- NOTE | 2025-03-25 07:29 | PC.NURSE ---
Patient was cooperative, mildly anxious, and forgetful during early shift. CIWA 0-5, PO Librium given at HS. Paatient requested something for sleep, 1mg PO Ativan ordered, patient agreeable, but woke up an hour later confused and mildly hallucinating, but was able to reorient. Then woke at 0500, paranoid, agitated, and want to have a drink and go home, can state date, some events, and knows about low sodium and potassium names, but does not know place. 5mg IV diazepam given.
[2025-03-25] MEDS: POTASSIUM CHLORIDE 20 MEQ TAB 40 MEQ PO (10:48)
[2025-03-25] MEDS: MULTIVITAMIN 1 TABLET 1 TAB PO (10:49)
[2025-03-25] MEDS: FLUCONAZOLE 100 MG TABLET PO (10:49)
--- NOTE | 2025-03-25 11:17 | OT.IP.EVAL ---
Current Diagnoses Unspecified severe protein-calorie malnutrition (03/23/25) Past Medical History (Last Reviewed 03/24/25 @ 08:00 by Jose Thomas MD) Alcoholism Chronic diarrhea H/O fracture of left hip Protein calorie malnutrition Surgical History (Last Reviewed 03/24/25 @ 08:00 by Jose Thomas MD) Status post appendectomy Status post breast lumpectomy Status post hip hemiarthroplasty Status post hysterectomy Occupational Therapy Inpatient Evaluation/Re-Eval M2 OT-IP Current Condition Start: 03/25/25 11:04 Freq: Status: Active Protocol: Document 03/25/25 11:04 CCC (Rec: 03/25/25 11:11 CCC Desktop) Occupational Therapy Current Condition Current Condition Evaluation Date 03/25/25 Treatment Diagnosis Severe protein malnutrition Diagnosis Onset Date 03/23/25 M6 OT- IP Functional Cognition Start: 03/25/25 11:04 Freq: Status: Active Protocol: Document 03/25/25 11:04 CCC (Rec: 03/25/25 11:11 CCC Desktop) Cognitive Factors Limiting Selfcare Function Cognitive Ability Level of Alertness Drowsy Patient Orientation Name,Age,Birthday,Month,Date,Year,Day of Week,Place, Situation Attention Span Capable of Focused Attention,Capable of Sustained Ability Attention Ability to Follow Able to Follow One Step Commands Commands Memory Description Short Term Impaired,Working Impaired Executive Function Unable to Remember Details Ability Cognitive Tests SLUMS Pt very sleepy and recovering from having vomiting/ nausea and not eating for a week prior to admit. Pt scored 19/30 which borderlines dementia however pt not fully awake during assessment and must likely would score higher. Pt is insistent with her needs and adamant of going home. Pt also has had severe malnutrition and best to retest pt as she recovers and when fully awake. Pt states to be leaving today. Cognitive Comments Cognitive Assessment CM requesting baseline cognitive assessment for pt . Comments However pt very drowsy and did not score well today 19/ 30 and will probably score much higher when awake and recovered from having not eaten for the past week. Pt very insistent with her wants and probably has decreased safety awareness. Per CM, pt has neighbor that assist her daily for 4 hours at a time. Discharge pt from OT services.
--- NOTE | 2025-03-25 11:36 | OT.IPNOTE ---
Per pt's nurse that pt is more alert now and apologizing for being rude earlier. Able to reassess questions pt got wrong earlier on the SLUMS and with improvement of pt able to write the numbers of the clock symmetrically and able to recall 3/5 words after times passes. Pt however not able to answer any on the 4 questions after time passed. Pt scored is 18/30 which implies dementia.
--- NOTE | 2025-03-25 13:19 | PM.DS.1 ---
History of Present Illness History of Present Illness Chief complaint: Vomitting, not sleeping t-3 Narrative: From H&P: This is a 64-year-old female with chronic alcoholism, hyponatremia, chronic diarrhea, protein malnutrition and hypomagnesemia who presents with 3 days of nausea/vomiting along with 1 week of not being able to eat. She has a sore throat. Food does not taste right. She has lost her appetite. Her magnesium is 1.3 and her sodium is 121. She says that her last alcohol intake was 4 days ago and that she only occasionally drinks wine currently. Her son says that she starts drinking at 7:00 a.m. and drinks until she goes to bed. In addition to the electrolyte abnormalities and presenting symptoms she appears to have both oral thrush and very red tongue suggestive of various vitamin deficiencies. Discharge Providers Provider Date of admission: 03/23/25 13:07 Discharge Date: 03/25/25 Primary care physician: BRITTANY Alves Consults: 03/23/25 15:52 Consult to Dietitian, Adult Routine Comment: Reason For Exam: Severe Malnutrition 03/25/25 10:41 Consult to Occupational Therapy Evaluate & Treat Comment: [facility] Physician Instructions: Evaluate and treat Discharge provider: Jose Thomas MD Summary Hospital Course Discharge Diagnosis: 1. Severe protein calorie malnutrition, present on admission. Active. -BMI 18.3, albumin 4.1, 3 days of nausea and vomiting, daily alcohol use, bright red tongue and thrush. -patient appears significantly more malnourished than her labs indicate. 2. Alcohol use disorders, present on admission. Stable.. -patient states she drinks only a small amount every 3 or 4 days but family states she is still daily wine drinker. -[facility] protocol, lorazepam as needed -glossitis noted. 3. Glossitis/oral candidiasis, present on admission. Active. 4. Possible alcoholic gastritis, present on admission. Active. -patient presents with 1 week of anorexia along with 3 days of nausea/vomiting 5. Hyponatremia, present on admission. Improved. -presenting sodium 121, last admission here 122 on admission 6. Hypokalemia, present on admission. Improved. -potassium 3.2 on admission, supplement IV 7. Hypomagnesemia, present on admission. Improved. -secondary to chronic alcohol use Hospital Course: She was admitted, placed on IV fluids, saline. She was also treated with electrolyte repletion with potassium and magnesium and thiamine IV. She would improvement of her electrolytes and general behavior over the next day and a half. She did have multiple periods of brief agitation. Ultimately she felt that she was at her baseline and wanted to discharge home on March 25. She was at her cognitive baseline, her slums was 19/. In addition she was able to ambulate with a walker and appeared to be relatively safe. She was a walker home. Status at Discharge Cognitive/behavioral status at discharge: oriented Functional status at discharge: uses cane/walker Overall status at discharge: patient is back to baseline Time Spent with Patient Time spent: Greater than 30 minutes Exam Vital Signs (past 8 hours): - 03/25/25 05:30 03/25/25 06:01 03/25/25 06:30 Temperature Pulse Rate 117 H 109 H 108 H Respiratory Rate 33 H 41 H 38 H Blood Pressure 03/25/25 07:00 03/25/25 07:30 03/25/25 07:35 Temperature Pulse Rate 105 H 105 H 109 H Respiratory Rate 42 H 45 H 26 H Blood Pressure 03/25/25 07:35 03/25/25 08:00 03/25/25 08:12 Temperature 98.1 F Pulse Rate 102 H Respiratory Rate 36 H Blood Pressure 151/87 H 03/25/25 08:30 03/25/25 09:00 03/25/25 09:30 Temperature Pulse Rate 115 H 93 H 89 Respiratory Rate 27 H 36 H 34 H Blood Pressure 03/25/25 10:00 03/25/25 10:30 03/25/25 11:00 Temperature Pulse Rate 87 82 95 H Respiratory Rate 19 25 H 23 Blood Pressure 03/25/25 11:30 03/25/25 12:00 03/25/25 12:21 Temperature Pulse Rate 101 H 95 H 99 H Respiratory Rate 29 H 40 H 36 H Blood Pressure 03/25/25 12:21 03/25/25 12:30 Temperature Pulse Rate 97 H Respiratory Rate 43 H Blood Pressure 134/82 Oxygen Delivery Method Room Air Oxygen Flow Rate 0 Narrative Exam Narrative: NAD, alert and oriented. Fluent speech. Lungs are clear, normal rate and effort. Heart is regular, no murmur gallop or rub. Abdomen is soft, non distended. Extremities are free of edema. SLUMS Objective ECG Impression: Intervals [place] Rate: 88 P: 76 WV: 156 QRS: 67 QRSD: 66 T: 65 QT: 374 QTc: 452 Interpretive Statements Normal sinus rhythm Low voltage QRS Nonspecific ST abnormality Labs 03/25/25 04:40 03/25/25 04:40 Labs: Laboratory Results - last 24 hr 03/25/25 04:40 WBC 6.1 RBC 2.85 L Hgb 10.9 L Hct 30.9 L MCV 108.6 H MCH 38.2 H MCHC 35.1 RDW 13.2 Plt Count 117 L Neut % (Auto) 52.9 Lymph % (Auto) 30.4 [place] % (Auto) 14.0 Eos % (Auto) 1.6 L Baso % (Auto) 1.1 Neut # (Auto) 3300 Lymph # (Auto) 1900 [place] # (Auto) 900 Eos # (Auto) 100 Baso # (Auto) 100 Sodium 130 L Potassium 3.1 L Chloride 101 Carbon Dioxide 25 BUN 3 L Creatinine 0.43 L Estimated GFR > 60 BUN/Creatinine Ratio 7.0 Glucose 106 H Calcium 8.1 L PFSH Medical History Chronic diarrhea H/O fracture of left hip Alcoholism Protein calorie malnutrition Surgical History Status post hip hemiarthroplasty Status post breast lumpectomy Status post appendectomy Status post hysterectomy Social History household members: none Smoking Status: Former smoker alcohol intake: current Discharge Assessment & Plan Assessment and Plan Assessment: 1. Severe protein calorie malnutrition, present on admission. Active. -BMI 18.3, albumin 4.1, 3 days of nausea and vomiting, daily alcohol use, bright red tongue and thrush. -patient appears significantly more malnourished than her labs indicate. 2. Alcohol use disorders, present on admission. Stable.. -patient states she drinks only a small amount every 3 or 4 days but family states she is still daily wine drinker. -[facility] protocol, lorazepam as needed -glossitis noted. 3. Glossitis/oral candidiasis, present on admission. Active. 4. Possible alcoholic gastritis, present on admission. Active. -patient presents with 1 week of anorexia along with 3 days of nausea/vomiting 5. Hyponatremia, present on admission. Improved. -presenting sodium 121, last admission here 122 on admission 6. Hypokalemia, present on admission. Improved. -potassium 3.2 on admission, supplement IV 7. Hypomagnesemia, present on admission. Improved. -secondary to chronic alcohol use MIPS: [N], the patient has documentation of a left ventricle ejection fracture less than or equal to 40%, or moderately or severely reduced left ventricle systolic function. [N], the patient has a history of heart transplant or left ventricular assist device (LVAD). [N], the patient was prescribed an KAITLIN inhibitor at discharge or is already being taken. The patient was not prescribed an KAITLIN-inhibitor because of the following exception: NA. [N], the patient was prescribed Metoprolol succinate, bisoprolol, or carvedilol at discharge. The patient was not prescribed Metoprolol succinate, bisoprolol, or carvedilol at discharge because of the following exception: NA Plan of Treatment: Stable for discharge home, we will start thiamine 100 mg daily at home. The importance of alcohol cessation, good nutritional intake and close follow up was reinforced. Discharge Plan Discharge Plan Patient Disposition: Home Provider Discharge Comment: Stable for discharge home, she was able to walk with a walker and appears to be at her mental baseline. Discharge orders & Medications Prescriptions: New thiamine HCl (vitamin B1) 100 mg capsule 100 mg PO DAILY Qty: 30 3RF potassium chloride 20 mEq tablet extended release 20 meq PO DAILY Qty: 30 0RF Medication counseling provided by Pharmacist: No Follow up/Referrals: Maureen Mccullough ARNP [Primary Care Provider, Nursing] Discharge Health Status Multidrug resistant organism: No MDRO Diet/Activity/Treatments Diet: Regular Visit Report/Discharge Packet Instructions: Alcohol Use Disorder, DI for Hyponatremia Stand Alone Forms: Patient Portal/API Discharge Data Primary Care Provider: Maureen Mccullough
--- NOTE | 2025-03-25 13:28 | PC.NURSE ---
Shift update: Start of shift patient was sitting on side of bed, with tray table in front of her. She is agitated and states she is planning to discharge today no matter what. Patient alert to birthday, date, and situation, though states adamantly that this doesn't feel like a hospital, it feels like an apartment and I'm not staying here any longer Patient tells this RN that she can speak with her son Jorden (whom lives out of country). Jorden called to check on his mother, he is concerned that she has been hallucinating overnight and not safe to go home. Concerns relayed to patient, CM, and Dr. Thomas. Patient tolerated breakfast, and has been up to the bathroom with SB assistance and walker. Patient fell asleep for awhile, she states she had not slept for basically the last 4 days. When patient woke up she was agitated and grumpy, she requests for doctor to come see her for her to be discharged to home. Dr. Thomas in to see patient and wrote discharge orders. Patient denies further needs or assistance for help or resources from this RN. Patient then states she no longer wants her son involved in being updated in her care he worries too much. Patient's friend/helper Barry called and states he will come pick her up for discharge. Patient sitting up in chair, call light within reach, tolerated a small lunch. CM updated.
--- NOTE | 2025-03-25 14:20 | PM.DS.1 ---
History of Present Illness History of Present Illness Chief complaint: Vomitting, not sleeping t-3 Narrative: From H&P: This is a 64-year-old female with chronic alcoholism, hyponatremia, chronic diarrhea, protein malnutrition and hypomagnesemia who presents with 3 days of nausea/vomiting along with 1 week of not being able to eat. She has a sore throat. Food does not taste right. She has lost her appetite. Her magnesium is 1.3 and her sodium is 121. She says that her last alcohol intake was 4 days ago and that she only occasionally drinks wine currently. Her son says that she starts drinking at 7:00 a.m. and drinks until she goes to bed. In addition to the electrolyte abnormalities and presenting symptoms she appears to have both oral thrush and very red tongue suggestive of various vitamin deficiencies. Discharge Providers Provider Date of admission: 03/23/25 13:07 Primary care physician: BRITTANY Alves Consults: 03/23/25 15:52 Consult to Dietitian, Adult Routine Comment: Reason For Exam: Severe Malnutrition 03/25/25 10:41 Consult to Occupational Therapy Evaluate & Treat Comment: [facility] Physician Instructions: Evaluate and treat Discharge provider: Jose Thomas MD Exam Vital Signs (past 8 hours): - 03/25/25 06:30 03/25/25 07:00 03/25/25 07:30 Temperature Pulse Rate 108 H 105 H 105 H Respiratory Rate 38 H 42 H 45 H Blood Pressure Oxygen Delivery Method 03/25/25 07:35 03/25/25 07:35 03/25/25 08:00 Temperature Pulse Rate 109 H Respiratory Rate 26 H Blood Pressure 151/87 H Oxygen Delivery Method Room Air 03/25/25 08:00 03/25/25 08:12 03/25/25 08:30 Temperature 98.1 F Pulse Rate 102 H 115 H Respiratory Rate 36 H 27 H Blood Pressure Oxygen Delivery Method 03/25/25 09:00 03/25/25 09:30 03/25/25 10:00 Temperature Pulse Rate 93 H 89 87 Respiratory Rate 36 H 34 H 19 Blood Pressure Oxygen Delivery Method 03/25/25 10:30 03/25/25 11:00 03/25/25 11:30 Temperature Pulse Rate 82 95 H 101 H Respiratory Rate 25 H 23 29 H Blood Pressure Oxygen Delivery Method 03/25/25 12:00 03/25/25 12:21 03/25/25 12:21 Temperature Pulse Rate 95 H 99 H Respiratory Rate 40 H 36 H Blood Pressure 134/82 Oxygen Delivery Method 03/25/25 12:30 Temperature Pulse Rate 97 H Respiratory Rate 43 H Blood Pressure Oxygen Delivery Method Oxygen Delivery Method Room Air Oxygen Flow Rate 0 Objective Labs 03/25/25 04:40 03/25/25 04:40 Labs: Laboratory Results - last 24 hr 03/25/25 04:40 WBC 6.1 RBC 2.85 L Hgb 10.9 L Hct 30.9 L MCV 108.6 H MCH 38.2 H MCHC 35.1 RDW 13.2 Plt Count 117 L Neut % (Auto) 52.9 Lymph % (Auto) 30.4 [place] % (Auto) 14.0 Eos % (Auto) 1.6 L Baso % (Auto) 1.1 Neut # (Auto) 3300 Lymph # (Auto) 1900 [place] # (Auto) 900 Eos # (Auto) 100 Baso # (Auto) 100 Sodium 130 L Potassium 3.1 L Chloride 101 Carbon Dioxide 25 BUN 3 L Creatinine 0.43 L Estimated GFR > 60 BUN/Creatinine Ratio 7.0 Glucose 106 H Calcium 8.1 L PFSH Medical History Chronic diarrhea H/O fracture of left hip Alcoholism Protein calorie malnutrition Surgical History Status post hip hemiarthroplasty Status post breast lumpectomy Status post appendectomy Status post hysterectomy Social History household members: none Smoking Status: Former smoker alcohol intake: current Discharge Assessment & Plan Assessment and Plan Assessment: 1. Severe protein calorie malnutrition, present on admission. Active. -BMI 18.3, albumin 4.1, 3 days of nausea and vomiting, daily alcohol use, bright red tongue and thrush. -patient appears significantly more malnourished than her labs indicate. 2. Alcohol use disorders, present on admission. Stable.. -patient states she drinks only a small amount every 3 or 4 days but family states she is still daily wine drinker. -CIWA protocol, lorazepam as needed -glossitis noted. 3. Glossitis/oral candidiasis, present on admission. Active. 4. Possible alcoholic gastritis, present on admission. Active. -patient presents with 1 week of anorexia along with 3 days of nausea/vomiting 5. Hyponatremia, present on admission. Improved. -presenting sodium 121, last admission here 122 on admission 6. Hypokalemia, present on admission. Improved. -potassium 3.2 on admission, supplement IV 7. Hypomagnesemia, present on admission. Improved. -secondary to chronic alcohol use MIPS: [N], the patient has documentation of a left ventricle ejection fracture less than or equal to 40%, or moderately or severely reduced left ventricle systolic function. [N], the patient has a history of heart transplant or left ventricular assist device (LVAD). [N], the patient was prescribed an KAITLIN inhibitor at discharge or is already being taken. The patient was not prescribed an KAITLIN-inhibitor because of the following exception: NA. [N], the patient was prescribed Metoprolol succinate, bisoprolol, or carvedilol at discharge. The patient was not prescribed Metoprolol succinate, bisoprolol, or carvedilol at discharge because of the following exception: NA Plan of Treatment: Stable for discharge home, we will start thiamine 100 mg daily at home. The importance of alcohol cessation, good nutritional intake and close follow up was reinforced. Discharge Plan Discharge Plan Patient Disposition: Home Provider Discharge Comment: Stable for discharge home, she was able to walk with a walker and appears to be at her mental baseline. Discharge orders & Medications Prescriptions: New thiamine HCl (vitamin B1) 100 mg capsule 100 mg PO DAILY Qty: 30 3RF potassium chloride 20 mEq tablet extended release 20 meq PO DAILY Qty: 30 0RF Medication counseling provided by Pharmacist: No Follow up/Referrals: Maureen Mccullough ARNP [Primary Care Provider, Nursing] Discharge Health Status Multidrug resistant organism: No MDRO Diet/Activity/Treatments Diet: Regular Visit Report/Discharge Packet Instructions: Alcohol Use Disorder, DI for Hyponatremia Stand Alone Forms: Patient Portal/API Discharge Data Primary Care Provider: Maureen Mccullough
[2025-03-25] MEDS: POTASSIUM CHLORIDE 20 MEQ TAB 60 MEQ PO (14:27)
--- NOTE | 2025-03-25 15:20 | PC.NURSE ---
Patient's friend/helper Barry arrived to pick patient up. IV was dc'd intact. Discharge packet reviewed with patient, she states understanding and has no further questions or concerns at this time. She states she has an appointment scheduled on April 20 with a new PCP. Patient escorted out via WC with her belongings.
--- NOTE | 2025-03-25 15:34 | CM.DPNOTE ---
DCP note HUMAN RESOURCE MANAGER reviewed EMR per chart, labs improved. CIWA 10 overnight, 4 in morning. Per RN, became confused overnight. See RN note for more. per OT GIO yu . see OT aimee for more. HUMAN RESOURCE MANAGER attempted to meet with pt again re: ETOH resources. pt groggy, remains in denial about going through withdrawals. asked this HUMAN RESOURCE MANAGER not come back again and asked to leave room. HUMAN RESOURCE MANAGER emailed son Jorden updated community resource information. Pt CG Barry here to transport pt home. P: dc home with OP f/u (apr 20) recommended and CG support. CM team will continue to follow as able for DCP coordination MARY JANE Mg
== END 2025-03-25 15:15 | disposition home or self-care (01) | DRG 640 ==
LOC: ED 12:36 → AC 13:08 → ICU 14:56
PROVIDERS: Hospitalist; Admitting Provider Family Medicine; Emergency Provider Family Medicine; PCP Nurse Practitioner; Referring Provider Family Medicine; Visit Provider Family Medicine
DX: E87.1 Hypo-osmolality and hyponatremia (principal); E43 Unspecified severe protein-calorie malnutrition; Z68.1 Body mass index [BMI] 19.9 or less, adult; B37.0 Candidal stomatitis; K29.20 Alcoholic gastritis without bleeding; F10.90 Alcohol use, unspecified, uncomplicated; K14.0 Glossitis; E87.6 Hypokalemia; E83.42 Hypomagnesemia; Z87.891 Personal history of nicotine dependence
CPT/HCPCS: 36415; 80048; 80053; 81001; 82180; 83690; 83735; 84207; 84425; 84591; 85025; 87507; 87637; 87797; 96361; 96365; 96366; 96367; 97165; 99284; J1650; J2405; J3360; J3475

== ENCOUNTER 2025-04-09 10:03 | Emergency (ER) | payer OTHER, SELFPAY ==
[2025-03-23 15:40] VITALS: BMI 18.3
[2025-04-09] VITALS (11 sets, daily range): BP systolic 120–134; BP diastolic 68–87; PULSE 81–95; RESP 16–22; TEMP 36.7; O2SAT 96–99; BMI 18.3
--- NOTE | 2025-04-09 10:11 | EKG_ITS ---
[address] [address] Test Date: 2025-04-09 Pat Name: Fadia Ceballos Department: [facility] Room: Gender: Female Dub Room Engineer: BEBO : 1960 Requested By: Order Number: [id number] Reading MD: Jose Thomas Measurements Intervals [place] Rate: 91 P: 56 NE: 168 QRS: 52 QRSD: 52 T: 45 QT: 354 QTc: 435 Interpretive Statements Normal sinus rhythm Low voltage QRS Electronically Signed On 04-12-2025 9:40:39 PDT by Jose Thomas
--- NOTE | 2025-04-09 10:11 | DI.RAD.S_ITS ---
PROCEDURE: XR CHEST 1V INDICATIONS: dyspnea TECHNIQUE: One view of the chest was acquired. COMPARISON: [facility], CR, XR CHEST 1V, 01/03/2025, 12:16. [facility], CR, XR CHEST 1V, 12/25/2022, 6:51. FINDINGS: Surgical changes and devices: None. Lungs and pleura: Lungs are clear. No pleural effusions or pneumothorax. Stable right apical scarring. Mediastinum: Mediastinal contours appear normal. Heart size is normal. Bones and chest wall: No suspicious bony lesions. Overlying soft tissues appear unremarkable. Healed left humeral neck fracture. IMPRESSION: No acute cardiopulmonary abnormality is seen. Dictated by: Yaya Guevara M.D. on 04/09/2025 at 10:23 Approved by: Yaya Guevara M.D. on 04/09/2025 at 10:24
[2025-04-09 11:27] LABS: Add Manual Diff / Slide Review NO; Hematocrit 34.1 % (36-46); Hemoglobin 11.8 g/dL (12.0-16.0); Lymphocytes Absolute Auto 1800 /uL (1100-4500); Mean Corpuscular HGB Conc 34.5 % (30-36); Mean Corpuscular Hemoglobin 37.0 PG (26-34); Mean Corpuscular Volume 107.2 fL (80-100); Platelet Count 230 X10^3/uL (150-400)
[2025-04-09 11:40] LABS: INR 1.0 (0.9-1.3); Prothrombin Time 11.0 SECONDS (9.4-12.5)
[2025-04-09 11:42] LABS: PTT Partial Thromboplastin Tim 29 SECONDS (25.1-36.5)
[2025-04-09 11:56] LABS: Lactate (Lactic Acid) 2.1 mmol/L (0.7-2.1)
[2025-04-09 11:59] LABS: Alanine Aminotransferase 103 IU/L (<35); Albumin 3.8 g/dL (3.5-5.0); Albumin Globulin Ratio 0.9 (1.0-2.8); Alkaline Phosphatase 238 U/L (38-126); Calcium 9.0 mg/dL (8.4-10.2); Carbon Dioxide 25 mmol/L (22-32); Chloride 101 mmol/L (98-107); Estimated Glomerular Filt Rate > 60 mL/min (>60); Ethanol (ETOH) 77 mg/dL (<10); Globulin 4.1 g/dL (1.7-4.1); Glucose 85 mg/dL (70-99); Lipase 71 U/L (23-300); Magnesium 1.7 mg/dL (1.6-2.3); Potassium 4.1 mmol/L (3.4-5.1); Sodium 137 mmol/L (137-145); Total Protein 7.9 g/dL (6.3-8.2)
[2025-04-09 12:00] LABS: HEMOLYSIS 75 (0-50)
[2025-04-09 12:01] LABS: Blood Urea Nitrogen 2 mg/dL (7-17)
[2025-04-09 12:10] LABS: NT-proBNP (BNP-Adult 18+) 187 pg/mL (<125); Troponin I < 0.012 ng/mL (0.01-0.034)
[2025-04-09 12:15] LABS: Procalcitonin 0.070 ng/mL (<0.5)
[2025-04-09 12:59] LABS: Reflexed Lactate in 2 Hours Y
--- NOTE | 2025-04-09 13:15 | ED.EXTPRO ---
HPI - Extremity Problem General Chief complaint: Extremity Problem,Nontraumatic Stated complaint: Bilateral leg pain, red, swelling, itchy x 7 days Time Seen by Provider: 04/09/25 10:06 Source: patient Mode of arrival: Wheelchair History of Present Illness HPI Narrative: 64-year-old woman with a history of alcohol use disorder, hyponatremia, chronic diarrhea and hypomagnesemia who presents complaining that her extremities are swollen and red. She was supposed to follow up with her primary care physician after discharge from the hospital on March 25 but was unable to schedule an appointment. No fevers, cough, chills. She notes that she has been drinking a bit more since she has been discharged recently. She also notes that she tends to not eat very much food with any nutritional value. Related Data Previous Rx's ?Medication ?Instructions ?Recorded potassium chloride 20 mEq 20 meq PO DAILY #30 tabs 03/25/25 tablet,extended release thiamine HCl (vitamin B1) 100 mg 100 mg PO DAILY #30 caps 03/25/25 capsule Allergies Allergy/AdvReac Type Severity Reaction Status Date / Time Penicillins (PENICILLINS) Allergy Intermediate rash Verified 03/23/25 16:04 morphine AdvReac Intermediate Hallucinati Verified 03/23/25 15:53 ng Review of Systems Review of Systems Narrative: Pertinent positive and negative findings as per HPI Patient History Medical History Chronic diarrhea H/O fracture of left hip Alcoholism Protein calorie malnutrition Surgical History Status post hip hemiarthroplasty Status post breast lumpectomy Status post appendectomy Status post hysterectomy Social History household members: none Smoking Status: Former smoker alcohol intake: current Smoking Status: Former smoker alcohol intake frequency: 3 or more drinks per day Alcohol type: wine Exam Initial Vital Signs Initial Vital Signs: Vital Signs Pulse Rate 83 04/09/25 10:14 Blood Pressure 127/87 04/09/25 10:14 Pulse Oximetry 98 04/09/25 10:14 General: Frail and chronically ill-appearing but able to cooperate fully with exam HEENT: Moist mucous membranes, normal sclera with reactive pupils, Respiratory: Lungs are clear to auscultation, no wheezing no rales no rhonchi. Full and symmetrical air movement Cardiac: Regular rate and rhythm no murmurs no bruits Abdomen: Soft, nontender, no rebound or guarding, no flank pain. No obvious ascites Skin: Bilateral chronic venous stasis Neurologic: Grossly neurologically intact with no obvious asymmetries or abnormalities Extremities: No trauma, bilateral 1+ edema without evidence of infection Psych: Cooperative, appropriate insight and affect Course Orders Ordered: ED Orders 04/09/25 10:11 XR chest 1V Stat EKG-12 Lead Stat 04/09/25 10:55 Blood Culture Stat Complete Blood Count AUTO DIFF Stat Lactate (Lactic Acid) Stat PT [Prothrombin Time INR] Stat PTT Partial Thromboplastin [place] Stat 04/09/25 11:34 Comprehensive Metabolic Panel Stat Ethanol (ETOH) Stat Lipase Stat Magnesium Stat NT-proBNP (BNP-Adult 18+) Stat Procalcitonin Stat Troponin I Stat 04/09/25 13:42 Urinalysis and Microscopic Stat Vital Signs Vital signs: Vital Signs - 8 hr 04/09/25 10:14 04/09/25 10:14 04/09/25 10:17 Temperature 98.0 F Pulse Rate 83 82 Respiratory Rate 16 Blood Pressure 127/87 127/87 Pulse Oximetry 98 99 Oxygen Delivery Method Room Air 04/09/25 10:21 04/09/25 10:21 04/09/25 10:30 Temperature Pulse Rate 81 81 Respiratory Rate 22 21 Blood Pressure 128/85 Pulse Oximetry 97 97 Oxygen Delivery Method 04/09/25 10:30 04/09/25 11:00 04/09/25 11:00 Temperature Pulse Rate 82 Respiratory Rate Blood Pressure 120/80 134/81 Pulse Oximetry 97 Oxygen Delivery Method 04/09/25 11:30 04/09/25 11:33 04/09/25 11:33 Temperature Pulse Rate 88 87 Respiratory Rate 22 Blood Pressure 122/68 Pulse Oximetry 98 97 Oxygen Delivery Method 04/09/25 12:00 04/09/25 12:00 04/09/25 12:30 Temperature Pulse Rate 83 85 Respiratory Rate 18 16 Blood Pressure 120/71 Pulse Oximetry 96 96 Oxygen Delivery Method 04/09/25 12:30 04/09/25 13:00 04/09/25 13:00 Temperature Pulse Rate 85 Respiratory Rate 21 Blood Pressure 128/71 132/79 Pulse Oximetry 98 Oxygen Delivery Method 04/09/25 13:30 04/09/25 13:30 Temperature Pulse Rate 95 H Respiratory Rate 22 Blood Pressure 128/82 Pulse Oximetry 97 Oxygen Delivery Method MDM - Extremity (Nontraumatic) Lab Data 04/09/25 10:55 04/09/25 11:34 Labs: Lab Results 04/09/25 04/09/25 04/09/25 Range/Units 10:55 11:34 13:12 WBC 5.4 (4.5-11.0) X10^3/uL RBC 3.18 L (4.0-5.2) X10^6/uL Hgb 11.8 L (12.0-16.0) g/dL Hct 34.1 L (36-46) % MCV 107.2 H (80-100) fL MCH 37.0 H (26-34) PG MCHC 34.5 (30-36) % RDW 13.5 (11.6-14.8) % Plt Count 230 (150-400) X10^3/uL Neut % (Auto) 52.2 (50-75) % Lymph % (Auto) 33.2 (25-40) % [place] % (Auto) 11.5 (3-14) % Eos % (Auto) 1.7 L (2-4) % Baso % (Auto) 1.4 (0-2) % Neut # (Auto) 2800 (7461-4918) /uL Lymph # (Auto) 1800 (2120-8823) /uL [place] # (Auto) 600 (0-900) /uL Eos # (Auto) 100 (0-450) /uL Baso # (Auto) 100 (0-100) /uL PT 11.0 (9.4-12.5) SECONDS INR 1.0 (0.9-1.3) APTT 29 (25.1-36.5) SECONDS Sodium 137 (137-145) mmol/L Potassium 4.1 (3.4-5.1) mmol/L Chloride 101 (98-107) mmol/L Carbon Dioxide 25 (22-32) mmol/L BUN 2 L (7-17) mg/dL Creatinine 0.47 L (0.52-1.04) mg/dL Estimated GFR > 60 (>60) mL/min BUN/Creatinine Ratio 4.3 L (6-22) Glucose 85 (70-99) mg/dL Lactate 2.1 1.9 (0.7-2.1) mmol/L Calcium 9.0 (8.4-10.2) mg/dL Magnesium 1.7 (1.6-2.3) mg/dL Total Bilirubin 0.9 (0.2-1.3) mg/dL AST 179 H (14-36) IU/L ALT 103 H (<35) IU/L Alkaline Phosphatase 238 H (38-126) U/L Troponin I < 0.012 (0.01-0.034) ng/mL NT-Pro-B Natriuret Pep 187 H (<125) pg/mL Total Protein 7.9 (6.3-8.2) g/dL Albumin 3.8 (3.5-5.0) g/dL Globulin 4.1 (1.7-4.1) g/dL Albumin/Globulin Ratio 0.9 L (1.0-2.8) Lipase 71 (23-300) U/L Procalcitonin 0.070 (<0.5) ng/mL Ethyl Alcohol 77 H (<10) mg/dL MDM Narrative Medical decision making narrative: CC: Swollen lower extremities Complicating co-morbidities: Alcohol use disorder, protein calorie malnutrition, hyponatremia Data collected from: patient Medical records reviewed: Hospital discharge from March 25 reviewed Differential considered: Heart failure, lower extremity cellulitis, poor oncotic pressure due to low protein/severe anemia/liver failure, kidney failure Exam documented above, pertinent findings include: Lab Test results independently reviewed as above. Pertinent findings: CBC shows no leukocytosis, her chronic anemia actually is improved from recent hospitalization Chemistries are similar to previous. No acute kidney failure. Liver enzymes including AST ALT alk-phos but not bilirubin are elevated slightly more than with previous admission Troponin is undetectable ProBNP is not elevated Procalcitonin is not elevated Lactic acid is 2.1 Alcohol level is 77 Independently reviewed EKG: Sinus rhythm at a rate of 91 with no acute ischemic changes Imaging studies independently reviewed: Chest x-ray does not show pneumonia, infiltrates or significant cardiomegaly Discussion: 64-year-old woman with increasing lower extremity edema. She notes she has been drinking more recently. We talked about malnutrition and how important it is to have some protein to hold the liquids in your blood otherwise it leaks out into your legs. She seemed to understand that concept. Discussed compression socks, keeping feet elevated. At this point I do not think that diuresis is appropriate no required today. We did discuss her elevated liver enzymes which she freely suggested was due to her alcohol use. Her grandson is in the room and between them they were already planning on picking up some boost or similar from the grocery store to help increased total calorie intake. At this point there was no heart attack, heart failure, renal failure, ascites or acute liver failure and she is safe for discharge Discharge Plan Departure Patient Disposition: Home Clinical Impression: Protein-calorie malnutrition, severe, Lower extremity edema, Chronic stasis dermatitis, Alcohol use disorder, Elevated liver enzymes Instructions: DI for Alcohol Use Disorder, DI for Dependent Edema Activity Restrictions/Additional Instructions: Thank you for coming in today There is no evidence of heart failure, kidney failure, severe anemia or other life-threatening explanations for lower extremity swelling. There was no evidence of infection Your liver is still holding on however your liver enzymes are more elevated than they were recently suggesting that your alcohol is causing more problems. I suspect that a large part of your swelling is simply because you do not have enough protein in your blood overall. Eating calories that actually have some nutritional value can certainly help. I do not think that using diuretics are going to be of much benefit Using compression socks we will be helpful If you find that you are getting worse or develop any new symptoms, please feel free to return to the emergency department for further evaluation. Prescriptions: No Action thiamine HCl (vitamin B1) 100 mg capsule 100 mg PO DAILY Qty: 30 3RF potassium chloride 20 mEq tablet extended release 20 meq PO DAILY Qty: 30 0RF Referrals: Maureen Mccullough MOTOR POLARIZER [Primary Care Provider, Nursing] Stand Alone Forms: Patient Portal/API
[2025-04-09 13:35] LABS: Lactate 2HR (Lactic Acid Rflx) 1.9 mmol/L (0.7-2.1)
[2025-04-09 13:51] LABS: Appearance Urine UA CLEAR; Bilirubin Urine UA NEGATIVE (NEGATIVE); Color Urine UA YELLOW; Glucose Urine UA NEGATIVE (Negative); Ketones Urine UA NEGATIVE (NEGATIVE); Leukocyte Esterase Urine UA NEGATIVE (NEGATIVE); Nitrite Urine UA NEGATIVE (Negative); Occult Blood Urine UA NEGATIVE (Negative); Protein Urine UA NEGATIVE (Negative); Specific Gravity Urine UA <=1.005 (1.000-1.035); Urobilinogen Urine UA 0.2 E.U./dL (0.2)
[2025-04-09 13:52] LABS: pH Urine UA 5.5 (4.5-8.0)
[2025-04-09 13:53] LABS: Culture Indicated Urine Cult Not Indicated
== END 2025-04-09 14:11 | disposition home or self-care (01) ==
PROVIDERS: Emergency Provider Emergency Medicine; PCP Nurse Practitioner
DX: E43 Unspecified severe protein-calorie malnutrition (principal); R60.0 Localized edema; I87.2 Venous insufficiency (chronic) (peripheral); R74.8 Abnormal levels of other serum enzymes; F10.90 Alcohol use, unspecified, uncomplicated
CPT/HCPCS: 36415; 71045; 80053; 80320; 81001; 83605; 83690; 83735; 83880; 84145; 84484; 85025; 85610; 85730; 87040; 93005; 99282; 99284

== ENCOUNTER 2025-06-10 19:30 | Emergency (ER) | payer OTHER, SELFPAY ==
[2025-03-23 15:40] VITALS: BMI 18.3
[2025-06-10 20:00] VITALS: BP 127/76; PULSE 96; RESP 17; TEMP 36.7; O2SAT 100; BMI 20.5
--- NOTE | 2025-06-10 23:15 | ED_ITS ---
HPI - Back Pain/Injury General Chief Complaint: Back Pain/Injury Stated Complaint: GLF T-2days, L sided pain Time Seen by Provider: 06/10/25 22:59 Source: patient and family History of Present Illness HPI Narrative: 64-year-old female tripped over a pair shoes and fell from ground level at her home 2 days ago, has persisting left posterior chest discomfort left flank discomfort, with bruising. She had nausea and vomiting, seems to be improved. Denies head pain neck pain. No focal weakness to face arm or leg. Denies upper extremity injuries, denies lower extremity injuries. She denies neck pain. She does not take blood thinner medications. Related Data Previous Rx's ?Medication ?Instructions ?Recorded potassium chloride 20 mEq 20 meq PO DAILY #30 tabs tablet,extended release thiamine HCl (vitamin B1) 100 mg 100 mg PO DAILY #30 c aps 03/25/25 capsule hydrocodone 5 mg-acetaminophen 325 1 tab PO Q6H PRN pa in #14 tabs 06/11/25 mg tablet Allergies Allergy/AdvReac Type Severity Reaction Status Date / Time Penicillins (PENICILLINS) Allergy Intermediate rash Verified 03/23/25 16:04 morphine AdvReac Intermediate Hallucinati Verified 03/23/25 15:53 ng Patient History Medical History Chronic diarrhea H/O fracture of left hip Alcoholism Protein calorie malnutrition Surgical History Status post hip hemiarthroplasty Status post breast lumpectomy Status post appendectomy Status post hysterectomy Social History household members: none alcohol intake: current alcohol intake frequency: 3 or more drinks per day Alcohol type: wine Exam Narrative Exam Narrative: GENERAL: Well-developed patient, in mild distress. HEAD: Atraumatic. Normocephalic. EYES: Pupils equal round and reactive. Extraocular motions intact. No scleral icterus. No injection or drainage. ENT: Nose without bleeding, purulent drainage. Throat without erythema, tonsillar hypertrophy or exudate. Airway patent. NECK: Trachea midline. Non tender CARDIOVASCULAR: Regular rate and rhythm without murmurs, gallops, or rubs. RESPIRATORY: Clear to auscultation. Breath sounds equal bilaterally. No wheezes, rales, or rhonchi. GASTROINTESTINAL: Abdomen soft, non-tender, nondistended. EXTREMITIES: No edema or joint tenderness. BACK: Nontender without deformity or crepitance. No flank tenderness. NEURO: AOx3. Motor functions grossly nonfocal. SKIN: No rash or erythema of visible areas Initial Vital Signs Initial Vital Signs: Vital Signs Temperature 98.1 F 06/10/25 20:00 Pulse Rate 96 H 06/10/25 20:00 Respiratory Rate 17 06/10/25 20:00 Blood Pressure 127/76 06/10/25 20:00 Pulse Oximetry 100 06/10/25 20:00 Oxygen Delivery Method Room Air 06/10/25 20:00 Course Orders Ordered: Discontinued Medications Hydrocodone Bitart/Acetaminophen (Hydrocodone/Acet 5/325 Prepack) 1 bottle MISC DIRECTED ONE Stop: 06/11/25 01:33 Last Admin: 06/11/25 01:58 Dose: 1 bottle Documented By: ELEANOR Hydrocodone Bitart/Acetaminophen (Hydrocodone/Acet 5/325 Tablet) 1 tab PO NOW ONE Stop: 06/11/25 01:34 Last Admin: 06/11/25 01:58 Dose: 1 tab Documented By: ELEANOR Albuterol (Albuterol Hfa Prepack) 1 box MISC DIRECTED ONE Stop: 06/11/25 01:33 Last Admin: 06/11/25 01:52 Dose: 1 box Documented By: HARLAN Hydromorphone HCl (Hydromorphone Hcl 0.5 Mg/0.5 Ml Syringe) 0.5 mg IV NOW ONE Stop: 06/10/25 23:24 Last Admin: 06/10/25 23:59 Dose: 0.5 mg Documented By: ELEANOR Sodium Chloride (Normal Saline 0.9%) 1,000 mls @ 1,000 mls/hr IV BOLUS ONE Stop: 06/11/25 00:21 Last Infusion: 06/11/25 01:59 Dose: Infused Documented By: Admin: 06/11/25 00:00 Dose: 1,000 mls/hr Documented By: ELEANOR Ondansetron HCl (Ondansetron 4 Mg/2 Ml Inj) 4 mg IV NOW ONE Stop: 06/10/25 23:24 Last Admin: 06/10/25 23:59 Dose: 4 mg Documented By: ELEANOR Ondansetron HCl (Ondansetron 4 Mg Odt Prepack) 1 bottle MISC DIRECTED ONE Stop: 06/11/25 02:25 Last Admin: 06/11/25 02:28 Dose: 1 bottle Documented By: AB Vital Signs Vital signs: Vital Signs - 8 hr 06/10/25 20:00 Temperature 98.1 F Pulse Rate 96 H Respiratory Rate 17 Blood Pressure 127/76 Pulse Oximetry 100 Oxygen Delivery Method Room Air MDM - Back Pain/Injury Lab Data Attestation: I reviewed the patient's lab results. Lab results narrative: White blood cell count 11,900, hemoglobin 13.1, platelets adequate. Glucose 78, renal function normal. Serum CO2 21 low. Sodium 129 low. Potassium 3.3 low. Liver functions all mildly elevated. Lipase normal. Urinalysis negative. 06/10/25 23:55 06/10/25 23:55 Labs: Lab Results 06/10/25 06/10/25 Range/Units 23:40 23:55 WBC 11.9 H (4.5-11.0) X10^3/uL RBC 3.57 L (4.0-5.2) X10^6/uL Hgb 13.1 (12.0-16.0) g/dL Hct 39.0 (36-46) % MCV 109.2 H (80-100) fL MCH 36.7 H (26-34) PG MCHC 33.6 (30-36) % RDW 14.3 (11.6-14.8) % Plt Count 222 (150-400) X10^3/uL Neut % (Auto) 80.5 H (50-75) % Lymph % (Auto) 9.8 L (25-40) % [place] % (Auto) 7.2 (3-14) % Eos % (Auto) 0.1 L (2-4) % Baso % (Auto) 2.4 H (0-2) % Neut # (Auto) 9500 H (7577-4831) /uL Lymph # (Auto) 1200 (4309-2331) /uL [place] # (Auto) 900 (0-900) /uL Eos # (Auto) 0 (0-450) /uL Baso # (Auto) 300 H (0-100) /uL PT 10.6 (9.4-12.5) SECONDS INR 0.9 (0.9-1.3) Sodium 129 L (137-145) mmol/L Potassium 3.3 L (3.4-5.1) mmol/L Chloride 89 L (98-107) mmol/L Carbon Dioxide 21 L (22-32) mmol/L BUN 8 (7-17) mg/dL Creatinine 0.55 (0.52-1.04) mg/dL Estimated GFR > 60 (>60) mL/min BUN/Creatinine Ratio 14.5 (6-22) Glucose 78 (70-99) mg/dL Calcium 9.1 (8.4-10.2) mg/dL Total Bilirubin 1.8 H (0.2-1.3) mg/dL AST 112 H (14-36) IU/L ALT 74 H (<35) IU/L Alkaline Phosphatase 174 H (38-126) U/L Total Protein 8.0 (6.3-8.2) g/dL Albumin 4.1 (3.5-5.0) g/dL Globulin 3.9 (1.7-4.1) g/dL Albumin/Globulin Ratio 1.1 (1.0-2.8) Lipase 70 (23-300) U/L Urine Color Yellow Urine Appearance Clear Urine pH 6.0 (4.5-8.0) Ur Specific [place] 1.025 (1.000-1.035) Urine Protein Trace H (Negative) Urine Glucose (UA) Negative (Negative) g/dL Urine Ketones 3+ H (NEGATIVE) Urine Occult Blood Negative (Negative) Urine Nitrate Negative (Negative) Urine Bilirubin 2+ H (NEGATIVE) Ur Bilirubin Confirm Negative (Negative) Urine Urobilinogen 2.0 H (0.2) E.U./dL Ur Leukocyte Esterase Negative (NEGATIVE) Urine RBC None seen (0-5/HPF) Urine WBC None seen (0-5/HPF) Ur Squamous Epith Cells 1-5 /hpf (0-5/HPF) Urine Bacteria None seen (None) Hyaline Casts 1-5/lpf (None) Ur Culture Indicated? Cult not indicated Vol Urine Centrifuged 10ml (spun) Imaging Data CT chest abdomen and pelvis: Radiologist's Impression: [address] [id number] [address] Scan Report Signed Patient: Fadia Ceballos MR#: [id number] : 1960 Acct:[id number] Age/Sex: 64 / F Date of Service: 06/10/25 Loc: ED Accession Number: [id number] Procedure: CT chest abd pel w con Ordering Provider: Duncan De La Torre MD PROCEDURE: CT CHEST ABD PEL W CON INDICATIONS: fall, posterior low thoracic pain/bruising TECHNIQUE: After the administration of intravenous contrast, 5 mm thick sections acquired from the lung apices to the symphysis. 2.5 mm thick coronal and sagittal reformats were acquired. Additional 7 mm thick coronal maximum intensity projection (MIP) reformats acquired through the lungs. Optional 10-minute delayed imaging may be performed from the kidneys to the bladder. For radiation dose reduction, the following was used: automated exposure control, adjustment of mA and/or kV according to patient size. COMPARISON: [place], [place], PET NECK TO MID THIGH, 09/28/2022, 13:08. FINDINGS: Image quality: Diagnostic. CHEST: Lower Neck: No enlarged lymph nodes. Thyroid: No thyroid nodules which require sonographic evaluation. Axillae: No enlarged lymph nodes. Chest Wall: No subcutaneous gas. Lungs and Pleura: No pulmonary contusions or lacerations. No acute airspace opacities. No pneumothorax or hemothorax. Changes of right upper lobectomy. Mediastinum: No mediastinal hematomas. Heart size is normal. No pericardial effusion. Thoracic aorta and pulmonary arteries demonstrate normal size and enhancement. No mediastinal or hilar adenopathy. Esophagus is normal in caliber. No hiatal hernia. Moderate triple-vessel coronary artery calcifications. ABDOMEN: Liver: No lacerations. Hepatic steatosis. Gallbladder: No radiopaque gallstones or wall thickening. Biliary ducts: No biliary dilation. Pancreas: Homogenous enhancement. Spleen: Homogenous enhancement without laceration or hematoma. Adrenal Glands: Symmetric enhancement. Kidneys and Ureters: Symmetric enhancement. No hydronephrosis. No solid mass. No complex renal cystic lesion which requires follow up. Stomach and Bowel: Normal colonic caliber, without significant wall thickening. Diverticulosis without diverticulitis. Normal appendix. Peritoneum: No abnormal intraperitoneal fluid. No free air. Ventral Wall: No hernia. Abdominal Nodes: No retroperitoneal or mesenteric adenopathy by size criteria. Vessels: Aorta and inferior vena cava are normal in size. Moderate mural atherosclerotic calcifications. PELVIS: Pelvic Organs: Unremarkable. Bladder: Normal thickness. Pelvic Nodes: No enlarged lymph nodes. Miscellaneous: No inguinal hernias are seen. Bones: Pelvic ring and hip joints appear intact. Changes of left femoral intramedullary nailing. Nondisplaced left anterior 2nd rib, 3rd rib, 4th, and 5th rib fractures. Nondisplaced left posterior 8th, 9th, 10th, and 11th rib fractures. No right-sided rib fractures. Chronic L5 compression fracture, unchanged from 2022. Chronic L3 superior endplate compression deformity. No acute vertebral body fracture. IMPRESSION: 1. Nondisplaced left anterior 2nd, 3rd, 4th, and 5th rib fractures. 2. Nondisplaced left posterior 8th, 9th, 10th, and 11th rib fractures. 3. No pneumothorax or pulmonary laceration. 4. No acute traumatic abnormality in the abdomen or pelvis. Dictated by: Charles De La Rosa M.D. on 06/11/2025 at 1:14 Approved by: Charles De La Rosa M.D. on 06/11/2025 at 1:23 MDM Narrative Medical decision making narrative: 64-year-old female tripped over shoes few days ago, with persisting left flank pain, bruising to the skin, pain with deep breathing. On exam has clear lung sounds, no respiratory distress, some tenderness left lateral upper chest, left posterior chest, with bruising over the left flank area, no subcutaneous air or fluctuance. No flail segments. IV Dilaudid. Lab data: White blood cell count 11,900, hemoglobin 13.1, platelets adequate. Glucose 78, renal function normal. Serum CO2 21 low. Sodium 129 low. Potassium 3.3 low. Liver functions all mildly elevated. Lipase normal. Urinalysis negative. CT chest abdomen and pelvis with IV contrast. IMPRESSION: 1. Nondisplaced left anterior 2nd, 3rd, 4th, and 5th rib fractures. 2. Nondisplaced left posterior 8th, 9th, 10th, and 11th rib fractures. 3. No pneumothorax or pulmonary laceration. 4. No acute traumatic abnormality in the abdomen or pelvis. See radiology report. Pain diminished still having some discomfort. Oral hydrocodone/APAP. Dispensed albuterol inhaler with spacer, with instructions to use 2 puffs 4 times daily for this next week and then as needed. Dispensed incentive spirometry with RT teaching. Feels improved. Discharged home with family. Recheck advised in clinic in the next couple of days. Return precautions discussed. Discharge Plan Departure Patient Disposition: Home Clinical Impression: Fall from ground level, Multiple rib fractures involving four or more ribs, Left rib fracture Activity Restrictions/Additional Instructions: Recent fall tripping over some shoes days ago, persisting left-sided thoracic pain back more than front, with bruising to the posterior left thorax. No oxygen requirement, no respiratory distress. CT chest abdomen and pelvis trauma protocol, showed numerous left-sided rib fractures. No underlying lung tissue injuries or bleeding. There were anterior left rib fractures at ribs 2, 3, 4, 5. There were posterior left rib fractures at ribs 8, 9, 10, 11. Acutely sometimes we admit patients to the hospital with this many fractures. But you had been stable from the time of injury multiple days ago. It is important however that you have adequate pain control to deep breathe, and not develop pneumonia. We gave incentive spirometer for you to use to help keep your lungs open, use as directed from instructions by respiratory therapy. You were dispensed albuterol inhaler with a spacer, take 2 puffs 4 times daily for the next week, then as needed, to help also keep your lungs open in help prevent infection. You can take [id number] ibuprofen as needed for pain control. Hydrocodone/acetaminophen pain medication given by mouth, dispensed home pack, prescription sent to your pharmacy, to additionally control pain to be able to breathe deeply and help prevent infection. Advised recheck of your lung and your symptoms later this week with your regular doctor. Return to this/nearest emergency department for any change worsening symptoms or any concerns prior. Old chronic appearing L5 vertebral compression fracture also noted, but did not look different than some kind of imaging you had in 2022. Chronic appearing L3 superior endplate compression deformity also was noted. Neither appears new from today/recent injury. Prescriptions: New hydrocodone-acetaminophen 5-325 mg tablet 1 tab PO Q6H PRN (Reason: pain) Qty: 14 0RF No Action thiamine HCl (vitamin B1) 100 mg capsule 100 mg PO DAILY Qty: 30 3RF potassium chloride 20 mEq tablet extended release 20 meq PO DAILY Qty: 30 0RF Referrals: Maureen Mccullough ARNP [Primary Care Provider, Nursing] Stand Alone Forms: Patient Portal/API
--- NOTE | 2025-06-10 23:21 | DI.CT.S_ITS ---
PROCEDURE: CT CHEST ABD PEL W CON INDICATIONS: fall, posterior low thoracic pain/bruising TECHNIQUE: After the administration of intravenous contrast, 5 mm thick sections acquired from the lung apices to the symphysis. 2.5 mm thick coronal and sagittal reformats were acquired. Additional 7 mm thick coronal maximum intensity projection (MIP) reformats acquired through the lungs. Optional 10-minute delayed imaging may be performed from the kidneys to the bladder. For radiation dose reduction, the following was used: automated exposure control, adjustment of mA and/or kV according to patient size. COMPARISON: [place], [place], PET NECK TO MID THIGH, 09/28/2022, 13:08. FINDINGS: Image quality: Diagnostic. CHEST: Lower Neck: No enlarged lymph nodes. Thyroid: No thyroid nodules which require sonographic evaluation. Axillae: No enlarged lymph nodes. Chest Wall: No subcutaneous gas. Lungs and Pleura: No pulmonary contusions or lacerations. No acute airspace opacities. No pneumothorax or hemothorax. Changes of right upper lobectomy. Mediastinum: No mediastinal hematomas. Heart size is normal. No pericardial effusion. Thoracic aorta and pulmonary arteries demonstrate normal size and enhancement. No mediastinal or hilar adenopathy. Esophagus is normal in caliber. No hiatal hernia. Moderate triple-vessel coronary artery calcifications. ABDOMEN: Liver: No lacerations. Hepatic steatosis. Gallbladder: No radiopaque gallstones or wall thickening. Biliary ducts: No biliary dilation. Pancreas: Homogenous enhancement. Spleen: Homogenous enhancement without laceration or hematoma. Adrenal Glands: Symmetric enhancement. Kidneys and Ureters: Symmetric enhancement. No hydronephrosis. No solid mass. No complex renal cystic lesion which requires follow up. Stomach and Bowel: Normal colonic caliber, without significant wall thickening. Diverticulosis without diverticulitis. Normal appendix. Peritoneum: No abnormal intraperitoneal fluid. No free air. Ventral Wall: No hernia. Abdominal Nodes: No retroperitoneal or mesenteric adenopathy by size criteria. Vessels: Aorta and inferior vena cava are normal in size. Moderate mural atherosclerotic calcifications. PELVIS: Pelvic Organs: Unremarkable. Bladder: Normal thickness. Pelvic Nodes: No enlarged lymph nodes. Miscellaneous: No inguinal hernias are seen. Bones: Pelvic ring and hip joints appear intact. Changes of left femoral intramedullary nailing. Nondisplaced left anterior 2nd rib, 3rd rib, 4th, and 5th rib fractures. Nondisplaced left posterior 8th, 9th, 10th, and 11th rib fractures. No right-sided rib fractures. Chronic L5 compression fracture, unchanged from 2022. Chronic L3 superior endplate compression deformity. No acute vertebral body fracture. IMPRESSION: 1. Nondisplaced left anterior 2nd, 3rd, 4th, and 5th rib fractures. 2. Nondisplaced left posterior 8th, 9th, 10th, and 11th rib fractures. 3. No pneumothorax or pulmonary laceration. 4. No acute traumatic abnormality in the abdomen or pelvis. Dictated by: Charles De La Rosa M.D. on 06/11/2025 at 1:14 Approved by: Charles De La Rosa M.D. on 06/11/2025 at 1:23
[2025-06-10 23:56] VITALS: BP 132/79; PULSE 89; O2SAT 98
[2025-06-10] MEDS: ONDANSETRON 4 MG/2 ML INJ IV (23:59)
[2025-06-11] VITALS: BP 132/82; PULSE 89; O2SAT 97
[2025-06-11] MEDS: SODIUM CHLORIDE 0.9% 1,000 ML 1000 ML IV
[2025-06-11 00:12] LABS: Add Manual Diff / Slide Review NO; Hematocrit 39.0 % (36-46); Hemoglobin 13.1 g/dL (12.0-16.0); Lymphocytes Absolute Auto 1200 /uL (1100-4500); Mean Corpuscular HGB Conc 33.6 % (30-36); Mean Corpuscular Hemoglobin 36.7 PG (26-34); Mean Corpuscular Volume 109.2 fL (80-100); Platelet Count 222 X10^3/uL (150-400)
[2025-06-11 00:16] LABS: Appearance Urine UA CLEAR; Bilirubin Urine UA 2+ (NEGATIVE); Color Urine UA YELLOW; Glucose Urine UA NEGATIVE (Negative); Ketones Urine UA 3+ (NEGATIVE); Leukocyte Esterase Urine UA NEGATIVE (NEGATIVE); Nitrite Urine UA NEGATIVE (Negative); Occult Blood Urine UA NEGATIVE (Negative); Protein Urine UA TRACE (Negative); Specific Gravity Urine UA 1.025 (1.000-1.035); Urobilinogen Urine UA 2.0 E.U./dL (0.2)
[2025-06-11 00:18] LABS: pH Urine UA 6.0 (4.5-8.0)
[2025-06-11 00:26] LABS: INR 0.9 (0.9-1.3); Prothrombin Time 10.6 SECONDS (9.4-12.5)
[2025-06-11 00:27] LABS: Culture Indicated Urine Cult Not Indicated; Ictotest Urine Negative (Negative)
[2025-06-11 00:30] VITALS: BP 121/71; PULSE 84; O2SAT 97
[2025-06-11 00:30] LABS: Alanine Aminotransferase 74 IU/L (<35); Albumin 4.1 g/dL (3.5-5.0); Albumin Globulin Ratio 1.1 (1.0-2.8); Alkaline Phosphatase 174 U/L (38-126); Blood Urea Nitrogen 8 mg/dL (7-17); Calcium 9.1 mg/dL (8.4-10.2); Carbon Dioxide 21 mmol/L (22-32); Chloride 89 mmol/L (98-107); Estimated Glomerular Filt Rate > 60 mL/min (>60); Globulin 3.9 g/dL (1.7-4.1); Glucose 78 mg/dL (70-99); HEMOLYSIS < 15 (0-50); Lipase 70 U/L (23-300); Potassium 3.3 mmol/L (3.4-5.1); Sodium 129 mmol/L (137-145); Total Protein 8.0 g/dL (6.3-8.2)
[2025-06-11 01:00] VITALS: PULSE 88; O2SAT 98
[2025-06-11 01:30] VITALS: PULSE 92; O2SAT 98
[2025-06-11] MEDS: ALBUTEROL HFA PREPACK 1 BOX MISC (01:52)
[2025-06-11 02:00] VITALS: PULSE 91; O2SAT 96
[2025-06-11] MEDS: ONDANSETRON 4 MG ODT PREPACK 1 BOTTLE MISC (02:28)
== END 2025-06-11 02:38 | disposition home or self-care (01) ==
PROVIDERS: Emergency Provider Emergency Medicine; PCP Nurse Practitioner
DX: S22.42XA Multiple fractures of ribs, left side, initial encounter for closed fracture (principal); R11.2 Nausea with vomiting, unspecified; W01.0XXA Fall on same level from slipping, tripping and stumbling without subsequent striking against object, initial encounter
CPT/HCPCS: 36415; 71260; 74177; 80053; 81001; 83690; 85025; 85610; 96361; 96374; 96375; 99284; J1171; J2405; J7030; Q9967

== ENCOUNTER 2025-06-17 10:26 | Inpatient (IN) | payer OTHER, SELFPAY ==
[2025-03-23 15:40] VITALS: BMI 18.3
[2025-06-17 10:29] VITALS: BP 115/76; PULSE 97; RESP 14; TEMP 36.4; O2SAT 98; BMI 21.2
--- NOTE | 2025-06-17 11:02 | DI.RAD.S_ITS ---
PROCEDURE: XR CHEST 2V INDICATIONS: fall,known rib fractures TECHNIQUE: 2 views of the chest were acquired. COMPARISON: [facility], , XR CHEST 1V, 04/09/2025, 10:08. FINDINGS: Surgical changes and devices: None. Lungs and pleura: Lungs are clear. No pleural effusions or pneumothorax. Mediastinum: Mediastinal contours are normal. Heart size is normal. Bones and chest wall: No suspicious bony abnormalities. Soft tissues appear unremarkable. IMPRESSION: No acute cardiopulmonary pathology. Patient's known left sided rib fractures are not well seen on the current study. Dictated by: Pete Perez M.D. on 06/17/2025 at 12:15 Approved by: Pete Perez M.D. on 06/17/2025 at 12:16
--- NOTE | 2025-06-17 11:14 | ED.FALL ---
HPI - Fall <Elma Pruitt PA-C - Last Filed: 06/17/25 19:29> General Chief Complaint: Fall Stated Complaint: left rib pain. x 7 days Time Seen by Provider: 06/17/25 10:58 Mode of arrival: Wheelchair History of Present Illness HPI Narrative: Ms. Ceballos is a pleasant 64-year-old female with a past medical history of alcohol use disorder, about 1-2 glasses of wine a day, who presents to the emergency department for left rib pain x 7 days. Patient had a ground level fall at home over a week ago, she came to the emergency department a few days later for left-sided rib pain and was diagnosed with fractures of the left anterior ribs 2, 3, 4, 5 and left posterior ribs 8, 9, 10, 11. Patient had a CT scan chest/abdomen/pelvis at that time that revealed no other intrathoracic or intra-abdominal injuries. Patient was discharged home with albuterol inhaler, incentive spirometry, 14 hydrocodone-acetaminophen. She returns to emergency department today for continued pain of the left ribs. States that each day her left rib pain is getting worse, and she can not take the hydrocodone because it does not work. States Dilaudid seems to be the only thing that has controlled her pain. She has not been eating over the last week and states that she is frequent nausea and vomiting, chronic diarrhea, difficulty with range of motion because of the pain. She is ambulatory but states that getting up and changing positions is very painful for her. She denies hitting her head or any loss of consciousness during the time of the fall, states that she tripped and fell hitting her left ribs on a table. She has been using her incentive spirometer. She is here with her friend's boyfriend. Related Data Previous Rx's ?Medication ?Instructions ?Recorded potassium chloride 20 mEq 20 meq PO DAILY #30 tabs 03/25/25 tablet,extended release Allergies Allergy/AdvReac Type Severity Reaction Status Date / Time Penicillins (PENICILLINS) Allergy Intermediate rash Verified 06/17/25 10:29 morphine AdvReac Intermediate Hallucinati Verified 06/17/25 10:29 ng Review of Systems <Elma Pruitt PA-C - Last Filed: 06/17/25 19:29> Review of Systems ROS Unobtainable: All systems reviewed & are unremarkable except as noted in HPI and below Patient History <Elma Pruitt PA-C - Last Filed: 06/17/25 19:29> Medical History Chronic diarrhea H/O fracture of left hip Alcoholism Protein calorie malnutrition Surgical History Status post hip hemiarthroplasty Status post breast lumpectomy Status post appendectomy Status post hysterectomy Social History household members: none Smoking Status: Former smoker alcohol intake: current Smoking Status: Unknown if ever smoked alcohol intake frequency: 3 or more drinks per day Alcohol type: wine Exam <Elma Pruitt PA-C - Last Filed: 06/17/25 19:29> Narrative Exam Narrative: GENERAL: 64 year old patient appears stated age. Extremely thin patient, in no acute distress. HEAD: Atraumatic. Normocephalic. EYES: No scleral icterus. No injection or drainage. NECK: Trachea midline. Cervical ROM intact. CARDIOVASCULAR: Regular rate and rhythm. RESPIRATORY: ?Ecchymoses and tenderness on the posterior left thoracic/ribcage region. No flail chest. Nonlabored respirations. ?Speaking in clear, full sentences. ?Clear to auscultation. Breath sounds equal bilaterally. No wheezes, rales, or rhonchi. ? GASTROINTESTINAL: Abdomen soft, non-tender, nondistended. EXTREMITIES: No upper or lower extremity edema. BACK: Left upper thoracic ecchymosis and tenderness, no midline spinal tenderness. NEURO: AOx3. ?Clear speech. ?Moves all 4 extremities appropriately. SKIN: No erythema, rashes or wounds. Initial Vital Signs Initial Vital Signs: Vital Signs Temperature 97.5 F L 06/17/25 10:29 Pulse Rate 97 H 06/17/25 10:29 Respiratory Rate 14 06/17/25 10:29 Blood Pressure 115/76 06/17/25 10:29 Pulse Oximetry 98 06/17/25 10:29 Oxygen Delivery Method Room Air 06/17/25 10:29 <Leena Patiño DO - Last Filed: 06/18/25 07:51> Initial Vital Signs Initial Vital Signs: Vital Signs Temperature 97.5 F L 06/17/25 10:29 Pulse Rate 97 H 06/17/25 10:29 Respiratory Rate 14 06/17/25 10:29 Blood Pressure 115/76 06/17/25 10:29 Pulse Oximetry 98 06/17/25 10:29 Oxygen Delivery Method Room Air 06/17/25 10:29 Course <Elma Pruitt PA-C - Last Filed: 06/17/25 19:29> Orders Ordered: Acetaminophen (Acetaminophen 325 Mg Tablet) 650 mg PO Q6H PRN PRN Reason: Fever/Mild Pain (1-3) Last Admin: 06/18/25 04:18 Dose: 650 mg Documented By: Admin: 06/17/25 21:03 Dose: 650 mg Documented By: Calcium Carbonate (Calcium Carbonate 500 Mg Tab) 1,000 mg PO Q4HR PRN PRN Reason: Dyspepsia Last Admin: 06/17/25 18:22 Dose: 1,000 mg Documented By: LEVON Heparin Sodium (Porcine) (Heparin 5,000 Unit/Ml Vial) 5,000 unit SUBCUT BID [facility] Last Admin: 06/17/25 21:04 Dose: 5,000 unit Documented By: Hydromorphone HCl (Hydromorphone Hcl 0.5 Mg/0.5 Ml Syringe) 0.5 mg IV Q2H PRN PRN Reason: Pain, Severe (7-10) Last Admin: 06/18/25 00:09 Dose: 0.5 mg Documented By: Sodium Chloride (Normal Saline 0.9%) 1,000 mls @ 100 mls/hr IV CONT [facility] Last Admin: 06/18/25 03:11 Dose: 100 mls/hr Documented By: Infusion: 06/18/25 03:11 Dose: Infused Documented By: Admin: 06/17/25 17:53 Dose: 100 mls/hr Documented By: LEVON Naloxone HCl (Naloxone 0.4 Mg/Ml Vial) 0.2 mg IV Q2MIN PRN PRN Reason: Opiate Reversal Oxycodone HCl (Oxycodone Ir 5 Mg Tablet) 5 mg PO Q4HR PRN PRN Reason: Pain, Moderate (4-6) Last Admin: 06/18/25 04:21 Dose: 5 mg Documented By: Admin: 06/17/25 21:03 Dose: 5 mg Documented By: Admin: 06/17/25 17:50 Dose: 5 mg Documented By: LEVON Pantoprazole Sodium (Pantoprazole Dr 40 Mg Tablet) 40 mg PO 0700 [place] Last Admin: 06/18/25 06:06 Dose: 40 mg Documented By: Admin: 06/17/25 18:20 Dose: 40 mg Documented By: LEVON Discontinued Medications Hydromorphone HCl (Hydromorphone Hcl 0.5 Mg/0.5 Ml Syringe) 0.5 mg IV NOW ONE Stop: 06/17/25 11:56 Last Admin: 06/17/25 12:07 Dose: 0.5 mg Documented By: NUVIA Hydromorphone HCl (Hydromorphone Hcl 0.5 Mg/0.5 Ml Syringe) 0.5 mg IV NOW ONE Stop: 06/17/25 13:16 Last Admin: 06/17/25 13:21 Dose: 0.5 mg Documented By: NUVIA Sodium Chloride (Normal Saline 0.9%) 1,000 mls @ 1,000 mls/hr IV BOLUS ONE Stop: 06/17/25 12:54 Last Infusion: 06/17/25 13:33 Dose: Infused Documented By: Admin: 06/17/25 12:07 Dose: 1,000 mls/hr Documented By: NUVIA Magnesium Sulfate (Magnesium Sulfate) 2 gm in 50 mls @ 25 mls/hr IV NOW ONE Stop: 06/17/25 15:55 Last Infusion: 06/18/25 00:29 Dose: Infused Documented By: Co-signed By: FITZ Admin: 06/17/25 14:16 Dose: 25 mls/hr Documented By: NUVIA Co-signed By: ERIK Ondansetron HCl (Ondansetron 4 Mg/2 Ml Inj) 4 mg IV NOW ONE Stop: 06/17/25 11:56 Last Admin: 06/17/25 12:07 Dose: 4 mg Documented By: NUVIA Ondansetron HCl (Ondansetron 4 Mg Odt) 4 mg SL NOW ONE Stop: 06/17/25 14:24 Last Admin: 06/17/25 14:31 Dose: 4 mg Documented By: NUVIA Vital Signs Vital signs: Vital Signs - 8 hr 06/17/25 15:48 Temperature 98.0 F Pulse Rate 83 Respiratory Rate 18 Blood Pressure 108/73 Pulse Oximetry 98 <Leena Patiño DO - Last Filed: 06/18/25 07:51> Orders Ordered: Acetaminophen (Acetaminophen 325 Mg Tablet) 650 mg PO Q6H PRN PRN Reason: Fever/Mild Pain (1-3) Last Admin: 06/18/25 04:18 Dose: 650 mg Documented By: Admin: 06/17/25 21:03 Dose: 650 mg Documented By: Calcium Carbonate (Calcium Carbonate 500 Mg Tab) 1,000 mg PO Q4HR PRN PRN Reason: Dyspepsia Last Admin: 06/17/25 18:22 Dose: 1,000 mg Documented By: LEVON Heparin Sodium (Porcine) (Heparin 5,000 Unit/Ml Vial) 5,000 unit SUBCUT BID [facility] Last Admin: 06/17/25 21:04 Dose: 5,000 unit Documented By: Hydromorphone HCl (Hydromorphone Hcl 0.5 Mg/0.5 Ml Syringe) 0.5 mg IV Q2H PRN PRN Reason: Pain, Severe (7-10) Last Admin: 06/18/25 00:09 Dose: 0.5 mg Documented By: Sodium Chloride (Normal Saline 0.9%) 1,000 mls @ 100 mls/hr IV CONT [facility] Last Admin: 06/18/25 03:11 Dose: 100 mls/hr Documented By: Infusion: 06/18/25 03:11 Dose: Infused Documented By: Admin: 06/17/25 17:53 Dose: 100 mls/hr Documented By: LEVON Naloxone HCl (Naloxone 0.4 Mg/Ml Vial) 0.2 mg IV Q2MIN PRN PRN Reason: Opiate Reversal Oxycodone HCl (Oxycodone Ir 5 Mg Tablet) 5 mg PO Q4HR PRN PRN Reason: Pain, Moderate (4-6) Last Admin: 06/18/25 04:21 Dose: 5 mg Documented By: Admin: 06/17/25 21:03 Dose: 5 mg Documented By: Admin: 06/17/25 17:50 Dose: 5 mg Documented By: LEVON Pantoprazole Sodium (Pantoprazole Dr 40 Mg Tablet) 40 mg PO 0700 [facility] Last Admin: 06/18/25 06:06 Dose: 40 mg Documented By: Admin: 06/17/25 18:20 Dose: 40 mg Documented By: LEVON Discontinued Medications Hydromorphone HCl (Hydromorphone Hcl 0.5 Mg/0.5 Ml Syringe) 0.5 mg IV NOW ONE Stop: 06/17/25 11:56 Last Admin: 06/17/25 12:07 Dose: 0.5 mg Documented By: NUVIA Hydromorphone HCl (Hydromorphone Hcl 0.5 Mg/0.5 Ml Syringe) 0.5 mg IV NOW ONE Stop: 06/17/25 13:16 Last Admin: 06/17/25 13:21 Dose: 0.5 mg Documented By: NUVIA Sodium Chloride (Normal Saline 0.9%) 1,000 mls @ 1,000 mls/hr IV BOLUS ONE Stop: 06/17/25 12:54 Last Infusion: 06/17/25 13:33 Dose: Infused Documented By: Admin: 06/17/25 12:07 Dose: 1,000 mls/hr Documented By: NUVIA Magnesium Sulfate (Magnesium Sulfate) 2 gm in 50 mls @ 25 mls/hr IV NOW ONE Stop: 06/17/25 15:55 Last Infusion: 06/18/25 00:29 Dose: Infused Documented By: Co-signed By: FITZ Admin: 06/17/25 14:16 Dose: 25 mls/hr Documented By: NUVIA Co-signed By: ERIK Ondansetron HCl (Ondansetron 4 Mg/2 Ml Inj) 4 mg IV NOW ONE Stop: 06/17/25 11:56 Last Admin: 06/17/25 12:07 Dose: 4 mg Documented By: NUVIA Ondansetron HCl (Ondansetron 4 Mg Odt) 4 mg SL NOW ONE Stop: 06/17/25 14:24 Last Admin: 06/17/25 14:31 Dose: 4 mg Documented By: NUVIA Vital Signs Vital signs: Vital Signs - 8 hr 06/17/25 15:48 Temperature 98.0 F Pulse Rate 83 Respiratory Rate 18 Blood Pressure 108/73 Pulse Oximetry 98 MDM - Fall <Elma Pruitt PA-C - Last Filed: 06/17/25 19:29> Medical Records Attestation: I reviewed the patient's medical records. Lab Data 06/18/25 04:26 06/18/25 04:26 Labs: Lab Results 10/14/25 10/14/25 Range/Units 12:45 13:44 WBC 9.5 (4.5-11.0) X10^3/uL RBC 3.24 L (4.0-5.2) X10^6/uL Hgb 12.2 (12.0-16.0) g/dL Hct 35.2 L (36-46) % MCV 108.6 H (80-100) fL MCH 37.7 H (26-34) PG MCHC 34.7 (30-36) % RDW 14.4 (11.6-14.8) % Plt Count 290 (150-400) X10^3/uL Neut % (Auto) 74.6 (50-75) % Lymph % (Auto) 12.3 L (25-40) % Mower % (Auto) 12.4 (3-14) % Eos % (Auto) 0.1 L (2-4) % Baso % (Auto) 0.6 (0-2) % Neut # (Auto) 7100 H (7218-8250) /uL Lymph # (Auto) 1200 (2873-1259) /uL Mower # (Auto) 1200 H (0-900) /uL Eos # (Auto) 0 (0-450) /uL Baso # (Auto) 100 (0-100) /uL Sodium 126 L (137-145) mmol/L Potassium 4.2 (3.4-5.1) mmol/L Chloride 96 L (98-107) mmol/L Carbon Dioxide 22 (22-32) mmol/L BUN 7 (7-17) mg/dL Creatinine 0.49 L (0.52-1.04) mg/dL Estimated GFR > 60 (>60) mL/min BUN/Creatinine Ratio 14.3 (6-22) Glucose 81 (70-99) mg/dL Calcium 8.2 L (8.4-10.2) mg/dL Magnesium 1.4 L (1.6-2.3) mg/dL Total Bilirubin 0.8 (0.2-1.3) mg/dL AST 71 H (14-36) IU/L ALT 38 H (<35) IU/L Alkaline Phosphatase 134 H (38-126) U/L Total Protein 6.5 (6.3-8.2) g/dL Albumin 3.1 L (3.5-5.0) g/dL Globulin 3.4 (1.7-4.1) g/dL Albumin/Globulin Ratio 0.9 L (1.0-2.8) Lipase 37 (23-300) U/L Urine Color Yellow Urine Appearance Clear Urine pH 7.0 (4.5-8.0) Ur Specific [place] 1.010 (1.000-1.035) Urine Protein Negative (Negative) Urine Glucose (UA) Negative (Negative) g/dL Urine Ketones 2+ H (NEGATIVE) Urine Occult Blood Negative (Negative) Urine Nitrate Negative (Negative) Urine Bilirubin 2+ H (NEGATIVE) Ur Bilirubin Confirm Negative (Negative) Urine Urobilinogen 1.0 (0.2) E.U./dL Ur Leukocyte Esterase Negative (NEGATIVE) Urine RBC 0-1/hpf (0-5/HPF) Urine WBC 0-1/hpf (0-5/HPF) Ur Squamous Epith Cells 0-1 /hpf (0-5/HPF) Urine Bacteria None seen (None) Ur Culture Indicated? Cult not indicated Vol Urine Centrifuged 10ml (spun) Imaging Data Chest x-ray: Radiologist's Impression: PROCEDURE: XR CHEST 2V INDICATIONS: fall,known rib fractures TECHNIQUE: 2 views of the chest were acquired. COMPARISON: [facility], , XR CHEST 1V, 04/09/2025, 10:08. FINDINGS: Surgical changes and devices: None. Lungs and pleura: Lungs are clear. No pleural effusions or pneumothorax. Mediastinum: Mediastinal contours are normal. Heart size is normal. Bones and chest wall: No suspicious bony abnormalities. Soft tissues appear unremarkable. IMPRESSION: No acute cardiopulmonary pathology. Patient's known left sided rib fractures are not well seen on the current study. Dictated by: Pete Perez M.D. on 06/17/2025 at 12:15 Approved by: Pete Perez M.D. on 06/17/2025 at 12:16 MDM Narrative Medical decision making narrative: 64-year-old female with a past medical history of alcohol use disorder, about 1-2 glasses of wine a day, who presents to the emergency department for left rib pain x 7 days. Differential diagnosis includes but is not limited to rib fracture pain, pneumothorax, pneumonia, electrolyte abnormality, dehydration, etc. On exam the patient is in no acute distress, nontoxic appearing, she is extremely thin, frail. Vital signs appropriate except for mildly elevated heart rate 97. She is healing ecchymosis on the left thoracic back/ribcage region from rib fractures that occurred about 9-10 days ago. She has been using incentive spirometry but with worsening pain that is not controlled with hydrocodone. We will obtain repeat chest x-ray, CBC, CMP, lipase, magnesium given chronic diarrhea and nausea and vomiting currently. Repeat chest x-ray today reveals no acute cardiopulmonary pathology, lungs are clear, no pleural effusions or pneumothorax. Patient has no left-sided rib fractures are not well seen on x-ray. Lab work reveals a normal WBC count of 9.5, hemoglobin 12.2, hematocrit 35.2. Patient does have chronic hyponatremia with a sodium of 126, previous was 129. Potassium is normal at 4.2. BUN 7 creatinine 0.49. Glucose 81. Calcium 8.2, magnesium 1.4, AST 71, ALT 38, alkaline phosphatase 134, these are improved from prior. Discussed with the patient admission for placement snf facility versus discharge home with pain control and home health. Patient initially was interested in admission however she adamantly refuses a snf facility and prefer to go home with home health. Her pain is controlled at this time in the ED with Dilaudid however we will trial oral oxycodone and Zofran. We will replete magnesium. She has already received NaCl fluids and Zofran. 1525: Pt having subsequent N/V despite 8mg zofran. 1537: Spoke with gen surg Dr. Plunkett for trauma consult, he recommends admission to medicine and he will see the patient. 1540: Spoke with hospitalist Dr. Thomas who graciously accepts the patient for admission to inpatient for rib fracture pain, nausea and vomiting, hypomagnesemia, hyponatremia. Patient is aware and agreeable to admission at this time. She is stable for transfer to the floor. All questions answered. At this point she is received 1 L of IV fluids, Mag rider, 8 mg Zofran, 1 mg Dilaudid. <Leena Patiño, - Last Filed: 06/18/25 07:51> Lab Data Labs: Lab Results 06/17/25 06/17/25 Range/Units 12:45 13:44 WBC 9.5 (4.5-11.0) X10^3/uL RBC 3.24 L (4.0-5.2) X10^6/uL Hgb 12.2 (12.0-16.0) g/dL Hct 35.2 L (36-46) % MCV 108.6 H (80-100) fL MCH 37.7 H (26-34) PG MCHC 34.7 (30-36) % RDW 14.4 (11.6-14.8) % Plt Count 290 (150-400) X10^3/uL Neut % (Auto) 74.6 (50-75) % Lymph % (Auto) 12.3 L (25-40) % Mower % (Auto) 12.4 (3-14) % Eos % (Auto) 0.1 L (2-4) % Baso % (Auto) 0.6 (0-2) % Neut # (Auto) 7100 H (3682-9667) /uL Lymph # (Auto) 1200 (8412-7102) /uL Mower # (Auto) 1200 H (0-900) /uL Eos # (Auto) 0 (0-450) /uL Baso # (Auto) 100 (0-100) /uL Sodium 126 L (137-145) mmol/L Potassium 4.2 (3.4-5.1) mmol/L Chloride 96 L (98-107) mmol/L Carbon Dioxide 22 (22-32) mmol/L BUN 7 (7-17) mg/dL Creatinine 0.49 L (0.52-1.04) mg/dL Estimated GFR > 60 (>60) mL/min BUN/Creatinine Ratio 14.3 (6-22) Glucose 81 (70-99) mg/dL Calcium 8.2 L (8.4-10.2) mg/dL Magnesium 1.4 L (1.6-2.3) mg/dL Total Bilirubin 0.8 (0.2-1.3) mg/dL AST 71 H (14-36) IU/L ALT 38 H (<35) IU/L Alkaline Phosphatase 134 H (38-126) U/L Total Protein 6.5 (6.3-8.2) g/dL Albumin 3.1 L (3.5-5.0) g/dL Globulin 3.4 (1.7-4.1) g/dL Albumin/Globulin Ratio 0.9 L (1.0-2.8) Lipase 37 (23-300) U/L Urine Color Yellow Urine Appearance Clear Urine pH 7.0 (4.5-8.0) Ur Specific [place] 1.010 (1.000-1.035) Urine Protein Negative (Negative) Urine Glucose (UA) Negative (Negative) g/dL Urine Ketones 2+ H (NEGATIVE) Urine Occult Blood Negative (Negative) Urine Nitrate Negative (Negative) Urine Bilirubin 2+ H (NEGATIVE) Ur Bilirubin Confirm Negative (Negative) Urine Urobilinogen 1.0 (0.2) E.U./dL Ur Leukocyte Esterase Negative (NEGATIVE) Urine RBC 0-1/hpf (0-5/HPF) Urine WBC 0-1/hpf (0-5/HPF) Ur Squamous Epith Cells 0-1 /hpf (0-5/HPF) Urine Bacteria None seen (None) Ur Culture Indicated? Cult not indicated Vol Urine Centrifuged 10ml (spun) Discharge Plan Departure Patient Disposition: Admitted As Inpatient Clinical Impression: Multiple fractures of rib involving four or more ribs, Hyponatremia, Hypomagnesemia Nausea & vomiting Qualifiers: Vomiting type: unspecified Qualified Code(s): R11.2 - Nausea with vomiting, unspecified Admit Date/Time: 06/17/25 15:50 Admit Provider: Jose Thomas ED Sign-out <Leena Patiño DO - Last Filed: 06/18/25 07:51> Cosign ED Attending Cosignature Attestation: I was available for consultation. Discussed plan with Elma Pruitt PA-C, discuss option of admission versus discharge home. May require rehab with multiple rib fractures
[2025-06-17] MEDS: ONDANSETRON 4 MG/2 ML INJ IV (12:07)
[2025-06-17] MEDS: SODIUM CHLORIDE 0.9% 1,000 ML 1000 ML IV (12:07)
[2025-06-17 12:55] LABS: Add Manual Diff / Slide Review NO; Hematocrit 35.2 % (36-46); Hemoglobin 12.2 g/dL (12.0-16.0); Lymphocytes Absolute Auto 1200 /uL (1100-4500); Mean Corpuscular HGB Conc 34.7 % (30-36); Mean Corpuscular Hemoglobin 37.7 PG (26-34); Mean Corpuscular Volume 108.6 fL (80-100); Platelet Count 290 X10^3/uL (150-400)
[2025-06-17 13:12] LABS: Alanine Aminotransferase 38 IU/L (<35); Albumin 3.1 g/dL (3.5-5.0); Albumin Globulin Ratio 0.9 (1.0-2.8); Alkaline Phosphatase 134 U/L (38-126); Blood Urea Nitrogen 7 mg/dL (7-17); Calcium 8.2 mg/dL (8.4-10.2); Carbon Dioxide 22 mmol/L (22-32); Chloride 96 mmol/L (98-107); Estimated Glomerular Filt Rate > 60 mL/min (>60); Globulin 3.4 g/dL (1.7-4.1); Glucose 81 mg/dL (70-99); Lipase 37 U/L (23-300); Magnesium 1.4 mg/dL (1.6-2.3); Potassium 4.2 mmol/L (3.4-5.1); Sodium 126 mmol/L (137-145); Total Protein 6.5 g/dL (6.3-8.2)
[2025-06-17 13:32] LABS: HEMOLYSIS 61 (0-50)
[2025-06-17 13:58] LABS: Appearance Urine UA CLEAR; Bilirubin Urine UA 2+ (NEGATIVE); Color Urine UA YELLOW; Glucose Urine UA NEGATIVE (Negative); Ketones Urine UA 2+ (NEGATIVE); Leukocyte Esterase Urine UA NEGATIVE (NEGATIVE); Nitrite Urine UA NEGATIVE (Negative); Occult Blood Urine UA NEGATIVE (Negative); Protein Urine UA NEGATIVE (Negative); Specific Gravity Urine UA 1.010 (1.000-1.035); Urobilinogen Urine UA 1.0 E.U./dL (0.2)
[2025-06-17 14:01] LABS: pH Urine UA 7.0 (4.5-8.0)
[2025-06-17 14:12] LABS: Culture Indicated Urine Cult Not Indicated; Ictotest Urine Negative (Negative)
[2025-06-17] MEDS: MAGNESIUM SULFATE 2 GM/50 ML PIGGYBACK IV (14:16)
[2025-06-17] MEDS: ONDANSETRON 4 MG ODT SL (14:31)
[2025-06-17 15:48] VITALS: BP 108/73; PULSE 83; RESP 18; TEMP 36.7; O2SAT 98
--- NOTE | 2025-06-17 16:29 | PM.HP.1 ---
History of Present Illness History of Present Illness Date Patient Seen: 06/17/25 Chief complaint: left rib pain. x 7 days Narrative: From ED provider: Ms. Ceballos is a pleasant 64-year-old female with a past medical history of alcohol use disorder, about 1-2 glasses of wine a day, who presents to the emergency department for left rib pain x 7 days. Patient had a ground level fall at home over a week ago, she came to the emergency department a few days later for left-sided rib pain and was diagnosed with fractures of the left anterior ribs 2, 3, 4, 5 and left posterior ribs 8, 9, 10, 11. Patient had a CT scan chest/abdomen/pelvis at that time that revealed no other intrathoracic or intra-abdominal injuries. Patient was discharged home with albuterol inhaler, incentive spirometry, 14 hydrocodone-acetaminophen. She returns to emergency department today for continued pain of the left ribs. States that each day her left rib pain is getting worse, and she can not take the hydrocodone because it does not work. States Dilaudid seems to be the only thing that has controlled her pain. She has not been eating over the last week and states that she is frequent nausea and vomiting, chronic diarrhea, difficulty with range of motion because of the pain. She is ambulatory but states that getting up and changing positions is very painful for her. She denies hitting her head or any loss of consciousness during the time of the fall, states that she tripped and fell hitting her left ribs on a table. She has been using her incentive spirometer. She is here with her friend's boyfriend. S: She came to the hospital because of intractable pain and inability to really eat due to the severe pain. She lives in [place], [facility]. She denies cough, fevers or chills. She does have multiple rib fractures on the left. She was seen by surgery, recommendations for pain control and incentive spirometry. She has not been drinking recently because she has been really been too ill. She denies any blood per rectum, but does have chronic diarrhea. She denies any abdominal pain. [facility] Medical History Chronic diarrhea H/O fracture of left hip Alcoholism Protein calorie malnutrition Surgical History Status post hip hemiarthroplasty Status post breast lumpectomy Status post appendectomy Status post hysterectomy Social History household members: none Smoking Status: Unknown if ever smoked alcohol intake: current Meds Home Medications and Allergies Home Medications ?Medication ?Instructions ?Recorded ?Confirmed ?Type potassium chloride 20 mEq 20 meq PO DAILY #30 tabs 03/25/25 Rx tablet,extended release Allergies Allergy/AdvReac Type Severity Reaction Status Date / Time Penicillins (PENICILLINS) Allergy Intermediate rash Verified 06/17/25 10:29 morphine AdvReac Intermediate Hallucinati Verified 06/17/25 10:29 ng Review of Systems Review of Systems Narrative: All else reviewed and otherwise unremarkable except as noted in the history and physical. Exam Vital Signs (past 8 hours): - 06/17/25 10:29 06/17/25 15:48 Temperature 97.5 F L 98.0 F Pulse Rate 97 H 83 Respiratory Rate 14 18 Blood Pressure 115/76 108/73 Pulse Oximetry 98 98 Oxygen Delivery Method Room Air Oxygen Delivery Method Room Air Narrative Exam Narrative: NAD, alert and oriented, fluent speech, calm. Frail. Normocephalic skull, EOMI, anicteric sclera, symmetric pupils. Oropharynx unremarkable, no droop. Neck supple, midline trachea, no adenopathy. Lungs clear, normal rate and effort. Heart regular, no murmur gallop or rub. Abdomen is soft, non distended and non tender. Extremities are free of edema. Skin is free of rash or lesions. Joints are not swollen or deformed. Judgment appears to be normal. Objective Imaging Chest x-ray: Radiologist's impression: No acute cardiopulmonary pathology. Patient's known left sided rib fractures are not well seen on the current study. CT scan - chest: Radiologist's impression: from 06/10: 1. Nondisplaced left anterior 2nd, 3rd, 4th, and 5th rib fractures. 2. Nondisplaced left posterior 8th, 9th, 10th, and 11th rib fractures. 3. No pneumothorax or pulmonary laceration. 4. No acute traumatic abnormality in the abdomen or pelvis. Labs 06/17/25 12:45 06/17/25 12:45 Labs: Laboratory Results - last 24 hr 06/17/25 06/17/25 12:45 13:44 WBC 9.5 RBC 3.24 L Hgb 12.2 Hct 35.2 L MCV 108.6 H MCH 37.7 H MCHC 34.7 RDW 14.4 Plt Count 290 Neut % (Auto) 74.6 Lymph % (Auto) 12.3 L [place] % (Auto) 12.4 Eos % (Auto) 0.1 L Baso % (Auto) 0.6 Neut # (Auto) 7100 H Lymph # (Auto) 1200 [place] # (Auto) 1200 H Eos # (Auto) 0 Baso # (Auto) 100 Sodium 126 L Potassium 4.2 Chloride 96 L Carbon Dioxide 22 BUN 7 Creatinine 0.49 L Estimated GFR > 60 BUN/Creatinine Ratio 14.3 Glucose 81 Calcium 8.2 L Magnesium 1.4 L Total Bilirubin 0.8 AST 71 H ALT 38 H Alkaline Phosphatase 134 H Total Protein 6.5 Albumin 3.1 L Globulin 3.4 Albumin/Globulin Ratio 0.9 L Lipase 37 Urine Color Yellow Urine Appearance Clear Urine pH 7.0 Ur Specific [place] 1.010 Urine Protein Negative Urine Glucose (UA) Negative Urine Ketones 2+ H Urine Occult Blood Negative Urine Nitrate Negative Urine Bilirubin 2+ H Ur Bilirubin Confirm Negative Urine Urobilinogen 1.0 Ur Leukocyte Esterase Negative Urine RBC 0-1/hpf Urine WBC 0-1/hpf Ur Squamous Epith Cells 0-1 /hpf Urine Bacteria None seen Ur Culture Indicated? Cult not indicated Vol Urine Centrifuged 10ml (spun) Assessment & Plan Assessment & Plan narrative: 1. Multiple rib fractures with poor pain control. 2. Alcohol abuse with not much drinking recently. 3. Hypovolemic hyponatremia. Active. 4. Hypomagnesemia, active. PLAN: -normal saline to correct sodium. -replace electrolytes as needed. -pain control measures. -physical therapy evaluation. -incentive spirometry. Anticipate 2 midnights in the hospital, supports inpatient status. Full resuscitation. Time-Based Coding :: 35 min spent with patient and on the chart (including review of chart, obtaining history, exam, reviewing outside data, placing orders, documenting exam and treatment plan, and counseling patient) on 06/17. Quality MIPS - Admit I confirm the patient?s Advance Care Plan is present, Code status is documented, Surrogate decision maker is in patient?s record [If Yes, STOP here]: Yes MIPS - Meds 'Current medications' to include all prescriptions, [id number] products, herbals, cannabis/cannabidiol products, and vitamin/mineral/dietary (nutritional) supplements. I have utilized all available resources to obtain, update, or review the patient?s current medications. [If Yes, STOP here]: Yes
[2025-06-17 17:15] VITALS: BP 136/88; PULSE 78; RESP 16; TEMP 36.1; O2SAT 98
--- NOTE | 2025-06-17 17:20 | CM.IDA ---
Initial DCP Assessment Patient is 64 y/o female who presents to ED via POV due to concern for worsening pain and increase in nausea and vomiting patient has hx of GLF 9 days ago, per ED visit 7 days ago patient has dx of 8 fractured ribs. Patient's PCP is BRITTANY Alves at [facility], patient has [employer] insurance. DENTAL ASSISTANT MEDICAL ASSISTANT calls PCP requesting PCP follow up appt and originally schedules f/u appt for 06/19/25 for 13:30pm but cancels appt per patient request upon patient's admission to acute care today. DENTAL ASSISTANT MEDICAL ASSISTANT calls PCP clinic requesting they call patient to schedule follow up appt. Patient has hx of alcohol use disorder, concern for malnutrition, hypomagnesemia and hyponatremia. DENTAL ASSISTANT MEDICAL ASSISTANT enters room to meet with patient, patient presents as A/Ox4, patient presents as fatigued. Patient states she resides alone in [place], patient has friends as supports. It is reported that patient's friends assist her with lifting heavy things and biological science technician fish as needed. Patient endorses she is able to ambulate and manage ADLs independently. Patient states that she has a FWW, hasn't been using it but plans to do so. Patient has hx of receiving [facility] caregiver services, per EMR patient has hx of SNF rehab stay at [facility] after hip fracture in 2021. Patient's spouse three years ago. Patient has hx of drinking 1-3 ETOH beverages daily, limited food intake due to N/V. It is reported that patient's preference is to d/c to home and patient is not at all interested in SNF rehab. DENTAL ASSISTANT MEDICAL ASSISTANT discusses HH and patient indicates interest in this. DENTAL ASSISTANT MEDICAL ASSISTANT contacts [facility], it is reported that they do not take patient's insurance. DENTAL ASSISTANT MEDICAL ASSISTANT contacts [facility], it is reported that they take patient's insurance. Upon patient's admission to acute care, DENTAL ASSISTANT MEDICAL ASSISTANT meets with patient again and patient denies interest in HH services, denies need for caregiver assistance. Patient admitted to acute care due to concern for N/V, pain management due to rip fractures, Hypomagnesemia and hyponatremia. Plan: DCP to f/u with [facility], f/u with [facility] if patient indicates interest in HH. Patient likely to d/c to home upon medical clearance. Shelia Rivera, [facility] Discharge Planning/Care Management CM Discharge Assessment Start: 06/17/25 16:42 Freq: Status: Active Protocol: Document 06/17/25 17:06 LN (Rec: 06/17/25 17:17 LN [id number]) Discharge Planning Assessment Assigned Discharge ASHLEY Bass Social Services Specialist Provider BRITTANY Alves Insurance [employer] DPOA/Assigned Jorden/son Designee Name Contact Information [phone] Advance Directives? No Advance Directives No on File History Provided By Patient,Medical Record Has Patient been No admitted in last 30 days? Prior Living House Arrangements Household Members none Type of Relies on Others transporation used prior to admit Comment Can drive self short distances but relies on friends too Independent with ADL Yes 's Is patient alert and Yes oriented? Needs Assistance Home Chores / Shopping With Comment Patient denies preference for SNF rehab, was discussed and patient initially agreed but is now unsure. [facility] is the only agency that takes patient's insurance and serves [place]. Discharge Plan Home Transportation TBD Arrangement Referrals Initiated [facility]
--- NOTE | 2025-06-17 17:43 | PM.CN.IH.1 ---
History of Present Illness Consult details Date Patient Seen: 06/17/25 Time Patient Seen: 17:43 Chief complaint: left rib pain. x 7 days Reason for consult: Rib fractures Requesting provider: Elma Pruitt Narrative: Surgery consult requested by ED. 64yo F with rib fractures a week ago presents to ED c/o left lower chest pain. She presented to ED initially a week ago and was discharged with rib fracture instructions and hydrocodone. She states hydrocodone is not relieving her pain. No h/o syncope or LOC. Hgb 12, UA without blood. H/O EtOH. Per ED note: Ms. Ceballos is a pleasant 64-year-old female with a past medical history of alcohol use disorder, about 1-2 glasses of wine a day, who presents to the emergency department for left rib pain x 7 days. Patient had a ground level fall at home over a week ago, she came to the emergency department a few days later for left-sided rib pain and was diagnosed with fractures of the left anterior ribs 2, 3, 4, 5 and left posterior ribs 8, 9, 10, 11. Patient had a CT scan chest/abdomen/pelvis at that time that revealed no other intrathoracic or intra-abdominal injuries. Patient was discharged home with albuterol inhaler, incentive spirometry, 14 hydrocodone-acetaminophen. She returns to emergency department today for continued pain of the left ribs. States that each day her left rib pain is getting worse, and she can not take the hydrocodone because it does not work. States Dilaudid seems to be the only thing that has controlled her pain. She has not been eating over the last week and states that she is frequent nausea and vomiting, chronic diarrhea, difficulty with range of motion because of the pain. She is ambulatory but states that getting up and changing positions is very painful for her. She denies hitting her head or any loss of consciousness during the time of the fall, states that she tripped and fell hitting her left ribs on a table. She has been using her incentive spirometer. She is here with her friend's boyfriend. Meds Home Medications and Allergies Home Medications ?Medication ?Instructions ?Recorded ?Confirmed ?Type potassium chloride 20 mEq 20 meq PO DAILY #30 tabs 03/25/25 06/17/25 Rx tablet,extended release Allergies Allergy/AdvReac Type Severity Reaction Status Date / Time Penicillins (PENICILLINS) Allergy Intermediate rash Verified 06/17/25 10:29 morphine AdvReac Intermediate Hallucinati Verified 06/17/25 10:29 ng Exam Vital Signs (past 8 hours): - 06/17/25 10:29 06/17/25 15:48 Temperature 97.5 F L 98.0 F Pulse Rate 97 H 83 Respiratory Rate 14 18 Blood Pressure 115/76 108/73 Pulse Oximetry 98 98 Oxygen Delivery Method Room Air Oxygen Delivery Method Room Air Narrative Exam Narrative: Const General: c/o left lower rib pain Orientation: alert and oriented x3 HENMT Ears: hearing grossly normal bilaterally Eyes Visual Olvera: normal visual olvera by confrontation Conjunctivae: conjunctivae normal Sclera: sclerae normal EOM: intact bilaterally Resp Effort & Inspection: mild splinting due to pain, normal respiratory effort and able to speak in complete sentences Equal BS, tenderness over left lower chest Cardio Rate: regular rate GI Palpation: soft (NT) Extrem General: no pedal edema and no calf tenderness Objective Labs 06/17/25 12:45 06/17/25 12:45 Labs: Laboratory Results - last 24 hr 06/17/25 06/17/25 12:45 13:44 WBC 9.5 RBC 3.24 L Hgb 12.2 Hct 35.2 L MCV 108.6 H MCH 37.7 H MCHC 34.7 RDW 14.4 Plt Count 290 Neut % (Auto) 74.6 Lymph % (Auto) 12.3 L [place] % (Auto) 12.4 Eos % (Auto) 0.1 L Baso % (Auto) 0.6 Neut # (Auto) 7100 H Lymph # (Auto) 1200 [place] # (Auto) 1200 H Eos # (Auto) 0 Baso # (Auto) 100 Sodium 126 L Potassium 4.2 Chloride 96 L Carbon Dioxide 22 BUN 7 Creatinine 0.49 L Estimated GFR > 60 BUN/Creatinine Ratio 14.3 Glucose 81 Calcium 8.2 L Magnesium 1.4 L Total Bilirubin 0.8 AST 71 H ALT 38 H Alkaline Phosphatase 134 H Total Protein 6.5 Albumin 3.1 L Globulin 3.4 Albumin/Globulin Ratio 0.9 L Lipase 37 Urine Color Yellow Urine Appearance Clear Urine pH 7.0 Ur Specific [place] 1.010 Urine Protein Negative Urine Glucose (UA) Negative Urine Ketones 2+ H Urine Occult Blood Negative Urine Nitrate Negative Urine Bilirubin 2+ H Ur Bilirubin Confirm Negative Urine Urobilinogen 1.0 Ur Leukocyte Esterase Negative Urine RBC 0-1/hpf Urine WBC 0-1/hpf Ur Squamous Epith Cells 0-1 /hpf Urine Bacteria None seen Ur Culture Indicated? Cult not indicated Vol Urine Centrifuged 10ml (spun) [facility] Medical History Chronic diarrhea H/O fracture of left hip Alcoholism Protein calorie malnutrition Surgical History Status post hip hemiarthroplasty Status post breast lumpectomy Status post appendectomy Status post hysterectomy Social History household members: none Tobacco & Substance Use Smoking Status: Unknown if ever smoked alcohol intake: current Assessment & Plan Assessment and plan (1) Multiple fractures of rib involving four or more ribs: Status: Acute Plan Represented to ED for pain control She has a reasonable cough effort No pneumonia or PTX on CXR Much more comfortable after pain meds in ED Agree with analgesia, incentive spirometer, monitor CXR for pneumonia Will follow Time-Based Coding :: [TOTAL MINUTES] spent with patient and on the chart (including review of chart, obtaining history, exam, reviewing outside data, placing orders, documenting exam and treatment plan, and counseling patient) on [DATE]. PROFEE Charge Codes Inpatient or Observation consultation: [id number]
[2025-06-17 17:53] VITALS: BMI 21.2
[2025-06-17] MEDS: SODIUM CHLORIDE 0.9% 1,000 ML 100 ML IV (17:53)
[2025-06-17] MEDS: PANTOPRAZOLE DR 40 MG TABLET PO (18:20)
[2025-06-17] MEDS: CALCIUM CARBONATE 500 MG TAB 1000 MG PO (18:22)
[2025-06-17 21:01] VITALS: BP 125/90; PULSE 76; RESP 16; O2SAT 100
[2025-06-17] MEDS: ACETAMINOPHEN 325 MG TABLET 650 MG PO (21:03)
[2025-06-17] MEDS: HEPARIN 5,000 UNIT/ML VIAL 5000 UNIT SUBCUT (21:04)
[2025-06-18] VITALS (7 sets, daily range): BP systolic 94–130; BP diastolic 62–80; PULSE 66–77; RESP 14–20; TEMP 36–36.5; O2SAT 93–100
[2025-06-18] MEDS: SODIUM CHLORIDE 0.9% 1,000 ML 100 ML IV (03:11)
[2025-06-18] MEDS: ACETAMINOPHEN 325 MG TABLET 650 MG PO ×2 (04:18→20:45)
[2025-06-18 04:37] LABS: Add Manual Diff / Slide Review NO; Hematocrit 33.0 % (36-46); Hemoglobin 11.2 g/dL (12.0-16.0); Lymphocytes Absolute Auto 1700 /uL (1100-4500); Mean Corpuscular HGB Conc 34.1 % (30-36); Mean Corpuscular Hemoglobin 37.4 PG (26-34); Mean Corpuscular Volume 109.8 fL (80-100); Platelet Count 254 X10^3/uL (150-400)
[2025-06-18 04:49] LABS: Blood Urea Nitrogen 5 mg/dL (7-17); Calcium 8.4 mg/dL (8.4-10.2); Carbon Dioxide 22 mmol/L (22-32); Chloride 100 mmol/L (98-107); Estimated Glomerular Filt Rate > 60 mL/min (>60); Glucose 93 mg/dL (70-99); HEMOLYSIS 15 (0-50); Magnesium 1.7 mg/dL (1.6-2.3); Potassium 3.6 mmol/L (3.4-5.1); Sodium 126 mmol/L (137-145)
--- NOTE | 2025-06-18 05:43 | P.PN_ITS ---
Subjective Subjective Date Patient Seen: 06/18/25 Time Patient Seen: 05:44 Interval history: No new c/o Pain adequately controlled Dry cough Tolerating diet CXR yesterday without PTX or infiltrate Exam Vital Signs (past 8 hours): - 06/18/25 00:10 06/18/25 05:07 Temperature 97.6 F Pulse Rate 72 77 Respiratory Rate 16 16 Blood Pressure 112/73 94/64 Pulse Oximetry 98 93 Oxygen Flow Rate 0 Oxygen Delivery Method Room Air Oxygen Flow Rate 0 Const General: comfortable Orientation: alert, awake and oriented x3 Resp Effort & Inspection: normal respiratory effort and able to speak in complete sentences Other: Equal BS Cardio Rate: regular rate GI Palpation: soft (NT) Extrem General: no pedal edema and no calf tenderness Objective Labs 06/18/25 04:26 06/18/25 04:26 Labs: Laboratory Results - last 24 hr 06/17/25 06/17/25 06/18/25 12:45 13:44 04:26 WBC 9.5 6.6 RBC 3.24 L 3.01 L Hgb 12.2 11.2 L Hct 35.2 L 33.0 L MCV 108.6 H 109.8 H MCH 37.7 H 37.4 H MCHC 34.7 34.1 RDW 14.4 14.6 Plt Count 290 254 Neut % (Auto) 74.6 59.4 Lymph % (Auto) 12.3 L 24.8 L [place] % (Auto) 12.4 13.7 Eos % (Auto) 0.1 L 1.1 L Baso % (Auto) 0.6 1.0 Neut # (Auto) 7100 H 3900 Lymph # (Auto) 1200 1700 [place] # (Auto) 1200 H 900 Eos # (Auto) 0 100 Baso # (Auto) 100 100 Sodium 126 L 126 L Potassium 4.2 3.6 Chloride 96 L 100 Carbon Dioxide 22 22 BUN 7 5 L Creatinine 0.49 L 0.47 L Estimated GFR > 60 > 60 BUN/Creatinine Ratio 14.3 10.6 Glucose 81 93 Calcium 8.2 L 8.4 Magnesium 1.4 L 1.7 Total Bilirubin 0.8 AST 71 H ALT 38 H Alkaline Phosphatase 134 H Total Protein 6.5 Albumin 3.1 L Globulin 3.4 Albumin/Globulin Ratio 0.9 L Lipase 37 Urine Color Yellow Urine Appearance Clear Urine pH 7.0 Ur Specific [place] 1.010 Urine Protein Negative Urine Glucose (UA) Negative Urine Ketones 2+ H Urine Occult Blood Negative Urine Nitrate Negative Urine Bilirubin 2+ H Ur Bilirubin Confirm Negative Urine Urobilinogen 1.0 Ur Leukocyte Esterase Negative Urine RBC 0-1/hpf Urine WBC 0-1/hpf Ur Squamous Epith Cells 0-1 /hpf Urine Bacteria None seen Ur Culture Indicated? Cult not indicated Vol Urine Centrifuged 10ml (spun) PFSH Medical History Chronic diarrhea H/O fracture of left hip Alcoholism Protein calorie malnutrition Surgical History Status post hip hemiarthroplasty Status post breast lumpectomy Status post appendectomy Status post hysterectomy Social History household members: none Smoking Status: Former smoker alcohol intake: current Assessment & Plan Assessment and plan (1) Multiple fractures of rib involving four or more ribs: Status: Acute Plan Pain adequately controlled I encouraged her to ambulate and use spirometer Reasonable cough effort, dry cough Afebrile, no clinical signs of pneumonia Will follow Time-Based Coding :: [TOTAL MINUTES] spent with patient and on the chart (including review of chart, obtaining history, exam, reviewing outside data, placing orders, documenting exam and treatment plan, and counseling patient) on [DATE]. PROFEE [employer] Installation Helper Document charge(s): Yes Charge Codes Subsequent inpatient/observation care: [id number]
[2025-06-18] MEDS: PANTOPRAZOLE DR 40 MG TABLET PO (06:06)
--- NOTE | 2025-06-18 07:54 | PM.PN.1 ---
Subjective Subjective Interval history: Summary: presented with inretractable rib pain with multiple rib fractures after a fall 1 week prior. Also hypovolemic with hyponatremia and low magnesium. S: Her pain is under better control. She still very weak and unsteady with walking. Her sodium remains low. Her magnesium is improved. O: NAD, alert and oriented. Fluent speech. Lungs are clear, normal rate and effort. Heart is regular, no murmur gallop or rub. Abdomen is soft, non distended. Extremities are free of edema. IMAGING: Chest x-ray: Radiologist's impression: No acute cardiopulmonary pathology. Patient's known left sided rib fractures are not well seen on the current study. CT scan - chest: Radiologist's impression: from 06/10: 1. Nondisplaced left anterior 2nd, 3rd, 4th, and 5th rib fractures. 2. Nondisplaced left posterior 8th, 9th, 10th, and 11th rib fractures. 3. No pneumothorax or pulmonary laceration. 4. No acute traumatic abnormality in the abdomen or pelvis. A/P: 1. Multiple rib fractures with poor pain control. 2. Alcohol abuse with not much drinking recently. 3. Hypovolemic hyponatremia. Active. 4. Hypomagnesemia, active. PLAN: -Continue normal saline to correct sodium. Increase rate to 150 and check BMP this afternoon. Encourage oral intake for solute deficiency. -replace electrolytes as needed. -pain control measures. -physical therapy evaluation. -incentive spirometry. Anticipate 2 midnights in the hospital, supports inpatient status. Full resuscitation. Exam Vital Signs (past 8 hours): - 06/18/25 00:10 06/18/25 05:07 Temperature 97.6 F Pulse Rate 72 77 Respiratory Rate 16 16 Blood Pressure 112/73 94/64 Pulse Oximetry 98 93 Oxygen Flow Rate 0 Oxygen Delivery Method Room Air Oxygen Flow Rate 0 Objective Labs 06/18/25 04:26 06/18/25 04:26 Labs: Laboratory Results - last 24 hr 06/17/25 06/17/25 06/18/25 12:45 13:44 04:26 WBC 9.5 6.6 RBC 3.24 L 3.01 L Hgb 12.2 11.2 L Hct 35.2 L 33.0 L MCV 108.6 H 109.8 H MCH 37.7 H 37.4 H MCHC 34.7 34.1 RDW 14.4 14.6 Plt Count 290 254 Neut % (Auto) 74.6 59.4 Lymph % (Auto) 12.3 L 24.8 L [place] % (Auto) 12.4 13.7 Eos % (Auto) 0.1 L 1.1 L Baso % (Auto) 0.6 1.0 Neut # (Auto) 7100 H 3900 Lymph # (Auto) 1200 1700 [place] # (Auto) 1200 H 900 Eos # (Auto) 0 100 Baso # (Auto) 100 100 Sodium 126 L 126 L Potassium 4.2 3.6 Chloride 96 L 100 Carbon Dioxide 22 22 BUN 7 5 L Creatinine 0.49 L 0.47 L Estimated GFR > 60 > 60 BUN/Creatinine Ratio 14.3 10.6 Glucose 81 93 Calcium 8.2 L 8.4 Magnesium 1.4 L 1.7 Total Bilirubin 0.8 AST 71 H ALT 38 H Alkaline Phosphatase 134 H Total Protein 6.5 Albumin 3.1 L Globulin 3.4 Albumin/Globulin Ratio 0.9 L Lipase 37 Urine Color Yellow Urine Appearance Clear Urine pH 7.0 Ur Specific [place] 1.010 Urine Protein Negative Urine Glucose (UA) Negative Urine Ketones 2+ H Urine Occult Blood Negative Urine Nitrate Negative Urine Bilirubin 2+ H Ur Bilirubin Confirm Negative Urine Urobilinogen 1.0 Ur Leukocyte Esterase Negative Urine RBC 0-1/hpf Urine WBC 0-1/hpf Ur Squamous Epith Cells 0-1 /hpf Urine Bacteria None seen Ur Culture Indicated? Cult not indicated Vol Urine Centrifuged 10ml (spun) [facility] Medical History Chronic diarrhea H/O fracture of left hip Alcoholism Protein calorie malnutrition Surgical History Status post hip hemiarthroplasty Status post breast lumpectomy Status post appendectomy Status post hysterectomy Social History household members: none Smoking Status: Former smoker alcohol intake: current Assessment & Plan Time-Based Coding :: [TOTAL MINUTES] spent with patient and on the chart (including review of chart, obtaining history, exam, reviewing outside data, placing orders, documenting exam and treatment plan, and counseling patient) on [DATE].
[2025-06-18] MEDS: SODIUM CHLORIDE 0.9% 1,000 ML 150 ML IV ×3 (08:06→18:15)
[2025-06-18] MEDS: CALCIUM CARBONATE 500 MG TAB 1000 MG PO (09:42)
[2025-06-18] MEDS: HEPARIN 5,000 UNIT/ML VIAL 5000 UNIT SUBCUT ×2 (09:44→20:45)
--- NOTE | 2025-06-18 10:54 | PC.NURSE ---
Pt A&OX4, ate about 25% of breakfast, w/o n/v.
--- NOTE | 2025-06-18 14:40 | PT.IIE ---
Current Diagnoses Multiple fractures of ribs, unspecified side, initial encounter for closed fracture (06/17/25) Surgical History (Last Reviewed 06/17/25 @ 16:29 by Jose Thomas MD) Status post appendectomy Status post breast lumpectomy Status post hip hemiarthroplasty Status post hysterectomy Medical History (Last Reviewed 06/17/25 @ 16:29 by Jose Thomas MD) Alcoholism Chronic diarrhea H/O fracture of left hip Protein calorie malnutrition Physical Therapy Inpatient Evaluation/Re-Eval M1 PT/OT-IP Prior Functional Status Start: 06/18/25 16:43 Freq: NEEDED Status: Active Protocol: Document 06/18/25 14:40 AB (Rec: 06/18/25 16:54 AB [id number]) Medical Review Prior Functional Status Medical History Yes Reviewed Communication able to make needs known Mobility and Gait pt stated that she was independent with all mobilities and ambulation without AD Social History Household Members none Living Arrangements House Number of Floors ( One Floor Floors) Number of Stairs To 1 step to enter the house Enter/Railing? 1 step down to the living room Home Environment Standard Height Toilet,Walk in Shower,Tub/Shower Home Equipment Front Wheel Walker,Shower Seat without Backrest Additional Social pt stated that her friend and friend's GF comes in the History Comment afternoon to assist her at home M2 PT-IP Current Condition Start: 06/18/25 16:43 Freq: NEEDED Status: Active Protocol: Document 06/18/25 14:40 AB (Rec: 06/18/25 16:54 AB [id number]) Physical Therapy Current Condition Current Condition Evaluation Date 06/18/25 Treatment Diagnosis GLF; multiple rib fxs; difficulty in walking Onset Date 06/17/25 M3 PT-IP Subjective Start: 06/18/25 16:43 Freq: NEEDED Status: Active Protocol: Document 06/18/25 14:40 AB (Rec: 06/18/25 16:54 AB [id number]) Subjective Physical Therapy Visit Type Type Initial Evaluation Visit Start Time 14:40 Visit Stop Time 15:05 Number of TABLE LEVER OPERATOR Visits 0 Physical Therapy Visit Comments Patient Comments agreeable to do PT Therapy Pain Assessment Pain When Pain Assessed At Rest Pain Present Pain Present Pain Reported Location left ribs Intensity 3 Scale Used increases with mobility and sitting up Pain Management Distraction,Modification of Treatment,Re-positioning, Techniques Timing of Activity with Medications M4 PT-IP Mobility and Gait Start: 06/18/25 16:43 Freq: NEEDED Status: Active Protocol: Document 06/18/25 14:40 AB (Rec: 06/18/25 16:54 AB [id number]) PT-Bed Mobility Assessment Supine to Sit Supine to Sit Standby Assistance,Head of Bed Elevated,Bedrails Sit to Supine Sit to Supine Standby Assistance PT-Transfer Assessment Sit to and From Stand Sit to and from Standby Assistance,1 Person Assistance,Use of Upper Stand Extremities Equipment Transfer Assistive Gait Belt,Front Wheeled Walker Device Orthotic/Prosthetic No Devices or Brace: Transfers Transfer Destination Bed,Chair Transfer Technique ambulated Transfer Ability Level of Assist Standby Assistance,1 Person Assistance,Use of Upper Extremities Comments Mobility Comments pt in bed and agreed to do PT. obtained PLOF and home set up. BP: 122/80 O2 sat: 98% WI: 74. completed supine to sit with HOB elevated SBA. required increase time to complete and with c/o increase L sided rib pain . able to sit on EOB SBA. sit to stand SBA and ambulated in room using FWW SBA ~ 30 ft. pt sat on the chair for a few minutes but stated that sitting increases her rib pain and wants to go back to bed. sit to stand and step transfer back to bed without AD SBA. sit to supine SBA. positioned pt in bed. call light and table placed within reach. Gait Assessment Gait Gait Assistance Standby Assistance,1 Person Assist Required: Distance (Feet) 30 Able to Maintain No Weight Bearing Status During Gait Assistive Devices Assistive Device Gait Belt,Front Wheeled Walker Orthotic/Prosthetic No Devices or Brace: Gait Deviations General Gait Pattern Decreased Stride Length,Decreased Feet Clearance Factors Limiting Gait Function Factors Limiting Decreased Activity Tolerance,Decreased Strength,Limited Gait Function Range of Motion,Pain,Poor Balance,Poor Safety Awareness PT-Balance Assessment Sitting Balance and Reactions Static Sitting Good Balance Ability Dynamic Sitting Good Balance Ability Standing Balance and Reactions Static Standing Good Balance Ability Dynamic Standing Fair Balance Ability Device Used FWW M5 PT-IP Objective Assessments Start: 06/18/25 16:43 Freq: NEEDED Status: Active Protocol: Document 06/18/25 14:40 AB (Rec: 06/18/25 16:54 AB [id number]) Orientation Orientation/Cognition Level of Alertness Alert Orientation Name,Place,Situation Language Function Hard of Hearing Ability Safety Awareness Decreased Safety Awareness Memory Description No Deficits Noted Gross Range of Motion Lower Extremity ROM Assessment Within Functional Limits Strength Lower Extremity Strength Assessment Within Functional Limits Muscle Tone Muscle Tone WNL Yes M6 PT-IP Treatment Start: 06/18/25 16:43 Freq: NEEDED Status: Active Protocol: Document 06/18/25 14:40 AB (Rec: 06/18/25 16:54 AB [id number]) Physical Therapy Treatment Education Education Provided Safety M7 PT-IP Assessment and Plan Start: 06/18/25 16:43 Freq: NEEDED Status: Active Protocol: Document 06/18/25 14:40 AB (Rec: 06/18/25 16:54 AB [id number]) PT Summary Assessment and Plan Potential Rehabilitation Fair Potential Status of Condition Stable at Evaluation Summary Impairments Pain,ROM,Strength,Balance,Coordination,Sensation,Tone, Cognition,Bed Mobility,Transfers,Gait,Activity Tolerance Assessment Summary pt is a 64 y/o F who had a fall ~ 1 week ago and sustain multiple rib fractures. pt went home but with increase rib pain and now admitted to the hospital. pt requiring SBA with mobility using FWW but unable to tolerate much activity due to c/o increase L sided rib pain. pt plans to go home and will benefit from HHPT. Goals Bed Mobility Goal Independent Transfer Goal Independent,Front Wheeled Walker Gait Goal Independent,Front Wheel Walker Gait Distance 150 Other Goals improve transfers and ambulation without AD mod I ~ 200 ft up/down 1 step mod I Days to Meet Goals 10 Frequency of Treatment Frequency Of Once a Day Treatment Treatment Plan Physical Therapy Bed Mobility Training,Transfer Training,Gait Training, Treatment Plan Therapeutic Exercise,Balance Retraining,Discharge Planning,Hot or Cold Pack,Neuromuscular Re-ed, Coordination Retraining,Manual Therapy Precautions Other Precautions falls Recommendations To Nursing Amount of Assist Standby Assistance Needed Discharge Recommendations PT Discharge Home with Assistance,Home Health Recommendations Transportation Needs Private Vehicle at Discharge - PT assist 1
--- NOTE | 2025-06-18 19:01 | PC.NURSE ---
Son in [facility] [place] called today to provide info on patient, history of drinking, eating poorly, chronic diarrhea and n/v. He can be reached by email at as he gets emails instantaneously and [place].
[2025-06-19] VITALS: BP 127/79; PULSE 76; RESP 16; TEMP 36.2; O2SAT 95
[2025-06-19 04:00] VITALS: BP 111/71; PULSE 72; RESP 16; TEMP 36.6; O2SAT 98
[2025-06-19] MEDS: ACETAMINOPHEN 325 MG TABLET 650 MG PO ×2 (04:12→21:20)
[2025-06-19 04:43] LABS: Add Manual Diff / Slide Review NO; Hematocrit 31.2 % (36-46); Hemoglobin 10.7 g/dL (12.0-16.0); Lymphocytes Absolute Auto 1700 /uL (1100-4500); Mean Corpuscular HGB Conc 34.4 % (30-36); Mean Corpuscular Hemoglobin 37.5 PG (26-34); Mean Corpuscular Volume 109.1 fL (80-100); Platelet Count 259 X10^3/uL (150-400)
[2025-06-19 05:00] LABS: Calcium 8.1 mg/dL (8.4-10.2); Carbon Dioxide 21 mmol/L (22-32); Chloride 103 mmol/L (98-107); Estimated Glomerular Filt Rate > 60 mL/min (>60); Glucose 91 mg/dL (70-99); HEMOLYSIS < 15 (0-50); Magnesium 1.3 mg/dL (1.6-2.3); Potassium 3.7 mmol/L (3.4-5.1); Sodium 128 mmol/L (137-145)
[2025-06-19 05:01] LABS: Blood Urea Nitrogen < 2 mg/dL (7-17)
[2025-06-19] MEDS: PANTOPRAZOLE DR 40 MG TABLET PO (06:47)
[2025-06-19 08:00] VITALS: BP 126/74; PULSE 73; RESP 18; TEMP 36.8; O2SAT 96
[2025-06-19] MEDS: HEPARIN 5,000 UNIT/ML VIAL 5000 UNIT SUBCUT ×2 (08:26→21:19)
[2025-06-19] MEDS: MAGNESIUM SULFATE 2 GM/50 ML PIGGYBACK IV (08:27)
[2025-06-19] MEDS: SODIUM CHLORIDE 0.9% 1,000 ML 150 ML IV (08:27)
--- NOTE | 2025-06-19 08:51 | PM.PN.IH.1 ---
Subjective Subjective Date Patient Seen: 06/19/25 Time Patient Seen: 08:51 Interval history: No new c/o Left lower rib pain Pulling 1,000cc on IS Dry cough Pain controlled Exam Vital Signs (past 8 hours): - 06/19/25 04:00 06/19/25 08:00 Temperature 97.8 F 98.2 F Pulse Rate 72 73 Respiratory Rate 16 18 Blood Pressure 111/71 126/74 Pulse Oximetry 98 96 Oxygen Flow Rate 0 Oxygen Delivery Method Room Air Oxygen Flow Rate 0 Const General: comfortable Resp Effort & Inspection: normal respiratory effort and able to speak in complete sentences Cardio Rate: regular rate GI Palpation: soft (NT) Objective Labs 06/19/25 04:10 06/19/25 04:10 Labs: Laboratory Results - last 24 hr 06/19/25 04:10 WBC 6.0 RBC 2.86 L Hgb 10.7 L Hct 31.2 L MCV 109.1 H MCH 37.5 H MCHC 34.4 RDW 14.0 Plt Count 259 Neut % (Auto) 56.3 Lymph % (Auto) 28.2 [place] % (Auto) 13.0 Eos % (Auto) 1.4 L Baso % (Auto) 1.1 Neut # (Auto) 3400 Lymph # (Auto) 1700 [place] # (Auto) 800 Eos # (Auto) 100 Baso # (Auto) 100 Sodium 128 L Potassium 3.7 Chloride 103 Carbon Dioxide 21 L BUN < 2 L Creatinine 0.45 L Estimated GFR > 60 BUN/Creatinine Ratio 4.4 L Glucose 91 Calcium 8.1 L Magnesium 1.3 L PFSH Medical History Chronic diarrhea H/O fracture of left hip Alcoholism Protein calorie malnutrition Surgical History Status post hip hemiarthroplasty Status post breast lumpectomy Status post appendectomy Status post hysterectomy Social History household members: none Smoking Status: Former smoker alcohol intake: current Assessment & Plan Assessment and plan (1) Multiple fractures of rib involving four or more ribs: Status: Acute Plan No clinical signs pneumonia Pain controlled Continue IS Time-Based Coding :: [TOTAL MINUTES] spent with patient and on the chart (including review of chart, obtaining history, exam, reviewing outside data, placing orders, documenting exam and treatment plan, and counseling patient) on [DATE]. [employer]EE [employer] Document charge(s): Yes Charge Codes Subsequent inpatient/observation care: [id number]
--- NOTE | 2025-06-19 12:02 | DIET.CONS ---
Dietary Consultation Note Admission Date: 06/17/2025 15:50 Assessment: 64 y F admitted with intractable rib pain with multiple rib fractures and hypovolemic with hyponatremia and low magnesium. Dietitian screened for low MNA. Pt with hx of protein calorie malnutrition and chronic diarrhea. Met with pt at bedside. Reports not eating much over last week d/t pain and vomiting. Reports vomiting up lunch yesterday. Is tolerating mashed potatoes, ice cream, and pudding. Is unsure of height, last admission was reported as 5'5. But reports at [facility] recently staff took height and said she was 4'11. Thus change in BMI this admission from last despite weight loss. NFPE with mild to moderate loss in temples, deltoid, trapezius, mild loss buccal and orbital fat pads Ht: 149.86 cm Wt: 47.627 kg BMI: 21.2 UBW: Reports wt stable around 105# recently, was 110# at last admission RD consult 03/24/25 (-4% loss in 3 months, non-severe) Last BM: 06/17/25 (06/17/25 17:53) MNA: 10 Guevara Score: 18 Diet: 06/17/25 Dinner General (Regular) Diet Diet Modifications: Nutrition Percent Meal Consumed 10% 06/19/25 09:10 Percent Meal Consumed 100% 06/18/25 18:41 Percent Meal Consumed 10 06/17/25 18:00 Labs: RBC 2.86 X10^6/uL (4.0-5.2) L 06/19/25 04:10 Hgb 10.7 g/dL (12.0-16.0) L 06/19/25 04:10 Hct 31.2 % (36-46) L 06/19/25 04:10 Creatinine 0.45 mg/dL (0.52-1.04) L 06/19/25 04:10 Nutrition Diagnosis: Moderate acute protein calorie malnutrition r/t decreased appetite aeb <50% of estimated energy needs for 7 days per diet recall and mild muscle wasting in temples and deltoid and mild subcutaneous fat loss in buccal and orbital fat pads Interventions: -Reviewed easy to tolerate foods and eating q2-3h -ONS clear trial -height measured as able per pt request EER: 1500 kcals (30 kcals/kg per BMI) 55-60 g protein (1.2 g/kg per PCM) Monitoring/Evaluations: PO intakes, ONS tolerance Electronically Signed by: Marissa Allison 06/19/25 12:02 Clinical Dietitian [address] [address]
[2025-06-19 12:15] VITALS: BP 109/75; PULSE 85; RESP 18; TEMP 36.6; O2SAT 94
--- NOTE | 2025-06-19 12:48 | PM.PN.1 ---
Subjective Subjective Interval history: Summary: A 64-year-old female with history of alcohol use disorder presented with severe rib pain and not doing well at home after a previous fall with multiple rib fractures. She was found to have low magnesium and hyponatremia secondary to solute deficiency. She was had a lot of nausea. She was admitted and her sodium is slowly improving with saline. Her magnesium is requiring intermittent repletion. Her p.o. intake is slowly improving. S: Still having nausea, no abdominal pain. A lot of rib pain with difficulty moving. Sodium is 129. O: NAD, alert and oriented. Fluent speech. Frail. Lungs are clear, normal rate and effort. Heart is regular, no murmur gallop or rub. Abdomen is soft, non distended. Extremities are free of edema. A/P: A/P: 1. Multiple rib fractures with poor pain control. Continue current meds. 2. Alcohol abuse with not much drinking recently. No withdrawal. 3. Hypovolemic hyponatremia. Slow improvement. 4. Hypomagnesemia, active. PLAN: -Continue normal saline to correct sodium. Increase rate to 150 and check BMP this afternoon. Encourage oral intake for solute deficiency. -replace electrolytes as needed. -pain control measures. -physical therapy evaluation. Did well. . -incentive spirometry. She needs another night in the hospital for ongoing treatment of low sodium and pain control related to rib fractures. She did well physical therapy and we will be able to discharge home, likely tomorrow. Exam Vital Signs (past 8 hours): - 06/19/25 08:00 06/19/25 08:00 06/19/25 12:15 Temperature 98.2 F 97.8 F Pulse Rate 73 85 Respiratory Rate 18 18 Blood Pressure 126/74 109/75 Pulse Oximetry 96 94 Oxygen Delivery Method Room Air Oxygen Flow Rate 0 0 Oxygen Delivery Method Room Air Oxygen Flow Rate 0 Objective Labs 06/19/25 04:10 06/19/25 04:10 Labs: Laboratory Results - last 24 hr 06/19/25 04:10 WBC 6.0 RBC 2.86 L Hgb 10.7 L Hct 31.2 L MCV 109.1 H MCH 37.5 H MCHC 34.4 RDW 14.0 Plt Count 259 Neut % (Auto) 56.3 Lymph % (Auto) 28.2 [place] % (Auto) 13.0 Eos % (Auto) 1.4 L Baso % (Auto) 1.1 Neut # (Auto) 3400 Lymph # (Auto) 1700 [place] # (Auto) 800 Eos # (Auto) 100 Baso # (Auto) 100 Sodium 128 L Potassium 3.7 Chloride 103 Carbon Dioxide 21 L BUN < 2 L Creatinine 0.45 L Estimated GFR > 60 BUN/Creatinine Ratio 4.4 L Glucose 91 Calcium 8.1 L Magnesium 1.3 L PFSH Medical History Chronic diarrhea H/O fracture of left hip Alcoholism Protein calorie malnutrition Surgical History Status post hip hemiarthroplasty Status post breast lumpectomy Status post appendectomy Status post hysterectomy Social History household members: none Smoking Status: Former smoker alcohol intake: current Assessment & Plan Time-Based Coding :: [TOTAL MINUTES] spent with patient and on the chart (including review of chart, obtaining history, exam, reviewing outside data, placing orders, documenting exam and treatment plan, and counseling patient) on [DATE].
--- NOTE | 2025-06-19 14:05 | CM.DPC ---
DCP Cont. Reviewed EMR and team rounds for pt's status updates. Pt will need [facility] upon d/c. Will plan to send referral on Monday. Monitoring for any other final needs.
[2025-06-19 16:02] VITALS: BP 134/76; PULSE 80; RESP 20; TEMP 36.4; O2SAT 99
[2025-06-19 20:00] VITALS: BP 131/71; PULSE 89; RESP 19; TEMP 36.3; O2SAT 98
[2025-06-20] VITALS: BP 117/71; PULSE 80; RESP 16; TEMP 36.4; O2SAT 98
[2025-06-20] MEDS: ACETAMINOPHEN 325 MG TABLET 650 MG PO (03:59)
[2025-06-20 04:00] VITALS: BP 128/78; PULSE 70; RESP 14; TEMP 36.5; O2SAT 98
[2025-06-20] MEDS: PANTOPRAZOLE DR 40 MG TABLET PO (06:42)
[2025-06-20 08:00] VITALS: BP 128/75; PULSE 71; RESP 18; TEMP 36.2; O2SAT 98
--- NOTE | 2025-06-20 09:30 | DIET.PN1 ---
Dietary Progress Note Assessment: f/u Met with pt at bedside. Reports tolerating more food yesterday, ice creams, pudding, juice, applesauce protein supplement in potatoes. Didn't tolerate Ensure clear. Not feeling as well today. Will continue above foods and protein supplementation in potatoes. Ht: 149.86 cm Wt: 47.627 kg BMI: 21.2 Last BM: 06/17/25 (06/17/25 17:53) MNA: 10 Guevara Score: 18 Diet: 06/17/25 Dinner General (Regular) Diet Diet Modifications: Nutrition Percent Meal Consumed 75% 06/19/25 18:40 Percent Meal Consumed 10% 06/19/25 09:10 Percent Meal Consumed 100% 06/18/25 18:41 Labs: RBC 2.86 X10^6/uL (4.0-5.2) L 06/19/25 04:10 Hgb 10.7 g/dL (12.0-16.0) L 06/19/25 04:10 Hct 31.2 % (36-46) L 06/19/25 04:10 Creatinine 0.45 mg/dL (0.52-1.04) L 06/19/25 04:10 Electronically Signed by: Marissa Allison 06/20/25 09:30 Clinical Dietitian [address] [address]
--- NOTE | 2025-06-20 10:14 | PM.PN.IH.1 ---
Subjective Subjective Date Patient Seen: 06/20/25 Time Patient Seen: 09:35 Interval history: Patient is resting in bed states that she still has some left rib pain from a fall 1-1/2 weeks ago was noted to have fractured ribs 2 through 5 inclusive and 8 through 11 inclusive. The patient was admitted for pain management. States she is not any better. Patient has no morning laboratory. Discussed with the patient dietary supplements which she refuses. Vitals: Temperature is 97.2? pulse 71 respirations 18 BP is 128/75 SaO2 is 98% on room air. Heart regular rate and rhythm. Lungs good breath sounds on the right diminished breath sounds on the left. Abdomen is soft nondistended good active bowel sounds. Impression: Fall at home 1 0-1/2 weeks ago with fractured ribs on the left 2 through 5 inclusive 8 through 11 inclusive. History of alcohol use Plan: Patient has diminished breath sounds on the left we will go ahead and recheck a chest x-ray as she has not had 1 done in a while make sure there was no pulmonary problems. Discussed with the patient dietary supplements which she refuses any supplements. Discussed avoiding narcotics if she does not need him as she may go home we will have pain for 4-6 weeks with a fractured ribs. Exam Vital Signs (past 8 hours): - 06/20/25 04:00 06/20/25 08:00 Temperature 97.7 F 97.2 F L Pulse Rate 70 71 Respiratory Rate 14 18 Blood Pressure 128/78 128/75 Pulse Oximetry 98 98 Oxygen Flow Rate 0 Oxygen Delivery Method Room Air Oxygen Flow Rate 0 Objective Labs 06/19/25 04:10 06/19/25 04:10 [facility] Medical History Chronic diarrhea H/O fracture of left hip Alcoholism Protein calorie malnutrition Surgical History Status post hip hemiarthroplasty Status post breast lumpectomy Status post appendectomy Status post hysterectomy Social History household members: none Smoking Status: Former smoker alcohol intake: current Assessment & Plan Time-Based Coding :: [TOTAL MINUTES] spent with patient and on the chart (including review of chart, obtaining history, exam, reviewing outside data, placing orders, documenting exam and treatment plan, and counseling patient) on [DATE]. PROFEE Cushion Stuffer Document charge(s): Yes
--- NOTE | 2025-06-20 10:18 | DI.RAD.S_ITS ---
PROCEDURE: XR CHEST 1V INDICATIONS: Diminished breath sounds on the left TECHNIQUE: One view of the chest was acquired. COMPARISON: [facility], CR, XR CHEST 2V, 06/17/2025, 11:13. [facility], CR, XR CHEST 1V, 04/09/2025, 10:08. FINDINGS: Surgical changes and devices: None. Lungs and pleura: Lungs are clear. No pleural effusions or pneumothorax. Mediastinum: Mediastinal contours appear normal. Heart size is normal. Bones and chest wall: No suspicious bony lesions. Overlying soft tissues appear unremarkable. IMPRESSION: No acute cardiopulmonary abnormality is seen. Dictated by: Charles De La Rosa M.D. on 06/20/2025 at 10:42 Approved by: Charles De La Rosa M.D. on 06/20/2025 at 10:42
[2025-06-20 11:12] VITALS: BP 153/89; PULSE 78; RESP 20; TEMP 36.3; O2SAT 97
--- NOTE | 2025-06-20 12:21 | P.DS_ITS ---
History of Present Illness History of Present Illness Date Patient Seen: 06/20/25 Time Patient Seen: 09:30 Chief complaint: left rib pain. x 7 days Narrative: Ms. Ceballos is a pleasant 64-year-old female with a past medical history of alcohol use disorder, about 1-2 glasses of wine a day, who presents to the emergency department for left rib pain x 7 days. Patient had a ground level fall at home over a week ago, she came to the emergency department a few days later for left-sided rib pain and was diagnosed with fractures of the left anterior ribs 2, 3, 4, 5 and left posterior ribs 8, 9, 10, 11. Patient had a CT scan chest/abdomen/pelvis at that time that revealed no other intrathoracic or intra-abdominal injuries. Patient was discharged home with albuterol inhaler, incentive spirometry, 14 hydrocodone-acetaminophen. She returns to emergency department today for continued pain of the left ribs. States that each day her left rib pain is getting worse, and she can not take the hydrocodone because it does not work. States Dilaudid seems to be the only thing that has controlled her pain. She has not been eating over the last week and states that she is frequent nausea and vomiting, chronic diarrhea, difficulty with range of motion because of the pain. She is ambulatory but states that getting up and changing positions is very painful for her. She denies hitting her head or any loss of consciousness during the time of the fall, states that she tripped and fell hitting her left ribs on a table. She has been using her incentive spirometer. She is here with her friend's boyfriend. She came to the hospital because of intractable pain and inability to really eat due to the severe pain. She lives in [place], alone. She denies cough, fevers or chills. She does have multiple rib fractures on the left. She was seen by surgery, recommendations for pain control and incentive spirometry. She has not been drinking recently because she has been really been too ill. She denies any blood per rectum, but does have chronic diarrhea. She denies any abdominal pain. Discharge Providers Provider Date of admission: 06/17/25 15:50 Discharge Date: 06/20/25 Primary care physician: BRITTANY Alves Consults: 06/17/25 12:34 Consult to [facility] - Clinical Mental Health Counselor Stat Comment: Clinical Mental Health Counselor Consult needed for:: Not safe at home Unable to care for self 06/18/25 12:41 Consult to Physical Therapy Evaluate & Treat Comment: Physician Instructions: Evaluate and Treat 06/18/25 17:37 Consult to Pharmacy Routine Comment: high fall risk Discharge provider: Maximiliano Gillespie MD Summary Hospital Course Discharge Diagnosis: 1. Multiple rib fractures with poor pain control. 2. Alcohol abuse with not much drinking recently. 3. Hypovolemic hyponatremia. 4. Hypomagnesemia, active. Hospital Course: The patient was admitted for pain control, IV hydration, and monitoring of electrolytes and physical therapy evaluation. She did well during her hospitalization. Follow up chest x-ray shows no pneumothorax. She was interested in discharge home. Close outpatient follow-up with electrolyte monitoring is advised. The patient acknowledged understanding, agreement and appreciation of this plan of care, and agreed to call back with any questions or concerns. Status at Discharge Cognitive/behavioral status at discharge: oriented Functional status at discharge: uses cane/walker Overall status at discharge: patient is progressing back to baseline Time Spent with Patient Time spent: Greater than 30 minutes Exam Vital Signs (past 8 hours): - 06/20/25 08:00 06/20/25 11:12 Temperature 97.2 F L 97.4 F L Pulse Rate 71 78 Respiratory Rate 18 20 Blood Pressure 128/75 153/89 H Pulse Oximetry 98 97 Oxygen Delivery Method Room Air Oxygen Flow Rate 0 Narrative Exam Narrative: NAD, alert and oriented. Fluent speech. Frail. Lungs are clear, normal rate and effort. Heart is regular, no murmur gallop or rub. Abdomen is soft, non distended. Extremities are free of edema. Objective Imaging *: Radiologist's impression: 1. Chest x-ray 06/17/2025: No acute cardiopulmonary pathology. Patient's known left sided rib fractures are not well seen on the current study. 2. Chest x-ray 06/20/2025: No acute cardiopulmonary abnormality is seen. 3. Chest/abdomen/pelvis CT 06/10/2025: 1. Nondisplaced left anterior 2nd, 3rd, 4th, and 5th rib fractures. 2. Nondisplaced left posterior 8th, 9th, 10th, and 11th rib fractures. 3. No pneumothorax or pulmonary laceration. 4. No acute traumatic abnormality in the abdomen or pelvis. Labs 06/19/25 04:10 06/19/25 04:10 [facility] Medical History Alcoholism Chronic diarrhea H/O fracture of left hip Protein calorie malnutrition Surgical History Status post appendectomy Status post breast lumpectomy Status post hip hemiarthroplasty Status post hysterectomy Social History household members: none Smoking Status: Former smoker alcohol intake: current Discharge Plan Discharge Plan Patient Disposition: Home Provider Discharge Comment: Followup with PCP 1 week Discharge orders & Medications Prescriptions: New oxycodone 5 mg Tablet 5 mg PO Q4HR PRN (Reason: Pain, Moderate (4-6)) Qty: 10 0RF magnesium chloride 64 mg tablet,delayed release (DR/EC) 64 mg PO BID Qty: 60 0RF Continued potassium chloride 20 mEq tablet extended release 20 meq PO DAILY Qty: 30 0RF Follow up/Referrals: Maureen Mccullough [employer] [Primary Care Provider, Nursing] Diet/Activity/Treatments Diet: Regular Activity: Incentive spirometer hourly while awake Visit Report/Discharge Packet Stand Alone Forms: Patient Portal/API, Stroke Signs & Symptoms Discharge Data Primary Care Provider: Maureen Mccullough Quality MIPS - Admit I confirm the patient?s Advance Care Plan is present, Code status is documented, Surrogate decision maker is in patient?s record [If Yes, STOP here]: Yes MIPS - Meds 'Current medications' to include all prescriptions, [id number] products, herbals, cannabis/cannabidiol products, and vitamin/mineral/dietary (nutritional) supplements. I have utilized all available resources to obtain, update, or review the patient?s current medications. [If Yes, STOP here]: Yes MIPS - DC The patient has a history of heart transplant or Left Ventricular Assist Device (LVAD). If yes, STOP here.: No The patient has current or prior documentation of left ventricular ejection fraction (LVEF) less than or equal to 40%, or moderate or severely depressed left ventricular systolic function.: No A. The patient was prescribed or already taking an Angiotensin-Converting Enzyme (KAITLIN) Inhibitor, or Angiotensin Receptor Dyan (ARB).: No B. The patient was prescribed or already taking a beta-dyan. [If Yes to Both A & B, STOP here]: No Patient not prescribed/taking KAITLIN or ARB, no reason given.: No Patient not prescribed/taking beta-dyan, no reason given.: No PROFEE Charge Codes Discharge inpatient/observation: [id number]
--- NOTE | 2025-06-20 13:27 | CM.DPC ---
HH referral sent Marni SHAY
--- NOTE | 2025-06-20 13:59 | PT-IP ANOTE ---
checked on pt and pt refused PT. pt stated that she is not feeling well and has rib pain. will f/u.
--- NOTE | 2025-06-20 14:25 | PC.NURSE ---
Addendum entered by Maria M Del Rio, RN 06/20/25 16:00: Pt transportation here, 1520 pt escorted by staff via W/C to waiting vehicle D/C in stable status Original Note: Pt status remains essentially unchanged. A/O, Ambulating in room Med for discomfort as per orders. Orders for D/C received, SL D/C intact; home instructions given w/understanding. Awaiting transportation. Call light w/in reach.
== END 2025-06-20 15:20 | disposition home health service (06) | DRG 184 ==
LOC: ED 15:45 → AC 15:51
PROVIDERS: Admitting Provider Hospitalist; Emergency Provider Physician Assistant; PCP Nurse Practitioner; Referring Provider Physician Assistant; Visit Provider Hospitalist
DX: S22.42XA Multiple fractures of ribs, left side, initial encounter for closed fracture (principal); E87.1 Hypo-osmolality and hyponatremia; K52.9 Noninfective gastroenteritis and colitis, unspecified; R11.2 Nausea with vomiting, unspecified; F10.10 Alcohol abuse, uncomplicated; E83.42 Hypomagnesemia; W18.30XA Fall on same level, unspecified, initial encounter; Z87.891 Personal history of nicotine dependence
CPT/HCPCS: 36415; 71045; 71046; 80048; 80053; 81001; 83690; 83735; 85025; 96361; 96365; 96366; 96375; 96376; 97162; 97530; 99284; J1171; J1644; J2405; J3475; J7030

== ENCOUNTER 2025-07-07 14:13 | Observation (INO) | payer OTHER, SELFPAY ==
[2025-07-07] VITALS (13 sets, daily range): BP systolic 98–135; BP diastolic 58–94; PULSE 81–98; RESP 14–18; TEMP 36.3–36.8; O2SAT 94–99; BMI 18.3; BMI 16.9
--- NOTE | 2025-07-07 14:27 | EKG_ITS ---
[facility]
[2025-07-07] MEDS: ONDANSETRON 4 MG/2 ML INJ IV (14:41)
[2025-07-07 14:49] LABS: Add Manual Diff / Slide Review NO; Hematocrit 41.7 % (36-46); Hemoglobin 14.4 g/dL (12.0-16.0); Lymphocytes Absolute Auto 1900 /uL (1100-4500); Mean Corpuscular HGB Conc 34.5 % (30-36); Mean Corpuscular Hemoglobin 36.5 PG (26-34); Mean Corpuscular Volume 105.7 fL (80-100); Platelet Count 317 X10^3/uL (150-400)
--- NOTE | 2025-07-07 14:53 | EKG_ITS ---
[facility]
[2025-07-07 15:01] LABS: Alanine Aminotransferase 33 IU/L (<35); Albumin 3.9 g/dL (3.5-5.0); Albumin Globulin Ratio 1.0 (1.0-2.8); Alkaline Phosphatase 180 U/L (38-126); Blood Urea Nitrogen 9 mg/dL (7-17); Calcium 8.6 mg/dL (8.4-10.2); Carbon Dioxide 24 mmol/L (22-32); Chloride 84 mmol/L (98-107); Estimated Glomerular Filt Rate > 60 mL/min (>60); Globulin 3.8 g/dL (1.7-4.1); Glucose 90 mg/dL (70-99); HEMOLYSIS 34 (0-50); Lipase 125 U/L (23-300); Potassium 3.6 mmol/L (3.4-5.1); Sodium 122 mmol/L (137-145); Total Protein 7.7 g/dL (6.3-8.2)
--- NOTE | 2025-07-07 15:56 | ED_ITS ---
HPI - Nausea/Vomiting/Diarrhea
--- NOTE | 2025-07-07 15:56 | ED.NAVMDI ---
HPI - Nausea/Vomiting/Diarrhea General Chief complaint: Nausea/Vomiting/Diarrhea Stated complaint: vomitting, diarrhea, 1wk Time Seen by Provider: 07/07/25 15:34 Source: patient and family Mode of arrival: Wheelchair History of Present Illness HPI Narrative: 64-year-old female history of alcohol use disorder drinks 4 glasses of wine, appendectomy presents with numerous bouts of nonbilious nonbloody nausea vomiting along with watery diarrhea for the past week and diffuse abdominal pain. She denies any rectal bleeding, blood in the stool, chest pain, shortness of breath, back pain, urinary complaints, headache dizziness lightheadedness or urinary complaints. Other than what is stated 14 point review of system is negative. Related Data Previous Rx's ?Medication ?Instructions ?Recorded magnesium chloride 64 mg 64 mg PO BID #60 tabs 06/20/25 (magnesium chloride) tablet,delayed release oxycodone 5 mg tablet 5 mg PO Q4HR PRN Pain, Moderate 06/20/25 (4-6) #10 tabs potassium chloride 20 mEq 20 meq PO DAILY #30 tabs 06/20/25 tablet,extended release Allergies Allergy/AdvReac Type Severity Reaction Status Date / Time Penicillins (PENICILLINS) Allergy Intermediate rash Verified 07/07/25 14:24 morphine AdvReac Intermediate Hallucinati Verified 07/07/25 14:24 ng Review of Systems Review of Systems ROS Unobtainable: All systems reviewed & are unremarkable except as noted in HPI and below Patient History Medical History Alcoholism Chronic diarrhea H/O fracture of left hip Protein calorie malnutrition Surgical History Status post appendectomy Status post breast lumpectomy Status post hip hemiarthroplasty Status post hysterectomy Social History household members: none Smoking Status: Former smoker alcohol intake: current Smoking Status: Former smoker alcohol intake frequency: 3 or more drinks per day Alcohol type: wine Exam Narrative Exam Narrative: GENERAL: [64] year old patient appears stated age. Well-developed patient, in mild distress. HEAD: Atraumatic. Normocephalic. EYES: Pupils equal round and reactive. Extraocular motions intact. No scleral icterus. No injection or drainage. ENT: Nose without bleeding, purulent drainage. Throat without erythema, tonsillar hypertrophy or exudate. Airway patent. NECK: Trachea midline. Non tender CARDIOVASCULAR: Regular rate and rhythm without murmurs, gallops, or rubs. RESPIRATORY: Clear to auscultation. Breath sounds equal bilaterally. No wheezes, rales, or rhonchi. GASTROINTESTINAL: Abdomen soft, non-tender, nondistended. EXTREMITIES: No edema or joint tenderness. BACK: Nontender without deformity or crepitance. No flank tenderness. NEURO: AOx3. SKIN: No rash or erythema of visible areas Initial Vital Signs Initial Vital Signs: Vital Signs Temperature 97.3 F L 07/07/25 14:18 Pulse Rate 95 H 07/07/25 14:18 Respiratory Rate 18 07/07/25 14:18 Blood Pressure 135/94 H 07/07/25 14:18 Pulse Oximetry 99 07/07/25 14:18 Oxygen Delivery Method Room Air 07/07/25 14:18 Course Orders Ordered: ED Orders 07/07/25 14:27 EKG-12 Lead Stat 07/07/25 14:30 Complete Blood Count AUTO DIFF Stat Comprehensive Metabolic Panel Stat Lipase Stat 07/07/25 16:09 CT abdomen pelvis w con Stat Ondansetron HCl (Ondansetron 4 Mg/2 Ml Inj) 4 mg IV NOW PRN PRN Reason: Nausea And Vomiting Last Admin: 07/07/25 14:41 Dose: 4 mg Documented By: AMY Ondansetron HCl (Ondansetron 4 Mg Odt) 4 mg PO NOW PRN PRN Reason: Nausea And Vomiting Discontinued Medications Lactated Ringer's (Lactated Ringers) 1,000 mls @ 1,000 mls/hr IV BOLUS ONE Stop: 07/07/25 16:57 Last Admin: 07/07/25 16:42 Dose: 1,000 mls/hr Documented By: MATEO Vital Signs Vital signs: Vital Signs - 8 hr 07/07/25 14:18 07/07/25 16:40 07/07/25 16:42 Temperature 97.3 F L Pulse Rate 95 H 90 88 Respiratory Rate 18 Blood Pressure 135/94 H Pulse Oximetry 99 99 99 Oxygen Delivery Method Room Air 07/07/25 16:42 07/07/25 17:00 07/07/25 17:00 Temperature Pulse Rate 91 H Respiratory Rate Blood Pressure 126/76 128/70 Pulse Oximetry 98 Oxygen Delivery Method 07/07/25 17:30 07/07/25 17:30 Temperature Pulse Rate 96 H Respiratory Rate Blood Pressure 108/67 Pulse Oximetry 98 Oxygen Delivery Method MDM - Nausea/Vomiting/Diarrhea Lab Data 07/07/25 14:30 07/07/25 14:30 Labs: Lab Results 07/07/25 Range/Units 14:30 WBC 14.3 H (4.5-11.0) X10^3/uL RBC 3.95 L (4.0-5.2) X10^6/uL Hgb 14.4 (12.0-16.0) g/dL Hct 41.7 (36-46) % MCV 105.7 H (80-100) fL MCH 36.5 H (26-34) PG MCHC 34.5 (30-36) % RDW 14.6 (11.6-14.8) % Plt Count 317 (150-400) X10^3/uL Neut % (Auto) 76.5 H (50-75) % Lymph % (Auto) 13.2 L (25-40) % [place] % (Auto) 9.1 (3-14) % Eos % (Auto) 0.9 L (2-4) % Baso % (Auto) 0.3 (0-2) % Neut # (Auto) 73934 H (4221-3251) /uL Lymph # (Auto) 1900 (0066-4113) /uL [place] # (Auto) 1300 H (0-900) /uL Eos # (Auto) 100 (0-450) /uL Baso # (Auto) 0 (0-100) /uL Sodium 122 L (137-145) mmol/L Potassium 3.6 (3.4-5.1) mmol/L Chloride 84 L (98-107) mmol/L Carbon Dioxide 24 (22-32) mmol/L BUN 9 (7-17) mg/dL Creatinine 0.59 (0.52-1.04) mg/dL Estimated GFR > 60 (>60) mL/min BUN/Creatinine Ratio 15.3 (6-22) Glucose 90 (70-99) mg/dL Calcium 8.6 (8.4-10.2) mg/dL Total Bilirubin 1.3 (0.2-1.3) mg/dL AST 72 H (14-36) IU/L ALT 33 (<35) IU/L Alkaline Phosphatase 180 H (38-126) U/L Total Protein 7.7 (6.3-8.2) g/dL Albumin 3.9 (3.5-5.0) g/dL Globulin 3.8 (1.7-4.1) g/dL Albumin/Globulin Ratio 1.0 (1.0-2.8) Lipase 125 (23-300) U/L Imaging Data CT scan - abdomen/pelvis: Radiologist's Impression: [address] [address] [address] Scan Report Signed Patient: Fadia Ceballos MR#: [id number] : 1960 Acct:[id number] Age/Sex: 64 / F Date of Service: 07/07/25 Loc: ED Accession Number: [id number] Procedure: CT abdomen pelvis w con Ordering Provider: Bahman Vinson D.O. PROCEDURE: CT ABDOMEN PELVIS W CON INDICATIONS: abd pain/ n/v/d TECHNIQUE: After the administration of intravenous contrast, axial sections acquired from the lung bases to the pubic symphysis. Coronal and sagittal reformats were performed. For radiation dose reduction, the following was used: automated exposure control, adjustment of mA and/or kV according to patient size. COMPARISON: [facility], CT, CT ABDOMEN PELVIS W CON, 12/24/2022, 15:31. FINDINGS: Image quality: Diagnostic. Lower Chest: Three-vessel coronary calcifications. ABDOMEN: Liver: Moderate to severe hepatic steatosis. Smooth contour. Gallbladder: No radiopaque gallstones or wall thickening. Biliary ducts: No biliary dilation. Pancreas: No ductal dilation. Spleen: Size is within normal limits. Adrenal Glands: No adrenal nodules. Kidneys and Ureters: No hydronephrosis. No solid mass. No complex renal cystic lesion which requires follow up. Stomach and Bowel: Mild distension of the small bowel, with mucosal wall thickening. No transition point. Gastric rugae are prominent. Colonic diverticulosis without evidence of diverticulitis. Peritoneum: No abnormal intraperitoneal fluid. No free air. Ventral Wall: No significant ventral hernia. Abdominal Nodes: No retroperitoneal or mesenteric adenopathy by size criteria. Vessels: Aorta and inferior vena cava are normal in size. PELVIS: Pelvic Organs: Unremarkable. Bladder: No bladder wall thickening, accounting for underdistention. Pelvic Nodes: No enlarged lymph nodes. Miscellaneous: No inguinal hernias are seen. Bones: Chronic compression deformity of L5-S1. Left hip arthroplasty. IMPRESSION: Gastroenteritis. Dictated by: Yaya Guevara M.D. on 07/07/2025 at 17:16 Approved by: Yaya Guevara M.D. on 07/07/2025 at 17:20 ECG Data Interpretation: NSR HR 99 NH 132 QRS [address]-t wave change Unchanged from 01/03/25 MDM Narrative Medical decision making narrative: All lab work, vital signs, nurse triage note, medication list, previous ER visits, and all imaging studies reviewed. CT abdomen showed gastroenteritis. WBC 14.3 hemoglobin 14.4 platelet 370 sodium 122 potassium 3.6 chloride 84 CO2 24 BUN 9 creatinine 0.59 glucose 90 calcium 8.6 AST 72 alk-phos 180 T bili 1.3 patient received lactated ringer 1 L bolus and Zofran 4mg IV. Case discussed with Dr. Cordoba who has graciously accepted pt for inpatient admission. Differential diagnosis pancreatitis, diverticulitis, gastroenteritis, dehydration, constipation, electrolyte derangement. Discharge Plan Departure Patient Disposition: Admitted as Observation Clinical Impression: Gastroenteritis, Acute hyponatremia Admit Date/Time: 07/07/25 18:13 Admit Provider: Duke Cordoba
--- NOTE | 2025-07-07 16:09 | DI.CT.S_ITS ---
PROCEDURE: CT ABDOMEN PELVIS W CON
[2025-07-07] MEDS: LACTATED RINGERS 1,000 ML 1000 ML IV (16:42)
--- NOTE | 2025-07-07 17:03 | PC.NURSE ---
patient reporting nausea and vomiting x several weeks and decrease in appetite son states that the second she drinks water or food she vomits
--- NOTE | 2025-07-07 18:18 | P.HP_ITS ---
History of Present Illness
--- NOTE | 2025-07-07 18:18 | PM.HP.1 ---
History of Present Illness History of Present Illness Date Patient Seen: 07/07/25 Time Patient Seen: 18:18 Chief complaint: vomitting, diarrhea, 1wk Narrative: This is a 64 year old female with a history of chronic diarrhea, alcoholism and protein calorie malnutrition who presents with 7 days of progressive nausea, vomiting and diarrhea. She drinks 4 glasses of wine a day and says her last drink was 2 days ago. She says that sometimes she goes through withdrawal but usually does not when she stops drinking. She appears to be significantly dehydrated with a white blood count of 14.7, hemoglobin 14.4, sodium 122 and AST of 72. Lipase is 125. CT scan shows diffuse gastroenteritis. Assessment and plan: Acute gastroenteritis, present on admission. Active. -nausea, vomiting and diarrhea with hyponatremia and daily alcohol use. -check GI PCR panel -CT scan reassuring that no other process is present. -lipase 125, white blood count is 14.7. -IV fluid support and CIWA protocol planned. -clear liquid diet Daily alcohol use, present on admission. Active. -CIWA protocol for potential alcohol withdrawal -IV fluid support, folate, thiamine and B12. -stat magnesium level. Last level in the chart from 2 weeks ago was 1.3. -dietitian consult for malnourishment Alcoholic hepatitis, present on admission. Active. -ALT 33 with AST 72 and alkaline phosphatase 180. -follow Hyponatremia, present on admission. Active. -careful/measured sodium replacement therapy with IV NS with goal of bringing sodium up by 6-8 in the next 24 hours. Her son, who lives in [facility], is her backup decision maker. Enoxaparin for DVT prevention. [facility] Medical History Alcoholism Chronic diarrhea H/O fracture of left hip Protein calorie malnutrition Surgical History Status post appendectomy Status post breast lumpectomy Status post hip hemiarthroplasty Status post hysterectomy Social History household members: none Smoking Status: Former smoker alcohol intake: current Meds Home Medications and Allergies Home Medications ?Medication ?Instructions ?Recorded ?Confirmed ?Type magnesium chloride 64 mg 64 mg PO BID #60 tabs 06/20/25 Rx (magnesium chloride) tablet,delayed release oxycodone 5 mg tablet 5 mg PO Q4HR PRN Pain, Moderate 06/20/25 Rx (4-6) #10 tabs potassium chloride 20 mEq 20 meq PO DAILY #30 tabs 06/20/25 Rx tablet,extended release Allergies Allergy/AdvReac Type Severity Reaction Status Date / Time Penicillins (PENICILLINS) Allergy Intermediate rash Verified 07/07/25 14:24 morphine AdvReac Intermediate Hallucinati Verified 07/07/25 14:24 ng Review of Systems Review of Systems Narrative: Positive for nausea, vomiting, abdominal pain, diarrhea. Negative for fevers, chills, sweats, chest pain, coughing, shortness breast, bleeding, rash, joint pain, new allergies. Exam Vital Signs (past 8 hours): - 07/07/25 14:18 07/07/25 16:40 07/07/25 16:42 Temperature 97.3 F L Pulse Rate 95 H 90 88 Respiratory Rate 18 Blood Pressure 135/94 H Pulse Oximetry 99 99 99 Oxygen Delivery Method Room Air 07/07/25 16:42 07/07/25 17:00 07/07/25 17:00 Temperature Pulse Rate 91 H Respiratory Rate Blood Pressure 126/76 128/70 Pulse Oximetry 98 Oxygen Delivery Method 07/07/25 17:30 07/07/25 17:30 Temperature Pulse Rate 96 H Respiratory Rate Blood Pressure 108/67 Pulse Oximetry 98 Oxygen Delivery Method Oxygen Delivery Method Room Air Narrative Exam Narrative: Alert and oriented x3. No apparent distress. Sclerae are pale but nonicteric. Extraocular muscles are intact. Pupils are equally round and reactive to light and accommodation. Throat looks normal. No lymph nodes are felt head, neck, supraclavicular area. There is no thyromegaly. JVD is less than 6 cm. Heart is regular rate and rhythm without murmur. Lungs are clear to auscultation bilaterally. Abdomen is soft, bowel sounds positive, diffusely mildly tender. No organomegaly. Extremities have no ankle edema. Skin is pale without jaundice or rash. Motor function is 4/5 throughout. There is no tremor. Cranial nerves 2-12 test intact. Reflexes are symmetric. Leg musculature and arm musculature is very atrophied. Objective Imaging CT scan - abdomen: Radiologist's impression: PROCEDURE: CT ABDOMEN PELVIS W CON INDICATIONS: abd pain/ n/v/d TECHNIQUE: After the administration of intravenous contrast, axial sections acquired from the lung bases to the pubic symphysis. Coronal and sagittal reformats were performed. For radiation dose reduction, the following was used: automated exposure control, adjustment of mA and/or kV according to patient size. COMPARISON: [facility], CT, CT ABDOMEN PELVIS W CON, 12/24/2022, 15:31. FINDINGS: Image quality: Diagnostic. Lower Chest: Three-vessel coronary calcifications. ABDOMEN: Liver: Moderate to severe hepatic steatosis. Smooth contour. Gallbladder: No radiopaque gallstones or wall thickening. Biliary ducts: No biliary dilation. Pancreas: No ductal dilation. Spleen: Size is within normal limits. Adrenal Glands: No adrenal nodules. Kidneys and Ureters: No hydronephrosis. No solid mass. No complex renal cystic lesion which requires follow up. Stomach and Bowel: Mild distension of the small bowel, with mucosal wall thickening. No transition point. Gastric rugae are prominent. Colonic diverticulosis without evidence of diverticulitis. Peritoneum: No abnormal intraperitoneal fluid. No free air. Ventral Wall: No significant ventral hernia. Abdominal Nodes: No retroperitoneal or mesenteric adenopathy by size criteria. Vessels: Aorta and inferior vena cava are normal in size. PELVIS: Pelvic Organs: Unremarkable. Bladder: No bladder wall thickening, accounting for underdistention. Pelvic Nodes: No enlarged lymph nodes. Miscellaneous: No inguinal hernias are seen. Bones: Chronic compression deformity of L5-S1. Left hip arthroplasty. IMPRESSION: Gastroenteritis. Dictated by: Yaya Guevara M.D. on 07/07/2025 at 17:16 Labs 07/07/25 14:30 07/07/25 14:30 Labs: Laboratory Results - last 24 hr 07/07/25 14:30 WBC 14.3 H RBC 3.95 L Hgb 14.4 Hct 41.7 MCV 105.7 H MCH 36.5 H MCHC 34.5 RDW 14.6 Plt Count 317 Neut % (Auto) 76.5 H Lymph % (Auto) 13.2 L [place] % (Auto) 9.1 Eos % (Auto) 0.9 L Baso % (Auto) 0.3 Neut # (Auto) 31233 H Lymph # (Auto) 1900 [place] # (Auto) 1300 H Eos # (Auto) 100 Baso # (Auto) 0 Sodium 122 L Potassium 3.6 Chloride 84 L Carbon Dioxide 24 BUN 9 Creatinine 0.59 Estimated GFR > 60 BUN/Creatinine Ratio 15.3 Glucose 90 Calcium 8.6 Total Bilirubin 1.3 AST 72 H ALT 33 Alkaline Phosphatase 180 H Total Protein 7.7 Albumin 3.9 Globulin 3.8 Albumin/Globulin Ratio 1.0 Lipase 125 Assessment & Plan Time-Based Coding :: [TOTAL MINUTES] spent with patient and on the chart (including review of chart, obtaining history, exam, reviewing outside data, placing orders, documenting exam and treatment plan, and counseling patient) on [DATE].
[2025-07-07 18:29] LABS: Culture Indicated Urine Cult Not Indicated
[2025-07-07 19:15] LABS: Magnesium 1.5 mg/dL (1.6-2.3)
[2025-07-07 19:57] LABS: Clostridium difficile toxin AB Not Detected (Not Detect); Enteroaggregative E.coli Not Detected (Not Detect); Enteropathogenic E.coli Not Detected (Not Detect); Enterotoxigenic E.coli It/st Not Detected (Not Detect); Plesiomonsa shigelloides Not Detected (Not Detect); Shiga-like toxin-prod E.coli Not Detected (Not Detect)
[2025-07-07] MEDS: DEXTROSE 5%-0.9% NS 1,000 ML 125 ML IV (20:11)
[2025-07-07] MEDS: CYANOCOBALAMIN 1,000 MCG/ML VIAL 1000 MCG IM (20:27)
[2025-07-08] VITALS (7 sets, daily range): BP systolic 97–121; BP diastolic 54–75; PULSE 78–92; RESP 14–18; TEMP 35.6–36.8; O2SAT 97–100
[2025-07-08] MEDS: ONDANSETRON 4 MG ODT PO (00:14)
--- NOTE | 2025-07-08 05:33 | PC.NURSE ---
[employer] downtime. see paper charting [id number]
[2025-07-08] MEDS: DEXTROSE 5%-0.9% NS 1,000 ML 125 ML IV ×2 (05:50→12:23)
[2025-07-08 05:55] LABS: Add Manual Diff / Slide Review NO; Hematocrit 32.6 % (36-46); Hemoglobin 11.5 g/dL (12.0-16.0); Lymphocytes Absolute Auto 1900 /uL (1100-4500); Mean Corpuscular HGB Conc 35.2 % (30-36); Mean Corpuscular Hemoglobin 37.1 PG (26-34); Mean Corpuscular Volume 105.5 fL (80-100); Platelet Count 215 X10^3/uL (150-400)
[2025-07-08 06:00] LABS: Blood Urea Nitrogen 6 mg/dL (7-17); Calcium 7.6 mg/dL (8.4-10.2); Carbon Dioxide 25 mmol/L (22-32); Chloride 91 mmol/L (98-107); Estimated Glomerular Filt Rate > 60 mL/min (>60); Glucose 126 mg/dL (70-99); HEMOLYSIS 20 (0-50); Sodium 123 mmol/L (137-145)
[2025-07-08 06:02] LABS: Magnesium 1.4 mg/dL (1.6-2.3)
[2025-07-08 06:09] LABS: Potassium 2.7 mmol/L (3.4-5.1)
--- NOTE | 2025-07-08 06:21 | PC.NURSE ---
Dr. Oconnell hospitalist notified of K+- 2.7. Mg-1.4
[2025-07-08] MEDS: POTASSIUM CHLORIDE IN WATER 10 MEQ/100 ML PIGGYBACK 100 MEQ IV ×6 (06:44→13:43)
--- NOTE | 2025-07-08 07:41 | PM.PN.1 ---
Subjective Subjective Date Patient Seen: 07/08/25 Interval history: This is a 64 year old female with a history of chronic diarrhea, alcoholism and protein calorie malnutrition who presented with 7 days of progressive nausea, vomiting and diarrhea. She drinks 4 glasses of wine a day and says her last drink was 2 days ago. She says that sometimes she goes through withdrawal but usually does not when she stops drinking. She appears to be significantly dehydrated with a white blood count of 14.7, hemoglobin 14.4, sodium 122 and AST of 72. Lipase is 125. CT scan shows diffuse gastroenteritis. 07/08: Her son called from [facility], where he now lives, with appropriate concerns and questions. Subsequently the patient asked the medical planner that we not discuss plans/discharge/treatment with him without asking her 1st. His e-mail address is [email or web address]. Apparently there are barriers to long distance calling from hospital phones so he would prefer to be emailed. The magnesium level is low as expected at 1.4 so she is receiving 2 g IV. The potassium level has dropped from 3.6 down to 2.7 so she is receiving 60 mEq of IV potassium. The sodium level is unchanged at 123. The hemoglobin is 11.5 with a MCV of 105.5. Assessment and plan: Acute gastroenteritis, present on admission. Active. -nausea, vomiting and diarrhea with hyponatremia and daily alcohol use. -GI PCR panel and C diff tests are negative. -CT scan reassuring that no other process is present. -lipase 125, white blood count is down to 10.8. -IV fluid support and CIWA protocol continued -clear liquid diet, progress as tolerated. Daily alcohol use, present on admission. Active. -CIWA protocol for potential alcohol withdrawal -IV fluid support, folate, thiamine and B12. -magnesium level 1.5, then down to 1.4. Supplement. -dietitian consult for malnourishment Alcoholic hepatitis, present on admission. Active. -ALT 33 with AST 72 and alkaline phosphatase 180. -follow Hyponatremia, present on admission. Active. -careful/measured sodium replacement therapy with IV NS with goal of bringing sodium up by 6-8 in the next 24 hours. Protein calorie malnutrition dx: Severe acute on chronic protein calorie malnutrition r/t inadequate oral intakes with nausea/vomiting and excessive EtOH intake as evidenced by 4 glasses wine daily, <50% of estimated energy needs within the last month (severe), 11% weight loss within 1 month, 16% loss within 6 months (severe), chronically low BMI for age (16.9), presenting with acute gastroenteritis Her son, who lives in [facility], is her backup decision maker. She does not want him to be involved (from our side) in her discharge planning without her consent each time communication is initiated. Enoxaparin for DVT prevention. Exam Vital Signs (past 8 hours): - 07/08/25 00:01 07/08/25 01:39 07/08/25 04:00 Temperature 97.6 F 96.9 F L 98.2 F Pulse Rate 87 84 78 Respiratory Rate 16 14 16 Blood Pressure 111/58 L 112/73 116/54 L Pulse Oximetry 98 97 98 Oxygen Delivery Method Room Air Oxygen Flow Rate 0 Narrative Exam Narrative: Alert and oriented x3. No apparent distress. No signs of hallucinations. Heart is regular rate and rhythm without murmur. Lungs are clear to auscultation bilaterally. Abdomen is soft, bowel sounds positive, nontender, no organomegaly. Extremities have no ankle edema. Objective Labs 07/08/25 05:10 07/08/25 05:10 Labs: Laboratory Results - last 24 hr 07/07/25 07/07/25 07/08/25 14:30 18:11 05:10 WBC 14.3 H 10.8 RBC 3.95 L 3.09 L Hgb 14.4 11.5 L Hct 41.7 32.6 L MCV 105.7 H 105.5 H MCH 36.5 H 37.1 H MCHC 34.5 35.2 RDW 14.6 14.3 Plt Count 317 215 Neut % (Auto) 76.5 H 70.7 Lymph % (Auto) 13.2 L 17.9 L [place] % (Auto) 9.1 10.4 Eos % (Auto) 0.9 L 0.5 L Baso % (Auto) 0.3 0.5 Neut # (Auto) 45828 H 7700 H Lymph # (Auto) 1900 1900 [place] # (Auto) 1300 H 1100 H Eos # (Auto) 100 100 Baso # (Auto) 0 100 Sodium 122 L 123 L Potassium 3.6 2.7 L* Chloride 84 L 91 L Carbon Dioxide 24 25 BUN 9 6 L Creatinine 0.59 0.46 L Estimated GFR > 60 > 60 BUN/Creatinine Ratio 15.3 13.0 Glucose 90 126 H Calcium 8.6 7.6 L Magnesium 1.5 L 1.4 L Total Bilirubin 1.3 AST 72 H ALT 33 Alkaline Phosphatase 180 H Total Protein 7.7 Albumin 3.9 Globulin 3.8 Albumin/Globulin Ratio 1.0 Lipase 125 Urine RBC None seen Urine WBC None seen Ur Squamous Epith Cells 0-1 /hpf Urine Bacteria None seen Ur Culture Indicated? Cult not indicated Vol Urine Centrifuged 10ml (spun) Stl C. cayetanensis PCR Not detected Stool Rotavirus (PCR) Not detected Stool Adenovirus (PCR) Not detected Stool Astrovirus (PCR) Not detected Stool Cryptosporidium PCR Not detected Stl E.coli Shiga Tox PCR Not detected St Sh/Enteroin Ecoli PCR Not detected Stl Enterotoxigenic E PCR Not detected Stool EPEC (PCR) Not detected Stl E. histolytica PCR Not detected Stool Giardia Lamblia PCR Not detected Stool Sapovirus (PCR) Not detected Stl P. shigelloides PCR Not detected St Y.enterocolitica PCR Not detected Stool Vibrio (PCR) Not detected Stl Vibrio cholerae PCR Not detected Stl Enteroaggr Ecoli PCR Not detected Stl Norovirus GI/GII PCR Not detected Campylobacter (PCR) Not detected C. difficile Tox (PCR) Not detected Salmonella (PCR) Not detected PFSH Medical History Alcoholism Chronic diarrhea H/O fracture of left hip Protein calorie malnutrition Surgical History Status post appendectomy Status post breast lumpectomy Status post hip hemiarthroplasty Status post hysterectomy Social History household members: none Smoking Status: Former smoker alcohol intake: current Assessment & Plan Time-Based Coding :: [TOTAL MINUTES] spent with patient and on the chart (including review of chart, obtaining history, exam, reviewing outside data, placing orders, documenting exam and treatment plan, and counseling patient) on [DATE]. Quality VTE Deep Vein Thrombosis/Pulmonary Embolism Present on Admission: No
[2025-07-08] MEDS: FOLIC ACID 1 MG TABLET PO (08:09)
[2025-07-08] MEDS: MULTIVITAMIN 1 TABLET 1 TAB PO (08:09)
[2025-07-08] MEDS: ONDANSETRON 4 MG/2 ML INJ IV (08:09)
[2025-07-08] MEDS: MAGNESIUM CHLORIDE 64 MG TABLET 128 MG PO (08:10)
--- NOTE | 2025-07-08 10:22 | DIET.CONS ---
Dietary Consultation Note Admission Date: 07/07/2025 18:13 Assessment: 64 y F admitted for gastroenteritis. Dietitian consulted for malnutrition. Pt with 7 days of nausea/vomiting/diarrhea and further weight loss since last visit. Reported to drink 4 glasses of wine daily. Ht: 157.48 cm Wt: 42 kg BMI: 16.9 UBW: 47.627 kg on 06/17/25 (-11% weight loss in 1 month, severe), 50 kg on 04/09/25 (-16% weight loss in 3 months, severe) Last BM: 07/08/25 (07/08/25 09:31) MNA: 5 Guevara Score: 18 Diet: 07/08/25 Breakfast Clear Liquid Diet Diet Modifications: Labs: RBC 3.09 X10^6/uL (4.0-5.2) L 07/08/25 05:10 Hgb 11.5 g/dL (12.0-16.0) L 07/08/25 05:10 Hct 32.6 % (36-46) L 07/08/25 05:10 Creatinine 0.46 mg/dL (0.52-1.04) L 07/08/25 05:10 Nutrition Diagnosis: Severe acute on chronic protein calorie malnutrition r/t inadequate oral intakes with nausea/vomiting and excessive EtOH intake as evidenced by 4 glasses wine daily, <50% of estimated energy needs within the last month (severe), 11% weight loss within 1 month, 16% loss within 6 months (severe), chronically low BMI for age (16.9), presenting with acute gastroenteritis Interventions: Clear liquid diet currently, clears protein supplementation with meals EER: 1500 kcals (35 kcals/kg per BMI) 60 g protein (1.5 g/kg current weight vs 16% kcals) Monitoring/Evaluations: diet advancement, PO tolerance Electronically Signed by: Marissa Allison 07/08/25 10:22 Clinical Dietitian [address] [address]
--- NOTE | 2025-07-08 14:05 | OT.IP.EVAL ---
Current Diagnoses Noninfective gastroenteritis and colitis, unspecified (07/07/25) Past Medical History (Last Reviewed 06/20/25 @ 12:25 by Maximiliano Gillespie MD) Alcoholism Chronic diarrhea H/O fracture of left hip Protein calorie malnutrition Surgical History (Last Reviewed 06/20/25 @ 12:25 by Maximiliano Gillespie MD) Status post appendectomy Status post breast lumpectomy Status post hip hemiarthroplasty Status post hysterectomy Occupational Therapy Inpatient Evaluation/Re-Eval M1 OT IP Prior Functional Status Start: 07/08/25 14:37 Freq: Status: Active Protocol: Document 07/08/25 14:38 [facility] (Rec: 07/08/25 14:54 [facility] Desktop) Medical Review Prior Functional Status Communication I Mobility and Gait I Activities of Daily Pt states able to do her ADL, pay her bills and take Living and IADL's her meds on her own. Pt's neighbors assist with IADL needs and as needed. Social History Household Members none Living Arrangements House Number of Floors ( One Floor Floors) Number of Stairs To One step to enter with no rail and one step down to the Enter/Railing? living room with right hand rail. Home Environment Walk in Shower,Tub/Shower Home Equipment Front Wheel Walker,Shower Seat without Backrest,Hand Held Shower M2 OT-IP Current Condition Start: 07/08/25 14:37 Freq: Status: Active Protocol: Document 07/08/25 14:38 [facility] (Rec: 07/08/25 14:54 [facility] Desktop) Occupational Therapy Current Condition Current Condition Evaluation Date 07/08/25 Treatment Diagnosis Acute gastroenteritis Diagnosis Onset Date 07/07/25 M3 OT- IP Subjective and Pain Start: 07/08/25 14:37 Freq: Status: Active Protocol: Document 07/08/25 14:38 [facility] (Rec: 07/08/25 14:54 [facility] Desktop) OT- Subjective Occupational Therapy Visit Type Type Initial Evaluation Visit Start Time 14:05 Visit Stop Time 14:38 Occupational Therapy Visit Comments Patient Comments Pt agreed to get up to use the BSC. Patient/Caregiver TO go go home. Goals OT Pain Assessment Pain When Pain Assessed At Rest Pain Present Pain Present Pain Reported Location left ribs Intensity 3 Scale Used Numeric (0 - 10) M4 OT- IP ADL's Start: 07/08/25 14:37 Freq: Status: Active Protocol: Document 07/08/25 14:38 [facility] (Rec: 07/08/25 14:54 [facility] Desktop) OT [id number] Comments OT Self-Feeding Not at meal time. Comments OT ADL-Grooming General Evaluation Grooming Ability Standby Assistance OT ADL-Oral Care Comments Oral Care Comments Not observed. OT ADL-Dressing General Eval Lower Body Dressing Standby Assistance Ability Comments OT Dressing Comments Pt able to manage own brief on the BSC. OT ADL-Toileting General Evaluation Toileting Ability Standby Assistance OT ADL-Bathing Comments OT Bathing Comments Pt states at home able to sit on the shower chair if needed. M5 OT- IP IADL's Start: 07/08/25 14:37 Freq: Status: Active Protocol: Document 07/08/25 14:38 [facility] (Rec: 07/08/25 14:54 [facility] Desktop) OT-Instrumental Activities of Daily Living Home Safety Awareness Ability to Problem Able to Problem Solve Solve Emergency Situations Medication Management Medication Pt would benefit from supervision. Management Comments Money Management Money Management Pt would benefit from supervision. Comments Meal Preparation Meal Preparation Caregiver Provides Assist Supervisor Cytogenetic Laboratory Supervisor Cytogenetic Laboratory Caregiver Provides Assist Driving Driving Concerns Identified Regarding Safety Driving Comments Pt states has not driven in two weeks. M6 OT- IP Functional Cognition Start: 07/08/25 14:37 Freq: Status: Active Protocol: Document 07/08/25 14:38 [facility] (Rec: 07/08/25 14:54 [facility] Desktop) Cognitive Factors Limiting Selfcare Function Cognitive Ability Level of Alertness Alert Patient Orientation Name,Age,Birthday,Month,Date,Year,Day of Week,Place, Situation Attention Span Capable of Focused Attention,Capable of Sustained Ability Attention Ability to Follow Able to Follow One Step Commands with Increased Time, Commands Able to Follow One Step Commands with Repetition Memory Description Short Term Impaired,Working Impaired Cognitive Tests SLUMS Pt scored 18/30 which implies dementia, pt scored 19/30 on last admission 03/25/25. Pt not able to subtract 100 -23, able to recall 12 animals in one minute, not able to recall any on the 5 objects after time passed, and able to answer 2/4 questions right after paragraph read . Pt having low Na and K which mat be affecting her thinking. To reassess cognition as pt improves. 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 Pt after doing SLUMS aware Comments that she is not thinking well and just feels tired. OT- Vision and Hearing OT- Hearing Assessment OT- Hearing Left Ear Impaired Assessment OT- Vision Assessment Visual Acuity Glasses For Reading Visual Attentiveness WFL Occular Pursuits WFL M7 OT- IP Mobility and Balance Start: 07/08/25 14:37 Freq: Status: Active Protocol: Document 07/08/25 14:38 [facility] (Rec: 07/08/25 14:54 [facility] Desktop) OT- Bed Mobility Assessment Supine to Sit Supine to Sit Assist Standby Assistance Sit to Supine Sit to Supine Assist Standby Assistance OT-Transfer Assessment Sit to and From Stand Sit to and from Standby Assistance Stand Transfers Transfer Ability Standby Assistance Technique Transfer Destination Bed,Bedside Commode Comments Mobility Comments SBA with no device and able to transfer to and from the bed to BSC. Pt having 2 IV poles and therefore did not opt to get to the toilet in the bathroom. OT- Balance Assessment Sitting Balance and Reactions Static Sitting Normal Balance Ability Dynamic Sitting Normal Balance Ability Standing Balance and Reactions Static Standing Good Balance Ability Dynamic Standing Fair Balance Ability M8 OT- IP Objective Assessments Start: 07/08/25 14:37 Freq: Status: Active Protocol: Document 07/08/25 14:38 [facility] (Rec: 07/08/25 14:54 [facility] Desktop) OT Gross Range of Motion Upper Extremity Range of Motion Assessment Within Functional Limits OT Strength Upper Extremity Strength Assessment Within Functional Limits OT- Coordination Assessment Upper Extremity Finger to Nose Test Within Functional Limits M9 OT- IP Assessment and Plan Start: 07/08/25 14:37 Freq: Status: Active Protocol: Document 07/08/25 14:38 [facility] (Rec: 07/08/25 14:54 [facility] Desktop) OT Summary Assessment and Plan Potential Rehabilitation Excellent Potential Analytic Complexity Moderate at Evaluation Summary OT Impairments Pain,Balance,Functional Cognition,Functional Mobility, Grooming,Dressing,Toileting,Bathing,Toilet Transfers, Shower Transfers,Activity Tolerance Progress Towards Slow Progress due to Medical Issues,Slow Progress due Goals to Activity Tolerance Assessment Summary Pt MOD complexity and main barriers are decreased STM , problem solving but may be affect by low Na, and soreness to her left ribs due to rib fx last month. Pt will benefit from / assist available at home and possibly home health. Pt scored 18/30 on the SLUMS which implies dementia, however to retest as her sodium number is low. Goals Self-Feeding Goal Independent Grooming Goal Independent Dressing Goal Independent Toileting Goal Independent Bathing Goal Independent Toilet Transfer Goal Independent Shower Transfer Goal Independent Days to Meet Goals 5 Frequency of Treatment Other frequency 5x/week Treatment Plan OT Treatment Plan ADL Training,Functional Cognition Training,Functional Mobility,Patient/Family Education,Discharge Planning Discharge Recommendations OT Discharge Home with 24/ Assist Available,Home Health Recommendations Transportation Needs Private Vehicle at Discharge
[2025-07-08] MEDS: MAGNESIUM SULFATE 2 GM/50 ML PIGGYBACK IV (14:56)
--- NOTE | 2025-07-08 15:50 | PT.IIE ---
Current Diagnoses Noninfective gastroenteritis and colitis, unspecified (07/07/25) Surgical History (Last Reviewed 06/20/25 @ 12:25 by Maximiliano Gillespie MD) Status post appendectomy Status post breast lumpectomy Status post hip hemiarthroplasty Status post hysterectomy Medical History (Last Reviewed 06/20/25 @ 12:25 by Maximiliano Gillespie MD) Alcoholism Chronic diarrhea H/O fracture of left hip Protein calorie malnutrition Physical Therapy Inpatient Evaluation/Re-Eval M1 PT IP Prior Functional Status Start: 07/08/25 18:07 Freq: NEEDED Status: Active Protocol: Document 07/08/25 15:50 [facility] (Rec: 07/08/25 18:17 AB [id number]) Medical Review Prior Functional Status Medical History Yes Reviewed Communication able to make needs known Mobility and Gait pt stated that she was modified independent with all mobilities without AD but occasionally uses a 4WW for ambulation Activities of Daily per OT note: Pt states able to do her ADL, pay her Living and IADL's bills and take her meds on her own. Pt's neighbors assist with IADL needs and as needed. Social History Household Members none Living Arrangements House Number of Floors ( One Floor Floors) Number of Stairs To 1 step to enter the house Enter/Railing? 1 step down to sunken living room Home Environment Standard Height Toilet,Walk in Shower Home Equipment Four Wheel Walker,Shower Seat with Backrest,Hand Held Shower,Grab Bars Near Toilet,Grab Bars In Shower Additional Social pt stated that she has friends who comes in regularly History Comment to check on her and she can ask for assistance if needed M2 PT-IP Current Condition Start: 07/08/25 18:07 Freq: NEEDED Status: Active Protocol: Document 07/08/25 15:50 [facility] (Rec: 07/08/25 18:17 AB [id number]) Physical Therapy Current Condition Current Condition Evaluation Date 07/08/25 Treatment Diagnosis gastroenteritis; difficulty in walking Onset Date 07/07/25 M3 PT-IP Subjective Start: 07/08/25 18:07 Freq: NEEDED Status: Active Protocol: Document 07/08/25 15:50 [facility] (Rec: 07/08/25 18:17 AB [id number]) Subjective Physical Therapy Visit Type Type Initial Evaluation Visit Start Time 15:50 Visit Stop Time 16:15 Number of DRUG SAFETY SPECIALIST Visits 0 Physical Therapy Visit Comments Patient Comments needs encouragement to participate Therapy Pain Assessment Pain Present Pain Present Denied Pain M4 PT-IP Mobility and Gait Start: 07/08/25 18:07 Freq: NEEDED Status: Active Protocol: Document 07/08/25 15:50 [facility] (Rec: 07/08/25 18:17 AB [id number]) PT-Bed Mobility Assessment Supine to Sit Supine to Sit Standby Assistance Sit to Supine Sit to Supine Standby Assistance PT-Transfer Assessment Sit to and From Stand Sit to and from Contact Guard Assistance,1 Person Assistance,Use of Stand Upper Extremities Equipment Transfer Assistive Gait Belt,Front Wheeled Walker Device Orthotic/Prosthetic No Devices or Brace: Transfers Transfer Destination Toilet Transfer Technique ambulated Transfer Ability Level of Assist Contact Guard Assistance,1 Person Assistance,Use of Upper Extremities Comments Mobility Comments pt in bed and was about to get up with nursing home director to use the toilet as requested. PT took over pt's care . pt stated that she is willing to get up to use the toilet but no further PT afterwards. supine to sit SBA . able to sit on EOB SBA. sit to stand CGA and ambulated to the toilet using FWW CGA. cued for safety . pt needed assistance for brief management. sit to stand from the toilet using grab bar CGA and pt ambulated towards the bed using fWW CGA. refused to walk to the sink. sit to supine SBA. positioned pt in bed. call light and table placed next to pt. obtained PLOF and home set up from pt. pt stated that she wants to go home. Gait Assessment Gait Gait Assistance Contact Guard Assist Required: Distance (Feet) 15 Able to Maintain Yes Weight Bearing Status During Gait Assistive Devices Assistive Device Gait Belt,Front Wheeled Walker Orthotic/Prosthetic No Devices or Brace: Gait Deviations General Gait Pattern Antalgic,Decreased Stride Length,Decreased Feet Clearance Factors Limiting Gait Function Factors Limiting Decreased Activity Tolerance,Decreased Strength,Poor Gait Function Balance,Poor Safety Awareness PT-Balance Assessment Sitting Balance and Reactions Static Sitting Good Balance Ability Dynamic Sitting Good Balance Ability Standing Balance and Reactions Static Standing Good Balance Ability Dynamic Standing Good Balance Ability Device Used FWW M5 PT-IP Objective Assessments Start: 07/08/25 18:07 Freq: NEEDED Status: Active Protocol: Document 07/08/25 15:50 [facility] (Rec: 07/08/25 18:17 AB [id number]) Orientation Orientation/Cognition Level of Alertness Alert Orientation Name,Place,Situation Language Function No Deficits Noted Ability Safety Awareness Decreased Safety Awareness Strength Lower Extremity Strength Assessment Within Functional Limits Muscle Tone Muscle Tone WNL Yes M6 PT-IP Treatment Start: 07/08/25 18:07 Freq: NEEDED Status: Active Protocol: Document 07/08/25 15:50 AB (Rec: 07/08/25 18:17 AB [id number]) Physical Therapy Treatment Education Education Provided Safety M7 PT-IP Assessment and Plan Start: 07/08/25 18:07 Freq: NEEDED Status: Active Protocol: Document 07/08/25 15:50 AB (Rec: 07/08/25 18:17 AB [id number]) PT Summary Assessment and Plan Potential Rehabilitation Fair Potential Status of Condition Evolving at Evaluation Summary Impairments Pain,Strength,Balance,Coordination,Sensation,Bed Mobility,Transfers,Gait,Activity Tolerance Assessment Summary pt is a 64 y/o F who is admitted for gastroenteritis. pt requiring CGA for mobility using FWW. pt was mod I with ambulation without AD with just occasional use of 4WW prior to admission. pt presents with decrease activity tolerance affecting mobility independence. will continue to assess progress. Goals Bed Mobility Goal Independent Transfer Goal Independent,Four Wheeled Walker Gait Goal Independent,Four Wheel Walker Gait Distance 150 Other Goals improve transfers, ambulation without AD ~ 100 ft mod I up/down 1 step using 4WW/without AD mod I Days to Meet Goals 10 Frequency of Treatment Frequency Of Once a Day Treatment Treatment Plan Physical Therapy Bed Mobility Training,Transfer Training,Gait Training, Treatment Plan Therapeutic Exercise,Balance Retraining,Discharge Planning,Hot or Cold Pack,Neuromuscular Re-ed, Coordination Retraining,Manual Therapy Precautions Other Precautions falls Recommendations To Nursing Amount of Assist 1 Person Assist Needed Discharge Recommendations PT Discharge Home with Assistance,Home Health Recommendations Transportation Needs Private Vehicle at Discharge - PT assist 1
--- NOTE | 2025-07-08 15:57 | CM.DANOTE ---
DCP Assessment note pt is a 64yo F admitted with gastroentroitis. recent rib fx from [facility] as well. vomiting/diarrhea for past week. low sodium/potassium/magnesium. hx of Alcohol misuse. previously reported 1-3 drinks daily. highest CIWA this admission was 7, primarily due to nausea/vomiting. INTERN ARCHITECT reviewed EMR. per provider, request from son this INTERN ARCHITECT coordinate with him for DCP. son lives in [place], can be challenging to speak with him on phone. reachable at email [email or web address]. per previous CM notes from pt's admission in March 2025, complicated family dynamic between son and pt. see previous CM notes for more. INTERN ARCHITECT entered room and introduced self and role. pt resting in bed. confirms living home alone in [place] with a CG Joy 3days/week. does not remember hours. ambulates normally by furniture surfing but has a walker if needs it. reports being able to ambulate since rib fx but it's sore now. reports son in [place] gets too into [her] business and requested this hospital team ask her before disclosing information to him. pt adamantly denies that her fall was while under the influence of alcohol. INTERN ARCHITECT attempted to provide education on how her medical concerns could be linked to her chronic alcohol use. pt reports paying her bills and getting her groceries delivered. CG transports her as needed. gets groceries delivered. CG Joy will be plan for ride home. pt reports being open to [facility] restarting. adamantly refuses SNF. refuses ETOH reduction/cessation information INTERN ARCHITECT sent initial ref to [facility] . report that they attempted SOC with pt from ED visit but pt refused services at the door. open to trying again. F2f/order needed. per OT rec home with assistance/HH. OT SLUMS , but could be impacted by abnormal labs. INTERN ARCHITECT sent son and email to update him on pt's communication preference. P: anticipate home when medically stable with CG to transport and [facility] to follow. consider [facility] referral to [place] vs [facility]? referral at [place] if needed. Will continue to follow closely for DCP Coordination MARY JANE Mg Discharge Planning/Care Management Advanced directive, confirm from FAMILY Start: 07/07/25 19:36 Freq: Q24H Status: Active Protocol: Document 07/07/25 19:36 GY (Rec: 07/07/25 21:46 GY [id number]) Co-signed By Fabi Espinoza RN Advance Directive, confirm on record Time 21:44 Person contacted unknown - Copy received No Advanced directive No available on record CM Discharge Assessment Start: 07/07/25 18:56 Freq: Status: Active Protocol: Document 07/08/25 15:54 SL (Rec: 07/08/25 15:55 SL [id number]) Discharge Planning Assessment Assigned Discharge MARY JANE 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 No Advance Directives No on File History Provided By Patient,Friend,Medical Record Prior Living House Arrangements Household Members none Type of Relies on Others transporation used prior to admit Needs Assistance Home Chores / Shopping With DME Already Rented / FWW / Walker Owned Patient/Family Long Term Facility,Home with Home Health Preference Discharge Plan Home with Home Health Transportation TBD Arrangement Referrals Initiated Home Health Review Status In Process Please Provide Date 07/08/25 Initial DC Assessment Was Performed Next Review Type Continued Stay Review
[2025-07-08 16:01] LABS: HEMOLYSIS 19 (0-50); Potassium 3.6 mmol/L (3.4-5.1)
[2025-07-08] MEDS: THIAMINE 100 MG in SODIUM CHLORIDE 0.9% 100 ML 404 MG IV (18:15)
[2025-07-08] MEDS: SODIUM CHLORIDE 0.9% 1,000 ML 125 ML IV (21:31)
[2025-07-09] VITALS (7 sets, daily range): BP systolic 95–123; BP diastolic 65–89; PULSE 61–88; RESP 16–19; TEMP 36.1–36.8; O2SAT 96–99
[2025-07-09] MEDS: CALCIUM CARBONATE 500 MG TAB 1000 MG PO (01:37)
[2025-07-09] MEDS: MELATONIN 3 MG TABLET 6 MG PO (02:09)
[2025-07-09] MEDS: SODIUM CHLORIDE 0.9% 1,000 ML 125 ML IV ×2 (04:44→21:39)
[2025-07-09] MEDS: ONDANSETRON 4 MG/2 ML INJ IV (04:50)
[2025-07-09 04:52] LABS: Add Manual Diff / Slide Review NO; Hematocrit 32.5 % (36-46); Hemoglobin 11.1 g/dL (12.0-16.0); Lymphocytes Absolute Auto 1700 /uL (1100-4500); Mean Corpuscular HGB Conc 34.1 % (30-36); Mean Corpuscular Hemoglobin 36.6 PG (26-34); Mean Corpuscular Volume 107.3 fL (80-100); Platelet Count 199 X10^3/uL (150-400)
[2025-07-09 05:06] LABS: Calcium 7.8 mg/dL (8.4-10.2); Carbon Dioxide 24 mmol/L (22-32); Chloride 99 mmol/L (98-107); Estimated Glomerular Filt Rate > 60 mL/min (>60); Glucose 103 mg/dL (70-99); HEMOLYSIS < 15 (0-50); Magnesium 1.8 mg/dL (1.6-2.3); Potassium 3.2 mmol/L (3.4-5.1); Sodium 125 mmol/L (137-145)
[2025-07-09 05:08] LABS: Blood Urea Nitrogen 2 mg/dL (7-17)
[2025-07-09] MEDS: POTASSIUM CHLORIDE IN WATER 10 MEQ/100 ML PIGGYBACK 100 MEQ IV ×4 (08:58→15:33)
[2025-07-09] MEDS: FOLIC ACID 1 MG TABLET PO (09:01)
[2025-07-09] MEDS: MULTIVITAMIN 1 TABLET 1 TAB PO (09:01)
[2025-07-09] MEDS: ENOXAPARIN 40 MG/0.4 ML SYRINGE SUBCUT (09:02)
--- NOTE | 2025-07-09 11:37 | PT-IP ANOTE ---
checked on pt and pt refused PT. pt does not want PT to check back later but agreed for tomorrow.
--- NOTE | 2025-07-09 12:07 | OT.IPNOTE ---
Pt refused as not feeling well today to participate in OT.
--- NOTE | 2025-07-09 15:11 | DIET.PN1 ---
Dietary Progress Note Assessment: NFPE performed with severe muscle mass wasting in temples and deltoid and severe subcutaneous fat loss in buccal and orbital fat pads. Reviewed with pt what she is able to tolerate right now and adjusted meal order. Currently sipping on juice. Does not tolerate any Ensure supplements. Reports throwing up Ensure back up if tries it. Ht: 157.48 cm Wt: 42 kg BMI: 16.9 Last BM: 07/09/25 (07/09/25 12:24) MNA: 5 Guevara Score: 19 Diet: 07/09/25 Lunch Full Liquid Diet Diet Modifications: Patient may have ice cream Nutrition Percent Meal Consumed 0% 07/09/25 09:00 Percent Meal Consumed 50% 07/08/25 18:00 Percent Meal Consumed 25% 07/08/25 14:16 Labs: RBC 3.03 X10^6/uL (4.0-5.2) L 07/09/25 04:35 Hgb 11.1 g/dL (12.0-16.0) L 07/09/25 04:35 Hct 32.5 % (36-46) L 07/09/25 04:35 Creatinine 0.37 mg/dL (0.52-1.04) L 07/09/25 04:35 Electronically Signed by: Marissa Allison 07/09/25 15:11 Clinical Dietitian [address] [address]
--- NOTE | 2025-07-09 16:12 | CM.DPNOTE ---
DCP note PHOTOGRAPHER FINISH reviewed EMR per chart review, labs remain abnormal. here at least another day. PHOTOGRAPHER FINISH updated [facility]. emailed f2f/HH order. P: dc home with CG and [facility] to follow when stable. update son as able per pt permission. will continue to follow closely for DCP Coordination MARY JANE Mg
--- NOTE | 2025-07-09 16:42 | PC.NURSE ---
Pt received 4 bags of KCL t/o day Pt only tolerated rate of 50cc/hr Thiamine late due to the KCL length Call light w/in reach Bed alarm on for pt safety. Continue w/plan of care.
--- NOTE | 2025-07-09 16:54 | PM.PN.1 ---
Subjective Subjective Date Patient Seen: 07/09/25 Interval history: Chief complaint: Diarrhea weakness nausea vomiting anorexia in a patient with chronic alcoholism and hepatic steatosis History of present illness: 07/08: This is a 64 year old female with a history of chronic diarrhea, alcoholism and protein calorie malnutrition who presented with 7 days of progressive nausea, vomiting and diarrhea. She drinks 4 glasses of wine a day and says her last drink was 2 days ago. She says that sometimes she goes through withdrawal but usually does not when she stops drinking. She appears to be significantly dehydrated with a white blood count of 14.7, hemoglobin 14.4, sodium 122 and AST of 72. Lipase is 125. CT scan shows diffuse gastroenteritis. 07/08: Her son called from [facility], where he now lives, with appropriate concerns and questions. Subsequently the patient asked the athletic team physician that we not discuss plans/discharge/treatment with him without asking her 1st. His e-mail address is [email or web address]. Apparently there are barriers to long distance calling from hospital phones so he would prefer to be emailed. The magnesium level is low as expected at 1.4 so she is receiving 2 g IV. The potassium level has dropped from 3.6 down to 2.7 so she is receiving 60 mEq of IV potassium. The sodium level is unchanged at 123. The hemoglobin is 11.5 with a MCV of 105.5. Hospital course: 07/09: Some loose stool overnight but not copious diarrhea no further vomiting at this time white count 7.4 Sodium 125 potassium 3.2 slightly improved from admission Review of systems: No chest pain palpitations shortness for breath No cough No urinary symptom No paresthesia paresis Physical exam: Chronically ill elderly female HEENT unremarkable No labored respirations Abdomen nontender nontender Extremities no edema Neuro nonfocal Assessment and plan: Acute gastroenteritis, present on admission. Active. -nausea, vomiting and diarrhea with hyponatremia and daily alcohol use. -GI PCR panel and C diff tests are negative. -CT scan reassuring that no other process is present. -lipase 125, white blood count is down to 10.8. -IV fluid support and CIWA protocol continued -clear liquid diet, progress as tolerated. Daily alcohol use, present on admission. Active. -CIWA protocol for potential alcohol withdrawal -IV fluid support, folate, thiamine and B12. -magnesium level 1.5, then down to 1.4. Supplement. -dietitian consult for malnourishment Alcoholic hepatitis, present on admission. Active. -ALT 33 with AST 72 and alkaline phosphatase 180. -follow Hyponatremia, present on admission. Active. -careful/measured sodium replacement therapy with IV NS with goal of bringing sodium up by 6-8 in the next 24 hours. Protein calorie malnutrition dx: Severe acute on chronic protein calorie malnutrition r/t inadequate oral intakes with nausea/vomiting and excessive EtOH intake as evidenced by 4 glasses wine daily, <50% of estimated energy needs within the last month (severe), 11% weight loss within 1 month, 16% loss within 6 months (severe), chronically low BMI for age (16.9), presenting with acute gastroenteritis DVT prophylaxis: Enoxaparin Code status: Full code Her son, who lives in [facility], is her backup decision maker. She does not want him to be involved (from our side) in her discharge planning without her consent each time communication is initiated. Time based billin minutes were involved in the management of this patient including [id number] evaluation physical examination review of records review of objective laboratory and imaging findings discussion with care team Exam Vital Signs (past 8 hours): - 07/09/25 11:12 07/09/25 15:00 Temperature 97.8 F 97.0 F L Pulse Rate 61 86 Respiratory Rate 18 18 Blood Pressure 105/66 95/67 Pulse Oximetry 96 99 Oxygen Delivery Method Room Air Oxygen Flow Rate 0 Objective Labs 07/09/25 04:35 07/09/25 04:35 Labs: Laboratory Results - last 24 hr 07/09/25 04:35 WBC 7.4 RBC 3.03 L Hgb 11.1 L Hct 32.5 L MCV 107.3 H MCH 36.6 H MCHC 34.1 RDW 14.0 Plt Count 199 Neut % (Auto) 61.8 Lymph % (Auto) 22.5 L [place] % (Auto) 12.4 Eos % (Auto) 2.3 Baso % (Auto) 1.0 Neut # (Auto) 4500 Lymph # (Auto) 1700 [place] # (Auto) 900 Eos # (Auto) 200 Baso # (Auto) 100 Sodium 125 L Potassium 3.2 L Chloride 99 Carbon Dioxide 24 BUN 2 L Creatinine 0.37 L Estimated GFR > 60 BUN/Creatinine Ratio 5.4 L Glucose 103 H Calcium 7.8 L Magnesium 1.8 PFSH Medical History Alcoholism Chronic diarrhea H/O fracture of left hip Protein calorie malnutrition Surgical History Status post appendectomy Status post breast lumpectomy Status post hip hemiarthroplasty Status post hysterectomy Social History household members: none Smoking Status: Former smoker alcohol intake: current Assessment & Plan Time-Based Coding :: [TOTAL MINUTES] spent with patient and on the chart (including review of chart, obtaining history, exam, reviewing outside data, placing orders, documenting exam and treatment plan, and counseling patient) on [DATE]. Quality VTE Deep Vein Thrombosis/Pulmonary Embolism Present on Admission: No
[2025-07-09] MEDS: THIAMINE 100 MG in SODIUM CHLORIDE 0.9% 100 ML 404 MG IV (19:26)
[2025-07-09] MEDS: ONDANSETRON 4 MG ODT PO (22:08)
[2025-07-10 03:00] VITALS: BP 138/76; PULSE 94; RESP 16; TEMP 36.2; O2SAT 96
[2025-07-10 05:10] LABS: Calcium 7.9 mg/dL (8.4-10.2); Carbon Dioxide 20 mmol/L (22-32); Chloride 103 mmol/L (98-107); Estimated Glomerular Filt Rate > 60 mL/min (>60); Glucose 93 mg/dL (70-99); HEMOLYSIS < 15 (0-50); Potassium 3.4 mmol/L (3.4-5.1); Sodium 128 mmol/L (137-145)
[2025-07-10 05:19] LABS: Blood Urea Nitrogen < 2 mg/dL (7-17)
[2025-07-10] MEDS: SODIUM CHLORIDE 0.9% 1,000 ML 125 ML IV ×2 (06:08→22:01)
[2025-07-10 07:00] VITALS: BP 103/67; PULSE 92; RESP 16; TEMP 36.7; O2SAT 97
--- NOTE | 2025-07-10 08:16 | PT.IPTN ---
Current Diagnoses Noninfective gastroenteritis and colitis, unspecified (07/07/25) Physical Therapy Treatment Note M2 PT-IP Current Condition Start: 07/08/25 18:07 Freq: NEEDED Status: Active Protocol: Document 07/10/25 07:54 SP (Rec: 07/10/25 12:45 SP [id number]) Physical Therapy Current Condition Current Condition Evaluation Date 07/08/25 Treatment Diagnosis gastroenteritis; difficulty in walking Onset Date 07/07/25 M3 PT-IP Subjective Start: 07/08/25 18:07 Freq: NEEDED Status: Active Protocol: Document 07/10/25 07:54 SP (Rec: 07/10/25 12:45 SP [id number]) Subjective Physical Therapy Visit Type Type Treatment Note Visit Start Time 07:54 Visit Stop Time 08:16 Number of CHILD DEVELOPMENT TEACHER Visits 1 Physical Therapy Visit Comments Patient Comments Pt agreeable to working with CHILD DEVELOPMENT TEACHER. Patient Goals return home and her neighborhood friends to help her. M4 PT-IP Mobility and Gait Start: 07/08/25 18:07 Freq: NEEDED Status: Active Protocol: Document 07/10/25 07:54 SP (Rec: 07/10/25 12:45 SP [id number]) PT-Bed Mobility Assessment Supine to Sit Supine to Sit Independent Scooting Scooting to Edge of Independent Bed PT-Transfer Assessment Sit to and From Stand Sit to and from Contact Guard Assistance,1 Person Assistance,Use of Stand Upper Extremities Equipment Transfer Assistive Gait Belt,Front Wheeled Walker Device Orthotic/Prosthetic No Devices or Brace: Transfers Transfer Destination Chair Transfer Technique ambulated with no AD, then with FWW Transfer Ability Level of Assist Standby Assistance,Contact Guard Assistance,Minimal Assistance,1 Person Assistance,Use of Upper Extremities Comments Mobility Comments Vitals pre mobility: RUE BP 106/66 HR 76 Naz 2 98% on RA. Pt complete elevated supine>sit and scoot to EOB Mod I. CGA/MIn A coming to standing, little unsteady with no AD, grabs bed rails. She intermittently touches bed when walking to and back to chair approx 30 ft, unsteady sways, CHILD DEVELOPMENT TEACHER provided CG/Min A and managed IV pole. Pt required seated rest due to low energy and strength, I am suprised am not as strong, able to walk around bed with FWW SBA withgood stability. Completed 2 single portable step mgt with Counter at L support, CG-5%A due to leg weakness 2nd step up. Seated rest at front of chair balance NBOS and Semi tandem Head turns good but unable complete EC, LOB Min A recovery. Pt was up in chair with call light and all needs in reach befroe left. Gait Assessment Gait Gait Assistance Standby Assistance,Contact Guard Assist,Minimum Required: Assistance,1 Person Assist Distance (Feet) 30 Able to Maintain Yes Weight Bearing Status During Gait Assistive Devices Assistive Device None,Gait Belt,Front Wheeled Walker Orthotic/Prosthetic No Devices or Brace: Gait Deviations General Gait Pattern Antalgic,Decreased Stride Length,Decreased Feet Clearance,Lateral Trunk Lean,Narrow Based Gait Factors Limiting Gait Function Factors Limiting Decreased Activity Tolerance,Decreased Strength,Poor Gait Function Balance,Poor Safety Awareness Comments Gait Comments see mobiliy comments Stair Climbing Assessment Evaluation Level of Assist On Contact Guard Assistance,Minimal Assistance,1 Person Stairs Assistance Devices Stair Climbing Left Railing Assistive Devices Technique/Endurance Stair Climbing Ascend and Descend Direction Stair Climbing Step to Step Technique Number of Steps 1 Climbed Stair Climbing Set # 2 Repetitions (reps) Comments Stair Climbing see mobility comments Comments PT-Balance Assessment Sitting Balance and Reactions Static Sitting Normal Balance Ability Dynamic Sitting Good Balance Ability Standing Balance and Reactions Static Standing Normal Balance Ability Dynamic Standing Good Balance Ability Device Used FWW, no AD: fair static, poor dynamic Comments Other Balance Tests/ NBOS head turns stable, EC LOB Min A recover Deviations/Treatment Semitandem head turns stable : M5 PT-IP Objective Assessments Start: 07/08/25 18:07 Freq: NEEDED Status: Active Protocol: Document 07/08/25 15:50 AB (Rec: 07/08/25 18:17 [id number]) Orientation Orientation/Cognition Level of Alertness Alert Orientation Name,Place,Situation Language Function No Deficits Noted Ability Safety Awareness Decreased Safety Awareness Strength Lower Extremity Strength Assessment Within Functional Limits Muscle Tone Muscle Tone WNL Yes M6 PT-IP Treatment Start: 07/08/25 18:07 Freq: NEEDED Status: Active Protocol: Document 07/08/25 15:50 AB (Rec: 07/08/25 18:17 [id number]) Physical Therapy Treatment Education Education Provided Safety M7 PT-IP Assessment and Plan Start: 07/08/25 18:07 Freq: NEEDED Status: Active Protocol: Document 07/10/25 07:54 SP (Rec: 07/10/25 12:45 SP [id number]) PT Summary Assessment and Plan Potential Rehabilitation Fair Potential Status of Condition Evolving at Evaluation Summary Impairments Pain,Strength,Balance,Coordination,Sensation,Bed Mobility,Transfers,Gait,Activity Tolerance Progress Towards Progressing Toward Goals,Slow Progress due to Activity Goals Tolerance Assessment Summary pt is a 64 y/o F who is admitted for gastroenteritis. pt requiring SBA for mobility using FWW, CG/Min A no AD wtih unsteady sways. balance assessment fair stability , unable EC LOB Min A recovery no UE support. gait CG/ Min A no AD due to unsteady sways, SBA with FWW, CG/ Min A step mgt. Pt has single steps between rooms of her home. REcommending HHPT for prgogress strength and balance, use of FWW for all mobiltiy, 27/03 available she states her friends can give her support. Goals Bed Mobility Goal Independent Transfer Goal Independent,Four Wheeled Walker Gait Goal Independent,Four Wheel Walker Gait Distance 150 Other Goals improve transfers, ambulation without AD ~ 100 ft mod I up/down 1 step using 4WW/without AD mod I Days to Meet Goals 10 Frequency of Treatment Frequency Of Once a Day Treatment Treatment Plan Physical Therapy Bed Mobility Training,Transfer Training,Gait Training, Treatment Plan Therapeutic Exercise,Balance Retraining,Discharge Planning,Hot or Cold Pack,Neuromuscular Re-ed, Coordination Retraining,Manual Therapy Other balance activities, further distance FWW and trial SPC/ Recommendations and LRAD. contine step mgt. Assessing friend support for Next Treatment Focus 27/03 . Precautions Other Precautions falls Recommendations To Nursing Amount of Assist Standby Assistance Needed Discharge Recommendations PT Discharge Home with 27/03 Assist Available,Home Health,Home vs SNF Recommendations Transportation Needs Private Vehicle,Wheelchair/Cabulance at Discharge - PT assist 1
[2025-07-10] MEDS: ENOXAPARIN 40 MG/0.4 ML SYRINGE SUBCUT (08:35)
[2025-07-10] MEDS: FOLIC ACID 1 MG TABLET PO (08:37)
[2025-07-10] MEDS: MULTIVITAMIN 1 TABLET 1 TAB PO (08:38)
[2025-07-10] MEDS: POTASSIUM CHLORIDE 20 MEQ TAB 40 MEQ PO (10:14)
[2025-07-10 10:50] VITALS: BP 122/76; PULSE 85; RESP 18; TEMP 36.4; O2SAT 97
[2025-07-10] MEDS: THIAMINE 100 MG in SODIUM CHLORIDE 0.9% 100 ML 404 MG IV (11:02)
--- NOTE | 2025-07-10 11:53 | OT.IP.TRT ---
Current Diagnoses Noninfective gastroenteritis and colitis, unspecified (07/07/25) Occupational Therapy Treatment Note M2 OT-IP Current Condition Start: 07/08/25 14:37 Freq: Status: Active Protocol: Document 07/08/25 14:38 [facility] (Rec: 07/08/25 14:54 [facility] Desktop) Occupational Therapy Current Condition Current Condition Evaluation Date 07/08/25 Treatment Diagnosis Acute gastroenteritis Diagnosis Onset Date 07/07/25 M3 OT- IP Subjective and Pain Start: 07/08/25 14:37 Freq: Status: Active Protocol: Document 07/10/25 11:54 [facility] (Rec: 07/10/25 12:18 [facility] Desktop) OT- Subjective Occupational Therapy Visit Type Type Treatment Note Visit Start Time 11:45 Visit Stop Time 11:53 Occupational Therapy Visit Comments Patient Comments Pt not wanting to get out of bed but agreed to talk about OT needs at home. Patient/Caregiver Pt states not wanting to go home today or SNF and feels Goals not ready to go home yet. M4 OT- IP ADL's Start: 07/08/25 14:37 Freq: Status: Active Protocol: Document 07/08/25 14:38 [facility] (Rec: 07/08/25 14:54 [facility] Desktop) OT [id number] Comments OT Self-Feeding Not at meal time. Comments OT ADL-Grooming General Evaluation Grooming Ability Standby Assistance OT ADL-Oral Care Comments Oral Care Comments Not observed. OT ADL-Dressing General Eval Lower Body Dressing Standby Assistance Ability Comments OT Dressing Comments Pt able to manage own brief on the BSC. OT ADL-Toileting General Evaluation Toileting Ability Standby Assistance OT ADL-Bathing Comments OT Bathing Comments Pt states at home able to sit on the shower chair if needed. M5 OT- IP IADL's Start: 07/08/25 14:37 Freq: Status: Active Protocol: Document 07/08/25 14:38 [facility] (Rec: 07/08/25 14:54 [facility] Desktop) OT-Instrumental Activities of Daily Living Home Safety Awareness Ability to Problem Able to Problem Solve Solve Emergency Situations Medication Management Medication Pt would benefit from supervision. Management Comments Money Management Money Management Pt would benefit from supervision. Comments Meal Preparation Meal Preparation Caregiver Provides Assist Irrigation Specialist Irrigation Specialist Caregiver Provides Assist Driving Driving Concerns Identified Regarding Safety Driving Comments Pt states has not driven in two weeks. M6 OT- IP Functional Cognition Start: 07/08/25 14:37 Freq: Status: Active Protocol: Document 07/10/25 11:54 [facility] (Rec: 07/10/25 12:18 [facility] Desktop) Cognitive Factors Limiting Selfcare Function Cognitive Comments Cognitive Assessment Spoke at length regarding going to skilled rehab , and Comments pt adamantly refuses and wants to go home. At this time best for pt to have 24/7 available assist at home initially due to decreased safety awareness. Pt states looking to get more help but not such if able. Encouraged pt to get Life Alert. In addition to have neighbors around in the house while showering, as pt refuses to have someone to assist for showering needs. M7 OT- IP Mobility and Balance Start: 07/08/25 14:37 Freq: Status: Active Protocol: Document 07/08/25 14:38 [facility] (Rec: 07/08/25 14:54 [facility] Desktop) OT- Bed Mobility Assessment Supine to Sit Supine to Sit Assist Standby Assistance Sit to Supine Sit to Supine Assist Standby Assistance OT-Transfer Assessment Sit to and From Stand Sit to and from Standby Assistance Stand Transfers Transfer Ability Standby Assistance Technique Transfer Destination Bed,Bedside Commode Comments Mobility Comments SBA with no device and able to transfer to and from the bed to BSC. Pt having 2 IV poles and therefore did not opt to get to the toilet in the bathroom. OT- Balance Assessment Sitting Balance and Reactions Static Sitting Normal Balance Ability Dynamic Sitting Normal Balance Ability Standing Balance and Reactions Static Standing Good Balance Ability Dynamic Standing Fair Balance Ability M8 OT- IP Objective Assessments Start: 07/08/25 14:37 Freq: Status: Active Protocol: Document 07/08/25 14:38 [facility] (Rec: 07/08/25 14:54 [facility] Desktop) OT Gross Range of Motion Upper Extremity Range of Motion Assessment Within Functional Limits OT Strength Upper Extremity Strength Assessment Within Functional Limits OT- Coordination Assessment Upper Extremity Finger to Nose Test Within Functional Limits M9 OT- IP Assessment and Plan Start: 07/08/25 14:37 Freq: Status: Active Protocol: Document 07/10/25 11:54 [facility] (Rec: 07/10/25 12:18 [facility] Desktop) OT Summary Assessment and Plan Potential Rehabilitation Good Potential Analytic Complexity Moderate at Evaluation Summary OT Impairments Pain,Balance,Functional Cognition,Functional Mobility, Grooming,Dressing,Toileting,Bathing,Toilet Transfers, Shower Transfers,Activity Tolerance Progress Towards Progressing Toward Goals Goals Assessment Summary Pt not wanting to get up at this time and expressed concerns of going home but also not wanting to go to skilled rehab, hospitalist notified. Pt would benefit from 24/7 available assist or at least have a Life Alert. Pt to go home with 24/7 available assist and home health. Goals Self-Feeding Goal Independent Grooming Goal Independent Dressing Goal Independent Toileting Goal Independent Bathing Goal Standby Assistance Toilet Transfer Goal Independent Shower Transfer Goal Independent Days to Meet Goals 5 Frequency of Treatment Other frequency 5x/week Treatment Plan OT Treatment Plan ADL Training,Functional Cognition Training,Functional Mobility,Patient/Family Education,Discharge Planning Discharge Recommendations OT Discharge Home with 24/7 Assist Available,Home Health Recommendations Transportation Needs Private Vehicle at Discharge
[2025-07-10 14:00] VITALS: BP 123/65; PULSE 85; RESP 16; TEMP 36.7; O2SAT 97
--- NOTE | 2025-07-10 14:26 | CM.DPNOTE ---
DCP note PITTING MACHINE OPERATOR reviewed EMR per chart, sodium still a bit low. not eating a whole lot (only tiny bites) per provider in morning rounds anticipate dc when she is able to tolerate PO intake without vomiting. PT=SNF vs home with 24/7 assistance. PITTING MACHINE OPERATOR met with pt in room. Pt agrees to allow this PITTING MACHINE OPERATOR to speak with son Jorden re: medical updates. thinks he gets too involved in her business and he's too bossy. Adamantly refuses to even discuss the option of SNF placement. remains open to [facility]. open to asking CG if he can increase his hours. it won't be 24/7. adamantly denies someone being there at the house /. reports not feeling well enough to go home yet. is not open to wearing a life alert. PITTING MACHINE OPERATOR spoke with son Jorden. Jorden reports pt has been in and out of hospital/urgent care since March, recent Gastroenteristis at [facility], went home and then fell and fx ribs. CG Joy comes over daily, reprots pt drinks the wine boxes (1-2 boxes every 4 days). Not showering, dermatitis from not showering, sitting in dirty clothes. He has talked to APS, elder server support technician, and family members for guardianship/getting a state guardian in past- all report she does not qualify for one. did better when she was on Mirtazapine and stopped taking it. Tried life alert, purchased 4 of them in the past, pt cancels or throws them away. PITTING MACHINE OPERATOR encouraged son to consider calling [facility] if pt has a extreme decline, provided information on [facility]/contact information. P: plan to dc home when medically stable with [facility] to follow and CG support. Will continue to follow closely for DCP Coordination MARY JANE Mg
--- NOTE | 2025-07-10 15:40 | PC.NURSE ---
Pt resting at intervals T/O day. IVF infusing as per orders w/o incidence. Tele SR pe ICU staff, D/C this afternoon Ciwa = 0. x 2 Call light w/in reach. bed alarm on for pt safety. Continue w/plan of care.
--- NOTE | 2025-07-10 17:40 | PM.PN.1 ---
Subjective Subjective Date Patient Seen: 07/10/25 Interval history: Chief complaint: Diarrhea weakness nausea vomiting anorexia in a patient with chronic alcoholism and hepatic steatosis History of present illness: 07/08: This is a 64 year old female with a history of chronic diarrhea, alcoholism and protein calorie malnutrition who presented with 7 days of progressive nausea, vomiting and diarrhea. She drinks 4 glasses of wine a day and says her last drink was 2 days ago. She says that sometimes she goes through withdrawal but usually does not when she stops drinking. She appears to be significantly dehydrated with a white blood count of 14.7, hemoglobin 14.4, sodium 122 and AST of 72. Lipase is 125. CT scan shows diffuse gastroenteritis. 07/08: Her son called from [facility], where he now lives, with appropriate concerns and questions. Subsequently the patient asked the event planner that we not discuss plans/discharge/treatment with him without asking her 1st. His e-mail address is [email or web address]. Apparently there are barriers to long distance calling from hospital phones so he would prefer to be emailed. The magnesium level is low as expected at 1.4 so she is receiving 2 g IV. The potassium level has dropped from 3.6 down to 2.7 so she is receiving 60 mEq of IV potassium. The sodium level is unchanged at 123. The hemoglobin is 11.5 with a MCV of 105.5. Hospital course: 07/09: Some loose stool overnight but not copious diarrhea no further vomiting at this time white count 7.4 Sodium 125 potassium 3.2 slightly improved from admission 07/10: Having less stools overnight tolerating liquid diet at this time concerned about going home today Sodium improved to 128 potassium 3.4 Review of systems: No chest pain palpitations shortness for breath No cough No urinary symptom No paresthesia paresis Physical exam: Chronically ill elderly female HEENT unremarkable No labored respirations Abdomen nontender nontender Extremities no edema Neuro nonfocal Assessment and plan: Acute gastroenteritis, present on admission. Active. -nausea, vomiting and diarrhea with hyponatremia and daily alcohol use. -GI PCR panel and C diff tests are negative. -CT scan reassuring that no other process is present. -lipase 125, white blood count is down to 10.8. -IV fluid support and CIWA protocol continued -clear liquid diet, progress as tolerated. Daily alcohol use, present on admission. Active. -CIWA protocol for potential alcohol withdrawal -IV fluid support, folate, thiamine and B12. -magnesium level 1.5, then down to 1.4. Supplement. -dietitian consult for malnourishment Alcoholic hepatitis, present on admission. Active. -ALT 33 with AST 72 and alkaline phosphatase 180. -follow Hyponatremia, present on admission. Active. -careful/measured sodium replacement therapy with IV NS with goal of bringing sodium up by 6-8 in the next 24 hours. Protein calorie malnutrition dx: Severe acute on chronic protein calorie malnutrition r/t inadequate oral intakes with nausea/vomiting and excessive EtOH intake as evidenced by 4 glasses wine daily, <50% of estimated energy needs within the last month (severe), 11% weight loss within 1 month, 16% loss within 6 months (severe), chronically low BMI for age (16.9), presenting with acute gastroenteritis DVT prophylaxis: Enoxaparin Code status: Full code Her son, who lives in [facility], is her backup decision maker. She does not want him to be involved (from our side) in her discharge planning without her consent each time communication is initiated. Disposition: Anticipate discharge to home tomorrow with [facility] would be helpful if there could be opinions to at least check on her frequently Time based billin minutes were involved in the management of this patient including [id number] evaluation physical examination review of records review of objective laboratory and imaging findings discussion with care team Exam Vital Signs (past 8 hours): - 07/10/25 10:50 07/10/25 14:00 Temperature 97.5 F L 98.1 F Pulse Rate 85 85 Respiratory Rate 18 16 Blood Pressure 122/76 123/65 Pulse Oximetry 97 97 Oxygen Delivery Method Room Air Oxygen Flow Rate 0 Objective Labs 07/09/25 04:35 07/10/25 04:36 Labs: Laboratory Results - last 24 hr 07/10/25 04:36 Sodium 128 L Potassium 3.4 Chloride 103 Carbon Dioxide 20 L BUN < 2 L Creatinine 0.36 L Estimated GFR > 60 BUN/Creatinine Ratio 5.6 L Glucose 93 Calcium 7.9 L [facility] Medical History Alcoholism Chronic diarrhea H/O fracture of left hip Protein calorie malnutrition Surgical History Status post appendectomy Status post breast lumpectomy Status post hip hemiarthroplasty Status post hysterectomy Social History household members: none Smoking Status: Former smoker alcohol intake: current Assessment & Plan Time-Based Coding :: [TOTAL MINUTES] spent with patient and on the chart (including review of chart, obtaining history, exam, reviewing outside data, placing orders, documenting exam and treatment plan, and counseling patient) on [DATE]. Quality VTE Deep Vein Thrombosis/Pulmonary Embolism Present on Admission: No
[2025-07-10 20:08] VITALS: BP 130/80; PULSE 86; RESP 17; TEMP 36.4; O2SAT 99
[2025-07-10] MEDS: MIRTAZAPINE 15 MG TABLET 7.5 MG PO (22:00)
[2025-07-11 01:30] VITALS: BP 143/70; PULSE 83; RESP 16; TEMP 36.1; O2SAT 98
[2025-07-11 05:20] VITALS: BP 144/88; PULSE 85; RESP 16; TEMP 36.2; O2SAT 100
[2025-07-11 05:50] LABS: Blood Urea Nitrogen < 2 mg/dL (7-17); Calcium 7.8 mg/dL (8.4-10.2); Carbon Dioxide 22 mmol/L (22-32); Chloride 103 mmol/L (98-107); Estimated Glomerular Filt Rate > 60 mL/min (>60); Glucose 80 mg/dL (70-99); HEMOLYSIS < 15 (0-50); Potassium 3.1 mmol/L (3.4-5.1); Sodium 129 mmol/L (137-145)
[2025-07-11] MEDS: SODIUM CHLORIDE 0.9% 1,000 ML 125 ML IV (06:14)
[2025-07-11] MEDS: FOLIC ACID 1 MG TABLET PO (09:04)
[2025-07-11] MEDS: MULTIVITAMIN 1 TABLET 1 TAB PO (09:04)
[2025-07-11] MEDS: ENOXAPARIN 40 MG/0.4 ML SYRINGE SUBCUT (09:04)
[2025-07-11] MEDS: THIAMINE 100 MG in SODIUM CHLORIDE 0.9% 100 ML 404 MG IV (09:31)
[2025-07-11 11:00] VITALS: BP 131/79; PULSE 101; RESP 18; TEMP 36.4; O2SAT 100
--- NOTE | 2025-07-11 11:54 | CM.DPC ---
DCP Discharge Home with HH Per MD, pt is anxious to get home to her cat and today is her birthday and medically stable to d/c home and agreeable with HH referral. SW made [facility] referral and they confirm they take pt's insurance and can accept. SUR[facility] faxed [facility] and orders to review. Pt states she has either friend or CG coming to provide transport home today. SUR[facility] secure emailed son about pt's discharge home today. MARY JANE Hernandez
--- NOTE | 2025-07-11 12:21 | DIET.PN1 ---
Dietary Progress Note Assessment: Pt reports improved appetite today, ate gibraltarian toast this morning and hungry for lunch. Confirms she has food at home for when d/c and she gets grocery from [employer]. Reviewed a few good protein sources and encouraged additional 2 snacks daily on top of normal meals (denies ONS options) such as cottage cheese to help improve weight. Pt to d/c, f/u PRN. Ht: 157.48 cm Wt: 42 kg BMI: 16.9 UBW: Last BM: 07/11/25 (07/11/25 09:53) MNA: 5 Guevara Score: 19 Diet: 07/09/25 Lunch Full Liquid Diet Diet Modifications: Patient may have ice cream 07/11/25 Breakfast General (Regular) Diet Diet Modifications: Food Texture: Level 7 - Regular Liquid Consistency: Level 0 - Thin Nutrition Percent Meal Consumed 25% 07/10/25 18:00 Labs: RBC 3.03 X10^6/uL (4.0-5.2) L 07/09/25 04:35 Hgb 11.1 g/dL (12.0-16.0) L 07/09/25 04:35 Hct 32.5 % (36-46) L 07/09/25 04:35 Creatinine 0.38 mg/dL (0.52-1.04) L 07/11/25 05:00 Electronically Signed by: Marissa Allison 07/11/25 12:21 Clinical Dietitian [address] [address]
--- NOTE | 2025-07-11 15:19 | P.DS_ITS ---
History of Present Illness
--- NOTE | 2025-07-11 15:19 | PM.DS.IH.1 ---
History of Present Illness History of Present Illness Date Patient Seen: 07/11/25 Time Patient Seen: 08:50 Chief complaint: vomitting, diarrhea, 1wk Narrative: This is a 64 year old female with a history of chronic diarrhea, alcoholism and protein calorie malnutrition who presents with 7 days of progressive nausea, vomiting and diarrhea. She drinks 4 glasses of wine a day and says her last drink was 2 days ago. She says that sometimes she goes through withdrawal but usually does not when she stops drinking. She appears to be significantly dehydrated with a white blood count of 14.7, hemoglobin 14.4, sodium 122 and AST of 72. Lipase is 125. CT scan shows diffuse gastroenteritis. Discharge Providers Provider Date of admission: 07/07/25 18:13 Discharge Date: 07/11/25 Primary care physician: BRITTANY Alves Consults: 07/07/25 19:01 Consult to Dietitian, Adult Routine Comment: Reason For Exam: Malnourishment 07/08/25 12:37 Consult to Occupational Therapy Evaluate & Treat Comment: Physician Instructions: Evaluate and treat Consult to Physical Therapy Evaluate & Treat Comment: Physician Instructions: Evaluate and Treat 07/09/25 14:52 Consult to Home Health Routine Comment: Reason For Exam: RN/PT/OT Discharge provider: Maximiliano Gillespie MD Summary Hospital Course Discharge Diagnosis: 1. Acute gastroenteritis, present on admission 2. Alcohol use disorder 3. Alcoholic hepatitis 4. Hyponatremia Hospital Course: The patient was admitted and treated with IV fluids, electrolyte replacement, and monitoring on [facility] protocol for evidence of alcohol withdrawal. She was administered antiemetics and improved over subsequent days. Dietary was consulted regarding malnutrition. Her electrolytes improved and she was able to tolerate diet and interested in discharge home. No other issues arose. Status at Discharge Cognitive/behavioral status at discharge: oriented Functional status at discharge: independent ambulation Overall status at discharge: patient is back to baseline Time Spent with Patient Time spent: Less than 30 minutes Exam Vital Signs (past 8 hours): - 07/11/25 11:00 Temperature 97.5 F L Pulse Rate 101 H Respiratory Rate 18 Blood Pressure 131/79 Pulse Oximetry 100 Oxygen Delivery Method Room Air Oxygen Flow Rate 0 Narrative Exam Narrative: Alert and oriented x3. No apparent distress. Sclerae are pale but nonicteric. Extraocular muscles are intact. Pupils are equally round and reactive to light and accommodation. Throat looks normal. No lymph nodes are felt head, neck, supraclavicular area. There is no thyromegaly. JVD is less than 6 cm. Heart is regular rate and rhythm without murmur. Lungs are clear to auscultation bilaterally. Abdomen is soft, bowel sounds positive, nontender. No organomegaly. Extremities have no ankle edema. Skin is pale without jaundice or rash. Motor function is 5/5 throughout. There is no tremor. Cranial nerves 2-12 test intact. Reflexes are symmetric. Leg musculature and arm musculature is very atrophied. Objective Imaging *: Radiologist's impression: Abdomen pelvis CT 07/07/2025: ABDOMEN: Liver: Moderate to severe hepatic steatosis. Smooth contour. Gallbladder: No radiopaque gallstones or wall thickening. Biliary ducts: No biliary dilation. Pancreas: No ductal dilation. Spleen: Size is within normal limits. Adrenal Glands: No adrenal nodules. Kidneys and Ureters: No hydronephrosis. No solid mass. No complex renal cystic lesion which requires follow up. Stomach and Bowel: Mild distension of the small bowel, with mucosal wall thickening. No transition point. Gastric rugae are prominent. Colonic diverticulosis without evidence of diverticulitis. Peritoneum: No abnormal intraperitoneal fluid. No free air. Ventral Wall: No significant ventral hernia. Abdominal Nodes: No retroperitoneal or mesenteric adenopathy by size criteria. Vessels: Aorta and inferior vena cava are normal in size. PELVIS: Pelvic Organs: Unremarkable. Bladder: No bladder wall thickening, accounting for underdistention. Pelvic Nodes: No enlarged lymph nodes. Miscellaneous: No inguinal hernias are seen. Bones: Chronic compression deformity of L5-S1. Left hip arthroplasty. IMPRESSION: Gastroenteritis. Labs 07/09/25 04:35 07/11/25 05:00 Labs: Laboratory Results - last 24 hr 07/11/25 05:00 Sodium 129 L Potassium 3.1 L Chloride 103 Carbon Dioxide 22 BUN < 2 L Creatinine 0.38 L Estimated GFR > 60 BUN/Creatinine Ratio 5.3 L Glucose 80 Calcium 7.8 L [facility] Medical History Alcoholism Chronic diarrhea H/O fracture of left hip Protein calorie malnutrition Surgical History Status post appendectomy Status post breast lumpectomy Status post hip hemiarthroplasty Status post hysterectomy Social History household members: none Smoking Status: Former smoker alcohol intake: current Discharge Plan Discharge Plan Patient Disposition: Home Provider Discharge Comment: Followup with PCP 1 week Discharge orders & Medications Prescriptions: Discontinued ondansetron 4 mg tablet,disintegrating 4 mg PO Q8H PRN (Reason: nausea and vomiting) hydrocodone-acetaminophen 5-325 mg tablet 1 tab PO 3XD PRN (Reason: pain) potassium chloride 20 mEq tablet extended release 20 meq PO DAILY Qty: 30 0RF Follow up/Referrals: Maureen Mccullough, [facility] [Primary Care Provider, Nursing] Diet/Activity/Treatments Diet: Diet as Tolerated Visit Report/Discharge Packet Instructions: DI for Dehydration -- Adult, DI for Viral Gastroenteritis -- Adult, Gastroenteritis Diet Stand Alone Forms: Patient Portal/API, Stroke Signs & Symptoms Discharge Data Primary Care Provider: Maureen Mccullough Quality VTE Deep Vein Thrombosis/Pulmonary Embolism Present on Admission: No MIPS - Admit I confirm the patient?s Advance Care Plan is present, Code status is documented, Surrogate decision maker is in patient?s record [If Yes, STOP here]: Yes MIPS - Meds 'Current medications' to include all prescriptions, [id number] products, herbals, cannabis/cannabidiol products, and vitamin/mineral/dietary (nutritional) supplements. I have utilized all available resources to obtain, update, or review the patient?s current medications. [If Yes, STOP here]: Yes MIPS - DC The patient has a history of heart transplant or Left Ventricular Assist Device (LVAD). If yes, STOP here.: No The patient has current or prior documentation of left ventricular ejection fraction (LVEF) less than or equal to 40%, or moderate or severely depressed left ventricular systolic function.: No A. The patient was prescribed or already taking an Angiotensin-Converting Enzyme (KAITLIN) Inhibitor, or Angiotensin Receptor Dyan (ARB).: No B. The patient was prescribed or already taking a beta-dyan. [If Yes to Both A & B, STOP here]: No Patient not prescribed/taking KAITLIN or ARB, no reason given.: No Patient not prescribed/taking beta-dyan, no reason given.: No PROFEE Charge Codes Discharge inpatient/observation: [id number]
== END 2025-07-11 16:00 | disposition home health service (06) ==
LOC: ED 15:34 → AC 18:14
PROVIDERS: Emergency Medicine; Admitting Provider Family Medicine; Emergency Provider Family Medicine; PCP Nurse Practitioner; Referring Provider Family Medicine; Visit Provider Family Medicine
DX: E87.1 Hypo-osmolality and hyponatremia (principal); E43 Unspecified severe protein-calorie malnutrition; Z68.1 Body mass index [BMI] 19.9 or less, adult; K52.9 Noninfective gastroenteritis and colitis, unspecified; K70.10 Alcoholic hepatitis without ascites; F10.20 Alcohol dependence, uncomplicated; E86.0 Dehydration; Z87.891 Personal history of nicotine dependence; Z88.5 Allergy status to narcotic agent; Z88.0 Allergy status to penicillin
CPT/HCPCS: 36415; 74177; 80048; 80053; 81003; 81015; 83690; 83735; 84132; 85025; 87507; 93005; 96361; 96365; 96366; 96367; 96368; 96372; 96375; 96376; 97116; 97129; 97162; 97166; 97530; 99284; G0378; J1650; J2405; J3420; J3475; J7030; J7042; J7050; J7120; Q9967

== ENCOUNTER 2025-07-20 12:32 | Emergency (ER) | payer OTHER, SELFPAY ==
[2025-07-07 18:56] VITALS: BMI 16.9
[2025-07-20] VITALS (11 sets, daily range): BP systolic 102–120; BP diastolic 71–81; PULSE 95–110; RESP 18–32; TEMP 36.7; O2SAT 86–99
[2025-07-20 15:00] LABS: Add Manual Diff / Slide Review NO; Hematocrit 38.7 % (36-46); Hemoglobin 13.4 g/dL (12.0-16.0); Lymphocytes Absolute Auto 2800 /uL (1100-4500); Mean Corpuscular HGB Conc 34.5 % (30-36); Mean Corpuscular Hemoglobin 35.7 PG (26-34); Mean Corpuscular Volume 103.5 fL (80-100); Platelet Count 515 X10^3/uL (150-400)
--- NOTE | 2025-07-20 15:08 | EKG_ITS ---
[facility] [address] [place] [address] Test Date: 2025-07-20 Pat Name: Fadia Ceballos Department: [facility] Room: Gender: Female Ostomy Care Nurse: JOSE ENRIQUE : 1960 Requested By: Order Number: [id number] Reading MD: Bahman Vallejo MD Measurements Intervals Andrews Rate: 96 P: 64 ME: 146 QRS: 66 QRSD: 78 T: 89 QT: 378 QTc: 477 Interpretive Statements Normal sinus rhythm ST & T wave abnormality, consider inferior ischemia Electronically Signed On 07-21-2025 8:03:56 PST by Bahman Vallejo MD
[2025-07-20 15:14] LABS: Alanine Aminotransferase 24 IU/L (<35); Albumin 3.6 g/dL (3.5-5.0); Albumin Globulin Ratio 0.9 (1.0-2.8); Alkaline Phosphatase 154 U/L (38-126); Blood Urea Nitrogen 5 mg/dL (7-17); Calcium 9.1 mg/dL (8.4-10.2); Carbon Dioxide 18 mmol/L (22-32); Chloride 95 mmol/L (98-107); Estimated Glomerular Filt Rate > 60 mL/min (>60); Globulin 4.1 g/dL (1.7-4.1); Glucose 102 mg/dL (70-99); HEMOLYSIS 19 (0-50); Lactate (Lactic Acid) 1.0 mmol/L (0.7-2.1); Lipase 105 U/L (23-300); Potassium 3.3 mmol/L (3.4-5.1); Sodium 127 mmol/L (137-145); Total Protein 7.7 g/dL (6.3-8.2)
--- NOTE | 2025-07-20 15:48 | ED.NAVMDI ---
HPI - Nausea/Vomiting/Diarrhea General Chief complaint: Nausea/Vomiting/Diarrhea Stated complaint: Vomitting/Diarrhea 4days Time Seen by Provider: 07/20/25 14:50 Source: patient Mode of arrival: Wheelchair History of Present Illness HPI Narrative: Patient is a 65-year-old female history of chronic diarrhea, alcoholism protein malnutrition presenting today with increasingvomiting and hallucinations. Family at bedside concerned that she has had increasing confusion. She has had chronic diarrhea for years it is not any worse. She has had nausea off and on for a long time as well but possibly worse over last couple of days. She was recently admitted to the hospital July 07 through the for nausea vomiting diarrhea electrolyte abnormalities. She denies any abdominal pain. She has not had anything to drink in at least 4 days. She lives alone. Family concerned about ability to care for self. Related Data Previous Rx's ?Medication ?Instructions ?Recorded ondansetron 4 mg disintegrating 4 mg PO Q8H PRN nausea and 07/20/25 tablet vomiting #10 tabs Allergies Allergy/AdvReac Type Severity Reaction Status Date / Time Penicillins (PENICILLINS) Allergy Intermediate rash Verified 07/20/25 12:46 morphine AdvReac Intermediate Hallucinati Verified 07/20/25 12:46 ng Patient History Medical History Alcoholism Chronic diarrhea H/O fracture of left hip Protein calorie malnutrition Surgical History Status post appendectomy Status post breast lumpectomy Status post hip hemiarthroplasty Status post hysterectomy Social History household members: none alcohol intake: current alcohol intake frequency: 3 or more drinks per day Alcohol type: wine Exam Initial Vital Signs Initial Vital Signs: Vital Signs Temperature 98.1 F 07/20/25 12:46 Pulse Rate 110 H 07/20/25 12:46 Respiratory Rate 18 07/20/25 12:46 Blood Pressure 111/71 07/20/25 12:46 Pulse Oximetry 97 07/20/25 12:46 Oxygen Delivery Method Room Air 07/20/25 12:46 GENERAL: Alert thin 65-year-old female appears older than stated age HEENT: Head atraumatic,EOMI, pupils reactive, face symmetric, moist mucous membranes CARDIOVASCULAR: Regular rate and rhythm without murmurs, rubs or gallops. RESPIRATORY: Breath sounds equal bilaterally, no wheezes rales or rhonchi. ABDOMEN: Soft, nontender. Normoactive bowel sounds all 4 quadrants. No guarding or rebound. EXTREMITIES: Normal range of motion, no clubbing or edema. Neurovascularly intact NEUROLOGICAL: Alert and oriented x4.Normal gait and speech. Cranial nerves II through XII grossly intact. No tremors no shaking SKIN: Warm, dry, no laceration, no petechiae, no rashes or lesions. Course Orders Ordered: ED Orders 07/20/25 14:45 Complete Blood Count AUTO DIFF Stat Comprehensive Metabolic Panel Stat Lactate (Lactic Acid) Stat Lipase Stat 07/20/25 15:08 EKG-12 Lead Stat Sodium Chloride (Normal Saline 0.9%) 1,000 mls @ 1,000 mls/hr IV BOLUS ONE Stop: 07/20/25 15:49 Vital Signs Vital signs: Vital Signs - 8 hr 07/20/25 12:46 07/20/25 14:40 07/20/25 15:00 Temperature 98.1 F Pulse Rate 110 H 106 H 102 H Respiratory Rate 18 23 25 H Blood Pressure 111/71 Pulse Oximetry 97 97 96 Oxygen Delivery Method Room Air 07/20/25 15:00 Temperature Pulse Rate Respiratory Rate Blood Pressure 110/81 Pulse Oximetry Oxygen Delivery Method MDM - Nausea/Vomiting/Diarrhea Lab Data 07/20/25 14:45 07/20/25 14:45 Labs: Lab Results 07/20/25 Range/Units 14:45 WBC 16.5 H (4.5-11.0) X10^3/uL RBC 3.74 L (4.0-5.2) X10^6/uL Hgb 13.4 (12.0-16.0) g/dL Hct 38.7 (36-46) % MCV 103.5 H (80-100) fL MCH 35.7 H (26-34) PG MCHC 34.5 (30-36) % RDW 13.9 (11.6-14.8) % Plt Count 515 H (150-400) X10^3/uL Neut % (Auto) 74.5 (50-75) % Lymph % (Auto) 17.2 L (25-40) % [place] % (Auto) 7.0 (3-14) % Eos % (Auto) 0.3 L (2-4) % Baso % (Auto) 1.0 (0-2) % Neut # (Auto) 26542 H (2187-0649) /uL Lymph # (Auto) 2800 (2253-3521) /uL [place] # (Auto) 1200 H (0-900) /uL Eos # (Auto) 0 (0-450) /uL Baso # (Auto) 200 H (0-100) /uL Sodium 127 L (137-145) mmol/L Potassium 3.3 L (3.4-5.1) mmol/L Chloride 95 L (98-107) mmol/L Carbon Dioxide 18 L (22-32) mmol/L BUN 5 L (7-17) mg/dL Creatinine 0.57 (0.52-1.04) mg/dL Estimated GFR > 60 (>60) mL/min BUN/Creatinine Ratio 8.8 (6-22) Glucose 102 H (70-99) mg/dL Lactate 1.0 (0.7-2.1) mmol/L Calcium 9.1 (8.4-10.2) mg/dL Total Bilirubin 0.8 (0.2-1.3) mg/dL AST 43 H (14-36) IU/L ALT 24 (<35) IU/L Alkaline Phosphatase 154 H (38-126) U/L Total Protein 7.7 (6.3-8.2) g/dL Albumin 3.6 (3.5-5.0) g/dL Globulin 4.1 (1.7-4.1) g/dL Albumin/Globulin Ratio 0.9 L (1.0-2.8) Lipase 105 (23-300) U/L ECG Data Attestation: I personally reviewed and interpreted this ECG as follows: Prior ECG tracings: available for review Interpretation: Sinus rhythm rate 96 CT 146 QRS 70 QTC 4 changes no T-wave inversions similar to prior EKGs MDM Narrative Medical decision making narrative: [facility] CC: Nausea vomiting diarrhea Complicating co-morbidities: Alcohol use chronic diarrhea Data collected from: [ ] Medical records reviewed: Discharge summary from July 11 shows that she was admitted for acute gastroenteritis, alcohol use disorder alcoholic hepatitis hyponatremia. She was treated with IV fluids electrolyte replacement and CIWA protocol. Given antiemetics over a number of days. Consulted dietary in regards to her malnutrition. She tolerated p.o. fluids and was ultimately sent home. Differential considered: Electrolyte abnormality pancreatitis Exam documented above, pertinent findings include: Alert thin chronically ill 65-year-old female no acute distress moist mucous number Lab Test results independently reviewed as above. Pertinent findings: CBC does show some leukocytosis of 16.5 no significant anemia 13.4 hematocrit 38.7 Electrolytes stable hyponatremia sodium is 127 potassium 3.3 chloride 95 bicarb 18 BUN is 5 creatinine 0.5 all fairly stable and similar to prior Lactate 1.0 Glucose 102 Bilirubin liver enzymes within normal limits lipase 105 Independently reviewed EKG as above sinus rhythm no ischemia Imaging studies independently reviewed: None Consultations: [ ] Treatments: IV fluids Zofran Re-evaluations: Patient is tolerating p.o. fluids he is appear while sitting up talking appropriately brother at Discussion: Patient is 65-year-old female with chronic alcohol use disorder presenting today concern of family for possible hallucinations. They are concerned that she just drinks all day and does not eat. She has had chronic ongoing diarrhea which she reports is unchanged. She has had some nausea vomiting intermittently. Son was confused and was told to stop taking anti nausea medication not sure that I find this in the notes anywhere. I encouraged her to take p.o. Zofran she thinks she has some at home. Discussion with patient and brother at bedside. Patient went really like to go home. She does not appear to be in any acute alcohol withdrawal. Electrolytes are stableis chronically hyponatremic not any worse. She does have leukocytosis of 16. She has been unable to give us a stool sample she did not do a whole GI panel on the 11 of July which was negative. She reports chronic diarrhea. She is tolerating p.o. fluids she is awake alert appropriate at this time does not appear to be an acute danger to herself. Although I understand family concern of inability to care for self. But unable to for any kind of placement at this time. APS report made by social work social work notes appreciated. Discharge Plan Departure Patient Disposition: Home Clinical Impression: Gastroenteritis Instructions: DI for Dehydration -- Adult Activity Restrictions/Additional Instructions: *You have been diagnosed with gastroenteritis *What to do: At this time blood work is overall stable. *Continue to take medications as directed Zofran 4 mg every 8 hours if needed for nausea or vomit *Follow up with your primary care provider in 2-3 days or call [phone] *Return to ER if you should have increasing confusion passing out persistent nausea vomiting or any new, worsening or concerning symptoms Prescriptions: New ondansetron 4 mg tablet,disintegrating 4 mg PO Q8H PRN (Reason: nausea and vomiting) Qty: 10 0RF Referrals: Maureen Mccullough ARNP [Primary Care Provider, Nursing] Stand Alone Forms: Patient Portal/API
[2025-07-20] MEDS: SODIUM CHLORIDE 0.9% 1,000 ML 1000 ML IV (16:20)
[2025-07-20 18:48] LABS: Clostridium difficile toxin AB Not Detected (Not Detect); Enteroaggregative E.coli Not Detected (Not Detect); Enteropathogenic E.coli Not Detected (Not Detect); Enterotoxigenic E.coli It/st Not Detected (Not Detect); Plesiomonsa shigelloides Not Detected (Not Detect); Shiga-like toxin-prod E.coli Not Detected (Not Detect)
[2025-07-20] MEDS: ONDANSETRON 4 MG ODT PREPACK 1 BOTTLE MISC (18:50)
--- NOTE | 2025-07-20 19:25 | CM.SWNOTE ---
ED DIRECTOR OF RECRUITING Assessment Note: Pt is a 65yo female, resident of [place], is seen in the ED for nausea and vomiting, caregivers brought her in for concern of self-neglect, hallucinations and ETOH use. Pt lives in a house alone. Pt's Primary Care Provider is BRITTANY Alves and insurance is [employer] [facility]. Reviewed chart and discussed with multidisciplinary team pt's medical status and initial discharge needs. Pt was admitted for 6 days and was discharged on 07/11/25 with plans for [facility] to follow and caregiver to assist. DIRECTOR OF RECRUITING spoke with caregivers, Elsa and Joy, in person with pt son, Jorden, via phone call. Per caregiving team, pt presents with self neglect, not eating for the past four days, minimal hydration input other than glasses of wine. They report pt is still in the same soiled clothing she presented with at her previous admission two weeks ago and refuses to shower. They state patient has neglected follow up with medical providers, declined home health, declined paying for medical bills so her insurance lapsed. Patient son very concerned as pt can be very persuasive and fears he is not able to intervene when pt is not in safe environment. Patient caregiver states this has been a cycle for the past three years. Patient son has attempted getting pt placed at a SNF (pt left AMA) and when attempted Assisted Living Facility, pt did not meet needs criteria at intake assessment. Patient son and caregivers are all willing to write a Declaration of Witness of pt's grave disability and are hoping for [employer] activation for pt ETOH use and grave disability. They repeatedly state that pt's living situation is not habitable and there is no safe discharge home as no one can be with pt 27/03. DIRECTOR OF RECRUITING discussed above with ED Provider. ED Provider does not believe pt to be a candidate for [employer] as pt is no longer withdrawing from ETOH, pt is alert and oriented, and pt is able to verbalize discharge plans of taking medications as prescribed. Also, pt chronic medical conditions could be a barrier to placement, per ED Provider. Pt is medically cleared by ED Provider to discharge home. Pt brother, Bubba, flew in from [place] today and surprised pt in ED room. He states she can transport pt home if pt cleared. DIRECTOR OF RECRUITING entered room to meet with patient, introduced self and role. DIRECTOR OF RECRUITING discussed conversations with ED Provider and pt family/caregivers with pt. Pt states, I don't know why people keep saying I was admitted in the last two weeks, I was not. It is idetnified that pt does not recall this admission. Pt presents as guarded and agitated with this DIRECTOR OF RECRUITING, able to express her preference to discharge home and not be admitted. Pt expresses that she does not recognize why her caregivers and son are concerned for her, They can recommend all they want, I make the decisions for me. DIRECTOR OF RECRUITING discussed [facility] referral that was sent before pt discharge. Pt states she is agreeable to them but I tried to set it up and they gave me dl hastingso that they couldn't come so I gave up. It is revealed that since pt did not pay insurance premium, her insurance lapsed and they were not able to start care. 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 Intake # [id number]. DIRECTOR OF RECRUITING calls [facility] and discussed pt, requesting [facility] dispatch at pt home for concerns of grave disability. They took pt information and recommended that pt caregiver call for dispatch when pt arrives at home. DIRECTOR OF RECRUITING provided [facility] with caregiver, Elsa. She verbalized understanding of plan. DIRECTOR OF RECRUITING received a call from pt son, Jorden, who was upset that pt is being discharged; wanted more information on pt medical status. DIRECTOR OF RECRUITING directed pt son to speak with pt's RN. DIRECTOR OF RECRUITING sent [facility] an update via secure email of pt presentation and requested follow up if available per pt request. DIRECTOR OF RECRUITING reviews this with ED provider Dr. Patiño who indicates agreement and understanding. Plan: Pt to discharge home with brother, Bubba, to transport. [facility] to be dispatched for psych assessment in pt home via caregiver. FILIBERTO AntunezSW
--- NOTE | 2025-07-21 18:04 | CM.SWNOTE ---
ED PASTRY DECORATOR Follow Up Note: PASTRY DECORATOR received a voice message from APS Intake who states pt case has been Screened IN for investigation. Their Investigating team will be calling if more information is required. PASTRY DECORATOR spoke with [facility] ph# [phone]. She states she has been in contact with pt family and they are still concerned for patient cognition status. Patient is at home with caregivers and DCR is dispatched to home. PASTRY DECORATOR provided information requested for continuity of care, PASTRY DECORATOR faxed requested [facility] assessment, ED summary on 07/20/25 and H&P/Discharge summary from previous admission from 07/07/25-07/11/25 to fax#[phone]. FILIBERTO AntunezSW
== END 2025-07-20 19:25 | disposition home or self-care (01) ==
PROVIDERS: Emergency Provider Emergency Medicine; PCP Nurse Practitioner
DX: K52.9 Noninfective gastroenteritis and colitis, unspecified (principal); R11.2 Nausea with vomiting, unspecified; F10.90 Alcohol use, unspecified, uncomplicated
CPT/HCPCS: 36415; 80053; 81003; 83605; 83690; 85025; 87507; 93005; 99284; J7030